=== PATIENT | male | born 1970 | race African-American/Black ===

== ENCOUNTER 2016-09-13 13:40 | Inpatient (IN) | payer OTHER ==
[2016-09-13 15:56] VITALS: BMI 29.4
--- NOTE | 2016-09-13 18:11 | HP ---
CIWA Score - CIWA Score Nausea/Vomitin-Mild Nausea/No Vomiting Muscle Tremors: 4-Moderate,w/Arms Extend Anxiety: 4-Mod. Anxious/Guarded Agitation: 4-Moderately Restless Paroxysmal Sweats: 1-Minimal Palms Moist Orientation: 0-Oriented Tacttile Disturbances: 0-None Auditory Disturbances: 0-None Visual Disturbances: 0-None Headache: 0-None Present CIWA-Ar Total Score: 14 Admission ROS BHS - HPI Chief Complaint: withdrawal sx Allergies/Adverse Reactions: Allergies Allergy/AdvReac Type Severity Reaction Status Date / Time No Known Allergies Allergy Verified 09/13/16 17:39 History of Present Illness: 45 years old male with long history of alcohol dependence, has diabetes and hypertension ambulate with cane x 1 year, history of schizophrenia last dose of haldol 5 years ago, is admitted to detox Exam Limitations: No Limitations - Ebola screening Have you traveled outside of the country in the last 21 days: No Have you had contact with anyone from an Ebola affected area: No Have you been sick,other than usual withdrawal symptoms: No Do you have a fever: No - Review of Systems Constitutional: Chills, Changes in sleep, Weight Stable EENT: reports: No Symptoms Reported Respiratory: reports: No Symptoms reported Cardiac: reports: No Symptoms Reported GI: reports: Nausea, Poor Fluid Intake, Abdominal cramping : reports: No Symptoms Reported Musculoskeletal: reports: Back Pain, Joint Pain (left knee) Integumentary: reports: No Symptoms Reported Neuro: reports: Tremors Endocrine: reports: No Symptoms Reported Hematology: reports: No Symptoms Reported Psychiatric: reports: Judgement Intact, Mood/Affect Appropiate, Orientated x3 Other Systems: Reviewed and Negative Patient History - Patient Medical History Hx Anemia: No Hx Asthma: No Hx Chronic Obstructive Pulmonary Disease (COPD): No Hx Cancer: No Hx Cardiac Disorders: No Hx Congestive Heart Failure: No Hx Hypertension: Yes (on meds.) Hx Hypercholesterolemia: Yes Hx Pacemaker: No HX Cerebrovascular Accident: No Hx Seizures: No Hx Dementia: No Hx Diabetes: Yes (IDDM) Hx Gastrointestinal Disorders: No Hx Liver Disease: No Hx Genitourinary Disorders: No Hx Sexually Transmitted Disorders: No Hx Renal Disease (ESRD): No Hx Thyroid Disease: No Hx Human Immunodeficiency Virus (HIV): No Hx Hepatitis C: No Hx Depression: No Hx Suicide Attempt: No Hx Bipolar Disorder: No Hx Schizophrenia: No - Patient Surgical History Past Surgical History: Yes Hx Neurologic Surgery: No Hx Cataract Extraction: No Hx Cardiac Surgery: No Hx Lung Surgery: No Hx Breast Surgery: No Hx Breast Biopsy: No Hx Abdominal Surgery: No Hx Appendectomy: No Hx Cholecystectomy: No Hx Genitourinary Surgery: No Hx Orthopedic Surgery: Yes (torn ligament, left knee in 2004) Anesthesia Reaction: No - PPD History Previous Implant?: Yes Documented Results: Negative w/proof Implanted On Prior [facility] Admission?: Yes Date: 01/07/16 Results: 0 mm PPD to be Administered?: No - Smoking Cessation Smoking history: Former smoker Have you smoked in the past 12 months: No Aproximately how many cigarettes per day: 0 Hx Chewing Tobacco Use: No Initiated information on smoking cessation: No - Substance & Tx. History Hx Alcohol Use: Yes Hx Substance Use: Yes Substance Use Type: Alcohol, Cocaine Hx Substance Use Treatment: Yes - Substances Abused Alcohol Route: Oral Frequency: Daily Amount used: 2-3 24 oz beers Age of first use: 11 Date of Last Use: 09/13/16 Cocaine Route: Inhalation Frequency: Daily Amount used: $60 Age of first use: 24 Date of Last Use: 09/13/16 Family Disease History - Family Disease History Family Disease History: Diabetes: Grandparent, Brother, Sister Admission Physical Exam S - Vital Signs Vital Signs: Vital Signs - 24 hr 09/13/16 15:53 Temperature 97.5 F L Pulse Rate 106 H Respiratory 20 Rate Blood Pressure 156/79 - Physical General Appearance: Yes: Nourished, Appropriately Dressed, Tremorous, Irritable , Sweating, Anxious HEENTM: Yes: Hearing grossly Normal, Normal ENT Inspection, Normocephalic, Normal Voice Respiratory: Yes: Chest Non-Tender, Lungs Clear, Normal Breath Sounds, No Respiratory Distress, No Accessory Muscle Use Neck: Yes: Supple, Trachea in good position Breast: Yes: Breasts Symetrical Cardiology: Yes: Regular Rhythm, Regular Rate, S1, S2, Tachycardia Abdominal: Yes: Non Tender, Soft Genitourinary: Yes: Within Normal Limits Back: Yes: Normal Inspection Musculoskeletal: Yes: Gait Steady (cane), Back pain, Muscle Pain (left knee) Extremities: Yes: Normal Inspection, Non-Tender, Tremors Neurological: Yes: Alert, Motor Strength 5/5, Normal Response Integumentary: Yes: Warm Lymphatic: Yes: Within Normal Limits - Diagnostic (1) Alcohol dependence with uncomplicated withdrawal Current Visit: Yes Status: Acute (2) Hypercholesteremia Current Visit: Yes Status: Acute (3) Hypertension Current Visit: Yes Status: Acute Qualifiers: Hypertension type: essential hypertension Qualified Code(s): I10 - Essential (primary) hypertension (4) Insulin dependent diabetes mellitus Current Visit: Yes Status: Acute Comment: [facility] 440 (5) Use of cane as ambulatory aid Current Visit: Yes Status: Chronic (6) Bipolar II disorder Current Visit: Yes Status: Suspected (7) Neuropathic pain of both feet Current Visit: Yes Status: Acute Cleared for Admission S - Detox or Rehab [facility] Level of Care: Medically Managed Detox Regimen/Protocol: Librium [facility] Breath Alcohol Content Breath Alcohol Content: 0 Urine Drug Screen - Results Drug Screen Negative: No Urine Drug Screen Results: IRA-Cocaine
[2016-09-13] MEDS ORDERED: MENTHOL/PHENOL 1 EACH UD MM PRN (18:12)
[2016-09-13] MEDS ORDERED: MAGNESIUM CITRATE 300 ML BOTTLE PO PRN (18:12)
[2016-09-13] MEDS ORDERED: chlordiazePOXIDE HCL 25 MG CAPSULE PO PRN (18:12)
[2016-09-13] MEDS ORDERED: guaiFENesin/D-METHORPHAN HB 10 ML UNIT-DOSE CUPS PO PRN (18:12)
[2016-09-13] MEDS ORDERED: hydrOXYzine PAMOATE 50 MG CAPSULE (FP) PO PRN (18:12)
[2016-09-13] MEDS ORDERED: MAG HYDROX/AL HYDROX/SIMETH 30 ML UNIT-DOSE CUP PO PRN (18:12)
[2016-09-13] MEDS ORDERED: diphenhydrAMINE HCL 50 MG CAPSULE PO PRN (18:12)
[2016-09-13] MEDS ORDERED: LOPERAMIDE HCL 2 MG CAPSULE PO PRN (18:12)
[2016-09-13] MEDS ORDERED: P-EPHED 60MG/TRIPROLIDI 2.5MG TABLET PO PRN (18:12)
[2016-09-13] MEDS ORDERED: MAGNESIUM HYDROX 2400MG/30ML ORAL SUSPENSION 30 ML CUP PO PRN (18:12)
[2016-09-13] MEDS ORDERED: ACETAMINOPHEN 325 MG TABLET (FP) PO PRN (18:12)
[2016-09-13] MEDS ORDERED: cloNIDine HCL 0.1 MG TABLET PO PRN (18:26)
[2016-09-13] MEDS ORDERED: INSULIN (NOVOLOG) ASPART 100 UNITS/ML 10ML VIAL ONE (21:04)
[2016-09-13] MEDS: INSULIN SLIDING SCALE (NOVOLOG) 1 VIAL SQ SCH (21:40)
[2016-09-13] MEDS: INSULIN DETEMIR 100 UNITS/ML MDV SQ SCH (21:40)
[2016-09-13 22:29] LABS: URINE APPEARANCE CLEAR; URINE BILIRUBIN NEGATIVE (NEGATIVE); URINE BLOOD NEGATIVE (NEGATIVE); URINE COLOR STRAW; URINE GLUCOSE (UA) 3+ (NEGATIVE); URINE KETONE NEGATIVE (NEGATIVE); URINE LEUK ESTERASE NEGATIVE (NEGATIVE); URINE NITRITE NEGATIVE (NEGATIVE); URINE PROTEIN NEGATIVE (NEGATIVE); URINE UROBILINOGEN NEGATIVE E.U./dl (0.2-1.0)
[2016-09-13] MEDS: ATORVASTATIN CA 10 MG TABLET (FP) PO SCH (22:44)
[2016-09-13] MEDS: THIAMINE HCL 100 MG TABLET (FP) PO SCH (22:44)
[2016-09-13] MEDS: GABAPENTIN 100 MG CAPSULE (FP) PO SCH (22:44)
[2016-09-13] MEDS: chlordiazePOXIDE HCL 25 MG CAPSULE PO SCH (22:44)
[2016-09-13] MEDS: CHOLECALCIFEROL (VITAMIN D3) 400 UNIT TABLET (FP) PO SCH (23:03)
[2016-09-14] MEDS: chlordiazePOXIDE HCL 25 MG CAPSULE PO SCH ×4 (05:40→23:19)
[2016-09-14] MEDS ORDERED: INSULIN DETEMIR 100 UNITS/ML MDV SQ ONE (07:11)
[2016-09-14] MEDS ORDERED: INSULIN (NOVOLOG) ASPART 100 UNITS/ML 10ML VIAL ONE ×3 (07:11→23:21)
[2016-09-14] MEDS: metFORMIN HCL 500 MG TABLET (FP) PO SCH ×2 (07:20→17:30)
[2016-09-14] MEDS: glyBURIDE 5 MG TABLET (UD) PO SCH (07:20)
[2016-09-14] MEDS: INSULIN DETEMIR 100 UNITS/ML MDV SQ SCH ×2 (07:21→23:20)
[2016-09-14] MEDS: INSULIN SLIDING SCALE (NOVOLOG) 1 VIAL SQ SCH ×4 (07:23→23:21)
[2016-09-14] MEDS ORDERED: ENALAPRIL MALEATE 10 MG TABLET (FP) PO SCH (10:00)
[2016-09-14 10:28] LABS: MCH 30.2 pg (25.7-33.7); MCHC 32.5 g/dl (32.0-35.9); MEAN CELL VOLUME 92.9 fl (80-96); MEAN PLT VOLUME 9.6 fl (7.5-11.1); PLATELET COUNT 259 K/MM3 (134-434); RDW 14.2 % (11.9-15.9); WHITE BLOOD COUNT 6.9 K/mm3 (4.0-10.0)
[2016-09-14 10:38] LABS: ALBUMIN 3.1 g/dl (3.4-5.0); ANION GAP 10 (8-16); CALCIUM 8.6 mg/dL (8.5-10.1); CO2 25 mmol/L (21-32)
[2016-09-14 10:43] LABS: ALK PHOS 89 U/L (45-117); BILIRUBIN,TOTAL 0.2 mg/dL (0.2-1.0); SGOT/AST 10 U/L (15-37); SGPT/ALT 23 U/L (12-78); TOT PROT 5.9 g/dl (6.4-8.2)
[2016-09-14] MEDS: PRENATAL VITAMINS W/ FOLIC ACID TABLET (FP) PO SCH (10:54)
[2016-09-14] MEDS: CHOLECALCIFEROL (VITAMIN D3) 400 UNIT TABLET (FP) PO SCH ×2 (10:54→23:20)
[2016-09-14] MEDS: GABAPENTIN 100 MG CAPSULE (FP) PO SCH ×2 (10:54→23:19)
[2016-09-14] MEDS: ASPIRIN 81 MG CHEWABLE TABLETS PO SCH (10:54)
[2016-09-14] MEDS: LISINOPRIL 10 MG TABLET (FP) PO SCH (10:54)
[2016-09-14 11:11] LABS: GLUCOSE,RANDOM 375 mg/dL (74-106)
--- NOTE | 2016-09-14 13:23 | EKG ---
Test Reason : Blood Pressure : / mmHG Vent. Rate : 091 BPM Atrial Rate : 091 BPM P-R Int : 140 ms QRS Dur : 086 ms QT Int : 350 ms P-R-T Axes : 065 -09 021 degrees QTc Int : 430 ms SINUS RHYTHM WITH OCCASIONAL PREMATURE VENTRICULAR COMPLEXES MINIMAL VOLTAGE CRITERIA FOR LVH, MAY BE NORMAL VARIANT NONSPECIFIC ST AND T WAVE ABNORMALITY ABNORMAL ECG NO PREVIOUS ECGS AVAILABLE Confirmed by CHRIS WEBSTRE, AUDRA ([id number]) on 09/14/2016 1:23:24 PM Referred By: Sagar Burgos Confirmed By:AUDRA PEREZ MD
--- NOTE | 2016-09-14 15:04 | PN ---
S CIWA - CIWA Score Nausea/Vomitin-Mild Nausea/No Vomiting Muscle Tremors: 4-Moderate,w/Arms Extend Anxiety: 2 Agitation: 2 Paroxysmal Sweats: 3 Orientation: 0-Oriented Tacttile Disturbances: 2-Mild Itch/Numbness/Burn Auditory Disturbances: 0-None Visual Disturbances: 2-Mild Sensitivity Headache: 0-None Present CIWA-Ar Total Score: 16 BHS Progress Note (SOAP) Subjective: Sweating, Interrupted sleep, Tremors. Objective: PT. A & O X 3; PT. OBSERVED AMBULATING ON UNIT WITH CANE. 09/14/16 15:03 Vital Signs Temperature 96 F L 09/14/16 14:27 Pulse Rate 81 09/14/16 14:27 Respiratory Rate 19 09/14/16 14:27 Blood Pressure 114/70 09/14/16 14:27 O2 Sat by Pulse Oximetry (%) Laboratory Last Values WBC 6.9 K/mm3 (4.0-10.0) 09/14/16 07:15 RBC 4.18 M/mm3 (4.00-5.60) 09/14/16 07:15 Hgb 12.6 GM/dL (11.7-16.9) 09/14/16 07:15 Hct 38.9 % (35.4-49) 09/14/16 07:15 MCV 92.9 fl (80-96) 09/14/16 07:15 MCHC 32.5 g/dl (32.0-35.9) 09/14/16 07:15 RDW 14.2 % (11.9-15.9) 09/14/16 07:15 Plt Count 259 K/MM3 (134-434) 09/14/16 07:15 MPV 9.6 fl (7.5-11.1) 09/14/16 07:15 Sodium 139 mmol/L (136-145) 09/14/16 07:15 Potassium 4.0 mmol/L (3.5-5.1) 09/14/16 07:15 Chloride 104 mmol/L (98-107) 09/14/16 07:15 Carbon Dioxide 25 mmol/L (21-32) 09/14/16 07:15 Anion Gap 10 (8-16) 09/14/16 07:15 BUN 11 mg/dL (7-18) D 09/14/16 07:15 Creatinine 1.0 mg/dL (0.7-1.3) 09/14/16 07:15 Creat Clearance w eGFR > 60 (>60) 09/14/16 07:15 POC Glucometer 331 UNITS (()) 09/14/16 05:39 Random Glucose 375 mg/dL (74-106) H* D 09/14/16 07:15 Calcium 8.6 mg/dL (8.5-10.1) 09/14/16 07:15 Total Bilirubin 0.2 mg/dL (0.2-1.0) D 09/14/16 07:15 AST 10 U/L (15-37) L 09/14/16 07:15 ALT 23 U/L (12-78) 09/14/16 07:15 Alkaline Phosphatase 89 U/L (45-117) 09/14/16 07:15 Total Protein 5.9 g/dl (6.4-8.2) L 09/14/16 07:15 Albumin 3.1 g/dl (3.4-5.0) L 09/14/16 07:15 Urine Color Straw 09/13/16 22:00 Urine Appearance Clear 09/13/16 22:00 Urine pH 5.0 (5.0-8.0) 09/13/16 22:00 Ur Specific [place] 1.032 (1.001-1.035) 09/13/16 22:00 Urine Protein Negative (NEGATIVE) 09/13/16 22:00 Urine Glucose (UA) 3+ (NEGATIVE) H 09/13/16 22:00 Urine Ketones Negative (NEGATIVE) 09/13/16 22:00 Urine Blood Negative (NEGATIVE) 09/13/16 22:00 Urine Nitrite Negative (NEGATIVE) 09/13/16 22:00 Urine Bilirubin Negative (NEGATIVE) 09/13/16 22:00 Urine Urobilinogen Negative E.U./dl (0.2-1.0) 09/13/16 22:00 Ur Leukocyte Esterase Negative (NEGATIVE) 09/13/16 22:00 RPR Titer Nonreactive (NONREACTIVE) 09/14/16 07:15 LABS NOTED. Assessment: 09/14/16 15:03 WITHDRAWAL SYMPTOMS. Plan: CONTINUE DETOX. ADVISED PATIENT TO FOLLOW-UP WITH [facility] / REHAB MEDICAL PROVIDER AFTER DISCHARGE FROM DETOX FOR GENERAL MEDICAL ASSESSMENT AND FOR ABNORMAL LAB VALUES.
--- NOTE | 2016-09-14 16:42 | CONSULT ---
[facility] Psychiatric Consult - Data Date of interview: 09/14/16 Admission source: [facility] Identifying data: Another admission to [facility] for this 45 y/o AA male seeking detox treatment on for alcohol and cocaine dependence.Patient is single,a father of one,domiciled,unemployed (disabled) and supported on SSI benefits. Substance Abuse History: - Smoking Cessation. Smoking history: Former smoker. Have you smoked in the past 12 months: No. Aproximately how many cigarettes per day: 0. Hx Chewing Tobacco Use: No. Initiated information on smoking cessation: No. - Substance & Tx. History. Hx Alcohol Use: Yes. Hx Substance Use: Yes. Substance Use Type: Alcohol, Cocaine. Hx Substance Use Treatment: Yes. - Substances Abused. Alcohol. Route: Oral. Frequency: Daily. Amount used: 2-3 24 oz beers. Age of first use: 11. Date of Last Use: . Cocaine. Route: Inhalation. Frequency: Daily. Amount used: $60. Age of first use: 24. Date of Last Use: 09/13/16. Confirmed by the patient in this interview. Medical History: Significant for diabetes mellitus,hypercholesterolemia, neuropathy,arthritis of left knee and hypertension.Noted history of orthosurgery for a torn ligament of left knee (2004). Psychiatric History: Patient presents with an extensive history of mental illness.Remarkable for multiple psychiatric hospitalizations.Diagnosed with schizophrenia and treated,over the years,with various drugs.Mr Camacho is in heavy denial of his mental condition.Patient reports that he has no OPD care provider.Has abstained from psychotropic medications for several months.In this interview,Mr Camacho declares that he is interested in taking psychotropic medications other than drugs for detoxification. Physical/Sexual Abuse/Trauma History: Patient denies. Additional Comment: Urine Drug Screen Results: IRA-Cocaine.Noted. Mental Status Exam - Mental Status Exam Alert and Oriented to: Time, Place, Person Cognitive Function: Good Patient Appearance: Unkempt, Disheveled (obese) Mood: Withdrawn Affect: Constricted Patient Behavior: Passive, Fatigued, Cooperative Speech Pattern: Clear Voice Loudness: Normal Thought Process: Goal Oriented Thought Disorder: Not Present Hallucinations: Denies Suicidal Ideation: Denies Homicidal Ideation: Denies Insight/Judgement: Poor Sleep: Fair Appetite: Good Gait/Station: Other (walks with a cane) Psychiatric Findings - Problem List ([place] 1, 2,3) (1) Alcohol dependence with uncomplicated withdrawal Current Visit: Yes Status: Acute (2) Cocaine dependence Current Visit: Yes Status: Acute Qualifiers: Complication of substance-induced condition: uncomplicated (3) Drug-induced mood disorder Current Visit: Yes Status: Acute (4) Nicotine dependence Current Visit: Yes Status: Acute (5) Bipolar disorder, unspecified Current Visit: No Status: Chronic Qualifiers: Active/Remission status: remission status unspecified Qualified Code (s): F31.9 - Bipolar disorder, unspecified Comment: Historical diagnosis. (6) Hypercholesteremia Current Visit: Yes Status: Chronic (7) Hypertension Current Visit: Yes Status: Chronic Qualifiers: Hypertension type: essential hypertension Qualified Code(s): I10 - Essential (primary) hypertension (8) Insulin dependent diabetes mellitus Current Visit: Yes Status: Chronic Comment: [facility] 440 (9) Neuropathic pain of both feet Current Visit: Yes Status: Chronic (10) Use of cane as ambulatory aid Current Visit: Yes Status: Chronic (11) Arthritis Current Visit: No Status: Chronic - Initial Treatment Plan Initial Treatment Plan: Psychoeducation.Detoxification.Patient refuses to take medications.Observation.Fall precautions.
[2016-09-14] MEDS: ATORVASTATIN CA 10 MG TABLET (FP) PO SCH (23:19)
[2016-09-14] MEDS: THIAMINE HCL 100 MG TABLET (FP) PO SCH (23:19)
[2016-09-15] MEDS: metFORMIN HCL 500 MG TABLET (FP) PO SCH ×2 (06:10→17:51)
[2016-09-15] MEDS: glyBURIDE 5 MG TABLET (UD) PO SCH (06:10)
[2016-09-15] MEDS: chlordiazePOXIDE HCL 25 MG CAPSULE PO SCH ×4 (06:10→18:03)
[2016-09-15] MEDS ORDERED: INSULIN (NOVOLOG MIX 70/30) 100 UNITS/ML MDV SQ ONE (06:14)
[2016-09-15] MEDS ORDERED: INSULIN (NOVOLOG) ASPART 100 UNITS/ML 10ML VIAL ONE ×4 (06:15→23:42)
[2016-09-15] MEDS: INSULIN DETEMIR 100 UNITS/ML MDV SQ SCH ×2 (06:16→23:44)
[2016-09-15] MEDS: INSULIN SLIDING SCALE (NOVOLOG) 1 VIAL SQ SCH ×4 (06:17→23:45)
--- NOTE | 2016-09-15 10:40 | PN ---
[facility] CIWA - CIWA Score Nausea/Vomitin-No Nausea/No Vomiting Muscle Tremors: 3 Anxiety: 4-Mod. Anxious/Guarded Agitation: 3 Paroxysmal Sweats: 3 Orientation: 0-Oriented Tacttile Disturbances: 1-Very Mild Itch/Numbness Auditory Disturbances: 0-None Visual Disturbances: 0-None Headache: 0-None Present CIWA-Ar Total Score: 14 BHS Progress Note (SOAP) Subjective: Anxiety,tremors,sweating,interrupted sleep,restless Objective: 09/15/16 10:39 Vital Signs - 8 hr 09/15/16 09/15/16 03:30 06:23 Temperature 97 F L Pulse Rate 87 Respiratory 20 18 Rate Blood Pressure 113/61 Laboratory Tests 09/13/16 09/13/16 09/14/16 17:50 22:00 05:39 WBC RBC Hgb Hct MCV MCHC RDW Plt Count MPV Sodium Potassium Chloride Carbon Dioxide Anion Gap BUN Creatinine Creat Clearance w eGFR POC Glucometer 553 331 Random Glucose Calcium Total Bilirubin AST ALT Alkaline Phosphatase Total Protein Albumin Urine Color Straw Urine Appearance Clear Urine pH 5.0 Ur Specific [place] 1.032 Urine Protein Negative Urine Glucose (UA) 3+ H Urine Ketones Negative Urine Blood Negative Urine Nitrite Negative Urine Bilirubin Negative Urine Urobilinogen Negative Ur Leukocyte Esterase Negative RPR Titer 09/14/16 09/14/16 09/14/16 07:15 07:15 07:15 WBC 6.9 RBC 4.18 Hgb 12.6 Hct 38.9 MCV 92.9 MCHC 32.5 RDW 14.2 Plt Count 259 MPV 9.6 Sodium 139 Potassium 4.0 Chloride 104 Carbon Dioxide 25 Anion Gap 10 BUN 11 D Creatinine 1.0 Creat Clearance w eGFR > 60 POC Glucometer Random Glucose 375 H* D Calcium 8.6 Total Bilirubin 0.2 D AST 10 L ALT 23 Alkaline Phosphatase 89 Total Protein 5.9 L Albumin 3.1 L Urine Color Urine Appearance Urine pH Ur Specific [place] Urine Protein Urine Glucose (UA) Urine Ketones Urine Blood Urine Nitrite Urine Bilirubin Urine Urobilinogen Ur Leukocyte Esterase RPR Titer Nonreactive 09/14/16 09/15/16 16:21 06:04 WBC RBC Hgb Hct MCV MCHC RDW Plt Count MPV Sodium Potassium Chloride Carbon Dioxide Anion Gap BUN Creatinine Creat Clearance w eGFR POC Glucometer 241 340 Random Glucose Calcium Total Bilirubin AST ALT Alkaline Phosphatase Total Protein Albumin Urine Color Urine Appearance Urine pH Ur Specific [place] Urine Protein Urine Glucose (UA) Urine Ketones Urine Blood Urine Nitrite Urine Bilirubin Urine Urobilinogen Ur Leukocyte Esterase RPR Titer labs noted Assessment: 09/15/16 10:40 Withdrawal Sx. Plan: Continue detox
[2016-09-15] MEDS: ASPIRIN 81 MG CHEWABLE TABLETS PO SCH (11:14)
[2016-09-15] MEDS: PRENATAL VITAMINS W/ FOLIC ACID TABLET (FP) PO SCH (11:14)
[2016-09-15] MEDS: LISINOPRIL 10 MG TABLET (FP) PO SCH (11:14)
[2016-09-15] MEDS: CHOLECALCIFEROL (VITAMIN D3) 400 UNIT TABLET (FP) PO SCH ×2 (11:14→22:58)
[2016-09-15] MEDS: GABAPENTIN 100 MG CAPSULE (FP) PO SCH ×2 (11:15→23:00)
[2016-09-15] MEDS: THIAMINE HCL 100 MG TABLET (FP) PO SCH (22:58)
[2016-09-15] MEDS: chlordiazePOXIDE 5 MG CAPSULE PO SCH (23:00)
[2016-09-15] MEDS: ATORVASTATIN CA 10 MG TABLET (FP) PO SCH (23:00)
[2016-09-16] MEDS: chlordiazePOXIDE 5 MG CAPSULE PO SCH ×4 (06:16→17:38)
[2016-09-16] MEDS ORDERED: INSULIN (NOVOLOG) ASPART 100 UNITS/ML 10ML VIAL ONE ×3 (06:17→21:32)
[2016-09-16] MEDS: metFORMIN HCL 500 MG TABLET (FP) PO SCH ×2 (06:59→16:30)
[2016-09-16] MEDS: glyBURIDE 5 MG TABLET (UD) PO SCH (06:59)
[2016-09-16] MEDS: INSULIN SLIDING SCALE (NOVOLOG) 1 VIAL SQ SCH ×4 (07:00→21:44)
[2016-09-16] MEDS: INSULIN DETEMIR 100 UNITS/ML MDV SQ SCH ×2 (07:48→21:44)
[2016-09-16] MEDS: GABAPENTIN 100 MG CAPSULE (FP) PO SCH ×2 (10:45→21:43)
[2016-09-16] MEDS: CHOLECALCIFEROL (VITAMIN D3) 400 UNIT TABLET (FP) PO SCH ×2 (10:45→21:44)
[2016-09-16] MEDS: ASPIRIN 81 MG CHEWABLE TABLETS PO SCH (10:45)
[2016-09-16] MEDS: PRENATAL VITAMINS W/ FOLIC ACID TABLET (FP) PO SCH (10:45)
[2016-09-16] MEDS: LISINOPRIL 10 MG TABLET (FP) PO SCH (10:46)
--- NOTE | 2016-09-16 14:50 | PN ---
BHS Progress Note (SOAP) Subjective: Sweating, Back Ache, Stomach Ache, Nausea, Fatigue. Objective: PT. A & O X 3. 09/16/16 14:48 Vital Signs Temperature 96.1 F L 09/16/16 13:00 Pulse Rate 85 09/16/16 13:00 Respiratory Rate 18 09/16/16 13:00 Blood Pressure 116/74 09/16/16 13:00 O2 Sat by Pulse Oximetry (%) Laboratory Last Values WBC 6.9 K/mm3 (4.0-10.0) 09/14/16 07:15 RBC 4.18 M/mm3 (4.00-5.60) 09/14/16 07:15 Hgb 12.6 GM/dL (11.7-16.9) 09/14/16 07:15 Hct 38.9 % (35.4-49) 09/14/16 07:15 MCV 92.9 fl (80-96) 09/14/16 07:15 MCHC 32.5 g/dl (32.0-35.9) 09/14/16 07:15 RDW 14.2 % (11.9-15.9) 09/14/16 07:15 Plt Count 259 K/MM3 (134-434) 09/14/16 07:15 MPV 9.6 fl (7.5-11.1) 09/14/16 07:15 Sodium 139 mmol/L (136-145) 09/14/16 07:15 Potassium 4.0 mmol/L (3.5-5.1) 09/14/16 07:15 Chloride 104 mmol/L (98-107) 09/14/16 07:15 Carbon Dioxide 25 mmol/L (21-32) 09/14/16 07:15 Anion Gap 10 (8-16) 09/14/16 07:15 BUN 11 mg/dL (7-18) D 09/14/16 07:15 Creatinine 1.0 mg/dL (0.7-1.3) 09/14/16 07:15 Creat Clearance w eGFR > 60 (>60) 09/14/16 07:15 POC Glucometer 328 UNITS (()) 09/16/16 05:36 Random Glucose 375 mg/dL (74-106) H* D 09/14/16 07:15 Calcium 8.6 mg/dL (8.5-10.1) 09/14/16 07:15 Total Bilirubin 0.2 mg/dL (0.2-1.0) D 09/14/16 07:15 AST 10 U/L (15-37) L 09/14/16 07:15 ALT 23 U/L (12-78) 09/14/16 07:15 Alkaline Phosphatase 89 U/L (45-117) 09/14/16 07:15 Total Protein 5.9 g/dl (6.4-8.2) L 09/14/16 07:15 Albumin 3.1 g/dl (3.4-5.0) L 09/14/16 07:15 Urine Color Straw 09/13/16 22:00 Urine Appearance Clear 09/13/16 22:00 Urine pH 5.0 (5.0-8.0) 09/13/16 22:00 Ur Specific [place] 1.032 (1.001-1.035) 09/13/16 22:00 Urine Protein Negative (NEGATIVE) 09/13/16 22:00 Urine Glucose (UA) 3+ (NEGATIVE) H 09/13/16 22:00 Urine Ketones Negative (NEGATIVE) 09/13/16 22:00 Urine Blood Negative (NEGATIVE) 09/13/16 22:00 Urine Nitrite Negative (NEGATIVE) 09/13/16 22:00 Urine Bilirubin Negative (NEGATIVE) 09/13/16 22:00 Urine Urobilinogen Negative E.U./dl (0.2-1.0) 09/13/16 22:00 Ur Leukocyte Esterase Negative (NEGATIVE) 09/13/16 22:00 RPR Titer Nonreactive (NONREACTIVE) 09/14/16 07:15 LABS NOTED. Assessment: 09/16/16 14:49 WITHDRAWAL SYMPTOMS. Plan: CONTINUE DETOX. ADVISED PATIENT TO FOLLOW-UP WITH [facility] / REHAB MEDICAL PROVIDER AFTER DISCHARGE FROM DETOX FOR GENERAL MEDICAL ASSESSMENT AND FOR ABNORMAL LAB VALUES.
[2016-09-16] MEDS ORDERED: INSULIN (NOVOLOG MIX 70/30) 100 UNITS/ML MDV SQ ONE (21:33)
[2016-09-16] MEDS: ATORVASTATIN CA 10 MG TABLET (FP) PO SCH (21:43)
[2016-09-16] MEDS: THIAMINE HCL 100 MG TABLET (FP) PO SCH (22:42)
[2016-09-16] MEDS: chlordiazePOXIDE HCL 10 MG CAPSULE PO SCH (22:43)
[2016-09-17] MEDS: chlordiazePOXIDE HCL 10 MG CAPSULE PO SCH ×2 (06:08→10:52)
[2016-09-17] MEDS: glyBURIDE 5 MG TABLET (UD) PO SCH (06:09)
[2016-09-17] MEDS: metFORMIN HCL 500 MG TABLET (FP) PO SCH (06:09)
[2016-09-17] MEDS ORDERED: INSULIN (NOVOLOG) ASPART 100 UNITS/ML 10ML VIAL ONE (06:10)
[2016-09-17] MEDS: INSULIN SLIDING SCALE (NOVOLOG) 1 VIAL SQ SCH ×2 (07:36→11:41)
[2016-09-17] MEDS: INSULIN DETEMIR 100 UNITS/ML MDV SQ SCH (07:36)
[2016-09-17 10:47] VITALS: BP 120/80; PULSE 98; TEMP 97
[2016-09-17] MEDS: GABAPENTIN 100 MG CAPSULE (FP) PO SCH (10:50)
[2016-09-17] MEDS: PRENATAL VITAMINS W/ FOLIC ACID TABLET (FP) PO SCH (10:50)
[2016-09-17] MEDS: ASPIRIN 81 MG CHEWABLE TABLETS PO SCH (10:50)
[2016-09-17] MEDS: LISINOPRIL 10 MG TABLET (FP) PO SCH (10:50)
[2016-09-17] MEDS: CHOLECALCIFEROL (VITAMIN D3) 400 UNIT TABLET (FP) PO SCH (10:51)
--- NOTE | 2016-09-17 10:52 | DS ---
[facility] Detox Discharge Summary Admission Date: 09/13/16 Discharge Date: 09/17/16 - History Present History: Alcohol Dependence, Cocaine Dependence Pertinent Past History: hypercholesterolemia HTN type II DM,insulin dependent - Physical Exam Results Vital Signs: Vital Signs Temperature 97.0 F L 09/17/16 10:44 Pulse Rate 98 H 09/17/16 10:44 Respiratory Rate 19 09/17/16 10:44 Blood Pressure 120/80 09/17/16 10:44 O2 Sat by Pulse Oximetry (%) Pertinent Admission Physical Exam Findings: Withdrawal sx. Laboratory Last Values WBC 6.9 K/mm3 (4.0-10.0) 09/14/16 07:15 RBC 4.18 M/mm3 (4.00-5.60) 09/14/16 07:15 Hgb 12.6 GM/dL (11.7-16.9) 09/14/16 07:15 Hct 38.9 % (35.4-49) 09/14/16 07:15 MCV 92.9 fl (80-96) 09/14/16 07:15 MCHC 32.5 g/dl (32.0-35.9) 09/14/16 07:15 RDW 14.2 % (11.9-15.9) 09/14/16 07:15 Plt Count 259 K/MM3 (134-434) 09/14/16 07:15 MPV 9.6 fl (7.5-11.1) 09/14/16 07:15 Sodium 139 mmol/L (136-145) 09/14/16 07:15 Potassium 4.0 mmol/L (3.5-5.1) 09/14/16 07:15 Chloride 104 mmol/L (98-107) 09/14/16 07:15 Carbon Dioxide 25 mmol/L (21-32) 09/14/16 07:15 Anion Gap 10 (8-16) 09/14/16 07:15 BUN 11 mg/dL (7-18) D 09/14/16 07:15 Creatinine 1.0 mg/dL (0.7-1.3) 09/14/16 07:15 Creat Clearance w eGFR > 60 (>60) 09/14/16 07:15 POC Glucometer 248 UNITS (()) 09/17/16 05:55 Random Glucose 375 mg/dL (74-106) H* D 09/14/16 07:15 Calcium 8.6 mg/dL (8.5-10.1) 09/14/16 07:15 Total Bilirubin 0.2 mg/dL (0.2-1.0) D 09/14/16 07:15 AST 10 U/L (15-37) L 09/14/16 07:15 ALT 23 U/L (12-78) 09/14/16 07:15 Alkaline Phosphatase 89 U/L (45-117) 09/14/16 07:15 Total Protein 5.9 g/dl (6.4-8.2) L 09/14/16 07:15 Albumin 3.1 g/dl (3.4-5.0) L 09/14/16 07:15 Urine Color Straw 09/13/16 22:00 Urine Appearance Clear 09/13/16 22:00 Urine pH 5.0 (5.0-8.0) 09/13/16 22:00 Ur Specific [place] 1.032 (1.001-1.035) 09/13/16 22:00 Urine Protein Negative (NEGATIVE) 09/13/16 22:00 Urine Glucose (UA) 3+ (NEGATIVE) H 09/13/16 22:00 Urine Ketones Negative (NEGATIVE) 09/13/16 22:00 Urine Blood Negative (NEGATIVE) 09/13/16 22:00 Urine Nitrite Negative (NEGATIVE) 09/13/16 22:00 Urine Bilirubin Negative (NEGATIVE) 09/13/16 22:00 Urine Urobilinogen Negative E.U./dl (0.2-1.0) 09/13/16 22:00 Ur Leukocyte Esterase Negative (NEGATIVE) 09/13/16 22:00 RPR Titer Nonreactive (NONREACTIVE) 09/14/16 07:15 labs noted - Treatment Hospital Course: Detox Protocol Followed, Detoxed Safely, Responded well, Discharged Condition Good, Rehab Referral Accepted - Medication Discharge Medications: Ambulatory Orders Cholecalciferol (Vitamin D3) [Vitamin D3] 400 unit PO BID 12/13/15 Gabapentin [Neurontin -] 100 mg PO BID 12/13/15 Aspirin [ASA -] 81 mg PO DAILY #30 tab.chew 12/17/15 Enalapril Maleate [Vasotec -] 10 mg PO DAILY #30 tablet 12/17/15 Glyburide 10 mg PO BID #60 tablet 12/17/15 Lisinopril 10 mg PO DAILY #30 tablet 12/17/15 Insulin (Novolog 70/30) [Novolog Mix 70/30 Vial -] 5 units SQ HS 01/04/16 Metformin HCl [Glucophage] 1,000 mg PO BID 01/04/16 Atorvastatin Ca [Lipitor] 10 mg PO HS 04/27/16 Insulin Aspart Prot/Insuln Asp [Novolog Mix 70-30 Flexpen Syrn] 10 unit SQ AM - Diagnosis (1) Alcohol dependence with uncomplicated withdrawal Current Visit: Yes Status: Acute (2) Drug-induced mood disorder Current Visit: Yes Status: Acute (3) Nicotine dependence Current Visit: Yes Status: Acute Qualifiers: Nicotine product type: cigarettes Substance use status: uncomplicated Qualified Code(s): F17.210 - Nicotine dependence, cigarettes, uncomplicated (4) Hypercholesteremia Current Visit: Yes Status: Chronic (5) Hypertension Current Visit: Yes Status: Chronic Qualifiers: Hypertension type: essential hypertension Qualified Code(s): I10 - Essential (primary) hypertension (6) Insulin dependent diabetes mellitus Current Visit: Yes Status: Chronic (7) Bipolar disorder, unspecified Current Visit: Yes Status: Chronic Qualifiers: Active/Remission status: remission status unspecified Qualified Code (s): F31.9 - Bipolar disorder, unspecified - AMA Did Patient Leave Against Medical Advice: No
== END 2016-09-17 13:03 | disposition home or self-care (01) | DRG 775 ==
LOC: YASAS 13:40 → Y3N 18:46
PROVIDERS: ADMIT Internal Medicine; ATTEND Internal Medicine
PROC: HZ2ZZZZ Detoxification Services for Substance Abuse Treatment (ICD-10-PCS; principal; 2016-09-13)
DX: F10.230 Alcohol dependence with withdrawal, uncomplicated (principal); F17.210 Nicotine dependence, cigarettes, uncomplicated; F19.24 Other psychoactive substance dependence with psychoactive substance-induced mood disorder; F31.81 Bipolar II disorder; G62.9 Polyneuropathy, unspecified; E78.00 Pure hypercholesterolemia, unspecified; I10 Essential (primary) hypertension; E11.9 Type 2 diabetes mellitus without complications; Z79.4 Long term (current) use of insulin; R26.2 Difficulty in walking, not elsewhere classified; M13.861 Other specified arthritis, right knee; R00.0 Tachycardia, unspecified
CPT/HCPCS: 36415; 80053; 81003; 85027; 86593; 93005; 93010

== ENCOUNTER 2016-10-22 13:27 | Inpatient (IN) | payer OTHER ==
[2016-10-22 17:33] VITALS: BMI 28.8
--- NOTE | 2016-10-22 18:59 | HP ---
CIWA Score - CIWA Score Nausea/Vomitin-Mild Nausea/No Vomiting Muscle Tremors: 4-Moderate,w/Arms Extend Anxiety: 4-Mod. Anxious/Guarded Agitation: 4-Moderately Restless Paroxysmal Sweats: 1-Minimal Palms Moist Orientation: 1-Uncertain about Date Tacttile Disturbances: 0-None Auditory Disturbances: 0-None Visual Disturbances: 0-None Headache: 0-None Present CIWA-Ar Total Score: 15 Admission ROS BHS - HPI Chief Complaint: WITHDRAWAL SX Allergies/Adverse Reactions: Allergies Allergy/AdvReac Type Severity Reaction Status Date / Time No Known Allergies Allergy Verified 10/22/16 17:56 History of Present Illness: 45 YEARS OLD MALE WITH LONG HISTORY OF ALCOHOL NICOTINE DEPENDENCE, DIABETES II HYPERTENSION HYPERLIPID AND BIPOLAR II IS ADMITTED TO DETOX Exam Limitations: No Limitations - Ebola screening Have you traveled outside of the country in the last 21 days: No Have you had contact with anyone from an Ebola affected area: No Have you been sick,other than usual withdrawal symptoms: No Do you have a fever: No - Review of Systems Constitutional: Chills, Changes in sleep, Weight Stable EENT: reports: No Symptoms Reported Respiratory: reports: No Symptoms reported Cardiac: reports: No Symptoms Reported GI: reports: Nausea, Poor Fluid Intake, Abdominal cramping : reports: No Symptoms Reported Musculoskeletal: reports: Back Pain, Muscle Weakness (LEGS) Integumentary: reports: No Symptoms Reported Neuro: reports: Tremors Endocrine: reports: No Symptoms Reported Hematology: reports: No Symptoms Reported Psychiatric: reports: Judgement Intact, Anxious, Depressed Other Systems: Reviewed and Negative Patient History - Patient Medical History Hx Anemia: No Hx Asthma: No Hx Chronic Obstructive Pulmonary Disease (COPD): No Hx Cancer: No Hx Cardiac Disorders: No Hx Congestive Heart Failure: No Hx Hypertension: Yes (on meds.) Hx Hypercholesterolemia: Yes Hx Pacemaker: No HX Cerebrovascular Accident: No Hx Seizures: No Hx Dementia: No Hx Diabetes: Yes (IDDM) Hx Gastrointestinal Disorders: No Hx Liver Disease: No Hx Genitourinary Disorders: No Hx Sexually Transmitted Disorders: No Hx Renal Disease (ESRD): No Hx Thyroid Disease: No Hx Human Immunodeficiency Virus (HIV): No Hx Hepatitis C: No Hx Depression: No Hx Suicide Attempt: No Hx Bipolar Disorder: Yes Hx Schizophrenia: No - Patient Surgical History Past Surgical History: Yes Hx Neurologic Surgery: No Hx Cataract Extraction: No Hx Cardiac Surgery: No Hx Lung Surgery: No Hx Breast Surgery: No Hx Breast Biopsy: No Hx Abdominal Surgery: No Hx Appendectomy: No Hx Cholecystectomy: No Hx Genitourinary Surgery: No Hx Orthopedic Surgery: Yes (torn ligament, left knee in 2004) Anesthesia Reaction: No - PPD History Previous Implant?: Yes Documented Results: Negative w/proof Implanted On Prior [facility] Admission?: Yes Date: 01/07/16 Results: 0 mm PPD to be Administered?: No - Smoking Cessation Smoking history: Current every day smoker Have you smoked in the past 12 months: Yes Aproximately how many cigarettes per day: 10 Cigars Per Day: 0 Hx Chewing Tobacco Use: No Initiated information on smoking cessation: Yes 'Breaking Loose' booklet given: 10/22/16 - Substance & Tx. History Hx Alcohol Use: Yes Hx Substance Use: Yes Substance Use Type: Alcohol, Cocaine Hx Substance Use Treatment: Yes - Substances Abused Alcohol Route: Oral Frequency: Daily Amount used: LIQUOR- 2 PINTS JAKOB Age of first use: 11 Date of Last Use: 10/21/16 Cocaine Route: Inhalation Frequency: Daily Amount used: 3 BAGS Age of first use: 27 Date of Last Use: 10/20/16 Family Disease History - Family Disease History Family Disease History: Diabetes: Grandparent, Brother, Sister Admission Physical Exam BHS - Vital Signs Vital Signs: Vital Signs - 24 hr 10/22/16 17:27 Temperature 97.6 F Pulse Rate 74 Respiratory 18 Rate Blood Pressure 146/70 - Physical General Appearance: Yes: Nourished, Appropriately Dressed, Mild Distress, Tremorous, Irritable, Sweating, Anxious HEENTM: Yes: Hearing grossly Normal, Normal ENT Inspection, Normocephalic, Normal Voice Respiratory: Yes: Chest Non-Tender, Lungs Clear, Normal Breath Sounds, No Respiratory Distress, No Accessory Muscle Use Neck: Yes: Supple, Trachea in good position Breast: Yes: Breasts Symetrical Cardiology: Yes: Regular Rhythm, Regular Rate, S1, S2 Abdominal: Yes: Non Tender, Soft Genitourinary: Yes: Within Normal Limits Back: Yes: Normal Inspection Musculoskeletal: Yes: Gait Steady (CANE), Back pain, Muscle Pain Extremities: Yes: Non-Tender, Tremors Neurological: Yes: Alert, Motor Strength 5/5, Normal Response, Depressed Affect Integumentary: Yes: Warm Lymphatic: Yes: Within Normal Limits - Diagnostic (1) Alcohol dependence with uncomplicated withdrawal Current Visit: Yes Status: Acute (2) Nicotine dependence Current Visit: Yes Status: Acute Qualifiers: Nicotine product type: cigarettes Substance use status: in withdrawal Qualified Code(s): F17.213 - Nicotine dependence, cigarettes, with withdrawal (3) Hypercholesteremia Current Visit: Yes Status: Acute (4) Hypertension Current Visit: Yes Status: Acute Qualifiers: Hypertension type: essential hypertension Qualified Code(s): I10 - Essential (primary) hypertension (5) Insulin dependent diabetes mellitus Current Visit: Yes Status: Acute Comment: BGM 500 (6) Neuropathic pain of both feet Current Visit: Yes Status: Acute (7) Use of cane as ambulatory aid Current Visit: Yes Status: Acute (8) Bipolar II disorder Current Visit: Yes Status: Suspected (9) Cocaine dependence, uncomplicated Current Visit: Yes Status: Chronic Cleared for Admission [facility] - Detox or Rehab [facility] Level of Care: Medically Managed Detox Regimen/Protocol: Librium [facility] Breath Alcohol Content Breath Alcohol Content: 0 Urine Drug Screen - Results Drug Screen Negative: No Urine Drug Screen Results: IRA-Cocaine
[2016-10-22] MEDS ORDERED: MAG HYDROX/AL HYDROX/SIMETH 30 ML UNIT-DOSE CUP PO PRN (19:02)
[2016-10-22] MEDS ORDERED: hydrOXYzine PAMOATE 50 MG CAPSULE (FP) PO PRN (19:02)
[2016-10-22] MEDS ORDERED: NICOTINE POLACRILEX 2 MG GUM BC PRN (19:02)
[2016-10-22] MEDS ORDERED: diphenhydrAMINE HCL 50 MG CAPSULE PO PRN (19:02)
[2016-10-22] MEDS ORDERED: MENTHOL/PHENOL 1 EACH UD MM PRN (19:02)
[2016-10-22] MEDS ORDERED: chlordiazePOXIDE HCL 25 MG CAPSULE PO PRN (19:02)
[2016-10-22] MEDS ORDERED: ACETAMINOPHEN 325 MG TABLET (FP) PO PRN (19:02)
[2016-10-22] MEDS ORDERED: MAGNESIUM HYDROX 2400MG/30ML ORAL SUSPENSION 30 ML CUP PO PRN (19:02)
[2016-10-22] MEDS ORDERED: P-EPHED 60MG/TRIPROLIDI 2.5MG TABLET PO PRN (19:02)
[2016-10-22] MEDS ORDERED: guaiFENesin/D-METHORPHAN HB 10 ML UNIT-DOSE CUPS PO PRN (19:02)
[2016-10-22] MEDS ORDERED: LOPERAMIDE HCL 2 MG CAPSULE PO PRN (19:02)
[2016-10-22] MEDS ORDERED: MAGNESIUM CITRATE 300 ML BOTTLE PO PRN (19:02)
[2016-10-22] MEDS: ENALAPRIL MALEATE 10 MG TABLET (FP) PO SCH (20:04)
[2016-10-22] MEDS: amLODIPine BESYLATE 10 MG TABLET (FP) PO SCH (20:04)
[2016-10-22] MEDS ORDERED: INSULIN (NOVOLOG) ASPART 100 UNITS/ML 10ML VIAL ONE (21:22)
[2016-10-22] MEDS: INSULIN SLIDING SCALE (NOVOLOG) 1 VIAL SQ SCH (21:32)
[2016-10-22] MEDS: THIAMINE HCL 100 MG TABLET (FP) PO SCH (22:25)
[2016-10-22] MEDS: ATORVASTATIN CA 10 MG TABLET (FP) PO SCH (22:26)
[2016-10-22] MEDS: GABAPENTIN 100 MG CAPSULE (FP) PO SCH (22:26)
[2016-10-22] MEDS: chlordiazePOXIDE HCL 25 MG CAPSULE PO SCH (22:26)
[2016-10-22 22:46] LABS: URINE APPEARANCE CLEAR; URINE BILIRUBIN NEGATIVE (NEGATIVE); URINE BLOOD NEGATIVE (NEGATIVE); URINE COLOR STRAW; URINE GLUCOSE (UA) 3+ (NEGATIVE); URINE KETONE NEGATIVE (NEGATIVE); URINE LEUK ESTERASE NEGATIVE (NEGATIVE); URINE NITRITE NEGATIVE (NEGATIVE); URINE PROTEIN NEGATIVE (NEGATIVE); URINE UROBILINOGEN NEGATIVE E.U./dl (0.2-1.0)
[2016-10-22] MEDS: CHOLECALCIFEROL (VITAMIN D3) 400 UNIT TABLET (FP) PO SCH (22:57)
[2016-10-23] MEDS: metFORMIN HCL 500 MG TABLET (FP) PO SCH ×2 (06:32→16:30)
[2016-10-23] MEDS: GABAPENTIN 100 MG CAPSULE (FP) PO SCH ×3 (06:32→22:25)
[2016-10-23] MEDS: chlordiazePOXIDE HCL 25 MG CAPSULE PO SCH ×4 (06:32→22:25)
[2016-10-23] MEDS ORDERED: INSULIN (NOVOLOG) ASPART 100 UNITS/ML 10ML VIAL ONE ×3 (06:36→22:15)
[2016-10-23] MEDS: glyBURIDE 5 MG TABLET (UD) PO SCH ×2 (06:45→16:30)
[2016-10-23] MEDS: INSULIN SLIDING SCALE (NOVOLOG) 1 VIAL SQ SCH ×4 (07:00→22:25)
[2016-10-23] MEDS: INSULIN (NOVOLOG MIX 70/30) 100 UNITS/ML MDV SQ SCH ×2 (07:52→16:30)
[2016-10-23 09:51] LABS: MCH 30.4 pg (25.7-33.7); MCHC 32.5 g/dl (32.0-35.9); MEAN CELL VOLUME 93.6 fl (80-96); MEAN PLT VOLUME 10.5 fl (7.5-11.1); PLATELET COUNT 237 K/MM3 (134-434); RDW 14.5 % (11.9-15.9); WHITE BLOOD COUNT 8.7 K/mm3 (4.0-10.0)
--- NOTE | 2016-10-23 10:26 | CONSULT ---
[facility] Psychiatric Consult - Data Date of interview: 10/23/16 Admission source: [facility] Identifying data: One of multiple admissions to [facility] for this 45 y/o AA male seeking detox treatment on for alcohol and cocaine dependence.Patient is single,a father of one,domiciled,unemployed (disabled) and supported on SSI benefits. Substance Abuse History: - Smoking Cessation. Smoking history: Current every day smoker. Have you smoked in the past 12 months: Yes. Aproximately how many cigarettes per day: 10. Cigars Per Day: 0. Hx Chewing Tobacco Use: No. Initiated information on smoking cessation: Yes. 'Breaking Loose' booklet given : 10/22/16. - Substance & Tx. History. Hx Alcohol Use: Yes. Hx Substance Use : Yes. Substance Use Type: Alcohol, Cocaine. Hx Substance Use Treatment: Yes. - Substances Abused. Alcohol. Route: Oral. Frequency: Daily. Amount used: LIQUOR- 2 PINTS JAKOB. Age of first use: 11. Date of Last Use: . Cocaine. Route: Inhalation. Frequency: Daily. Amount used: 3 BAGS. Age of first use: 27. Date of Last Use: 10/20/16. Confirmed by the patient. Medical History: No change : diabetes mellitus,hypercholesterolemia,neuropathy, arthritis of left knee and hypertension.Noted history of orthosurgery for a torn ligament of left knee (2004). Psychiatric History: History of multiple psychiatric hospitalizations.In this interview,the patient states that he is diagnosed with " schizophrenia and bipolar disorder " .Mr Camacho reports that he gets his outpatient psychiatric services at the [facility] mental health clinic.He admits to total non- adherence to medications.Patient refuses to be on any psychotropic medications other than klonopin or drugs for detoxification treatment.Denies history of suicide attempts. Physical/Sexual Abuse/Trauma History: Patient denies. Additional Comment: Urine Drug Screen Results: IRA-Cocaine.Noted. Mental Status Exam - Mental Status Exam Alert and Oriented to: Time, Place, Person Cognitive Function: Good Patient Appearance: Unkempt, Disheveled Mood: Withdrawn Affect: Appropriate, Normal Range Patient Behavior: Fatigued, Cooperative Speech Pattern: Clear Voice Loudness: Normal Thought Process: Goal Oriented Thought Disorder: Not Present Hallucinations: Denies Suicidal Ideation: Denies Homicidal Ideation: Denies Insight/Judgement: Poor Sleep: Well Appetite: Good Gait/Station: Other (walks with a cane) Psychiatric Findings - Problem List ([place] 1, 2,3) (1) Alcohol dependence with uncomplicated withdrawal Current Visit: Yes Status: Acute (2) Nicotine dependence Current Visit: Yes Status: Acute Qualifiers: Nicotine product type: cigarettes Substance use status: in withdrawal Qualified Code(s): F17.213 - Nicotine dependence, cigarettes, with withdrawal (3) Cocaine dependence, uncomplicated Current Visit: Yes Status: Acute (4) Drug-induced mood disorder Current Visit: Yes Status: Acute (5) Schizoaffective disorder Current Visit: Yes Status: Chronic Comment: Self-report. (6) Hypercholesteremia Current Visit: Yes Status: Chronic (7) Hypertension Current Visit: Yes Status: Chronic Qualifiers: Hypertension type: essential hypertension Qualified Code(s): I10 - Essential (primary) hypertension (8) Insulin dependent diabetes mellitus Current Visit: Yes Status: Chronic Comment: BGM 500 (9) Neuropathic pain of both feet Current Visit: Yes Status: Chronic (10) Use of cane as ambulatory aid Current Visit: Yes Status: Acute (11) Arthritis Current Visit: Yes Status: Chronic - Initial Treatment Plan Initial Treatment Plan: Psychoeducation.Not effective.Patient persists in his decision to abstain from atypical agents/mood stabilizers.Detoxification in progress.Observation.
[2016-10-23] MEDS: CHOLECALCIFEROL (VITAMIN D3) 400 UNIT TABLET (FP) PO SCH (10:35)
[2016-10-23] MEDS: NICOTINE 14 MG/24 HOURS TOPICAL PATCH TD SCH (10:35)
[2016-10-23] MEDS: PRENATAL VITAMINS W/ FOLIC ACID TABLET (FP) PO SCH (10:35)
[2016-10-23] MEDS: ENALAPRIL MALEATE 10 MG TABLET (FP) PO SCH (10:35)
[2016-10-23] MEDS: amLODIPine BESYLATE 10 MG TABLET (FP) PO SCH (10:35)
[2016-10-23] MEDS: ASPIRIN 81 MG CHEWABLE TABLETS PO SCH (10:35)
[2016-10-23 10:54] LABS: ALBUMIN 3.8 g/dl (3.4-5.0); BILIRUBIN,TOTAL 0.3 mg/dL (0.2-1.0); CALCIUM 9.6 mg/dL (8.5-10.1); CREATININE 1.3 mg/dL (0.7-1.3); TOT PROT 7.3 g/dl (6.4-8.2)
--- NOTE | 2016-10-23 11:25 | EKG ---
Test Reason : Blood Pressure : / mmHG Vent. Rate : 091 BPM Atrial Rate : 091 BPM P-R Int : 152 ms QRS Dur : 084 ms QT Int : 360 ms P-R-T Axes : 072 -13 014 degrees QTc Int : 442 ms SINUS RHYTHM WITH OCCASIONAL PREMATURE VENTRICULAR COMPLEXES MINIMAL VOLTAGE CRITERIA FOR LVH, MAY BE NORMAL VARIANT NONSPECIFIC ST ABNORMALITY ABNORMAL ECG WHEN COMPARED WITH ECG OF 13-SEP-2016 19:44, NO SIGNIFICANT CHANGE WAS FOUND Confirmed by RICARDO CROOK MD ([id number]) on 10/23/2016 11:25:08 AM Referred By: Sagar Burgos Confirmed By:RICARDO CROOK MD
--- NOTE | 2016-10-23 11:37 | PN ---
[facility] CIWA - CIWA Score Nausea/Vomitin-No Nausea/No Vomiting Muscle Tremors: 4-Moderate,w/Arms Extend Anxiety: 4-Mod. Anxious/Guarded Agitation: 4-Moderately Restless Paroxysmal Sweats: 1-Minimal Palms Moist Orientation: 0-Oriented Tacttile Disturbances: 3-Moderate Itch/Numb/Burn Auditory Disturbances: 0-None Visual Disturbances: 0-None Headache: 0-None Present CIWA-Ar Total Score: 16 BHS Progress Note (SOAP) Subjective: ANXIETY,SWEATS, TREMORS. Objective: 10/23/16 11:36 Vital Signs Temperature 96.6 F L 10/23/16 09:10 Pulse Rate 100 H 10/23/16 09:10 Respiratory Rate 20 10/23/16 09:10 Blood Pressure 119/74 10/23/16 09:10 O2 Sat by Pulse Oximetry (%) Laboratory Last Values WBC 8.7 K/mm3 (4.0-10.0) 10/23/16 06:20 RBC 4.86 M/mm3 (4.00-5.60) 10/23/16 06:20 Hgb 14.8 GM/dL (11.7-16.9) D 10/23/16 06:20 Hct 45.5 % (35.4-49) D 10/23/16 06:20 MCV 93.6 fl (80-96) 10/23/16 06:20 MCHC 32.5 g/dl (32.0-35.9) 10/23/16 06:20 RDW 14.5 % (11.9-15.9) 10/23/16 06:20 Plt Count 237 K/MM3 (134-434) 10/23/16 06:20 MPV 10.5 fl (7.5-11.1) 10/23/16 06:20 Sodium 136 mmol/L (136-145) 10/23/16 06:20 Potassium 4.1 mmol/L (3.5-5.1) 10/23/16 06:20 Chloride 97 mmol/L (98-107) L 10/23/16 06:20 Carbon Dioxide 27 mmol/L (21-32) 10/23/16 06:20 Anion Gap 12 (8-16) 10/23/16 06:20 BUN 15 mg/dL (7-18) D 10/23/16 06:20 Creatinine 1.3 mg/dL (0.7-1.3) D 10/23/16 06:20 Creat Clearance w eGFR 59.17 (>60) 10/23/16 06:20 POC Glucometer 343 UNITS (()) 10/23/16 06:31 Random Glucose 490 mg/dL (74-106) H* D 10/23/16 06:20 Calcium 9.6 mg/dL (8.5-10.1) 10/23/16 06:20 Total Bilirubin 0.3 mg/dL (0.2-1.0) D 10/23/16 06:20 AST 10 U/L (15-37) L 10/23/16 06:20 ALT 28 U/L (12-78) D 10/23/16 06:20 Alkaline Phosphatase 97 U/L (45-117) 10/23/16 06:20 Total Protein 7.3 g/dl (6.4-8.2) D 10/23/16 06:20 Albumin 3.8 g/dl (3.4-5.0) D 10/23/16 06:20 Urine Color Straw 10/22/16 21:30 Urine Appearance Clear 10/22/16 21:30 Urine pH 6.0 (5.0-8.0) 10/22/16 21:30 Ur Specific [place] 1.029 (1.001-1.035) 10/22/16 21:30 Urine Protein Negative (NEGATIVE) 10/22/16 21:30 Urine Glucose (UA) 3+ (NEGATIVE) H 10/22/16 21:30 Urine Ketones Negative (NEGATIVE) 10/22/16 21:30 Urine Blood Negative (NEGATIVE) 10/22/16 21:30 Urine Nitrite Negative (NEGATIVE) 10/22/16 21:30 Urine Bilirubin Negative (NEGATIVE) 10/22/16 21:30 Urine Urobilinogen Negative E.U./dl (0.2-1.0) 10/22/16 21:30 Ur Leukocyte Esterase Negative (NEGATIVE) 10/22/16 21:30 Assessment: 10/23/16 11:37 WITHDRAWAL SX Plan: CONTINUE DETOX
[2016-10-23] MEDS: ATORVASTATIN CA 10 MG TABLET (FP) PO SCH (22:25)
[2016-10-23] MEDS: THIAMINE HCL 100 MG TABLET (FP) PO SCH (22:25)
[2016-10-24] MEDS: GABAPENTIN 100 MG CAPSULE (FP) PO SCH ×3 (05:53→22:33)
[2016-10-24] MEDS: chlordiazePOXIDE HCL 25 MG CAPSULE PO SCH ×3 (05:53→17:32)
[2016-10-24] MEDS: glyBURIDE 5 MG TABLET (UD) PO SCH ×2 (07:29→16:30)
[2016-10-24] MEDS: metFORMIN HCL 500 MG TABLET (FP) PO SCH ×2 (07:29→16:30)
[2016-10-24] MEDS ORDERED: INSULIN (NOVOLOG) ASPART 100 UNITS/ML 10ML VIAL ONE ×4 (07:34→22:07)
[2016-10-24] MEDS: INSULIN (NOVOLOG MIX 70/30) 100 UNITS/ML MDV SQ SCH ×2 (07:35→16:30)
[2016-10-24] MEDS: INSULIN SLIDING SCALE (NOVOLOG) 1 VIAL SQ SCH ×4 (07:35→22:33)
[2016-10-24] MEDS: ASPIRIN 81 MG CHEWABLE TABLETS PO SCH (10:58)
[2016-10-24] MEDS: ENALAPRIL MALEATE 10 MG TABLET (FP) PO SCH (10:58)
[2016-10-24] MEDS: amLODIPine BESYLATE 10 MG TABLET (FP) PO SCH (10:58)
[2016-10-24] MEDS: PRENATAL VITAMINS W/ FOLIC ACID TABLET (FP) PO SCH (10:58)
[2016-10-24] MEDS: CHOLECALCIFEROL (VITAMIN D3) 400 UNIT TABLET (FP) PO SCH (10:59)
[2016-10-24] MEDS: NICOTINE 14 MG/24 HOURS TOPICAL PATCH TD SCH (10:59)
--- NOTE | 2016-10-24 15:08 | PN ---
S CIWA - CIWA Score Nausea/Vomitin-No Nausea/No Vomiting Muscle Tremors: 4-Moderate,w/Arms Extend Anxiety: 3 Agitation: 3 Paroxysmal Sweats: 3 Orientation: 0-Oriented Tacttile Disturbances: 0-None Auditory Disturbances: 0-None Visual Disturbances: 0-None Headache: 0-None Present CIWA-Ar Total Score: 13 S Progress Note (SOAP) Subjective: Anxiety,tremors,sweating,interrupted sleep,restless Objective: 10/24/16 15:04 Vital Signs - 8 hr 10/24/16 10/24/16 09:39 14:08 Temperature 95.8 F L 96.8 F L Pulse Rate 66 96 H Respiratory 18 20 Rate Blood Pressure 138/87 117/78 Laboratory Tests 10/22/16 10/22/16 10/22/16 17:55 21:17 21:30 WBC RBC Hgb Hct MCV MCHC RDW Plt Count MPV Sodium Potassium Chloride Carbon Dioxide Anion Gap BUN Creatinine Creat Clearance w eGFR POC Glucometer 513 430 Random Glucose Calcium Total Bilirubin AST ALT Alkaline Phosphatase Total Protein Albumin Urine Color Straw Urine Appearance Clear Urine pH 6.0 Ur Specific [place] 1.029 Urine Protein Negative Urine Glucose (UA) 3+ H Urine Ketones Negative Urine Blood Negative Urine Nitrite Negative Urine Bilirubin Negative Urine Urobilinogen Negative Ur Leukocyte Esterase Negative RPR Titer 10/23/16 10/23/16 10/23/16 06:20 06:20 06:20 WBC 8.7 RBC 4.86 Hgb 14.8 D Hct 45.5 D MCV 93.6 MCHC 32.5 RDW 14.5 Plt Count 237 MPV 10.5 Sodium 136 Potassium 4.1 Chloride 97 L Carbon Dioxide 27 Anion Gap 12 BUN 15 D Creatinine 1.3 D Creat Clearance w eGFR 59.17 POC Glucometer Random Glucose 490 H* D Calcium 9.6 Total Bilirubin 0.3 D AST 10 L ALT 28 D Alkaline Phosphatase 97 Total Protein 7.3 D Albumin 3.8 D Urine Color Urine Appearance Urine pH Ur Specific [place] Urine Protein Urine Glucose (UA) Urine Ketones Urine Blood Urine Nitrite Urine Bilirubin Urine Urobilinogen Ur Leukocyte Esterase RPR Titer Nonreactive 10/23/16 10/23/16 10/23/16 06:31 16:25 16:26 WBC RBC Hgb Hct MCV MCHC RDW Plt Count MPV Sodium Potassium Chloride Carbon Dioxide Anion Gap BUN Creatinine Creat Clearance w eGFR POC Glucometer 343 314 288 Random Glucose Calcium Total Bilirubin AST ALT Alkaline Phosphatase Total Protein Albumin Urine Color Urine Appearance Urine pH Ur Specific [place] Urine Protein Urine Glucose (UA) Urine Ketones Urine Blood Urine Nitrite Urine Bilirubin Urine Urobilinogen Ur Leukocyte Esterase RPR Titer 10/23/16 10/24/16 10/24/16 21:38 05:51 11:11 WBC RBC Hgb Hct MCV MCHC RDW Plt Count MPV Sodium Potassium Chloride Carbon Dioxide Anion Gap BUN Creatinine Creat Clearance w eGFR POC Glucometer 235 293 283 Random Glucose Calcium Total Bilirubin AST ALT Alkaline Phosphatase Total Protein Albumin Urine Color Urine Appearance Urine pH Ur Specific [place] Urine Protein Urine Glucose (UA) Urine Ketones Urine Blood Urine Nitrite Urine Bilirubin Urine Urobilinogen Ur Leukocyte Esterase RPR Titer labs noted Assessment: 10/24/16 15:08 Withdrawal sx. Plan: Continue detox
[2016-10-24] MEDS: THIAMINE HCL 100 MG TABLET (FP) PO SCH (22:32)
[2016-10-24] MEDS: ATORVASTATIN CA 10 MG TABLET (FP) PO SCH (22:33)
[2016-10-24] MEDS: chlordiazePOXIDE 5 MG CAPSULE PO SCH (22:33)
[2016-10-25] MEDS: chlordiazePOXIDE 5 MG CAPSULE PO SCH (05:58)
[2016-10-25] MEDS: GABAPENTIN 100 MG CAPSULE (FP) PO SCH (05:59)
[2016-10-25] MEDS: glyBURIDE 5 MG TABLET (UD) PO SCH (06:18)
[2016-10-25] MEDS: metFORMIN HCL 500 MG TABLET (FP) PO SCH (06:18)
[2016-10-25] MEDS: INSULIN SLIDING SCALE (NOVOLOG) 1 VIAL SQ SCH ×2 (06:19→11:54)
[2016-10-25] MEDS ORDERED: INSULIN (NOVOLOG MIX 70/30) 100 UNITS/ML MDV SQ ONE (06:47)
[2016-10-25] MEDS: INSULIN (NOVOLOG MIX 70/30) 100 UNITS/ML MDV SQ SCH (07:37)
[2016-10-25] MEDS ORDERED: chlordiazePOXIDE HCL 10 MG CAPSULE PO ONE (10:00)
[2016-10-25] MEDS: NICOTINE 14 MG/24 HOURS TOPICAL PATCH TD SCH (10:20)
[2016-10-25] MEDS: PRENATAL VITAMINS W/ FOLIC ACID TABLET (FP) PO SCH (10:20)
[2016-10-25] MEDS: ENALAPRIL MALEATE 10 MG TABLET (FP) PO SCH (10:20)
[2016-10-25] MEDS: ASPIRIN 81 MG CHEWABLE TABLETS PO SCH (10:20)
[2016-10-25] MEDS: amLODIPine BESYLATE 10 MG TABLET (FP) PO SCH (10:20)
[2016-10-25] MEDS: CHOLECALCIFEROL (VITAMIN D3) 400 UNIT TABLET (FP) PO SCH (10:21)
[2016-10-25 10:28] VITALS: BP 155/94; PULSE 94; TEMP 97.8
[2016-10-25] MEDS ORDERED: chlordiazePOXIDE HCL 10 MG CAPSULE PO SCH (23:00)
--- NOTE | 2016-10-31 12:24 | DS ---
[facility] Detox Discharge Summary Admission Date: 10/22/16 Discharge Date: 10/25/16 - History Present History: Alcohol Dependence, Cocaine Dependence Pertinent Past History: type II DM HTN Hypercholesterolemia - Physical Exam Results Vital Signs: Vital Signs Temperature 97.8 F 10/25/16 10:28 Pulse Rate 94 H 10/25/16 10:28 Respiratory Rate 18 10/25/16 10:28 Blood Pressure 155/94 10/25/16 10:28 O2 Sat by Pulse Oximetry (%) Pertinent Admission Physical Exam Findings: Withdrawal sx. Laboratory Last Values WBC 8.7 K/mm3 (4.0-10.0) 10/23/16 06:20 RBC 4.86 M/mm3 (4.00-5.60) 10/23/16 06:20 Hgb 14.8 GM/dL (11.7-16.9) D 10/23/16 06:20 Hct 45.5 % (35.4-49) D 10/23/16 06:20 MCV 93.6 fl (80-96) 10/23/16 06:20 MCHC 32.5 g/dl (32.0-35.9) 10/23/16 06:20 RDW 14.5 % (11.9-15.9) 10/23/16 06:20 Plt Count 237 K/MM3 (134-434) 10/23/16 06:20 MPV 10.5 fl (7.5-11.1) 10/23/16 06:20 Sodium 136 mmol/L (136-145) 10/23/16 06:20 Potassium 4.1 mmol/L (3.5-5.1) 10/23/16 06:20 Chloride 97 mmol/L (98-107) L 10/23/16 06:20 Carbon Dioxide 27 mmol/L (21-32) 10/23/16 06:20 Anion Gap 12 (8-16) 10/23/16 06:20 BUN 15 mg/dL (7-18) D 10/23/16 06:20 Creatinine 1.3 mg/dL (0.7-1.3) D 10/23/16 06:20 Creat Clearance w eGFR 59.17 (>60) 10/23/16 06:20 POC Glucometer 139 UNITS (()) 10/25/16 05:57 Random Glucose 490 mg/dL (74-106) H* D 10/23/16 06:20 Calcium 9.6 mg/dL (8.5-10.1) 10/23/16 06:20 Total Bilirubin 0.3 mg/dL (0.2-1.0) D 10/23/16 06:20 AST 10 U/L (15-37) L 10/23/16 06:20 ALT 28 U/L (12-78) D 10/23/16 06:20 Alkaline Phosphatase 97 U/L (45-117) 10/23/16 06:20 Total Protein 7.3 g/dl (6.4-8.2) D 10/23/16 06:20 Albumin 3.8 g/dl (3.4-5.0) D 10/23/16 06:20 Urine Color Straw 10/22/16 21:30 Urine Appearance Clear 10/22/16 21:30 Urine pH 6.0 (5.0-8.0) 10/22/16 21:30 Ur Specific Proctor 1.029 (1.001-1.035) 10/22/16 21:30 Urine Protein Negative (NEGATIVE) 10/22/16 21:30 Urine Glucose (UA) 3+ (NEGATIVE) H 10/22/16 21:30 Urine Ketones Negative (NEGATIVE) 10/22/16 21:30 Urine Blood Negative (NEGATIVE) 10/22/16 21:30 Urine Nitrite Negative (NEGATIVE) 10/22/16 21:30 Urine Bilirubin Negative (NEGATIVE) 10/22/16 21:30 Urine Urobilinogen Negative E.U./dl (0.2-1.0) 10/22/16 21:30 Ur Leukocyte Esterase Negative (NEGATIVE) 10/22/16 21:30 RPR Titer Nonreactive (NONREACTIVE) 10/23/16 06:20 labs noted - Treatment Hospital Course: Detox Protocol Followed, Detoxed Safely, Responded well, Discharged Condition Good, Rehab Referral Accepted Patient has Accepted a Rehab Referral to: [facility] - Medication Discharge Medications: Ambulatory Orders Cholecalciferol (Vitamin D3) [Vitamin D3] 400 unit PO BID 12/13/15 Gabapentin [Neurontin -] 100 mg PO BID 12/13/15 Enalapril Maleate [Vasotec -] 10 mg PO DAILY #30 tablet 12/17/15 Lisinopril 10 mg PO DAILY #30 tablet 12/17/15 Insulin (Novolog 70/30) [Novolog Mix 70/30 Vial -] 5 units SQ HS 01/04/16 Insulin Aspart Prot/Insuln Asp [Novolog Mix 70-30 Flexpen Syrn] 10 unit SQ AM Aspirin [ASA -] 81 mg PO DAILY #30 tab.chew 10/28/16 Aspirin [ASA -] 81 mg PO DAILY #30 tab.chew 10/28/16 Atorvastatin Ca [Lipitor] 10 mg PO HS #30 mg 10/28/16 Gabapentin [Neurontin -] 100 mg PO BID #60 mg 10/28/16 Glyburide [Micronase -] 10 mg PO BIDAC #60 tablet 10/28/16 Lisinopril [Prinivil] 10 mg PO DAILY #30 tablet 10/28/16 Metformin HCl [Glucophage] 1,000 mg PO BID #60 mg 10/28/16 - Diagnosis (1) Alcohol dependence with uncomplicated withdrawal Status: Acute (2) Cocaine dependence, uncomplicated Status: Acute (3) Hypercholesteremia Status: Chronic (4) Hypertension Status: Chronic Qualifiers: Hypertension type: essential hypertension (5) Insulin dependent diabetes mellitus Status: Chronic (6) Drug-induced mood disorder Status: Acute (7) Neuropathic pain of both feet Status: Chronic (8) Schizoaffective disorder Status: Chronic Qualifiers: Schizoaffective disorder type: unspecified Qualified Code(s): F25.9 - Schizoaffective disorder, unspecified - AMA Did Patient Leave Against Medical Advice: No
== END 2016-10-25 13:00 | disposition other institution (70) | DRG 774 ==
LOC: YASAS 13:27 → Y3N 18:40
PROVIDERS: ADMIT Internal Medicine; ATTEND Internal Medicine
PROC: HZ2ZZZZ Detoxification Services for Substance Abuse Treatment (ICD-10-PCS; principal; 2016-10-22)
DX: F10.230 Alcohol dependence with withdrawal, uncomplicated (principal); F14.20 Cocaine dependence, uncomplicated; F17.210 Nicotine dependence, cigarettes, uncomplicated; F25.9 Schizoaffective disorder, unspecified; F19.24 Other psychoactive substance dependence with psychoactive substance-induced mood disorder; F31.81 Bipolar II disorder; E11.9 Type 2 diabetes mellitus without complications; E78.00 Pure hypercholesterolemia, unspecified; I10 Essential (primary) hypertension; R26.2 Difficulty in walking, not elsewhere classified; M79.2 Neuralgia and neuritis, unspecified; M19.90 Unspecified osteoarthritis, unspecified site; Z79.4 Long term (current) use of insulin
CPT/HCPCS: 36415; 80053; 81003; 85027; 86593; 93005; 93010

== ENCOUNTER 2016-10-25 12:27 | Inpatient (IN) | payer OTHER ==
--- NOTE | 2016-10-25 13:38 | DS ---
[facility] Detox Discharge Summary Admission Date: 10/25/16 Discharge Date: 10/25/16 - History Present History: Alcohol Dependence, Cocaine Dependence Additional Comments: ADVISED PATIENT TO FOLLOW-UP WITH EQUIPMENT SERVICE ASSOCIATE / REHAB MEDICAL PROVIDER AFTER DISCHARGE FROM DETOX FOR GENERAL MEDICAL ASSESSMENT AND FOR ANY ABNORMAL ADMISSION LAB VALUES. Pertinent Past History: HTN, Hypercholesterolemia, IDDM, Bi-Polar disorder. - Physical Exam Results Pertinent Admission Physical Exam Findings: ADMISSION LABS NOTED. - Treatment Hospital Course: Detox Protocol Followed, Detoxed Safely, Responded well, Discharged Condition Good, Rehab Referral Accepted Patient has Accepted a Rehab Referral to: YES - [facility]. - Medication Discharge Medications: Ambulatory Orders Cholecalciferol (Vitamin D3) [Vitamin D3] 400 unit PO BID 12/13/15 Gabapentin [Neurontin -] 100 mg PO BID 12/13/15 Aspirin [ASA -] 81 mg PO DAILY #30 tab.chew 12/17/15 Enalapril Maleate [Vasotec -] 10 mg PO DAILY #30 tablet 12/17/15 Glyburide 10 mg PO BID #60 tablet 12/17/15 Lisinopril 10 mg PO DAILY #30 tablet 12/17/15 Insulin (Novolog 70/30) [Novolog Mix 70/30 Vial -] 5 units SQ HS 01/04/16 Metformin HCl [Glucophage] 1,000 mg PO BID 01/04/16 Atorvastatin Ca [Lipitor] 10 mg PO HS 04/27/16 Insulin Aspart Prot/Insuln Asp [Novolog Mix 70-30 Flexpen Syrn] 10 unit SQ AM - Diagnosis (1) Alcohol dependence with uncomplicated withdrawal Current Visit: Yes Status: Acute (2) Cocaine dependence, uncomplicated Current Visit: Yes Status: Acute (3) Drug-induced mood disorder Current Visit: Yes Status: Acute (4) Nicotine dependence Current Visit: Yes Status: Chronic Qualifiers: Nicotine product type: cigarettes Substance use status: uncomplicated Qualified Code(s): F17.210 - Nicotine dependence, cigarettes, uncomplicated (5) Use of cane as ambulatory aid Current Visit: Yes Status: Acute (6) Arthritis Current Visit: Yes Status: Chronic (7) Hypercholesteremia Current Visit: No Status: Chronic (8) Hypertension Current Visit: Yes Status: Chronic Qualifiers: Hypertension type: essential hypertension (9) Insulin dependent diabetes mellitus Current Visit: Yes Status: Chronic (10) Neuropathic pain of both feet Current Visit: Yes Status: Chronic (11) Schizoaffective disorder Current Visit: Yes Status: Chronic Qualifiers: Schizoaffective disorder type: unspecified Qualified Code(s): F25.9 - Schizoaffective disorder, unspecified - AMA Did Patient Leave Against Medical Advice: No
[2016-10-25] MEDS ORDERED: LOPERAMIDE HCL 2 MG CAPSULE PO PRN (14:04)
[2016-10-25] MEDS ORDERED: ACETAMINOPHEN 325 MG TABLET (FP) PO PRN (14:04)
[2016-10-25] MEDS ORDERED: MENTHOL/PHENOL 1 EACH UD MM PRN (14:04)
[2016-10-25] MEDS ORDERED: MAGNESIUM CITRATE 300 ML BOTTLE PO PRN (14:04)
[2016-10-25] MEDS ORDERED: P-EPHED 60MG/TRIPROLIDI 2.5MG TABLET PO PRN (14:04)
[2016-10-25] MEDS ORDERED: hydrOXYzine PAMOATE 50 MG CAPSULE (FP) PO PRN (14:04)
[2016-10-25] MEDS ORDERED: MAGNESIUM HYDROX 2400MG/30ML ORAL SUSPENSION 30 ML CUP PO PRN (14:04)
[2016-10-25] MEDS ORDERED: guaiFENesin/D-METHORPHAN HB 10 ML UNIT-DOSE CUPS PO PRN (14:04)
[2016-10-25] MEDS ORDERED: MAG HYDROX/AL HYDROX/SIMETH 30 ML UNIT-DOSE CUP PO PRN (14:04)
[2016-10-25] MEDS ORDERED: diphenhydrAMINE HCL 50 MG CAPSULE PO PRN (14:04)
[2016-10-25] MEDS ORDERED: IBUPROFEN 400 MG TABLET (FP) PO PRN (14:04)
[2016-10-25] MEDS ORDERED: NICOTINE POLACRILEX 2 MG GUM BUC PRN (14:12)
--- NOTE | 2016-10-25 14:15 | HP ---
[facility] Rehab Assess/Revision - Admission History Ad[facility] to Rehab [facility] Date of Admission to Rehab: 10/25/16 - Findings Detox History & Physical reviewed: Yes Concur with findings: Yes Comments/Additional Findings: for rehab as protocol
[2016-10-25] MEDS ORDERED: PT OWN MED DRAWER 7, Y5N ONE ×2 (15:37→21:20)
[2016-10-25] MEDS ORDERED: INSULIN (NOVOLOG) ASPART 100 UNITS/ML 10ML VIAL ONE ×2 (16:48→22:08)
[2016-10-25] MEDS: metFORMIN HCL 500 MG TABLET (FP) PO SCH (16:49)
[2016-10-25] MEDS: glyBURIDE 5 MG TABLET (UD) PO SCH (16:49)
[2016-10-25] MEDS: INSULIN (NOVOLOG) ASPART 100 UNITS/ML 10ML VIAL SQ SCH ×2 (16:50→21:20)
[2016-10-25] MEDS: CHOLECALCIFEROL (VITAMIN D3) 400 UNIT TABLET (FP) PO SCH (21:19)
[2016-10-25] MEDS: ATORVASTATIN CA 10 MG TABLET (FP) PO SCH (21:19)
[2016-10-25] MEDS: GABAPENTIN 100 MG CAPSULE (FP) PO SCH (21:19)
[2016-10-25] MEDS: THIAMINE HCL 100 MG TABLET (FP) PO SCH (21:19)
[2016-10-26] MEDS ORDERED: INSULIN (NOVOLOG) ASPART 100 UNITS/ML 10ML VIAL ONE ×4 (06:32→22:21)
[2016-10-26] MEDS: INSULIN (NOVOLOG) ASPART 100 UNITS/ML 10ML VIAL SQ SCH ×4 (07:00→21:25)
[2016-10-26] MEDS: metFORMIN HCL 500 MG TABLET (FP) PO SCH ×2 (07:08→16:57)
[2016-10-26] MEDS: glyBURIDE 5 MG TABLET (UD) PO SCH ×2 (07:08→16:59)
[2016-10-26] MEDS: INSULIN (NOVOLOG MIX 70/30) 100 UNITS/ML MDV SQ SCH ×2 (08:02→17:00)
[2016-10-26] MEDS: NICOTINE 21 MG/24 HOURS TOPICAL PATCH TD SCH (09:57)
[2016-10-26] MEDS: PRENATAL VITAMINS W/ FOLIC ACID TABLET (FP) PO SCH (09:57)
[2016-10-26] MEDS: GABAPENTIN 100 MG CAPSULE (FP) PO SCH ×2 (09:57→21:25)
[2016-10-26] MEDS: ASPIRIN 81 MG CHEWABLE TABLETS PO SCH (09:57)
[2016-10-26] MEDS: LISINOPRIL 10 MG TABLET (FP) PO SCH (09:57)
[2016-10-26] MEDS: CHOLECALCIFEROL (VITAMIN D3) 400 UNIT TABLET (FP) PO SCH ×2 (09:58→21:27)
[2016-10-26] MEDS ORDERED: ENALAPRIL MALEATE 10 MG TABLET (FP) PO SCH (10:00)
[2016-10-26] MEDS ORDERED: PT OWN MED DRAWER 7, Y5N ONE (19:34)
[2016-10-26] MEDS: ATORVASTATIN CA 10 MG TABLET (FP) PO SCH (21:25)
[2016-10-26] MEDS: THIAMINE HCL 100 MG TABLET (FP) PO SCH (21:25)
[2016-10-27] MEDS: glyBURIDE 5 MG TABLET (UD) PO SCH ×2 (07:17→16:30)
[2016-10-27] MEDS: metFORMIN HCL 500 MG TABLET (FP) PO SCH ×2 (07:18→16:56)
[2016-10-27] MEDS: INSULIN (NOVOLOG) ASPART 100 UNITS/ML 10ML VIAL SQ SCH ×4 (07:40→21:41)
[2016-10-27] MEDS: INSULIN (NOVOLOG MIX 70/30) 100 UNITS/ML MDV SQ SCH ×2 (07:41→17:00)
[2016-10-27] MEDS ORDERED: INSULIN (NOVOLOG) ASPART 100 UNITS/ML 10ML VIAL ONE ×3 (08:13→19:27)
[2016-10-27] MEDS ORDERED: PT OWN MED DRAWER 7, Y5N ONE (08:36)
[2016-10-27] MEDS: NICOTINE 21 MG/24 HOURS TOPICAL PATCH TD SCH (09:56)
[2016-10-27] MEDS: GABAPENTIN 100 MG CAPSULE (FP) PO SCH ×2 (09:57→21:40)
[2016-10-27] MEDS: ASPIRIN 81 MG CHEWABLE TABLETS PO SCH (09:57)
[2016-10-27] MEDS: PRENATAL VITAMINS W/ FOLIC ACID TABLET (FP) PO SCH (09:57)
[2016-10-27] MEDS: LISINOPRIL 10 MG TABLET (FP) PO SCH (09:57)
[2016-10-27] MEDS: CHOLECALCIFEROL (VITAMIN D3) 400 UNIT TABLET (FP) PO SCH ×2 (09:58→21:41)
[2016-10-27] MEDS: ATORVASTATIN CA 10 MG TABLET (FP) PO SCH (21:40)
[2016-10-27] MEDS: THIAMINE HCL 100 MG TABLET (FP) PO SCH (21:40)
[2016-10-28] MEDS: metFORMIN HCL 500 MG TABLET (FP) PO SCH (06:06)
[2016-10-28] MEDS: INSULIN (NOVOLOG MIX 70/30) 100 UNITS/ML MDV SQ SCH (06:08)
[2016-10-28] MEDS: INSULIN (NOVOLOG) ASPART 100 UNITS/ML 10ML VIAL SQ SCH (06:08)
[2016-10-28] MEDS: glyBURIDE 5 MG TABLET (UD) PO SCH (06:09)
--- NOTE | 2016-10-28 06:45 | HP ---
Psychiatrist Admission - Data Date of interview: 10/28/16 Admission source: [facility] Vital Signs: Vital Signs - 24 hr 10/27/16 10/28/16 10/28/16 09:04 00:30 03:30 Pulse Rate 81 Respiratory 17 18 Rate Blood Pressure 139/85 Allergies/Adverse Reactions: Allergies Allergy/AdvReac Type Severity Reaction Status Date / Time No Known Allergies Allergy Verified 10/22/16 17:56 Date of last physical exam: 10/22/16 Concur with the findings of this exam: Yes - Admission Criteria Lacks judgement: Yes Psychiatric Findings - Problem List ([place] 1, 2,3) (1) Alcohol dependence with uncomplicated withdrawal Current Visit: Yes Status: Acute (2) Cocaine dependence, uncomplicated Current Visit: Yes Status: Acute (3) Nicotine dependence Current Visit: Yes Status: Chronic Qualifiers: Nicotine product type: cigarettes Substance use status: uncomplicated Qualified Code(s): F17.210 - Nicotine dependence, cigarettes, uncomplicated
[2016-10-28 07:10] VITALS: TEMP 97.6
[2016-10-28] MEDS: CHOLECALCIFEROL (VITAMIN D3) 400 UNIT TABLET (FP) PO SCH (10:03)
[2016-10-28] MEDS: ASPIRIN 81 MG CHEWABLE TABLETS PO SCH (10:03)
[2016-10-28] MEDS: PRENATAL VITAMINS W/ FOLIC ACID TABLET (FP) PO SCH (10:03)
[2016-10-28] MEDS: LISINOPRIL 10 MG TABLET (FP) PO SCH (10:03)
[2016-10-28] MEDS: GABAPENTIN 100 MG CAPSULE (FP) PO SCH (10:03)
[2016-10-28] MEDS: NICOTINE 21 MG/24 HOURS TOPICAL PATCH TD SCH (10:03)
--- NOTE | 2016-10-28 10:07 | PN ---
Psychiatric Progress Note Vital Signs: Vital Signs Period Temp Pulse Resp BP Sys/Harding Pulse Ox Last 24 Hr 97.6 F 90 17-18 153/88 Date of Session: 10/28/16 Chief Complaint:: AMA Psychiatrist Discharge Note HPI: Patient addressing Alcohol, Cocaine Dependence comorbid with Nicotine Dependence and Schizoaffective Disorder ROS: HTN, Hyperlipidemia, type 2 DM, Arthritis, Neuropathy and S/P torn ligament left knee Current Medications: Active Medications Generic Name Dose Route Start Last Admin Trade Name Freq PRN Reason Stop Dose Admin Acetaminophen 650 mg 10/25/16 14:04 10/25/16 21:20 Tylenol - PO 650 mg Q4H PRN Administration FEVER OR PAIN Al Hydroxide/Mg Hydroxide 30 ml 10/25/16 14:04 Mylanta Oral Suspension - PO Q6H PRN DYSPEPSIA Aspirin 81 mg 10/26/16 10:00 10/27/16 09:57 Asa - PO 81 mg DAILY TYLER Administration Atorvastatin Calcium 10 mg 10/25/16 22:00 10/27/16 21:40 Lipitor - PO 10 mg HS TYLER Administration Cholecalciferol 400 unit 10/25/16 22:00 10/27/16 21:41 Vitamin D3 - PO 400 unit BID TYLER Administration Diphenhydramine HCl 50 mg 10/25/16 14:04 Benadryl - PO HSMR1 PRN FOR ITCHING Eucalyptus/Menthol/Phenol/Sorbitol 1 each 10/25/16 14:04 Cepastat Lozenge - MM Q4H PRN SORE THROAT Gabapentin 100 mg 10/25/16 22:00 10/27/16 21:40 Neurontin - PO 100 mg BID TYLER Administration Glyburide 10 mg 10/25/16 16:30 10/28/16 06:09 Diabeta - PO Not Given BIDAC TYLER Guaifenesin 10 ml 10/25/16 14:04 Robitussin Dm - PO Q6H PRN COUGH Hydroxyzine Pamoate 50 mg 10/25/16 14:04 Vistaril - PO Q4H PRN AGITATION Ibuprofen 400 mg 10/25/16 14:04 10/27/16 11:39 Motrin - PO 400 mg Q6H PRN Administration PAIN Insulin Aspart 0 units 10/25/16 16:30 10/28/16 06:08 Novolog Vial SQ 4 units ACHS TYLER Administration Protocol Insulin Aspart 15 units 10/26/16 07:30 10/28/16 06:08 Novolog Mix 70/30 Vial SQ 15 units ACBK TYLER Administration Insulin Aspart 5 units 10/26/16 16:30 10/27/16 17:00 Novolog Mix 70/30 Vial SQ 5 units ACDIN TYLER Administration Lisinopril 10 mg 10/26/16 10:00 10/27/16 09:57 Prinivil PO 10 mg DAILY TYLER Administration Loperamide HCl 4 mg 10/25/16 14:04 Imodium - PO Q6H PRN DIARRHEA Magnesium Hydroxide 30 ml 10/25/16 14:04 Milk Of Magnesia - PO DAILY PRN CONSTIPATION Metformin HCl 1,000 mg 10/25/16 16:30 10/28/16 06:06 Glucophage - PO 1,000 mg BIDAC TYLER Administration Nicotine 21 mg 10/26/16 10:00 10/27/16 09:56 Nicoderm Patch - TD Not Given DAILY TYLER Nicotine Polacrilex 2 mg 10/25/16 14:12 Nicorette Gum - BUC Q2H PRN NICOTINE REPLACEMENT RX Multivit/Folic Acid/Iron 1 tab 10/26/16 10:00 10/27/16 09:57 Vitamins (Sjr) - PO 1 tab DAILY TYLER Administration Pseudoephedrine/Triprolidine 1 combo 10/25/16 14:04 Actifed - PO TID PRN NASAL CONGESTION Thiamine HCl 100 mg 10/25/16 22:00 10/27/16 21:40 Vitamin B1 - PO 100 mg HS TYLER Administration Current Side Effect: No Lab tests ordered: No Lab tests reviewed: Yes Provider note:: Patient wants to sign out agaist medical advice. Told specification writer that he was told that he has to come here in order to go to outpatient but now realized he did not have to do that. He is stable for discharge to leave AMA Mental Status Exam - Mental Status Exam Alert and Oriented to: Time, Place, Person Cognitive Function: Fair Patient Appearance: Well Groomed Mood: Hopeful Affect: Appropriate Patient Behavior: Cooperative Speech Pattern: Clear Voice Loudness: Normal Thought Process: Intact Thought Disorder: Not Present Hallucinations: Denies Suicidal Ideation: Denies Homicidal Ideation: Denies Insight/Judgement: Poor Sleep: Fair Appetite: Good Muscle strength/Tone: Normal Gait/Station: Antalgic (walks with a cane) Psychiatric Treatment Plan - Problem List (1) Alcohol dependence with uncomplicated withdrawal Current Visit: Yes (2) Cocaine dependence, uncomplicated Current Visit: Yes (3) Nicotine dependence Current Visit: Yes Qualifiers: Nicotine product type: cigarettes Substance use status: uncomplicated Qualified Code(s): F17.210 - Nicotine dependence, cigarettes, uncomplicated Initial treatment plan: Patient is leaving AMA (4) Schizoaffective disorder Current Visit: Yes Qualifiers: Schizoaffective disorder type: unspecified Qualified Code(s): F25.9 - Schizoaffective disorder, unspecified Comment: Self-report. (5) Arthritis Current Visit: Yes (6) Hypertension Current Visit: Yes Qualifiers: Hypertension type: essential hypertension (7) Insulin dependent diabetes mellitus Current Visit: Yes Comment: BGM 500 (8) Neuropathic pain of both feet Current Visit: Yes (9) Hypercholesteremia Current Visit: No Initial treatment plan: Patient is leaving AMA
[2016-10-28 10:44] VITALS: BP 147/92; PULSE 87
== END 2016-10-28 10:30 | disposition left against medical advice (07) | DRG 770 ==
LOC: YASAS 12:27 → Y3W 12:32
PROVIDERS: ADMIT Psychiatry & Neurology Psychiatry; ATTEND Psychiatry & Neurology Psychiatry
PROC: HZ42ZZZ Group Counseling for Substance Abuse Treatment, Cognitive-Behavioral (ICD-10-PCS; principal; 2016-10-28)
DX: F10.230 Alcohol dependence with withdrawal, uncomplicated (principal); F14.20 Cocaine dependence, uncomplicated; F17.210 Nicotine dependence, cigarettes, uncomplicated; F25.9 Schizoaffective disorder, unspecified; F19.24 Other psychoactive substance dependence with psychoactive substance-induced mood disorder; I10 Essential (primary) hypertension; E11.9 Type 2 diabetes mellitus without complications; Z79.4 Long term (current) use of insulin; E78.00 Pure hypercholesterolemia, unspecified; G62.9 Polyneuropathy, unspecified; M12.9 Arthropathy, unspecified; R26.2 Difficulty in walking, not elsewhere classified

== ENCOUNTER 2017-02-10 18:08 | Inpatient (IN) | payer OTHER ==
[2017-02-10 18:43] VITALS: BMI 28.8
--- NOTE | 2017-02-10 20:24 | HP ---
Admission [facility] Chief Complaint: SEEKING REHAB FOR COCAINE DEPENDENCE Allergies/Adverse Reactions: Allergies Allergy/AdvReac Type Severity Reaction Status Date / Time No Known Allergies Allergy Verified 10/22/16 17:56 History of Present Illness: 46 Y.O. MAN WITH A HISTORY OF COCAINE DEPENDENCE IS HERE SEEKING REHAB SERVICES. HE WAS LAST HERE FOR REHAB IN September,. HIS LONGEST PERIOD CLEAN HAS BEEN 4.5 YEARS. Exam Limitations: Physical Impairment (ARTHRITIS TO HIS LEFT KNEE; AMBULATES WITH A CANE.) - Ebola screening Have you traveled outside of the country in the last 21 days: No (N) Have you had contact with anyone from an Ebola affected area: No Have you been sick,other than usual withdrawal symptoms: No Do you have a fever: No - Review of Systems Constitutional: No Symptoms Reported EENT: reports: No Symptoms Reported Respiratory: reports: No Symptoms reported Cardiac: reports: No Symptoms Reported GI: reports: No Symptoms Reported : reports: No Symptoms Reported Musculoskeletal: reports: Joint Pain (LEFT KNEE), Joint Stiffness (LEFT KNEE) Integumentary: reports: No Symptoms Reported Neuro: reports: No Symptoms reported Endocrine: reports: No Symptoms Reported Hematology: reports: No Symptoms Reported Psychiatric: reports: Mood/Affect Appropiate, Orientated x3, Depressed Other Systems: Reviewed and Negative Patient History - Patient Medical History Hx Anemia: No Hx Asthma: No Hx Chronic Obstructive Pulmonary Disease (COPD): No Hx Cancer: No Hx Cardiac Disorders: No Hx Congestive Heart Failure: No Hx Hypertension: Yes Hx Hypercholesterolemia: Yes Hx Pacemaker: No HX Cerebrovascular Accident: No Hx Seizures: No Hx Dementia: No Hx Diabetes: Yes Hx Gastrointestinal Disorders: No Hx Liver Disease: No Hx Genitourinary Disorders: No Hx Sexually Transmitted Disorders: Yes (Syphilis 20 years ago (treated)) Hx Renal Disease (ESRD): No Hx Thyroid Disease: No Hx Human Immunodeficiency Virus (HIV): No Hx Hepatitis C: No Hx Depression: Yes Hx Suicide Attempt: No Hx Bipolar Disorder: Yes Hx Schizophrenia: Yes - Patient Surgical History Past Surgical History: Yes Hx Neurologic Surgery: No Hx Cataract Extraction: No Hx Cardiac Surgery: No Hx Lung Surgery: No Hx Breast Surgery: No Hx Breast Biopsy: No Hx Abdominal Surgery: No Hx Appendectomy: No Hx Cholecystectomy: No Hx Genitourinary Surgery: No Hx Section: No Hx Orthopedic Surgery: Yes (torn ligament, left knee in 2004) Anesthesia Reaction: No - PPD History Previous Implant?: Yes Documented Results: Negative w/proof Date: 01/07/16 Results: 0 mm PPD to be Administered?: Yes - Reproductive History Patient is a Female of Child Bearing Age (11 -55 yrs old): No - Smoking Cessation Smoking history: Current every day smoker Have you smoked in the past 12 months: Yes Aproximately how many cigarettes per day: 10 Cigars Per Day: 0 Hx Chewing Tobacco Use: No Initiated information on smoking cessation: Yes 'Breaking Loose' booklet given: 02/10/17 - Substance & Tx. History Hx Alcohol Use: No Hx Substance Use: Yes Substance Use Type: Alcohol, Cocaine Hx Substance Use Treatment: Yes (LAST ADMISSION TO DETOX AND REHAB WAS HERE IN ) - Substances Abused Cocaine Route: Inhalation Frequency: 3-6 times per week Amount used: $50 Age of first use: 26 Date of Last Use: 02/08/17 Alcohol Route: Oral Frequency: 3-6 times per week Amount used: Varies Age of first use: 11 Date of Last Use: 02/07/17 Family Disease History - Family Disease History Family Disease History: Diabetes: Grandparent, Brother, Sister Admission Physical Exam BHS - Vital Signs Vital Signs: Vital Signs - 24 hr 02/10/17 18:42 Temperature 98.5 F Pulse Rate 82 Respiratory 20 Rate Blood Pressure 127/75 - Physical General Appearance: Yes: Anxious HEENTM: Yes: Hearing grossly Normal, Normal ENT Inspection, Normocephalic, Normal Voice Respiratory: Yes: Chest Non-Tender, Lungs Clear, Normal Breath Sounds, No Respiratory Distress, No Accessory Muscle Use Neck: Yes: No masses,lesions,Nodules, Trachea in good position Breast: Yes: Breast Exam Deferred Cardiology: Yes: Regular Rhythm, Regular Rate Abdominal: Yes: Non Tender, Flat, Soft Genitourinary: Yes: Other (NO COMPLAINTS REPORTED) Back: Yes: Normal Inspection Musculoskeletal: Yes: Joint Stiffness (LEFT KNEE), Joint swelling (LEFT KNEE) Extremities: Yes: Normal Inspection, Normal Range of Motion, Non-Tender Neurological: Yes: meat butcher II-XII NML intact, Fully Oriented, Normal Mood/Affect, Normal Response Integumentary: Yes: Normal Color, Dry, Warm Lymphatic: Yes: Within Normal Limits - Diagnostic (1) Alcohol dependence with uncomplicated withdrawal Current Visit: Yes Status: Chronic (2) Cocaine dependence, uncomplicated Current Visit: Yes Status: Chronic Cleared for Admission [facility] - Detox or Rehab [facility] Level of Care: Observation Bed Claeared for Rehab Admission: Yes [facility] Breath Alcohol Content Breath Alcohol Content: 0 Urine Drug Screen - Results Drug Screen Negative: No Urine Drug Screen Results: IRA-Cocaine
[2017-02-10] MEDS ORDERED: MAG HYDROX/AL HYDROX/SIMETH 30 ML UNIT-DOSE CUP PO PRN (20:36)
[2017-02-10] MEDS ORDERED: MENTHOL/PHENOL 1 EACH UD MM PRN (20:36)
[2017-02-10] MEDS ORDERED: guaiFENesin/D-METHORPHAN HB 10 ML UNIT-DOSE CUPS PO PRN (20:36)
[2017-02-10] MEDS ORDERED: MAGNESIUM HYDROX 2400MG/30ML ORAL SUSPENSION 30 ML CUP PO PRN (20:36)
[2017-02-10] MEDS ORDERED: hydrOXYzine PAMOATE 50 MG CAPSULE (FP) PO PRN (20:36)
[2017-02-10] MEDS ORDERED: ACETAMINOPHEN 325 MG TABLET (FP) PO PRN (20:36)
[2017-02-10] MEDS ORDERED: P-EPHED 60MG/TRIPROLIDI 2.5MG TABLET PO PRN (20:36)
[2017-02-10] MEDS ORDERED: LOPERAMIDE HCL 2 MG CAPSULE PO PRN (20:36)
[2017-02-10] MEDS ORDERED: IBUPROFEN 400 MG TABLET (FP) PO PRN (20:36)
[2017-02-10] MEDS ORDERED: MAGNESIUM CITRATE 300 ML BOTTLE PO PRN (20:36)
[2017-02-10] MEDS ORDERED: INSULIN (NOVOLOG) ASPART 100 UNITS/ML 10ML VIAL ONE (21:42)
[2017-02-10] MEDS: ATORVASTATIN CA 10 MG TABLET (FP) PO SCH (21:43)
[2017-02-10] MEDS: THIAMINE HCL 100 MG TABLET (FP) PO SCH (21:43)
[2017-02-10] MEDS: GABAPENTIN 100 MG CAPSULE (FP) PO SCH (21:43)
[2017-02-10] MEDS ORDERED: INSULIN (NOVOLOG MIX 70/30) 100 UNITS/ML MDV SQ SCH (22:00)
[2017-02-10] MEDS: CHOLECALCIFEROL (VITAMIN D3) 400 UNIT TABLET (FP) PO SCH (22:08)
[2017-02-10] MEDS ORDERED: INSULIN (NOVOLOG) ASPART 100 UNITS/ML 10ML VIAL SQ ONE (23:02)
[2017-02-10 23:10] LABS: URINE APPEARANCE CLEAR; URINE BILIRUBIN NEGATIVE (NEGATIVE); URINE BLOOD NEGATIVE (NEGATIVE); URINE COLOR YELLOW; URINE GLUCOSE (UA) 3+ (NEGATIVE); URINE KETONE TRACE (NEGATIVE); URINE LEUK ESTERASE NEGATIVE (NEGATIVE); URINE NITRITE NEGATIVE (NEGATIVE)
[2017-02-10 23:14] LABS: URINE PROTEIN 1+ (NEGATIVE)
[2017-02-10 23:21] LABS: URINE MUCUS MANY; URINE RBC 6 /hpf (0-3); URINE WBC 2 /hpf (3-5)
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
[2017-02-11] MEDS ORDERED: INSULIN SLIDING SCALE (NOVOLOG) 1 VIAL SQ SCH (07:00)
[2017-02-11] MEDS ORDERED: INSULIN (NOVOLOG) ASPART 100 UNITS/ML 10ML VIAL ONE ×2 (07:08→16:47)
[2017-02-11] MEDS: INSULIN (NOVOLOG MIX 70/30) 100 UNITS/ML MDV SQ SCH ×2 (07:08→16:43)
[2017-02-11] MEDS: INSULIN SLIDING SCALE (NOVOLOG) 1 VIAL SQ SCH ×2 (07:08→16:44)
[2017-02-11] MEDS: glyBURIDE 5 MG TABLET (UD) PO SCH ×2 (07:09→16:41)
[2017-02-11] MEDS: metFORMIN HCL 500 MG TABLET (FP) PO SCH ×2 (07:09→16:40)
[2017-02-11] MEDS: ASPIRIN 81 MG CHEWABLE TABLETS PO SCH (09:54)
[2017-02-11] MEDS: GABAPENTIN 100 MG CAPSULE (FP) PO SCH ×2 (09:54→21:06)
[2017-02-11] MEDS: PRENATAL VITAMINS W/ FOLIC ACID TABLET (FP) PO SCH (09:54)
[2017-02-11] MEDS: CHOLECALCIFEROL (VITAMIN D3) 400 UNIT TABLET (FP) PO SCH ×2 (09:55→21:05)
[2017-02-11] MEDS ORDERED: ENALAPRIL MALEATE 10 MG TABLET (FP) PO SCH (10:00)
[2017-02-11] MEDS ORDERED: LISINOPRIL 10 MG TABLET (FP) PO SCH (10:00)
[2017-02-11 10:11] LABS: MCH 30.5 pg (25.7-33.7); MEAN CELL VOLUME 92.7 fl (80-96); MEAN PLT VOLUME 9.5 fl (7.5-11.1); PLATELET COUNT 244 K/MM3 (134-434); RDW 13.9 % (11.9-15.9); WHITE BLOOD COUNT 6.7 K/mm3 (4.0-10.0)
[2017-02-11 10:18] LABS: ALBUMIN 2.7 g/dl (3.4-5.0); ANION GAP 7 (8-16); BILIRUBIN,TOTAL 0.5 mg/dL (0.2-1.0); CALCIUM 8.2 mg/dL (8.5-10.1); CO2 29 mmol/L (21-32); SGOT/AST 9 U/L (15-37); SGPT/ALT 15 U/L (12-78); TOT PROT 5.6 g/dl (6.4-8.2)
[2017-02-11 10:19] LABS: ALK PHOS 67 U/L (45-117)
[2017-02-11 11:24] LABS: GLUCOSE,RANDOM 344 mg/dL (74-106)
--- NOTE | 2017-02-11 17:04 | EKG ---
Test Reason : Blood Pressure : / mmHG Vent. Rate : 065 BPM Atrial Rate : 065 BPM P-R Int : 148 ms QRS Dur : 086 ms QT Int : 378 ms P-R-T Axes : 055 -14 009 degrees QTc Int : 393 ms NORMAL SINUS RHYTHM MODERATE VOLTAGE CRITERIA FOR LVH, MAY BE NORMAL VARIANT EARLY TRANSITION INV2 BORDERLINE ECG WHEN COMPARED WITH ECG OF 22-OCT-2016 19:09, PREMATURE VENTRICULAR COMPLEXES ARE NO LONGER PRESENT QT HAS SHORTENED Confirmed by LADARIUS WHITE MD ([id number]) on 02/11/2017 5:04:47 PM Referred By: Confirmed By:LADARIUS WHITE MD
[2017-02-11] MEDS: ATORVASTATIN CA 10 MG TABLET (FP) PO SCH (21:05)
[2017-02-11] MEDS: THIAMINE HCL 100 MG TABLET (FP) PO SCH (21:05)
[2017-02-11] MEDS: diphenhydrAMINE HCL 50 MG CAPSULE PO PRN (21:06)
[2017-02-12] MEDS: glyBURIDE 5 MG TABLET (UD) PO SCH ×2 (07:02→16:41)
[2017-02-12] MEDS: metFORMIN HCL 500 MG TABLET (FP) PO SCH ×2 (07:02→16:41)
[2017-02-12] MEDS: INSULIN (NOVOLOG MIX 70/30) 100 UNITS/ML MDV SQ SCH ×2 (07:02→16:43)
[2017-02-12] MEDS: INSULIN SLIDING SCALE (NOVOLOG) 1 VIAL SQ SCH ×2 (07:03→16:43)
[2017-02-12] MEDS ORDERED: INSULIN (NOVOLOG) ASPART 100 UNITS/ML 10ML VIAL ONE ×2 (07:04→16:51)
[2017-02-12] MEDS: PRENATAL VITAMINS W/ FOLIC ACID TABLET (FP) PO SCH (09:47)
[2017-02-12] MEDS: ASPIRIN 81 MG CHEWABLE TABLETS PO SCH (09:47)
[2017-02-12] MEDS: GABAPENTIN 100 MG CAPSULE (FP) PO SCH ×2 (09:47→21:09)
[2017-02-12] MEDS: LISINOPRIL 20 MG TABLET (FP) PO SCH (09:47)
[2017-02-12] MEDS: CHOLECALCIFEROL (VITAMIN D3) 400 UNIT TABLET (FP) PO SCH ×2 (09:48→21:09)
[2017-02-12] MEDS: diphenhydrAMINE HCL 50 MG CAPSULE PO PRN (21:09)
[2017-02-12] MEDS: THIAMINE HCL 100 MG TABLET (FP) PO SCH (21:09)
[2017-02-12] MEDS: ATORVASTATIN CA 10 MG TABLET (FP) PO SCH (21:09)
[2017-02-13] MEDS: glyBURIDE 5 MG TABLET (UD) PO SCH ×2 (06:08→16:35)
[2017-02-13] MEDS: metFORMIN HCL 500 MG TABLET (FP) PO SCH ×2 (06:08→16:34)
[2017-02-13] MEDS: INSULIN (NOVOLOG MIX 70/30) 100 UNITS/ML MDV SQ SCH ×2 (06:10→17:31)
[2017-02-13] MEDS: INSULIN SLIDING SCALE (NOVOLOG) 1 VIAL SQ SCH ×2 (06:11→17:31)
[2017-02-13] MEDS ORDERED: INSULIN (NOVOLOG) ASPART 100 UNITS/ML 10ML VIAL ONE ×2 (06:16→16:38)
[2017-02-13] MEDS: CHOLECALCIFEROL (VITAMIN D3) 400 UNIT TABLET (FP) PO SCH ×2 (10:02→21:18)
[2017-02-13] MEDS: GABAPENTIN 100 MG CAPSULE (FP) PO SCH ×2 (10:02→21:17)
[2017-02-13] MEDS: PRENATAL VITAMINS W/ FOLIC ACID TABLET (FP) PO SCH (10:02)
[2017-02-13] MEDS: LISINOPRIL 20 MG TABLET (FP) PO SCH (10:02)
[2017-02-13] MEDS: ASPIRIN 81 MG CHEWABLE TABLETS PO SCH (10:02)
[2017-02-13] MEDS: ATORVASTATIN CA 10 MG TABLET (FP) PO SCH (21:17)
[2017-02-13] MEDS: THIAMINE HCL 100 MG TABLET (FP) PO SCH (21:17)
[2017-02-13] MEDS: diphenhydrAMINE HCL 50 MG CAPSULE PO PRN (21:17)
[2017-02-14] MEDS: metFORMIN HCL 500 MG TABLET (FP) PO SCH ×2 (06:36→16:48)
[2017-02-14] MEDS: glyBURIDE 5 MG TABLET (UD) PO SCH ×2 (06:36→16:48)
[2017-02-14] MEDS: INSULIN (NOVOLOG MIX 70/30) 100 UNITS/ML MDV SQ SCH ×2 (06:37→16:50)
[2017-02-14] MEDS: INSULIN SLIDING SCALE (NOVOLOG) 1 VIAL SQ SCH ×2 (06:38→16:50)
[2017-02-14] MEDS ORDERED: INSULIN (NOVOLOG) ASPART 100 UNITS/ML 10ML VIAL ONE ×2 (06:38→16:58)
[2017-02-14] MEDS: CHOLECALCIFEROL (VITAMIN D3) 400 UNIT TABLET (FP) PO SCH ×2 (09:53→21:04)
[2017-02-14] MEDS: GABAPENTIN 100 MG CAPSULE (FP) PO SCH ×2 (09:53→21:04)
[2017-02-14] MEDS: ASPIRIN 81 MG CHEWABLE TABLETS PO SCH (09:53)
[2017-02-14] MEDS: LISINOPRIL 20 MG TABLET (FP) PO SCH (09:53)
[2017-02-14] MEDS: PRENATAL VITAMINS W/ FOLIC ACID TABLET (FP) PO SCH (09:53)
[2017-02-14] MEDS ORDERED: PT OWN MED DRAWER 7, Y5N ONE (19:52)
[2017-02-14] MEDS: THIAMINE HCL 100 MG TABLET (FP) PO SCH (21:03)
[2017-02-14] MEDS: diphenhydrAMINE HCL 50 MG CAPSULE PO PRN (21:03)
[2017-02-14] MEDS: ATORVASTATIN CA 10 MG TABLET (FP) PO SCH (21:04)
[2017-02-15] MEDS: metFORMIN HCL 500 MG TABLET (FP) PO SCH ×2 (06:25→16:39)
[2017-02-15] MEDS: glyBURIDE 5 MG TABLET (UD) PO SCH ×2 (06:25→16:39)
[2017-02-15] MEDS: INSULIN (NOVOLOG MIX 70/30) 100 UNITS/ML MDV SQ SCH ×2 (07:20→16:41)
[2017-02-15] MEDS: INSULIN SLIDING SCALE (NOVOLOG) 1 VIAL SQ SCH ×2 (07:20→16:41)
[2017-02-15] MEDS ORDERED: INSULIN (NOVOLOG) ASPART 100 UNITS/ML 10ML VIAL ONE ×2 (07:21→16:53)
[2017-02-15] MEDS: PRENATAL VITAMINS W/ FOLIC ACID TABLET (FP) PO SCH (09:38)
[2017-02-15] MEDS: CHOLECALCIFEROL (VITAMIN D3) 400 UNIT TABLET (FP) PO SCH ×2 (09:38→21:09)
[2017-02-15] MEDS: ASPIRIN 81 MG CHEWABLE TABLETS PO SCH (09:38)
[2017-02-15] MEDS: GABAPENTIN 100 MG CAPSULE (FP) PO SCH ×2 (09:38→21:09)
[2017-02-15] MEDS: LISINOPRIL 20 MG TABLET (FP) PO SCH (09:38)
[2017-02-15] MEDS: ATORVASTATIN CA 10 MG TABLET (FP) PO SCH (21:09)
[2017-02-15] MEDS: diphenhydrAMINE HCL 50 MG CAPSULE PO PRN (21:09)
[2017-02-15] MEDS: THIAMINE HCL 100 MG TABLET (FP) PO SCH (21:09)
[2017-02-16] MEDS: metFORMIN HCL 500 MG TABLET (FP) PO SCH ×2 (07:04→16:50)
[2017-02-16] MEDS: glyBURIDE 5 MG TABLET (UD) PO SCH ×2 (07:04→16:50)
[2017-02-16] MEDS: INSULIN (NOVOLOG MIX 70/30) 100 UNITS/ML MDV SQ SCH ×2 (07:05→16:51)
[2017-02-16] MEDS: INSULIN SLIDING SCALE (NOVOLOG) 1 VIAL SQ SCH ×2 (07:06→16:52)
[2017-02-16] MEDS ORDERED: INSULIN (NOVOLOG) ASPART 100 UNITS/ML 10ML VIAL ONE ×2 (07:06→16:58)
[2017-02-16] MEDS: GABAPENTIN 100 MG CAPSULE (FP) PO SCH ×2 (09:53→21:27)
[2017-02-16] MEDS: LISINOPRIL 20 MG TABLET (FP) PO SCH (09:53)
[2017-02-16] MEDS: PRENATAL VITAMINS W/ FOLIC ACID TABLET (FP) PO SCH (09:53)
[2017-02-16] MEDS: ASPIRIN 81 MG CHEWABLE TABLETS PO SCH (09:53)
[2017-02-16] MEDS: CHOLECALCIFEROL (VITAMIN D3) 400 UNIT TABLET (FP) PO SCH ×2 (09:53→21:29)
[2017-02-16] MEDS: ATORVASTATIN CA 10 MG TABLET (FP) PO SCH (21:27)
[2017-02-16] MEDS: diphenhydrAMINE HCL 50 MG CAPSULE PO PRN (21:27)
[2017-02-16] MEDS: THIAMINE HCL 100 MG TABLET (FP) PO SCH (21:29)
[2017-02-17] MEDS: glyBURIDE 5 MG TABLET (UD) PO SCH ×2 (06:23→16:52)
[2017-02-17] MEDS: metFORMIN HCL 500 MG TABLET (FP) PO SCH ×2 (06:23→16:52)
[2017-02-17] MEDS: INSULIN (NOVOLOG MIX 70/30) 100 UNITS/ML MDV SQ SCH ×2 (06:25→16:54)
[2017-02-17] MEDS: INSULIN SLIDING SCALE (NOVOLOG) 1 VIAL SQ SCH ×2 (06:26→16:54)
[2017-02-17] MEDS ORDERED: INSULIN (NOVOLOG) ASPART 100 UNITS/ML 10ML VIAL ONE ×2 (06:29→17:01)
[2017-02-17] MEDS: PRENATAL VITAMINS W/ FOLIC ACID TABLET (FP) PO SCH (09:48)
[2017-02-17] MEDS: GABAPENTIN 100 MG CAPSULE (FP) PO SCH ×2 (09:48→21:12)
[2017-02-17] MEDS: ASPIRIN 81 MG CHEWABLE TABLETS PO SCH (09:48)
[2017-02-17] MEDS: LISINOPRIL 20 MG TABLET (FP) PO SCH (09:48)
[2017-02-17] MEDS: CHOLECALCIFEROL (VITAMIN D3) 400 UNIT TABLET (FP) PO SCH ×2 (09:48→21:13)
[2017-02-17] MEDS ORDERED: glyBURIDE 5 MG TABLET (UD) PO ONE (11:32)
[2017-02-17] MEDS ORDERED: PT OWN MED DRAWER 7, Y5N ONE (20:38)
[2017-02-17] MEDS: THIAMINE HCL 100 MG TABLET (FP) PO SCH (21:12)
[2017-02-17] MEDS: ATORVASTATIN CA 10 MG TABLET (FP) PO SCH (21:12)
[2017-02-17] MEDS: diphenhydrAMINE HCL 50 MG CAPSULE PO PRN (21:12)
[2017-02-18] MEDS: metFORMIN HCL 500 MG TABLET (FP) PO SCH ×2 (06:23→17:04)
[2017-02-18] MEDS: glyBURIDE 5 MG TABLET (UD) PO SCH ×2 (06:24→17:04)
[2017-02-18] MEDS: INSULIN (NOVOLOG MIX 70/30) 100 UNITS/ML MDV SQ SCH ×2 (06:27→17:05)
[2017-02-18] MEDS: INSULIN SLIDING SCALE (NOVOLOG) 1 VIAL SQ SCH ×2 (06:27→17:08)
[2017-02-18] MEDS ORDERED: INSULIN (NOVOLOG MIX 70/30) 100 UNITS/ML MDV SQ ONE (06:36)
[2017-02-18] MEDS ORDERED: INSULIN (NOVOLOG) ASPART 100 UNITS/ML 10ML VIAL ONE ×2 (06:36→17:07)
[2017-02-18] MEDS ORDERED: PT OWN MED DRAWER 7, Y5N ONE ×4 (08:29→20:33)
[2017-02-18] MEDS: GABAPENTIN 100 MG CAPSULE (FP) PO SCH ×2 (09:37→21:38)
[2017-02-18] MEDS: PRENATAL VITAMINS W/ FOLIC ACID TABLET (FP) PO SCH (09:37)
[2017-02-18] MEDS: ASPIRIN 81 MG CHEWABLE TABLETS PO SCH (09:38)
[2017-02-18] MEDS: LISINOPRIL 20 MG TABLET (FP) PO SCH (09:38)
[2017-02-18] MEDS: CHOLECALCIFEROL (VITAMIN D3) 400 UNIT TABLET (FP) PO SCH ×2 (09:40→21:39)
[2017-02-18] MEDS: ATORVASTATIN CA 10 MG TABLET (FP) PO SCH (21:38)
[2017-02-18] MEDS: THIAMINE HCL 100 MG TABLET (FP) PO SCH (21:38)
[2017-02-18] MEDS: diphenhydrAMINE HCL 50 MG CAPSULE PO PRN (21:39)
[2017-02-19] MEDS: INSULIN SLIDING SCALE (NOVOLOG) 1 VIAL SQ SCH ×2 (07:12→16:53)
[2017-02-19] MEDS: metFORMIN HCL 500 MG TABLET (FP) PO SCH ×2 (07:15→16:51)
[2017-02-19] MEDS: glyBURIDE 5 MG TABLET (UD) PO SCH ×2 (07:15→16:52)
[2017-02-19] MEDS: INSULIN (NOVOLOG MIX 70/30) 100 UNITS/ML MDV SQ SCH ×2 (07:16→16:53)
[2017-02-19] MEDS: GABAPENTIN 100 MG CAPSULE (FP) PO SCH ×2 (09:43→21:31)
[2017-02-19] MEDS: PRENATAL VITAMINS W/ FOLIC ACID TABLET (FP) PO SCH (09:43)
[2017-02-19] MEDS: CHOLECALCIFEROL (VITAMIN D3) 400 UNIT TABLET (FP) PO SCH ×2 (09:43→21:33)
[2017-02-19] MEDS: ASPIRIN 81 MG CHEWABLE TABLETS PO SCH (09:43)
[2017-02-19] MEDS: LISINOPRIL 20 MG TABLET (FP) PO SCH (09:43)
[2017-02-19] MEDS: diphenhydrAMINE HCL 50 MG CAPSULE PO PRN (21:31)
[2017-02-19] MEDS: ATORVASTATIN CA 10 MG TABLET (FP) PO SCH (21:31)
[2017-02-19] MEDS: THIAMINE HCL 100 MG TABLET (FP) PO SCH (21:31)
[2017-02-20] MEDS: glyBURIDE 5 MG TABLET (UD) PO SCH ×3 (07:00→16:52)
[2017-02-20] MEDS: metFORMIN HCL 500 MG TABLET (FP) PO SCH ×3 (07:00→16:52)
[2017-02-20] MEDS ORDERED: INSULIN (NOVOLOG) ASPART 100 UNITS/ML 10ML VIAL ONE ×2 (07:42→17:08)
[2017-02-20] MEDS: INSULIN SLIDING SCALE (NOVOLOG) 1 VIAL SQ SCH ×2 (07:42→16:54)
[2017-02-20] MEDS: INSULIN (NOVOLOG MIX 70/30) 100 UNITS/ML MDV SQ SCH ×2 (07:42→16:53)
[2017-02-20] MEDS: GABAPENTIN 100 MG CAPSULE (FP) PO SCH ×2 (09:43→21:13)
[2017-02-20] MEDS: ASPIRIN 81 MG CHEWABLE TABLETS PO SCH (09:43)
[2017-02-20] MEDS: CHOLECALCIFEROL (VITAMIN D3) 400 UNIT TABLET (FP) PO SCH ×2 (09:43→21:13)
[2017-02-20] MEDS: PRENATAL VITAMINS W/ FOLIC ACID TABLET (FP) PO SCH (09:43)
[2017-02-20] MEDS: LISINOPRIL 20 MG TABLET (FP) PO SCH (09:43)
[2017-02-20] MEDS: ATORVASTATIN CA 10 MG TABLET (FP) PO SCH (21:13)
[2017-02-20] MEDS: diphenhydrAMINE HCL 50 MG CAPSULE PO PRN (21:13)
[2017-02-20] MEDS: THIAMINE HCL 100 MG TABLET (FP) PO SCH (21:13)
[2017-02-21] MEDS: glyBURIDE 5 MG TABLET (UD) PO SCH ×2 (06:40→16:57)
[2017-02-21] MEDS: INSULIN SLIDING SCALE (NOVOLOG) 1 VIAL SQ SCH ×2 (06:40→16:58)
[2017-02-21] MEDS: INSULIN (NOVOLOG MIX 70/30) 100 UNITS/ML MDV SQ SCH ×2 (06:40→16:58)
[2017-02-21] MEDS: metFORMIN HCL 500 MG TABLET (FP) PO SCH ×2 (06:40→16:57)
[2017-02-21] MEDS: PRENATAL VITAMINS W/ FOLIC ACID TABLET (FP) PO SCH (10:05)
[2017-02-21] MEDS: LISINOPRIL 20 MG TABLET (FP) PO SCH (10:06)
[2017-02-21] MEDS: GABAPENTIN 100 MG CAPSULE (FP) PO SCH ×2 (10:06→21:43)
[2017-02-21] MEDS: ASPIRIN 81 MG CHEWABLE TABLETS PO SCH (10:06)
[2017-02-21] MEDS: CHOLECALCIFEROL (VITAMIN D3) 400 UNIT TABLET (FP) PO SCH ×2 (10:07→23:18)
[2017-02-21] MEDS ORDERED: INSULIN (NOVOLOG) ASPART 100 UNITS/ML 10ML VIAL ONE (16:56)
[2017-02-21] MEDS: ATORVASTATIN CA 10 MG TABLET (FP) PO SCH (21:43)
[2017-02-21] MEDS: THIAMINE HCL 100 MG TABLET (FP) PO SCH (21:43)
[2017-02-21] MEDS: diphenhydrAMINE HCL 50 MG CAPSULE PO PRN (21:43)
[2017-02-22] MEDS: metFORMIN HCL 500 MG TABLET (FP) PO SCH ×2 (06:29→17:07)
[2017-02-22] MEDS: glyBURIDE 5 MG TABLET (UD) PO SCH ×2 (06:29→17:07)
[2017-02-22] MEDS: INSULIN (NOVOLOG MIX 70/30) 100 UNITS/ML MDV SQ SCH ×2 (06:31→17:11)
[2017-02-22] MEDS: INSULIN SLIDING SCALE (NOVOLOG) 1 VIAL SQ SCH ×2 (06:32→17:11)
[2017-02-22] MEDS ORDERED: INSULIN (NOVOLOG) ASPART 100 UNITS/ML 10ML VIAL ONE ×2 (07:11→17:10)
[2017-02-22] MEDS: CHOLECALCIFEROL (VITAMIN D3) 400 UNIT TABLET (FP) PO SCH ×2 (09:52→21:39)
[2017-02-22] MEDS: ASPIRIN 81 MG CHEWABLE TABLETS PO SCH (09:52)
[2017-02-22] MEDS: LISINOPRIL 20 MG TABLET (FP) PO SCH (09:52)
[2017-02-22] MEDS: GABAPENTIN 100 MG CAPSULE (FP) PO SCH ×2 (09:52→21:38)
[2017-02-22] MEDS: PRENATAL VITAMINS W/ FOLIC ACID TABLET (FP) PO SCH (09:52)
[2017-02-22] MEDS: diphenhydrAMINE HCL 50 MG CAPSULE PO PRN (21:38)
[2017-02-22] MEDS: ATORVASTATIN CA 10 MG TABLET (FP) PO SCH (21:38)
[2017-02-22] MEDS: THIAMINE HCL 100 MG TABLET (FP) PO SCH (21:40)
[2017-02-23] MEDS: glyBURIDE 5 MG TABLET (UD) PO SCH ×2 (06:29→17:14)
[2017-02-23] MEDS: metFORMIN HCL 500 MG TABLET (FP) PO SCH ×2 (06:30→17:14)
[2017-02-23] MEDS: INSULIN SLIDING SCALE (NOVOLOG) 1 VIAL SQ SCH ×2 (06:32→17:18)
[2017-02-23] MEDS: INSULIN (NOVOLOG MIX 70/30) 100 UNITS/ML MDV SQ SCH ×2 (06:32→17:18)
[2017-02-23] MEDS ORDERED: INSULIN (NOVOLOG) ASPART 100 UNITS/ML 10ML VIAL ONE ×2 (06:38→17:16)
[2017-02-23] MEDS: CHOLECALCIFEROL (VITAMIN D3) 400 UNIT TABLET (FP) PO SCH ×2 (09:34→22:00)
[2017-02-23] MEDS: LISINOPRIL 20 MG TABLET (FP) PO SCH (09:34)
[2017-02-23] MEDS: GABAPENTIN 100 MG CAPSULE (FP) PO SCH ×2 (09:34→21:14)
[2017-02-23] MEDS: ASPIRIN 81 MG CHEWABLE TABLETS PO SCH (09:34)
[2017-02-23] MEDS: PRENATAL VITAMINS W/ FOLIC ACID TABLET (FP) PO SCH (09:35)
[2017-02-23] MEDS: diphenhydrAMINE HCL 50 MG CAPSULE PO PRN (21:13)
[2017-02-23] MEDS: ATORVASTATIN CA 10 MG TABLET (FP) PO SCH (21:14)
[2017-02-23] MEDS: THIAMINE HCL 100 MG TABLET (FP) PO SCH (21:14)
[2017-02-24] MEDS ORDERED: INSULIN (NOVOLOG) ASPART 100 UNITS/ML 10ML VIAL ONE ×2 (07:41→16:55)
[2017-02-24] MEDS: metFORMIN HCL 500 MG TABLET (FP) PO SCH ×2 (07:43→16:45)
[2017-02-24] MEDS: INSULIN (NOVOLOG MIX 70/30) 100 UNITS/ML MDV SQ SCH ×2 (07:43→16:47)
[2017-02-24] MEDS: INSULIN SLIDING SCALE (NOVOLOG) 1 VIAL SQ SCH ×2 (07:43→16:47)
[2017-02-24] MEDS: glyBURIDE 5 MG TABLET (UD) PO SCH ×2 (07:43→16:45)
[2017-02-24] MEDS ORDERED: PT OWN MED DRAWER 7, Y5N ONE ×2 (08:42→19:19)
--- NOTE | 2017-02-24 09:26 | PN ---
Psychiatric Progress Note Vital Signs: Vital Signs Period Temp Pulse Resp BP Sys/Harding Pulse Ox Last 24 Hr 97.9 F 81-96 18-18 124-147/74-77 Date of Session: 02/24/17 Chief Complaint:: Discharge Note HPI: Patient addressing Alcohol and Cocaine Dependence comorbid with Nicotine Dependence and Schizoaffective Disorder ROS: Arthritis, HTN, Hyperlipidemia, IDDM and Neuropathic pain both feet were medicaly addressed Current Medications: Active Medications Generic Name Dose Route Start Last Admin Trade Name Freq PRN Reason Stop Dose Admin Acetaminophen 650 mg 02/10/17 20:36 Tylenol - PO Q4H PRN PAIN Al Hydroxide/Mg Hydroxide 30 ml 02/10/17 20:36 Mylanta Oral Suspension - PO Q6H PRN DYSPEPSIA Aspirin 81 mg 02/11/17 10:00 02/23/17 09:34 Asa - PO 81 mg DAILY TYLER Administration Atorvastatin Calcium 10 mg 02/10/17 22:00 02/23/17 21:14 Lipitor - PO 10 mg HS TYLER Administration Cholecalciferol 400 unit 02/10/17 22:00 02/23/17 22:00 Vitamin D3 - PO 400 unit BID TYLER Administration Diphenhydramine HCl 50 mg 02/10/17 20:36 02/23/17 21:13 Benadryl - PO 50 mg HSMR1 PRN Administration INSOMNIA Eucalyptus/Menthol/Phenol/Sorbitol 1 each 02/10/17 20:36 Cepastat Lozenge - MM Q4H PRN SORE THROAT Gabapentin 100 mg 02/10/17 22:00 02/23/17 21:14 Neurontin - PO 100 mg BID TYLER Administration Glyburide 10 mg 02/11/17 07:00 02/24/17 07:43 Diabeta - PO 10 mg BIDAC TYLER Administration Guaifenesin 10 ml 02/10/17 20:36 Robitussin Dm - PO Q6H PRN COUGH Hydroxyzine Pamoate 50 mg 02/10/17 20:36 Vistaril - PO Q4H PRN AGITATION Ibuprofen 400 mg 02/10/17 20:36 Motrin - PO Q6H PRN SEVERE PAIN Insulin Aspart 10 units 02/11/17 07:00 02/24/17 07:43 Novolog Mix 70/30 Vial SQ 10 units BIDAC TYLER Administration Insulin Aspart 1 vial 02/11/17 07:00 07/31/17 07:43 Novolog Vial Sliding Scale - SQ 2 units BIDAC TYLER Administration Protocol Lisinopril 20 mg 02/12/17 10:00 02/23/17 09:34 Prinivil PO 20 mg DAILY TYLER Administration Loperamide HCl 4 mg 02/10/17 20:36 Imodium - PO Q6H PRN DIARRHEA Magnesium Citrate 300 ml 02/10/17 20:36 Citroma - PO Q48H PRN CONSTIPATION Magnesium Hydroxide 30 ml 02/10/17 20:36 Milk Of Magnesia - PO DAILY PRN CONSTIPATION Metformin HCl 1,000 mg 02/11/17 07:00 02/24/17 07:43 Glucophage - PO 1,000 mg BID@0700,1630 TYLER Administration Multivit/Folic Acid/Iron 1 tab 02/11/17 10:00 02/23/17 09:35 Vitamins (Sjr) - PO 1 tab DAILY TYLER Administration Pseudoephedrine/Triprolidine 1 combo 02/10/17 20:36 Actifed - PO TID PRN NASAL CONGESTION Thiamine HCl 100 mg 02/10/17 22:00 02/23/17 21:14 Vitamin B1 - PO 100 mg HS TYLER Administration Current Side Effect: No Lab tests ordered: Yes Lab tests reviewed: Yes Provider note:: Patient will complete this program on 02/25/17. He has met his treatment goals and will continue to address his issues in outpatient treatment at [facility]. Told scenario writer that from his participation in this program, he has learned the importance of establising a sober support network in order to maintain abstinence. He is stable for discharge on 02/25/17 Total face to face time:: 35 Mental Status Exam - Mental Status Exam Alert and Oriented to: Time, Place, Person Cognitive Function: Fair Patient Appearance: Well Groomed Mood: Hopeful, Euthymic Affect: Appropriate Patient Behavior: Cooperative Speech Pattern: Clear Voice Loudness: Normal Thought Process: Intact, Goal Oriented Thought Disorder: Not Present Hallucinations: Denies Suicidal Ideation: Denies Homicidal Ideation: Denies Insight/Judgement: Fair Appetite: Good Muscle strength/Tone: Normal Gait/Station: Normal Psychiatric Treatment Plan - Problem List (1) Alcohol dependence Current Visit: No (2) Cocaine dependence Current Visit: No Qualifiers: Complication of substance-induced condition: uncomplicated (3) Nicotine dependence Current Visit: No Qualifiers: Nicotine product type: cigarettes Substance use status: uncomplicated Qualified Code(s): F17.210 - Nicotine dependence, cigarettes, uncomplicated (4) Schizoaffective disorder Current Visit: No Qualifiers: Schizoaffective disorder type: unspecified Qualified Code(s): F25.9 - Schizoaffective disorder, unspecified Comment: Self-report. (5) Arthritis Current Visit: No (6) Hypercholesteremia Current Visit: No (7) Hypertension Current Visit: No Qualifiers: Hypertension type: essential hypertension (8) Insulin dependent diabetes mellitus Current Visit: No Comment: BGM 500 (9) Neuropathic pain of both feet Current Visit: No Initial treatment plan: Patient will discharged tomorrow and referred to [facility] for outpatient treatment
[2017-02-24] MEDS: LISINOPRIL 20 MG TABLET (FP) PO SCH (09:44)
[2017-02-24] MEDS: CHOLECALCIFEROL (VITAMIN D3) 400 UNIT TABLET (FP) PO SCH ×2 (09:44→21:27)
[2017-02-24] MEDS: GABAPENTIN 100 MG CAPSULE (FP) PO SCH ×2 (09:44→21:26)
[2017-02-24] MEDS: ASPIRIN 81 MG CHEWABLE TABLETS PO SCH (09:44)
[2017-02-24] MEDS: PRENATAL VITAMINS W/ FOLIC ACID TABLET (FP) PO SCH (09:44)
[2017-02-24] MEDS: ATORVASTATIN CA 10 MG TABLET (FP) PO SCH (21:26)
[2017-02-24] MEDS: diphenhydrAMINE HCL 50 MG CAPSULE PO PRN (21:26)
[2017-02-24] MEDS: THIAMINE HCL 100 MG TABLET (FP) PO SCH (21:26)
[2017-02-25 06:46] VITALS: BP 145/88; PULSE 79; TEMP 98
[2017-02-25] MEDS ORDERED: INSULIN (NOVOLOG) ASPART 100 UNITS/ML 10ML VIAL ONE (07:05)
[2017-02-25] MEDS: metFORMIN HCL 500 MG TABLET (FP) PO SCH (07:36)
[2017-02-25] MEDS: glyBURIDE 5 MG TABLET (UD) PO SCH (07:36)
[2017-02-25] MEDS: INSULIN (NOVOLOG MIX 70/30) 100 UNITS/ML MDV SQ SCH (07:37)
[2017-02-25] MEDS: INSULIN SLIDING SCALE (NOVOLOG) 1 VIAL SQ SCH (07:38)
[2017-02-25] MEDS ORDERED: PT OWN MED DRAWER 7, Y5N ONE (09:08)
[2017-02-25] MEDS: CHOLECALCIFEROL (VITAMIN D3) 400 UNIT TABLET (FP) PO SCH (09:10)
[2017-02-25] MEDS: GABAPENTIN 100 MG CAPSULE (FP) PO SCH (09:11)
[2017-02-25] MEDS: ASPIRIN 81 MG CHEWABLE TABLETS PO SCH (09:11)
[2017-02-25] MEDS: PRENATAL VITAMINS W/ FOLIC ACID TABLET (FP) PO SCH (09:11)
[2017-02-25] MEDS: LISINOPRIL 20 MG TABLET (FP) PO SCH (09:11)
== END 2017-02-25 09:20 | disposition home or self-care (01) | DRG 772 ==
LOC: YASAS 18:08 → Y3W 20:45
PROVIDERS: ADMIT Psychiatry & Neurology Psychiatry; ATTEND Psychiatry & Neurology Psychiatry
PROC: HZ42ZZZ Group Counseling for Substance Abuse Treatment, Cognitive-Behavioral (ICD-10-PCS; principal; 2017-02-10)
DX: F10.20 Alcohol dependence, uncomplicated (principal); F14.20 Cocaine dependence, uncomplicated; F17.210 Nicotine dependence, cigarettes, uncomplicated; F25.9 Schizoaffective disorder, unspecified; I10 Essential (primary) hypertension; E78.5 Hyperlipidemia, unspecified; E11.9 Type 2 diabetes mellitus without complications; Z79.4 Long term (current) use of insulin; G62.9 Polyneuropathy, unspecified; M19.072 Primary osteoarthritis, left ankle and foot; M19.071 Primary osteoarthritis, right ankle and foot; M13.842 Other specified arthritis, left hand; M13.841 Other specified arthritis, right hand; M13.862 Other specified arthritis, left knee; M13.861 Other specified arthritis, right knee
CPT/HCPCS: 36415; 80053; 81003; 81015; 85027; 86593; 93005; 93010

== ENCOUNTER 2018-03-09 12:21 | Inpatient (IN) | payer OTHER ==
[2018-03-09 22:31] VITALS: BMI 30.2
--- NOTE | 2018-03-10 00:02 | HP ---
Admission ROS [facility] Chief Complaint: Seeking admission to Rehab Allergies/Adverse Reactions: Allergies Allergy/AdvReac Type Severity Reaction Status Date / Time No Known Allergies Allergy Verified 10/22/16 17:56 History of Present Illness: 47 years old male is seeking admission to Rehab. Patient has been admitted to Rehab last year and reports 3 years of sobriety. He has medical history of DM Type 2, HTN, Hyperlipidemia, Depression and pinched nerve. He denies suicide attempt or suiciodal ideation at this time. Exam Limitations: No Limitations - Ebola screening Have you traveled outside of the country in the last 21 days: No Have you had contact with anyone from an Ebola affected area: No Have you been sick,other than usual withdrawal symptoms: No Do you have a fever: No - Review of Systems Constitutional: No Symptoms Reported EENT: reports: No Symptoms Reported Respiratory: reports: No Symptoms reported Cardiac: reports: No Symptoms Reported GI: reports: No Symptoms Reported : reports: No Symptoms Reported Musculoskeletal: reports: No Symptoms Reported Integumentary: reports: No Symptoms Reported Neuro: reports: No Symptoms reported Endocrine: reports: No Symptoms Reported Hematology: reports: No Symptoms Reported Psychiatric: reports: No Sypmtoms Reported Other Systems: Reviewed and Negative Patient History - Patient Medical History Hx Anemia: No Hx Asthma: No Hx Chronic Obstructive Pulmonary Disease (COPD): No Hx Cancer: No Hx Cardiac Disorders: No Hx Congestive Heart Failure: No Hx Hypertension: Yes (Enalapril, Lisinopril) Hx Hypercholesterolemia: Yes Hx Pacemaker: No HX Cerebrovascular Accident: No Hx Seizures: No Hx Dementia: No Hx Diabetes: Yes (Glyburide, Metformin Novolog 70/30 and Insulin aspart) Hx Gastrointestinal Disorders: No Hx Liver Disease: No Hx Genitourinary Disorders: No Hx Sexually Transmitted Disorders: Yes (Syphilis 30 yrs ago (treated)) Hx Renal Disease (ESRD): No Hx Thyroid Disease: No Hx Human Immunodeficiency Virus (HIV): No Hx Hepatitis C: No Hx Depression: Yes (Trazodone) Hx Suicide Attempt: No (Denies suicide attempt and suicidal ideation at this time) Hx Bipolar Disorder: Yes Hx Schizophrenia: No - Patient Surgical History Past Surgical History: Yes Hx Neurologic Surgery: No Hx Cataract Extraction: No Hx Cardiac Surgery: No Hx Lung Surgery: No Hx Breast Surgery: No Hx Breast Biopsy: No Hx Abdominal Surgery: No Hx Appendectomy: No Hx Cholecystectomy: No Hx Genitourinary Surgery: No Hx Section: No Hx Orthopedic Surgery: Yes (torn ligament, left knee in 2004) Anesthesia Reaction: No - PPD History Previous Implant?: Yes Documented Results: Negative w/o proof Date: 02/12/17 Results: 0 mm PPD to be Administered?: Yes - Reproductive History Patient is a Female of Child Bearing Age (11 -55 yrs old): No (Male) - Smoking Cessation Smoking history: Current every day smoker Have you smoked in the past 12 months: Yes Aproximately how many cigarettes per day: 10 Cigars Per Day: 0 Hx Chewing Tobacco Use: No Initiated information on smoking cessation: Yes 'Breaking Loose' booklet given: 03/09/18 - Substance & Tx. History Hx Alcohol Use: No Hx Substance Use: Yes Substance Use Type: Cocaine Hx Substance Use Treatment: Yes ([facility]) - Substances Abused Cocaine Route: Inhalation Frequency: 3-6 times per week Amount used: $50 Age of first use: 11 Date of Last Use: 03/07/18 Family Disease History - Family Disease History Family Disease History: Diabetes: Grandparent, Brother, Sister Admission Physical Exam S - Vital Signs Vital Signs: Vital Signs - 24 hr 03/09/18 22:30 Temperature 98.8 F Pulse Rate 95 H Respiratory 18 Rate Blood Pressure 160/100 - Physical General Appearance: Yes: No Apparent Distress HEENTM: Yes: EOMI, Normal ENT Inspection, Normocephalic, Normal Voice, DENIZ Respiratory: Yes: Lungs Clear, Normal Breath Sounds, No Respiratory Distress Neck: Yes: Supple Breast: Yes: Within Normal Limits Cardiology: Yes: Tachycardia Abdominal: Yes: Normal Bowel Sounds, Soft Genitourinary: Yes: Within Normal Limits Back: Yes: Normal Inspection Musculoskeletal: Yes: Within Normal Limits Extremities: Yes: Normal Inspection Neurological: Yes: Alert, Normal Mood/Affect Integumentary: Yes: Warm Lymphatic: Yes: Within Normal Limits - Diagnostic (1) Cocaine dependence Current Visit: Yes Status: Chronic Qualifiers: Complication of substance-induced condition: uncomplicated (2) Arthritis Current Visit: Yes Status: Chronic (3) Cocaine dependence, uncomplicated Current Visit: Yes Status: Chronic (4) Hypercholesteremia Current Visit: Yes Status: Chronic (5) Hypertension Current Visit: Yes Status: Chronic Qualifiers: Hypertension type: essential hypertension Qualified Code(s): I10 - Essential (primary) hypertension (6) Insulin dependent diabetes mellitus Current Visit: Yes Status: Chronic Comment: BGM 500 (7) Neuropathic pain of both feet Current Visit: Yes Status: Chronic Cleared for Admission [facility] - Detox or Rehab [facility] Level of Care: Observation Bed Claeared for Rehab Admission: Yes [facility] Breath Alcohol Content Breath Alcohol Content: 0 Urine Drug Screen - Results Drug Screen Negative: No Urine Drug Screen Results: [facility] Inpatient Rehab Admission - Initial Determination Are CD services needed?: Yes Free of communicable disease: Yes Not in need of hospitalization: Yes - Rehab Admission Criteria Previous failed treatment: Yes Poor recovery environment: Yes Comorbidities: Yes Lacks judgement: No Patient is meeting Inpatient Rehab admission criteria:: Yes
[2018-03-10] MEDS ORDERED: NICOTINE POLACRILEX 2 MG GUM BC PRN (00:10)
[2018-03-10] MEDS ORDERED: MAG HYDROX/AL HYDROX/SIMETH 30 ML UNIT-DOSE CUP PO PRN (00:10)
[2018-03-10] MEDS ORDERED: MAGNESIUM HYDROX 2400MG/30ML ORAL SUSPENSION 30 ML CUP PO PRN (00:10)
[2018-03-10] MEDS ORDERED: P-EPHED 60MG/TRIPROLIDI 2.5MG TABLET PO PRN (00:10)
[2018-03-10] MEDS ORDERED: LOPERAMIDE HCL 2 MG CAPSULE PO PRN (00:10)
[2018-03-10] MEDS ORDERED: guaiFENesin/D-METHORPHAN HB 10 ML UNIT-DOSE CUPS PO PRN (00:10)
[2018-03-10] MEDS ORDERED: MENTHOL/PHENOL 1 EACH UD MM PRN (00:10)
[2018-03-10] MEDS ORDERED: MAGNESIUM CITRATE 300 ML BOTTLE PO PRN (00:10)
[2018-03-10] MEDS ORDERED: IBUPROFEN 400 MG TABLET (FP) PO PRN (00:10)
[2018-03-10] MEDS ORDERED: INSULIN (NOVOLOG MIX 70/30) 100 UNITS/ML MDV SQ ONE (01:19)
[2018-03-10] MEDS ORDERED: TUBERCULIN PPD 5 TU/0.1ML VIAL ID ONE (06:49)
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
[2018-03-10] MEDS: INSULIN (NOVOLOG MIX 70/30) 100 UNITS/ML MDV SQ SCH ×2 (07:30→22:18)
[2018-03-10] MEDS: glyBURIDE 5 MG TABLET (UD) PO SCH ×2 (08:01→17:15)
[2018-03-10] MEDS: metFORMIN HCL 500 MG TABLET (FP) PO SCH ×2 (08:01→17:15)
[2018-03-10] MEDS: GABAPENTIN 100 MG CAPSULE (FP) PO SCH ×2 (10:14→21:16)
[2018-03-10] MEDS: PRENATAL VITAMINS W/ FOLIC ACID TABLET (FP) PO SCH (10:14)
[2018-03-10] MEDS: LISINOPRIL 10 MG TABLET (FP) PO SCH (10:14)
[2018-03-10] MEDS: ASPIRIN 81 MG CHEWABLE TABLETS PO SCH (10:14)
[2018-03-10] MEDS: ENALAPRIL MALEATE 10 MG TABLET (FP) PO SCH (10:14)
[2018-03-10] MEDS: NICOTINE 14 MG/24 HOURS TOPICAL PATCH TD SCH (10:15)
[2018-03-10] MEDS: CHOLECALCIFEROL (VITAMIN D3) 400 UNIT TABLET (FP) PO SCH ×2 (10:20→21:20)
[2018-03-10 10:22] LABS: URINE APPEARANCE CLEAR; URINE BILIRUBIN NEGATIVE (<2.0 mg/dL); URINE COLOR STRAW; URINE GLUCOSE (UA) 3+ (NEGATIVE); URINE KETONE NEGATIVE (NEGATIVE); URINE LEUK ESTERASE 1+ (NEGATIVE); URINE NITRITE NEGATIVE (NEGATIVE); URINE PROTEIN NEGATIVE (NEGATIVE); URINE UROBILINOGEN NEGATIVE mg/dL (0.2-1.0)
[2018-03-10 10:31] LABS: EPI CELLS RARE /HPF (FEW); URINE BACTERIA RARE /hpf (NONE SEEN); URINE MUCUS RARE
--- NOTE | 2018-03-10 11:59 | EKG ---
Test Reason : Blood Pressure : / mmHG Vent. Rate : 084 BPM Atrial Rate : 084 BPM P-R Int : 148 ms QRS Dur : 086 ms QT Int : 358 ms P-R-T Axes : 055 -22 014 degrees QTc Int : 423 ms NORMAL SINUS RHYTHM MINIMAL VOLTAGE CRITERIA FOR LVH, MAY BE NORMAL VARIANT BORDERLINE ECG WHEN COMPARED WITH ECG OF 10-FEB-2017 21:35, NO SIGNIFICANT CHANGE WAS FOUND Confirmed by Tobias Escamilla MD ([id number]) on 03/10/2018 11:58:32 AM Referred By: Confirmed By:Tobias Escamilla MD
[2018-03-10 15:30] LABS: ALBUMIN 3.3 g/dl (3.4-5.0); ANION GAP 11 (8-16); BLOOD UREA NITROGEN 11 mg/dL (7-18); CALCIUM 8.9 mg/dL (8.5-10.1); CHLORIDE 103 mmol/L (98-107); CO2 27 mmol/L (21-32); SODIUM 141 mmol/L (136-145)
[2018-03-10 15:35] LABS: ALK PHOS 83 U/L (45-117); BILIRUBIN,TOTAL 0.1 mg/dL (0.2-1.0); CREATININE 1.1 mg/dL (0.7-1.3); SGOT/AST 8 U/L (15-37); SGPT/ALT 19 U/L (12-78); TOT PROT 6.3 g/dl (6.4-8.2)
[2018-03-10 15:52] LABS: GLUCOSE,RANDOM 363 mg/dL (74-106)
[2018-03-10 16:02] LABS: HEMATOCRIT 35.1 % (35.4-49); HEMOGLOBIN 11.9 GM/dL (11.7-16.9); MCH 30.9 pg (25.7-33.7); MCHC 33.8 g/dl (32.0-35.9); MEAN CELL VOLUME 91.5 fl (80-96); MEAN PLT VOLUME 9.2 fl (7.5-11.1); PLATELET COUNT 298 K/MM3 (134-434); RBC 3.83 M/mm3 (4.00-5.60); WHITE BLOOD COUNT 7.9 K/mm3 (4.0-10.0)
[2018-03-10] MEDS ORDERED: PT OWN MED DRAWER 7, Y5N ONE (19:49)
[2018-03-10] MEDS: ATORVASTATIN CA 10 MG TABLET (FP) PO SCH (21:16)
[2018-03-10] MEDS: traZODone HCL 100 MG TABLET (FP) PO SCH (21:16)
[2018-03-10] MEDS: THIAMINE HCL 100 MG TABLET (FP) PO SCH (21:16)
[2018-03-10] MEDS ORDERED: MELATONIN 5 MG TABLETS PO PRN (22:00)
[2018-03-11] MEDS: metFORMIN HCL 500 MG TABLET (FP) PO SCH ×2 (06:19→17:13)
[2018-03-11] MEDS: glyBURIDE 5 MG TABLET (UD) PO SCH ×2 (06:19→17:13)
[2018-03-11] MEDS: INSULIN (NOVOLOG MIX 70/30) 100 UNITS/ML MDV SQ SCH ×2 (07:17→22:00)
[2018-03-11] MEDS: NICOTINE 14 MG/24 HOURS TOPICAL PATCH TD SCH (10:06)
[2018-03-11] MEDS: PRENATAL VITAMINS W/ FOLIC ACID TABLET (FP) PO SCH (10:06)
[2018-03-11] MEDS: ASPIRIN 81 MG CHEWABLE TABLETS PO SCH (10:06)
[2018-03-11] MEDS: LISINOPRIL 10 MG TABLET (FP) PO SCH (10:06)
[2018-03-11] MEDS: GABAPENTIN 100 MG CAPSULE (FP) PO SCH ×2 (10:06→21:57)
[2018-03-11] MEDS: ENALAPRIL MALEATE 10 MG TABLET (FP) PO SCH (10:06)
[2018-03-11] MEDS: CHOLECALCIFEROL (VITAMIN D3) 400 UNIT TABLET (FP) PO SCH ×2 (10:07→21:57)
[2018-03-11] MEDS ORDERED: INSULIN (NOVOLOG) ASPART 100 UNITS/ML 10ML VIAL ONE (11:56)
[2018-03-11] MEDS ORDERED: INSULIN (NOVOLOG) ASPART 100 UNITS/ML 10ML VIAL SQ ONE (12:00)
--- NOTE | 2018-03-11 15:28 | PN ---
[facility] Progress Note Note: NOTIFIED BY TORREY FISHER THAT PATIENT BLOOD SUGAR THIS MORNING WAS 519. PATIENT CONTINUES WITH STANDING INSULIN ORDERS AND BGM ACHS. WILL ORDER STAT DOSE OF 10 UNITS OF NOVOLOG SQ X ONE DOSE. NO SIGNS OR SYMPTOMS OF HYPO OR HYPERGLYCEMIA REPORTED TO RN. WILL CONTINUE TO MONITOR CLINICALLY.
[2018-03-11] MEDS: traZODone HCL 100 MG TABLET (FP) PO SCH (21:57)
[2018-03-11] MEDS: ATORVASTATIN CA 10 MG TABLET (FP) PO SCH (21:57)
[2018-03-11] MEDS: THIAMINE HCL 100 MG TABLET (FP) PO SCH (21:57)
[2018-03-12] MEDS: glyBURIDE 5 MG TABLET (UD) PO SCH ×2 (06:15→16:58)
[2018-03-12] MEDS: metFORMIN HCL 500 MG TABLET (FP) PO SCH ×2 (06:15→16:58)
[2018-03-12] MEDS: INSULIN (NOVOLOG MIX 70/30) 100 UNITS/ML MDV SQ SCH ×2 (06:16→17:35)
[2018-03-12] MEDS ORDERED: INSULIN (NOVOLOG MIX 70/30) 100 UNITS/ML MDV SQ SCH (07:38)
--- NOTE | 2018-03-12 07:44 | PN ---
S Progress Note Note: SEEN FOR ELEVATED BLOOD SUGARS. INSULIN 70/30 CHANGED TO 20 UNITS IN AM AND 10 UNITS Q HS. THIS IS CLIENTS DOSE NOTED IN OUTSIDE PHARMACY D/W CLIENT WHO CONFIRMED CONT TO MONITOR CLINICALLY CMP Sodium 141 mmol/L (136-145) 03/10/18 08:30 Potassium 4.0 mmol/L (3.5-5.1) 03/10/18 08:30 Chloride 103 mmol/L (98-107) 03/10/18 08:30 Carbon Dioxide 27 mmol/L (21-32) 03/10/18 08:30 Anion Gap 11 (8-16) 03/10/18 08:30 BUN 11 mg/dL (7-18) 03/10/18 08:30 Creatinine 1.1 mg/dL (0.7-1.3) 03/10/18 08:30 Creat Clearance w eGFR > 60 (>60) 03/10/18 08:30 POC Glucometer 299 UNITS (80-120) 03/12/18 06:14 Random Glucose 363 mg/dL (74-106) H* 03/10/18 08:30 Calcium 8.9 mg/dL (8.5-10.1) 03/10/18 08:30 Total Bilirubin 0.1 mg/dL (0.2-1.0) L 03/10/18 08:30 AST 8 U/L (15-37) L 03/10/18 08:30 ALT 19 U/L (12-78) D 03/10/18 08:30 Alkaline Phosphatase 83 U/L (45-117) 03/10/18 08:30 Total Protein 6.3 g/dl (6.4-8.2) L 03/10/18 08:30 Albumin 3.3 g/dl (3.4-5.0) L 03/10/18 08:30
[2018-03-12] MEDS ORDERED: INSULIN (NOVOLOG MIX 70/30) 100 UNITS/ML MDV SQ ONE (07:45)
[2018-03-12] MEDS: ENALAPRIL MALEATE 10 MG TABLET (FP) PO SCH (10:14)
[2018-03-12] MEDS: LISINOPRIL 10 MG TABLET (FP) PO SCH (10:14)
[2018-03-12] MEDS: ASPIRIN 81 MG CHEWABLE TABLETS PO SCH (10:14)
[2018-03-12] MEDS: GABAPENTIN 100 MG CAPSULE (FP) PO SCH ×2 (10:14→21:06)
[2018-03-12] MEDS: NICOTINE 14 MG/24 HOURS TOPICAL PATCH TD SCH (10:14)
[2018-03-12] MEDS: PRENATAL VITAMINS W/ FOLIC ACID TABLET (FP) PO SCH (10:14)
[2018-03-12] MEDS: CHOLECALCIFEROL (VITAMIN D3) 400 UNIT TABLET (FP) PO SCH ×2 (10:15→21:07)
--- NOTE | 2018-03-12 11:55 | PN ---
S Progress Note Note: bgm 299,to place on sliding scale of insulin coverage,close monitoring of bgm achs
[2018-03-12] MEDS ORDERED: INSULIN (NOVOLOG) ASPART 100 UNITS/ML 10ML VIAL ONE ×2 (16:57→21:10)
[2018-03-12] MEDS: INSULIN (NOVOLOG) ASPART 100 UNITS/ML 10ML VIAL SQ SCH ×2 (16:59→21:07)
[2018-03-12] MEDS: traZODone HCL 100 MG TABLET (FP) PO SCH (21:06)
[2018-03-12] MEDS: ATORVASTATIN CA 10 MG TABLET (FP) PO SCH (21:06)
[2018-03-12] MEDS: THIAMINE HCL 100 MG TABLET (FP) PO SCH (21:07)
[2018-03-13] MEDS: glyBURIDE 5 MG TABLET (UD) PO SCH ×2 (07:07→16:53)
[2018-03-13] MEDS: metFORMIN HCL 500 MG TABLET (FP) PO SCH ×2 (07:07→16:53)
[2018-03-13] MEDS: INSULIN (NOVOLOG) ASPART 100 UNITS/ML 10ML VIAL SQ SCH ×4 (07:17→22:02)
[2018-03-13] MEDS: INSULIN (NOVOLOG MIX 70/30) 100 UNITS/ML MDV SQ SCH ×2 (07:17→17:22)
[2018-03-13] MEDS: LISINOPRIL 10 MG TABLET (FP) PO SCH (10:23)
[2018-03-13] MEDS: ENALAPRIL MALEATE 10 MG TABLET (FP) PO SCH (10:23)
[2018-03-13] MEDS: NICOTINE 14 MG/24 HOURS TOPICAL PATCH TD SCH (10:23)
[2018-03-13] MEDS: ASPIRIN 81 MG CHEWABLE TABLETS PO SCH (10:24)
[2018-03-13] MEDS: PRENATAL VITAMINS W/ FOLIC ACID TABLET (FP) PO SCH (10:24)
[2018-03-13] MEDS: GABAPENTIN 100 MG CAPSULE (FP) PO SCH ×2 (10:24→22:01)
[2018-03-13] MEDS: CHOLECALCIFEROL (VITAMIN D3) 400 UNIT TABLET (FP) PO SCH ×2 (10:26→22:03)
[2018-03-13] MEDS ORDERED: PT OWN MED DRAWER 7, Y5N ONE ×2 (10:27→18:49)
[2018-03-13] MEDS ORDERED: INSULIN (NOVOLOG) ASPART 100 UNITS/ML 10ML VIAL ONE ×2 (11:49→22:01)
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
[2018-03-13] MEDS ORDERED: INSULIN (NOVOLOG MIX 70/30) 100 UNITS/ML MDV SQ ONE (17:22)
[2018-03-13] MEDS: ATORVASTATIN CA 10 MG TABLET (FP) PO SCH (22:01)
[2018-03-13] MEDS: THIAMINE HCL 100 MG TABLET (FP) PO SCH (22:01)
[2018-03-13] MEDS: traZODone HCL 100 MG TABLET (FP) PO SCH (22:03)
[2018-03-14] MEDS: metFORMIN HCL 500 MG TABLET (FP) PO SCH ×2 (07:18→16:55)
[2018-03-14] MEDS: glyBURIDE 5 MG TABLET (UD) PO SCH ×2 (07:18→16:54)
[2018-03-14] MEDS: INSULIN (NOVOLOG MIX 70/30) 100 UNITS/ML MDV SQ SCH ×2 (07:26→17:00)
[2018-03-14] MEDS ORDERED: INSULIN (NOVOLOG) ASPART 100 UNITS/ML 10ML VIAL ONE ×2 (07:29→11:44)
[2018-03-14] MEDS: INSULIN (NOVOLOG) ASPART 100 UNITS/ML 10ML VIAL SQ SCH ×4 (07:30→22:14)
[2018-03-14] MEDS: GABAPENTIN 100 MG CAPSULE (FP) PO SCH ×2 (10:10→21:35)
[2018-03-14] MEDS: ASPIRIN 81 MG CHEWABLE TABLETS PO SCH (10:10)
[2018-03-14] MEDS: CYCLOBENZAPRINE HCL 10 MG TABLET (FP) PO PRN (10:10)
[2018-03-14] MEDS: ENALAPRIL MALEATE 10 MG TABLET (FP) PO SCH (10:10)
[2018-03-14] MEDS: IBUPROFEN 600 MG TABLET (FP) PO PRN (10:10)
[2018-03-14] MEDS: LISINOPRIL 10 MG TABLET (FP) PO SCH (10:10)
[2018-03-14] MEDS: CHOLECALCIFEROL (VITAMIN D3) 400 UNIT TABLET (FP) PO SCH ×2 (10:27→21:35)
[2018-03-14] MEDS: NICOTINE 14 MG/24 HOURS TOPICAL PATCH TD SCH (10:27)
[2018-03-14] MEDS ORDERED: PT OWN MED DRAWER 7, Y5N ONE ×2 (10:27→19:59)
[2018-03-14] MEDS: PRENATAL VITAMINS W/ FOLIC ACID TABLET (FP) PO SCH (10:27)
[2018-03-14] MEDS ORDERED: INSULIN (NOVOLOG MIX 70/30) 100 UNITS/ML MDV SQ ONE (16:53)
[2018-03-14] MEDS: ATORVASTATIN CA 10 MG TABLET (FP) PO SCH (21:34)
[2018-03-14] MEDS: THIAMINE HCL 100 MG TABLET (FP) PO SCH (21:34)
[2018-03-14] MEDS: traZODone HCL 100 MG TABLET (FP) PO SCH (21:35)
[2018-03-15] MEDS ORDERED: INSULIN (NOVOLOG) ASPART 100 UNITS/ML 10ML VIAL ONE ×3 (07:32→21:50)
[2018-03-15] MEDS: INSULIN (NOVOLOG) ASPART 100 UNITS/ML 10ML VIAL SQ SCH ×4 (07:32→21:49)
[2018-03-15] MEDS: metFORMIN HCL 500 MG TABLET (FP) PO SCH ×2 (07:33→16:55)
[2018-03-15] MEDS: INSULIN (NOVOLOG MIX 70/30) 100 UNITS/ML MDV SQ SCH ×2 (07:33→16:53)
[2018-03-15] MEDS ORDERED: PT OWN MED DRAWER 7, Y5N ONE ×2 (08:58→20:15)
[2018-03-15] MEDS: CHOLECALCIFEROL (VITAMIN D3) 400 UNIT TABLET (FP) PO SCH ×2 (10:03→21:44)
[2018-03-15] MEDS: ASPIRIN 81 MG CHEWABLE TABLETS PO SCH (10:03)
[2018-03-15] MEDS: ENALAPRIL MALEATE 10 MG TABLET (FP) PO SCH (10:03)
[2018-03-15] MEDS: PRENATAL VITAMINS W/ FOLIC ACID TABLET (FP) PO SCH (10:03)
[2018-03-15] MEDS: LISINOPRIL 10 MG TABLET (FP) PO SCH (10:03)
[2018-03-15] MEDS: GABAPENTIN 100 MG CAPSULE (FP) PO SCH ×2 (10:03→21:44)
[2018-03-15] MEDS: NICOTINE 14 MG/24 HOURS TOPICAL PATCH TD SCH (10:04)
[2018-03-15] MEDS: glyBURIDE 5 MG TABLET (UD) PO SCH ×2 (11:48→16:55)
[2018-03-15] MEDS: CYCLOBENZAPRINE HCL 10 MG TABLET (FP) PO PRN (14:13)
[2018-03-15] MEDS: ACETAMINOPHEN 325 MG TABLET (FP) PO PRN (14:13)
[2018-03-15] MEDS: THIAMINE HCL 100 MG TABLET (FP) PO SCH (21:44)
[2018-03-15] MEDS: traZODone HCL 100 MG TABLET (FP) PO SCH (21:44)
[2018-03-15] MEDS: ATORVASTATIN CA 10 MG TABLET (FP) PO SCH (21:44)
[2018-03-16] MEDS: glyBURIDE 5 MG TABLET (UD) PO SCH ×2 (06:24→16:54)
[2018-03-16] MEDS: metFORMIN HCL 500 MG TABLET (FP) PO SCH ×2 (06:25→16:54)
[2018-03-16] MEDS: INSULIN (NOVOLOG) ASPART 100 UNITS/ML 10ML VIAL SQ SCH ×4 (06:28→21:47)
[2018-03-16] MEDS: INSULIN (NOVOLOG MIX 70/30) 100 UNITS/ML MDV SQ SCH ×2 (06:28→16:58)
[2018-03-16] MEDS: ASPIRIN 81 MG CHEWABLE TABLETS PO SCH (10:28)
[2018-03-16] MEDS: GABAPENTIN 100 MG CAPSULE (FP) PO SCH ×2 (10:28→21:43)
[2018-03-16] MEDS: PRENATAL VITAMINS W/ FOLIC ACID TABLET (FP) PO SCH (10:29)
[2018-03-16] MEDS: LISINOPRIL 10 MG TABLET (FP) PO SCH (10:29)
[2018-03-16] MEDS: NICOTINE 14 MG/24 HOURS TOPICAL PATCH TD SCH (10:29)
[2018-03-16] MEDS: ENALAPRIL MALEATE 10 MG TABLET (FP) PO SCH (10:30)
[2018-03-16] MEDS: CHOLECALCIFEROL (VITAMIN D3) 400 UNIT TABLET (FP) PO SCH ×2 (10:30→21:43)
[2018-03-16] MEDS ORDERED: INSULIN (NOVOLOG) ASPART 100 UNITS/ML 10ML VIAL ONE ×2 (11:50→16:58)
[2018-03-16] MEDS: ATORVASTATIN CA 10 MG TABLET (FP) PO SCH (21:43)
[2018-03-16] MEDS: THIAMINE HCL 100 MG TABLET (FP) PO SCH (21:43)
[2018-03-16] MEDS: traZODone HCL 100 MG TABLET (FP) PO SCH (21:43)
[2018-03-17] MEDS ORDERED: INSULIN (NOVOLOG) ASPART 100 UNITS/ML 10ML VIAL ONE ×3 (07:20→16:43)
[2018-03-17] MEDS: glyBURIDE 5 MG TABLET (UD) PO SCH ×2 (07:24→16:39)
[2018-03-17] MEDS: metFORMIN HCL 500 MG TABLET (FP) PO SCH ×2 (07:24→16:40)
[2018-03-17] MEDS: INSULIN (NOVOLOG MIX 70/30) 100 UNITS/ML MDV SQ SCH ×2 (07:35→16:42)
[2018-03-17] MEDS: INSULIN (NOVOLOG) ASPART 100 UNITS/ML 10ML VIAL SQ SCH ×4 (07:35→22:47)
[2018-03-17] MEDS: CHOLECALCIFEROL (VITAMIN D3) 400 UNIT TABLET (FP) PO SCH ×2 (10:00→21:45)
[2018-03-17] MEDS: GABAPENTIN 100 MG CAPSULE (FP) PO SCH ×2 (10:00→21:45)
[2018-03-17] MEDS: LISINOPRIL 10 MG TABLET (FP) PO SCH (10:00)
[2018-03-17] MEDS: ASPIRIN 81 MG CHEWABLE TABLETS PO SCH (10:00)
[2018-03-17] MEDS: ENALAPRIL MALEATE 10 MG TABLET (FP) PO SCH (10:00)
[2018-03-17] MEDS: PRENATAL VITAMINS W/ FOLIC ACID TABLET (FP) PO SCH (10:00)
[2018-03-17] MEDS: CYCLOBENZAPRINE HCL 10 MG TABLET (FP) PO PRN (10:02)
[2018-03-17] MEDS: IBUPROFEN 600 MG TABLET (FP) PO PRN (10:02)
[2018-03-17] MEDS: NICOTINE 14 MG/24 HOURS TOPICAL PATCH TD SCH (10:04)
[2018-03-17] MEDS: ACETAMINOPHEN 325 MG TABLET (FP) PO PRN (11:35)
[2018-03-17] MEDS: ATORVASTATIN CA 10 MG TABLET (FP) PO SCH (21:45)
[2018-03-17] MEDS: traZODone HCL 100 MG TABLET (FP) PO SCH (21:45)
[2018-03-17] MEDS: THIAMINE HCL 100 MG TABLET (FP) PO SCH (21:45)
[2018-03-18] MEDS ORDERED: INSULIN (NOVOLOG) ASPART 100 UNITS/ML 10ML VIAL ONE ×3 (07:09→17:17)
[2018-03-18] MEDS: glyBURIDE 5 MG TABLET (UD) PO SCH ×2 (07:13→17:07)
[2018-03-18] MEDS: metFORMIN HCL 500 MG TABLET (FP) PO SCH ×2 (07:14→17:07)
[2018-03-18] MEDS: INSULIN (NOVOLOG) ASPART 100 UNITS/ML 10ML VIAL SQ SCH ×4 (07:47→21:38)
[2018-03-18] MEDS: INSULIN (NOVOLOG MIX 70/30) 100 UNITS/ML MDV SQ SCH ×2 (07:47→17:07)
[2018-03-18] MEDS: GABAPENTIN 100 MG CAPSULE (FP) PO SCH ×2 (10:14→21:36)
[2018-03-18] MEDS: LISINOPRIL 10 MG TABLET (FP) PO SCH (10:14)
[2018-03-18] MEDS: PRENATAL VITAMINS W/ FOLIC ACID TABLET (FP) PO SCH (10:14)
[2018-03-18] MEDS: ASPIRIN 81 MG CHEWABLE TABLETS PO SCH (10:14)
[2018-03-18] MEDS: ENALAPRIL MALEATE 10 MG TABLET (FP) PO SCH (10:14)
[2018-03-18] MEDS: CHOLECALCIFEROL (VITAMIN D3) 400 UNIT TABLET (FP) PO SCH ×2 (10:14→21:36)
[2018-03-18] MEDS: NICOTINE 14 MG/24 HOURS TOPICAL PATCH TD SCH (10:15)
[2018-03-18] MEDS: ATORVASTATIN CA 10 MG TABLET (FP) PO SCH (21:36)
[2018-03-18] MEDS: traZODone HCL 100 MG TABLET (FP) PO SCH (21:36)
[2018-03-18] MEDS: THIAMINE HCL 100 MG TABLET (FP) PO SCH (21:36)
[2018-03-18] MEDS: IBUPROFEN 600 MG TABLET (FP) PO PRN (21:39)
[2018-03-19] MEDS ORDERED: INSULIN (NOVOLOG) ASPART 100 UNITS/ML 10ML VIAL ONE ×4 (07:06→21:15)
[2018-03-19] MEDS: glyBURIDE 5 MG TABLET (UD) PO SCH ×2 (07:43→17:20)
[2018-03-19] MEDS: metFORMIN HCL 500 MG TABLET (FP) PO SCH ×2 (07:43→17:20)
[2018-03-19] MEDS: INSULIN (NOVOLOG MIX 70/30) 100 UNITS/ML MDV SQ SCH ×2 (07:44→17:19)
[2018-03-19] MEDS: INSULIN (NOVOLOG) ASPART 100 UNITS/ML 10ML VIAL SQ SCH ×4 (07:45→21:17)
[2018-03-19] MEDS: NICOTINE 14 MG/24 HOURS TOPICAL PATCH TD SCH (09:45)
[2018-03-19] MEDS: IBUPROFEN 600 MG TABLET (FP) PO PRN ×2 (09:45→21:10)
[2018-03-19] MEDS: CHOLECALCIFEROL (VITAMIN D3) 400 UNIT TABLET (FP) PO SCH ×2 (09:45→21:09)
[2018-03-19] MEDS: PRENATAL VITAMINS W/ FOLIC ACID TABLET (FP) PO SCH (09:45)
[2018-03-19] MEDS: LISINOPRIL 10 MG TABLET (FP) PO SCH (09:45)
[2018-03-19] MEDS: ASPIRIN 81 MG CHEWABLE TABLETS PO SCH (09:45)
[2018-03-19] MEDS: ENALAPRIL MALEATE 10 MG TABLET (FP) PO SCH (09:45)
[2018-03-19] MEDS: GABAPENTIN 100 MG CAPSULE (FP) PO SCH ×2 (09:46→21:09)
[2018-03-19] MEDS: THIAMINE HCL 100 MG TABLET (FP) PO SCH (21:09)
[2018-03-19] MEDS: traZODone HCL 100 MG TABLET (FP) PO SCH (21:09)
[2018-03-19] MEDS: ATORVASTATIN CA 10 MG TABLET (FP) PO SCH (21:09)
[2018-03-20] MEDS ORDERED: INSULIN (NOVOLOG) ASPART 100 UNITS/ML 10ML VIAL ONE ×2 (06:52→16:56)
[2018-03-20] MEDS: metFORMIN HCL 500 MG TABLET (FP) PO SCH ×2 (07:02→16:58)
[2018-03-20] MEDS: glyBURIDE 5 MG TABLET (UD) PO SCH ×2 (07:02→16:59)
[2018-03-20] MEDS: GABAPENTIN 100 MG CAPSULE (FP) PO SCH ×2 (09:44→21:43)
[2018-03-20] MEDS: ASPIRIN 81 MG CHEWABLE TABLETS PO SCH (09:44)
[2018-03-20] MEDS: CHOLECALCIFEROL (VITAMIN D3) 400 UNIT TABLET (FP) PO SCH ×2 (09:44→21:43)
[2018-03-20] MEDS: ENALAPRIL MALEATE 10 MG TABLET (FP) PO SCH (09:44)
[2018-03-20] MEDS: LISINOPRIL 10 MG TABLET (FP) PO SCH (09:44)
[2018-03-20] MEDS: PRENATAL VITAMINS W/ FOLIC ACID TABLET (FP) PO SCH (09:44)
[2018-03-20] MEDS: NICOTINE 14 MG/24 HOURS TOPICAL PATCH TD SCH (09:45)
[2018-03-20] MEDS: ACETAMINOPHEN 325 MG TABLET (FP) PO PRN (09:46)
[2018-03-20] MEDS: INSULIN (NOVOLOG) ASPART 100 UNITS/ML 10ML VIAL SQ SCH ×2 (11:31→16:57)
[2018-03-20] MEDS: INSULIN (NOVOLOG MIX 70/30) 100 UNITS/ML MDV SQ SCH (17:02)
[2018-03-20] MEDS: IBUPROFEN 600 MG TABLET (FP) PO PRN (21:42)
[2018-03-20] MEDS: ATORVASTATIN CA 10 MG TABLET (FP) PO SCH (21:43)
[2018-03-20] MEDS: traZODone HCL 100 MG TABLET (FP) PO SCH (21:43)
[2018-03-20] MEDS: THIAMINE HCL 100 MG TABLET (FP) PO SCH (21:44)
[2018-03-21] MEDS: INSULIN (NOVOLOG) ASPART 100 UNITS/ML 10ML VIAL SQ SCH ×6 (01:14→21:47)
[2018-03-21] MEDS: INSULIN (NOVOLOG MIX 70/30) 100 UNITS/ML MDV SQ SCH ×3 (01:14→16:49)
[2018-03-21] MEDS: glyBURIDE 5 MG TABLET (UD) PO SCH ×2 (06:11→16:45)
[2018-03-21] MEDS: metFORMIN HCL 500 MG TABLET (FP) PO SCH ×2 (06:11→16:45)
[2018-03-21] MEDS: CHOLECALCIFEROL (VITAMIN D3) 400 UNIT TABLET (FP) PO SCH ×2 (09:38→21:39)
[2018-03-21] MEDS: ENALAPRIL MALEATE 10 MG TABLET (FP) PO SCH (09:38)
[2018-03-21] MEDS: GABAPENTIN 100 MG CAPSULE (FP) PO SCH ×2 (09:38→21:39)
[2018-03-21] MEDS: NICOTINE 14 MG/24 HOURS TOPICAL PATCH TD SCH (09:38)
[2018-03-21] MEDS: ASPIRIN 81 MG CHEWABLE TABLETS PO SCH (09:38)
[2018-03-21] MEDS: LISINOPRIL 10 MG TABLET (FP) PO SCH (09:38)
[2018-03-21] MEDS: PRENATAL VITAMINS W/ FOLIC ACID TABLET (FP) PO SCH (09:38)
[2018-03-21] MEDS: IBUPROFEN 600 MG TABLET (FP) PO PRN (09:39)
[2018-03-21] MEDS ORDERED: INSULIN (NOVOLOG) ASPART 100 UNITS/ML 10ML VIAL ONE ×3 (11:30→21:48)
[2018-03-21] MEDS: THIAMINE HCL 100 MG TABLET (FP) PO SCH (21:39)
[2018-03-21] MEDS: traZODone HCL 100 MG TABLET (FP) PO SCH (21:39)
[2018-03-21] MEDS: ATORVASTATIN CA 10 MG TABLET (FP) PO SCH (21:39)
[2018-03-22] MEDS: metFORMIN HCL 500 MG TABLET (FP) PO SCH ×2 (06:13→16:48)
[2018-03-22] MEDS: glyBURIDE 5 MG TABLET (UD) PO SCH ×2 (06:13→16:48)
[2018-03-22] MEDS ORDERED: INSULIN (NOVOLOG) ASPART 100 UNITS/ML 10ML VIAL ONE ×2 (06:40→11:50)
[2018-03-22] MEDS: INSULIN (NOVOLOG MIX 70/30) 100 UNITS/ML MDV SQ SCH ×2 (08:05→16:49)
[2018-03-22] MEDS: INSULIN (NOVOLOG) ASPART 100 UNITS/ML 10ML VIAL SQ SCH ×4 (08:06→22:39)
[2018-03-22] MEDS: GABAPENTIN 100 MG CAPSULE (FP) PO SCH ×2 (09:33→21:26)
[2018-03-22] MEDS: ASPIRIN 81 MG CHEWABLE TABLETS PO SCH (09:33)
[2018-03-22] MEDS: ENALAPRIL MALEATE 10 MG TABLET (FP) PO SCH (09:33)
[2018-03-22] MEDS: NICOTINE 14 MG/24 HOURS TOPICAL PATCH TD SCH (09:33)
[2018-03-22] MEDS: CHOLECALCIFEROL (VITAMIN D3) 400 UNIT TABLET (FP) PO SCH ×2 (09:33→21:27)
[2018-03-22] MEDS: LISINOPRIL 10 MG TABLET (FP) PO SCH (09:33)
[2018-03-22] MEDS: PRENATAL VITAMINS W/ FOLIC ACID TABLET (FP) PO SCH (09:33)
--- NOTE | 2018-03-22 14:57 | PN ---
Psychiatric Progress Note Vital Signs: Vital Signs Period Temp Pulse Resp BP Sys/Harding Pulse Ox Last 24 Hr 98.0 F 94-95 16-18 154-154/96-98 Date of Session: 03/22/18 Chief Complaint:: Discharge Note HPI: Patient addressing Cocaine Dependence comorbid with Nicotine Dependence, Schizoaffective Disorder and Substance-Induced Sleep Disorder ROS: Arthritis, HTN, HLD, IDDM, Neuropathic pain of both feet Current Medications: Active Medications Generic Name Dose Route Start Last Admin Trade Name Freq PRN Reason Stop Dose Admin Acetaminophen 650 mg 03/10/18 00:10 03/20/18 09:46 Tylenol - PO 650 mg Q4H PRN Administration FEVER Al Hydroxide/Mg Hydroxide 30 ml 03/10/18 00:10 Mylanta Oral Suspension - PO Q6H PRN DYSPEPSIA Aspirin 81 mg 03/10/18 10:00 03/22/18 09:33 Asa - PO 81 mg DAILY TYLER Administration Atorvastatin Calcium 10 mg 03/10/18 22:00 03/21/18 21:39 Lipitor - PO 10 mg HS TYLER Administration Cholecalciferol 400 unit 03/10/18 10:00 03/22/18 09:33 Vitamin D3 - PO 400 unit BID TYLER Administration Cyclobenzaprine HCl 10 mg 03/13/18 14:12 03/17/18 10:02 Flexeril - PO 10 mg TID PRN Administration MUSCLE SPASMS Enalapril Maleate 10 mg 03/10/18 10:00 03/22/18 09:33 Vasotec - PO 10 mg DAILY TYLER Administration Eucalyptus/Menthol/Phenol/Sorbitol 1 each 03/10/18 00:10 Cepastat Lozenge - MM Q4H PRN SORE THROAT Gabapentin 100 mg 03/10/18 10:00 03/22/18 09:33 Neurontin - PO 100 mg BID TYLER Administration Glyburide 10 mg 03/10/18 07:00 03/22/18 06:13 Diabeta - PO 10 mg BIDAC TYLER Administration Guaifenesin 10 ml 03/10/18 00:10 Robitussin Dm - PO Q6H PRN COUGH Ibuprofen 600 mg 03/13/18 14:11 03/21/18 09:39 Motrin - PO 600 mg Q6H PRN Administration Pain level 4-6 Insulin Aspart 20 units 03/13/18 07:00 03/22/18 08:05 Novolog Mix 70/30 Vial SQ 20 units AM TYLER Administration Insulin Aspart 10 units 03/12/18 16:30 03/21/18 16:49 Novolog Mix 70/30 Vial SQ 10 units DAILY@1630 TYLER Administration Insulin Aspart 0 units 03/12/18 16:30 03/22/18 11:48 Novolog Vial SQ 2 units ACHS TYLER Administration Protocol Lisinopril 10 mg 03/10/18 10:00 03/22/18 09:33 Prinivil PO 10 mg DAILY TYLER Administration Loperamide HCl 4 mg 03/10/18 00:10 Imodium - PO Q6H PRN DIARRHEA Magnesium Citrate 300 ml 03/10/18 00:10 Citroma - PO Q48H PRN CONSTIPATION Magnesium Hydroxide 30 ml 03/10/18 00:10 Milk Of Magnesia - PO DAILY PRN CONSTIPATION Melatonin 5 mg 03/10/18 22:00 03/20/18 21:43 Melatonin PO 5 mg HS PRN Administration INSOMNIA Metformin HCl 1,000 mg 03/10/18 07:00 03/22/18 06:13 Glucophage - PO 1,000 mg BIDAC TYLER Administration Nicotine 14 mg 03/10/18 10:00 03/22/18 09:33 Nicoderm Patch - TD Not Given DAILY TYLER Nicotine Polacrilex 2 mg 03/10/18 00:10 Nicorette Gum - BC Q2H PRN NICOTINE REPLACEMENT RX Multivit/Folic Acid/Iron 1 tab 03/10/18 10:00 03/22/18 09:33 Vitamins (Sjr) - PO 1 tab DAILY TYLER Administration Pseudoephedrine/Triprolidine 1 combo 03/10/18 00:10 Actifed - PO TID PRN NASAL CONGESTION Thiamine HCl 100 mg 03/10/18 22:00 03/21/18 21:39 Vitamin B1 - PO 100 mg HS TYLER Administration Trazodone HCl 100 mg 03/10/18 22:00 03/21/18 21:39 Desyrel - PO 100 mg HS TYLER Administration Current Side Effect: No Lab tests ordered: Yes Lab tests reviewed: Yes Provider note:: Patient will complete this program on 03/23/18. He has met his treatment goals and will continue to address his issues in outpatient treatment at [facility]. Told underwriter mortgage loan that from his participation in this program, he has learned the vertue of patience. He responded well to Trazadone 100 mg po HS. Scripts for 30 days supply of medication [facility] [address] [place] [address], [place] [address]. He is stable for discharge on 03/23/18 Total face to face time:: 35 Mental Status Exam - Mental Status Exam Alert and Oriented to: Time, Place, Person Cognitive Function: Fair Patient Appearance: Well Groomed Mood: Hopeful, Euthymic Affect: Appropriate Patient Behavior: Cooperative Speech Pattern: Clear Voice Loudness: Normal Thought Process: Intact, Goal Oriented Thought Disorder: Not Present Hallucinations: Denies Suicidal Ideation: Denies Homicidal Ideation: Denies Insight/Judgement: Fair Sleep: Fair Appetite: Good Muscle strength/Tone: Normal Gait/Station: Normal Psychiatric Treatment Plan - Problem List (1) Cocaine dependence Current Visit: Yes Qualifiers: Complication of substance-induced condition: uncomplicated (2) Nicotine dependence Current Visit: No Qualifiers: Nicotine product type: cigarettes Substance use status: uncomplicated Qualified Code(s): F17.210 - Nicotine dependence, cigarettes, uncomplicated (3) Schizoaffective disorder Current Visit: No Qualifiers: Schizoaffective disorder type: unspecified Qualified Code(s): F25.9 - Schizoaffective disorder, unspecified Comment: Self-report. (4) Substance-induced sleep disorder Current Visit: Yes (5) Arthritis Current Visit: Yes (6) Hypercholesteremia Current Visit: Yes (7) Hypertension Current Visit: Yes Qualifiers: Hypertension type: essential hypertension Qualified Code(s): I10 - Essential (primary) hypertension (8) Insulin dependent diabetes mellitus Current Visit: Yes Comment: BGM 500 (9) Neuropathic pain of both feet Current Visit: Yes (10) Use of cane as ambulatory aid Current Visit: No Initial treatment plan: Patient will be discharged tomorrow and referred to [facility] for outpatient treatment
[2018-03-22] MEDS: ATORVASTATIN CA 10 MG TABLET (FP) PO SCH (21:26)
[2018-03-22] MEDS: THIAMINE HCL 100 MG TABLET (FP) PO SCH (21:27)
[2018-03-22] MEDS: traZODone HCL 100 MG TABLET (FP) PO SCH (21:27)
[2018-03-23 06:57] VITALS: TEMP 98.2
[2018-03-23] MEDS ORDERED: INSULIN (NOVOLOG) ASPART 100 UNITS/ML 10ML VIAL ONE (07:15)
[2018-03-23] MEDS: glyBURIDE 5 MG TABLET (UD) PO SCH (07:35)
[2018-03-23] MEDS: metFORMIN HCL 500 MG TABLET (FP) PO SCH (07:35)
[2018-03-23] MEDS: INSULIN (NOVOLOG MIX 70/30) 100 UNITS/ML MDV SQ SCH (07:37)
[2018-03-23] MEDS: INSULIN (NOVOLOG) ASPART 100 UNITS/ML 10ML VIAL SQ SCH (07:37)
[2018-03-23] MEDS: LISINOPRIL 10 MG TABLET (FP) PO SCH (09:15)
[2018-03-23] MEDS: CHOLECALCIFEROL (VITAMIN D3) 400 UNIT TABLET (FP) PO SCH (09:15)
[2018-03-23] MEDS: ASPIRIN 81 MG CHEWABLE TABLETS PO SCH (09:15)
[2018-03-23] MEDS: NICOTINE 14 MG/24 HOURS TOPICAL PATCH TD SCH (09:15)
[2018-03-23] MEDS: PRENATAL VITAMINS W/ FOLIC ACID TABLET (FP) PO SCH (09:15)
[2018-03-23] MEDS: ENALAPRIL MALEATE 10 MG TABLET (FP) PO SCH (09:15)
[2018-03-23] MEDS: GABAPENTIN 100 MG CAPSULE (FP) PO SCH (09:15)
[2018-03-23 10:37] VITALS: BP 153/87; PULSE 107
== END 2018-03-23 09:20 | disposition home or self-care (01) | DRG 774 ==
LOC: YASAS 12:21 → Y3W 23:26
PROVIDERS: ADMIT Psychiatry & Neurology Psychiatry; ATTEND Psychiatry & Neurology Psychiatry
PROC: HZ2ZZZZ Detoxification Services for Substance Abuse Treatment (ICD-10-PCS; principal; 2018-03-09)
DX: F14.20 Cocaine dependence, uncomplicated (principal); F17.210 Nicotine dependence, cigarettes, uncomplicated; F25.9 Schizoaffective disorder, unspecified; F19.282 Other psychoactive substance dependence with psychoactive substance-induced sleep disorder; I10 Essential (primary) hypertension; M19.90 Unspecified osteoarthritis, unspecified site; E78.5 Hyperlipidemia, unspecified; E11.65 Type 2 diabetes mellitus with hyperglycemia; G62.9 Polyneuropathy, unspecified; M25.561 Pain in right knee; R26.2 Difficulty in walking, not elsewhere classified; Z99.89 Dependence on other enabling machines and devices; Z79.84 Long term (current) use of oral hypoglycemic drugs; Z79.4 Long term (current) use of insulin; Z87.438 Personal history of other diseases of male genital organs
CPT/HCPCS: 36415; 80053; 81003; 81015; 82962; 85027; 86593; 93005; 93010

== ENCOUNTER 2018-06-09 11:47 | Inpatient (IN) | payer OTHER ==
[2018-06-09 12:15] VITALS: BMI 28.2
--- NOTE | 2018-06-09 14:01 | HP ---
CIWA Score Nausea/Vomitin Muscle Tremors: 2 Anxiety: 2 Agitation: 2 Paroxysmal Sweats: 1-Minimal Palms Moist Orientation: 0-Oriented Tacttile Disturbances: 1-Very Mild Itch/Numbness Auditory Disturbances: 1-Very Mild Visual Disturbances: 0-None Headache: 2-Mild CIWA-Ar Total Score: 13 - Admission Criteria OASAS Guidelines: Admission for Medically Managed Detox: Requires at least one of the followin. CIWA greater than 12 2. Seizures within the past 24 hours 3. Delirium tremens within the past 24 hours 4. Hallucinations within the past 24 hours 5. Acute intervention needed for co occurring medical disorder 6. Acute intervention needed for co occurring psychiatric disorder 7. Severe withdrawal that cannot be handled at a lower level of care (continued vomiting, continued diarrhea, abnormal vital signs) requiring intravenous medication and/or fluids 8. Patient presents the following: CIWA greater than 12 Admission Criteria Met: Admission criteria met Admission ROS BHS - HPI Chief Complaint: i need help to stop drinking alcohol and cocaine Allergies/Adverse Reactions: Allergies Allergy/AdvReac Type Severity Reaction Status Date / Time No Known Allergies Allergy Verified 06/09/18 13:05 History of Present Illness: this 47 years old male seeking detox,withdrawal symptom,last treatment rehab fro 03/09/18 to 03/23/18 with alcohol and cocaine dependence, history of hypertension, multiple admissions in detox and rehab history of torn ligament surgery left knee,infected wound at [facility] ambulation with cane for 6 years nicotine dependence schizophrenia hypercholesterolemia longest period of sobriety 2 years - Ebola screening Have you traveled outside of the country in the last 21 days: No Have you had contact with anyone from an Ebola affected area: No Have you been sick,other than usual withdrawal symptoms: No Do you have a fever: No - Review of Systems Constitutional: Loss of Appetite, Malaise, Night Sweats, Changes in sleep, Weakness EENT: reports: Nose Congestion Respiratory: reports: No Symptoms reported Cardiac: reports: Palpitations GI: reports: Nausea, Poor Appetite, Abdominal cramping : reports: No Symptoms Reported Musculoskeletal: reports: Back Pain, Muscle Pain Integumentary: reports: Dryness Neuro: reports: Headache, Tremors Endocrine: reports: No Symptoms Reported Hematology: reports: No Symptoms Reported Psychiatric: reports: No Sypmtoms Reported, Judgement Intact, Mood/Affect Appropiate, Orientated x3 (schizophrenia) Patient History - Patient Medical History Hx Anemia: No Hx Asthma: No Hx Chronic Obstructive Pulmonary Disease (COPD): No Hx Cancer: No Hx Cardiac Disorders: No Hx Congestive Heart Failure: No Hx Hypertension: Yes (non compliance) Hx Hypercholesterolemia: Yes (non compliance) Hx Pacemaker: No HX Cerebrovascular Accident: No Hx Seizures: No Hx Dementia: No Hx Diabetes: Yes (IDDM) Hx Gastrointestinal Disorders: No Hx Liver Disease: No Hx Genitourinary Disorders: No Hx Sexually Transmitted Disorders: Yes (syphilis and genital warts) Hx Renal Disease (ESRD): No Hx Thyroid Disease: No Hx Human Immunodeficiency Virus (HIV): No (last 05/14 negative) Hx Hepatitis C: No Hx Depression: Yes Hx Suicide Attempt: No Hx Bipolar Disorder: Yes Hx Schizophrenia: Yes Other Medical History: no suicidal,no homicidal - Patient Surgical History Past Surgical History: Yes Hx Neurologic Surgery: No Hx Cataract Extraction: No Hx Cardiac Surgery: No Hx Lung Surgery: No Hx Breast Surgery: No Hx Breast Biopsy: No Hx Abdominal Surgery: No Hx Appendectomy: No Hx Cholecystectomy: No Hx Genitourinary Surgery: No Hx Section: No Hx Orthopedic Surgery: Yes (torn ligament, left knee in ) Anesthesia Reaction: No - PPD History Previous Implant?: Yes Documented Results: Negative w/proof Implanted On Prior [facility] Admission?: Yes Date: 03/12/18 Results: 0 mm PPD to be Administered?: No - Smoking Cessation Smoking history: Current every day smoker Have you smoked in the past 12 months: Yes Aproximately how many cigarettes per day: 10 Cigars Per Day: 0 Hx Chewing Tobacco Use: No Initiated information on smoking cessation: Yes 'Breaking Loose' booklet given: 06/09/18 - Substance & Tx. History Hx Alcohol Use: Yes Hx Substance Use: Yes Substance Use Type: Alcohol, Cocaine Hx Substance Use Treatment: Yes ([facility] 03/09/18 to 03/23/18) - Substances Abused Cocaine Route: Inhalation Frequency: 3-6 times per week Amount used: $100 Age of first use: 18 Date of Last Use: 06/08/18 Alcohol-beer Route: Oral Frequency: Daily Amount used: 4 (40 oz.0 Age of first use: 13 Date of Last Use: 06/09/18 Family Disease History - Family Disease History Family Disease History: Diabetes: Grandparent, Brother, Sister Admission Physical Exam [facility] - Vital Signs Vital Signs: Vital Signs - 24 hr 06/09/18 12:07 Temperature 98.1 F Pulse Rate 117 H Respiratory 17 Rate Blood Pressure 148/98 - Physical General Appearance: Yes: Moderate Distress, Tremorous, Irritable, Sweating, Anxious HEENTM: Yes: Normal ENT Inspection, DENIZ, Pharynx Normal Respiratory: Yes: Lungs Clear, Normal Breath Sounds, No Respiratory Distress Neck: Yes: Within Normal Limits, Supple, Trachea in good position Breast: Yes: Within Normal Limits Cardiology: Yes: Within Normal Limits, Regular Rhythm, Regular Rate, S1, S2 Abdominal: Yes: Within Normal Limits, Normal Bowel Sounds, Non Tender, Soft Genitourinary: Yes: Within Normal Limits Back: Yes: Muscle Spasm Musculoskeletal: Yes: Back pain, Joint Stiffness (scxar in left knee with scab , no drainage), Muscle Pain Extremities: Yes: Tremors Neurological: Yes: internet retailer II-XII NML intact, Alert, Motor Strength 5/5 Integumentary: Yes: Dry Lymphatic: Yes: Within Normal Limits - Diagnostic (1) Alcohol dependence with uncomplicated withdrawal Current Visit: No Status: Chronic (2) Arthritis Current Visit: No Status: Chronic (3) Cocaine dependence Current Visit: No Status: Chronic Qualifiers: Complication of substance-induced condition: uncomplicated (4) Hypercholesteremia Current Visit: No Status: Chronic (5) Hypertension Current Visit: No Status: Chronic Qualifiers: Hypertension type: essential hypertension Qualified Code(s): I10 - Essential (primary) hypertension (6) Nicotine dependence Current Visit: No Status: Chronic Qualifiers: Nicotine product type: cigarettes Substance use status: uncomplicated Qualified Code(s): F17.210 - Nicotine dependence, cigarettes, uncomplicated (7) Use of cane as ambulatory aid Current Visit: No Status: Chronic (8) History of left knee surgery Current Visit: Yes Status: Acute (9) History of syphilis Current Visit: Yes Status: Acute (10) Essential hypertension Current Visit: Yes Status: Acute Cleared for Admission [facility] - Detox or Rehab [facility] Level of Care: Medically Managed Detox Regimen/Protocol: Librium [facility] Breath Alcohol Content Breath Alcohol Content: 0 Urine Drug Screen - Results Drug Screen Negative: No Urine Drug Screen Results: IRA-Cocaine
[2018-06-09] MEDS ORDERED: guaiFENesin/D-METHORPHAN HB 10 ML UNIT-DOSE CUPS PO PRN (14:13)
[2018-06-09] MEDS ORDERED: MAGNESIUM CITRATE 300 ML BOTTLE PO PRN (14:13)
[2018-06-09] MEDS ORDERED: MAG HYDROX/AL HYDROX/SIMETH 30 ML UNIT-DOSE CUP PO PRN (14:13)
[2018-06-09] MEDS ORDERED: MENTHOL/PHENOL 1 EACH UD MM PRN (14:13)
[2018-06-09] MEDS ORDERED: ACETAMINOPHEN 325 MG TABLET (FP) PO PRN (14:13)
[2018-06-09] MEDS ORDERED: MAGNESIUM HYDROX 2400MG/30ML ORAL SUSPENSION 30 ML CUP PO PRN (14:13)
[2018-06-09] MEDS ORDERED: P-EPHED 60MG/TRIPROLIDI 2.5MG TABLET PO PRN (14:13)
[2018-06-09] MEDS ORDERED: LOPERAMIDE HCL 2 MG CAPSULE PO PRN (14:13)
[2018-06-09] MEDS ORDERED: chlordiazePOXIDE HCL 25 MG CAPSULE PO PRN (14:13)
[2018-06-09] MEDS ORDERED: hydrOXYzine PAMOATE 50 MG CAPSULE (FP) PO PRN (14:13)
[2018-06-09] MEDS ORDERED: INSULIN SLIDING SCALE (NOVOLOG) 1 VIAL SQ ONE ×2 (16:46→22:31)
[2018-06-09] MEDS: metFORMIN HCL 500 MG TABLET (FP) PO SCH (17:04)
[2018-06-09] MEDS: glyBURIDE 5 MG TABLET (UD) PO SCH (17:04)
[2018-06-09] MEDS: chlordiazePOXIDE HCL 25 MG CAPSULE PO SCH ×2 (17:05→22:17)
[2018-06-09] MEDS: INSULIN (NOVOLOG) ASPART 100 UNITS/ML 10ML VIAL SQ SCH ×2 (17:05→22:17)
[2018-06-09 17:42] LABS: URINE APPEARANCE SLCLOUDY; URINE BILIRUBIN NEGATIVE (<2.0 mg/dL); URINE COLOR YELLOW; URINE GLUCOSE (UA) 3+ (NEGATIVE); URINE KETONE TRACE (NEGATIVE); URINE LEUK ESTERASE TRACE (NEGATIVE); URINE NITRITE NEGATIVE (NEGATIVE); URINE PROTEIN 1+ (NEGATIVE); URINE UROBILINOGEN NEGATIVE mg/dL (0.2-1.0)
[2018-06-09 18:01] LABS: URINE MUCUS RARE
[2018-06-09] MEDS ORDERED: MELATONIN 5 MG TABLETS PO PRN (22:00)
[2018-06-09] MEDS: ATORVASTATIN CA 10 MG TABLET (FP) PO SCH (22:17)
[2018-06-09] MEDS: THIAMINE HCL 100 MG TABLET (FP) PO SCH (22:17)
[2018-06-09] MEDS: BACITRACIN 0.9 GM PACKET TP SCH (22:17)
[2018-06-09] MEDS: GABAPENTIN 100 MG CAPSULE (FP) PO SCH (22:17)
[2018-06-10] MEDS: metFORMIN HCL 500 MG TABLET (FP) PO SCH ×2 (06:24→17:19)
[2018-06-10] MEDS: chlordiazePOXIDE HCL 25 MG CAPSULE PO SCH ×4 (06:25→22:45)
[2018-06-10] MEDS: glyBURIDE 5 MG TABLET (UD) PO SCH ×2 (06:25→17:19)
[2018-06-10] MEDS: INSULIN (NOVOLOG) ASPART 100 UNITS/ML 10ML VIAL SQ SCH ×4 (06:52→21:43)
[2018-06-10] MEDS ORDERED: INSULIN SLIDING SCALE (NOVOLOG) 1 VIAL SQ ONE ×3 (06:56→21:11)
[2018-06-10] MEDS ORDERED: LISINOPRIL 10 MG TABLET (FP) PO SCH (10:00)
[2018-06-10 10:08] LABS: HEMATOCRIT 37.2 % (35.4-49); HEMOGLOBIN 11.9 GM/dL (11.7-16.9); MCH 28.7 pg (25.7-33.7); MEAN CELL VOLUME 89.5 fl (80-96); MEAN PLT VOLUME 8.9 fl (7.5-11.1); PLATELET COUNT 384 K/MM3 (134-434); RBC 4.16 M/mm3 (4.00-5.60); RDW 15.1 % (11.9-15.9)
[2018-06-10 10:11] LABS: ALBUMIN 2.9 g/dl (3.4-5.0); ALK PHOS 98 U/L (45-117); ANION GAP 8 MMOL/L (8-16); BILIRUBIN,TOTAL 0.2 mg/dL (0.2-1); BLOOD UREA NITROGEN 13 mg/dL (7-18); CALCIUM 8.6 mg/dL (8.5-10.1); CHLORIDE 103 mmol/L (98-107); CO2 29 mmol/L (21-32); CREATININE 0.8 mg/dL (0.55-1.3); POTASSIUM 3.7 mmol/L (3.5-5.1); SGOT/AST 5 U/L (15-37); SGPT/ALT 15 U/L (13-61); SODIUM 139 mmol/L (136-145); TOT PROT 6.6 g/dl (6.4-8.2)
[2018-06-10 10:25] LABS: GLUCOSE,RANDOM 329 mg/dL (74-106)
[2018-06-10] MEDS: ASPIRIN 81 MG CHEWABLE TABLETS PO SCH (10:52)
[2018-06-10] MEDS: PRENATAL VITAMINS W/ FOLIC ACID TABLET (FP) PO SCH (10:52)
[2018-06-10] MEDS: BACITRACIN 0.9 GM PACKET TP SCH ×2 (10:52→21:45)
[2018-06-10] MEDS: ENALAPRIL MALEATE 10 MG TABLET (FP) PO SCH (10:52)
[2018-06-10] MEDS: GABAPENTIN 100 MG CAPSULE (FP) PO SCH ×2 (10:52→21:43)
--- NOTE | 2018-06-10 11:37 | EKG ---
Test Reason : Blood Pressure : / mmHG Vent. Rate : 109 BPM Atrial Rate : 109 BPM P-R Int : 138 ms QRS Dur : 092 ms QT Int : 332 ms P-R-T Axes : 058 -32 216 degrees QTc Int : 447 ms SINUS TACHYCARDIA LEFT AXIS DEVIATION MODERATE VOLTAGE CRITERIA FOR LVH, MAY BE NORMAL VARIANT NONSPECIFIC ST AND T WAVE ABNORMALITY ABNORMAL ECG WHEN COMPARED WITH ECG OF 10-MAR-2018 00:40, NONSPECIFIC T WAVE ABNORMALITY, WORSE IN INFERIOR LEADS Confirmed by AMBREEN WEBSTRE, RICARDO ([id number]) on 06/10/2018 11:36:36 AM Referred By: Confirmed By:RICARDO CROOK MD
--- NOTE | 2018-06-10 14:32 | PN ---
[facility] CIWA - CIWA Score Nausea/Vomitin-Int. Nausea w/Dry Heave Muscle Tremors: 3 Anxiety: 4-Mod. Anxious/Guarded Agitation: 3 Paroxysmal Sweats: 3 Orientation: 0-Oriented Tacttile Disturbances: 0-None Auditory Disturbances: 0-None Visual Disturbances: 0-None Headache: 0-None Present CIWA-Ar Total Score: 17 BHS Progress Note (SOAP) Subjective: Tremor, chills, sweating, interrupted sleep Objective: 06/10/18 14:29 Last Vital Signs Temp Pulse Resp BP Pulse Ox 98 F 107 H 18 127/87 06/10/18 13:51 06/10/18 13:51 06/10/18 13:51 06/10/18 13:51 Laboratory Tests 06/09/18 06/09/18 06/09/18 13:42 16:23 16:56 WBC RBC Hgb Hct MCV MCH MCHC RDW Plt Count MPV Sodium Potassium Chloride Carbon Dioxide Anion Gap BUN Creatinine Creat Clearance w eGFR POC Glucometer > 600 600 Random Glucose Calcium Total Bilirubin AST ALT Alkaline Phosphatase Total Protein Albumin Urine Color Yellow Urine Appearance Slcloudy Urine pH 6.0 Ur Specific [place] 1.028 Urine Protein 1+ H Urine Glucose (UA) 3+ H Urine Ketones Trace H Urine Blood 1+ H Urine Nitrite Negative Urine Bilirubin Negative Urine Urobilinogen Negative Ur Leukocyte Esterase Trace Urine WBC (Auto) 13 Urine RBC (Auto) 2 Urine Mucus Rare RPR Titer 06/09/18 06/10/18 06/10/18 21:14 06:24 07:17 WBC 8.0 RBC 4.16 Hgb 11.9 Hct 37.2 MCV 89.5 MCH 28.7 MCHC 32.0 RDW 15.1 Plt Count 384 D MPV 8.9 Sodium Potassium Chloride Carbon Dioxide Anion Gap BUN Creatinine Creat Clearance w eGFR POC Glucometer 312 322 Random Glucose Calcium Total Bilirubin AST ALT Alkaline Phosphatase Total Protein Albumin Urine Color Urine Appearance Urine pH Ur Specific [place] Urine Protein Urine Glucose (UA) Urine Ketones Urine Blood Urine Nitrite Urine Bilirubin Urine Urobilinogen Ur Leukocyte Esterase Urine WBC (Auto) Urine RBC (Auto) Urine Mucus RPR Titer 06/10/18 06/10/18 06/10/18 07:17 07:17 11:16 WBC RBC Hgb Hct MCV MCH MCHC RDW Plt Count MPV Sodium 139 Potassium 3.7 Chloride 103 Carbon Dioxide 29 Anion Gap 8 BUN 13 Creatinine 0.8 Creat Clearance w eGFR > 60 POC Glucometer 370 Random Glucose 329 H* Calcium 8.6 Total Bilirubin 0.2 AST 5 L ALT 15 Alkaline Phosphatase 98 Total Protein 6.6 Albumin 2.9 L Urine Color Urine Appearance Urine pH Ur Specific [place] Urine Protein Urine Glucose (UA) Urine Ketones Urine Blood Urine Nitrite Urine Bilirubin Urine Urobilinogen Ur Leukocyte Esterase Urine WBC (Auto) Urine RBC (Auto) Urine Mucus RPR Titer Nonreactive Labs reviewed: elevated glucose due to DMT2, abnormal UA Assessment: 06/10/18 14:32 Withdrawal sxs Noted with hyperglycemia and abnormal UA Plan: Continue detox Hyperglycemia due to DMT2: continue regimen Abnormal UA: encouraged PO water intake, repeat UA
[2018-06-10] MEDS: IBUPROFEN 400 MG TABLET (FP) PO PRN (20:20)
--- NOTE | 2018-06-10 20:26 | PN ---
BHS Progress Note (SOAP) Subjective: Pt was walking in the hallway about 20 mins ago, when pt states his weak knees gave way and he fell down. The nurses heard a sound. Pt denies hitting head. Pt uses cane for walking- pt states has PE Vital Signs - 24 hr 06/10/18 06/10/18 06/10/18 00:43 03:30 06:37 Temperature 97.6 F Pulse Rate 96 H Respiratory 18 18 18 Rate Blood Pressure 158/96 06/10/18 06/10/18 06/10/18 07:57 09:07 13:51 Temperature 97.2 F L 98.7 F 98 F Pulse Rate 94 H 102 H 107 H Respiratory 18 18 18 Rate Blood Pressure 131/76 126/83 127/87 06/10/18 06/10/18 18:07 19:57 Temperature 97.3 F L 97.1 F L Pulse Rate 99 H 114 H Respiratory 20 19 Rate Blood Pressure 140/79 132/89 pt is awake and alert and answering questions appropriately a/p: unwitnessed fall: nl VS and unchanged PE To ER for head CT per protocol- d/w ER doc. Pt refused to go to ER- stating that he did not hit his head and so does not need a head CT. refusal signed Fall protocol #1 ordered
[2018-06-10] MEDS: THIAMINE HCL 100 MG TABLET (FP) PO SCH (21:41)
[2018-06-10] MEDS: ATORVASTATIN CA 10 MG TABLET (FP) PO SCH (21:42)
[2018-06-11] MEDS: chlordiazePOXIDE HCL 25 MG CAPSULE PO SCH ×2 (06:16→11:02)
[2018-06-11] MEDS: INSULIN (NOVOLOG) ASPART 100 UNITS/ML 10ML VIAL SQ SCH ×4 (07:50→21:49)
[2018-06-11] MEDS: glyBURIDE 5 MG TABLET (UD) PO SCH ×2 (07:50→17:24)
[2018-06-11] MEDS: metFORMIN HCL 500 MG TABLET (FP) PO SCH ×2 (07:50→17:24)
[2018-06-11] MEDS ORDERED: INSULIN SLIDING SCALE (NOVOLOG) 1 VIAL SQ ONE ×3 (07:58→21:32)
[2018-06-11] MEDS: ASPIRIN 81 MG CHEWABLE TABLETS PO SCH (11:01)
[2018-06-11] MEDS: BACITRACIN 0.9 GM PACKET TP SCH ×2 (11:01→21:49)
[2018-06-11] MEDS: GABAPENTIN 100 MG CAPSULE (FP) PO SCH ×2 (11:02→21:49)
[2018-06-11] MEDS: PRENATAL VITAMINS W/ FOLIC ACID TABLET (FP) PO SCH (11:02)
[2018-06-11] MEDS: ENALAPRIL MALEATE 10 MG TABLET (FP) PO SCH (11:02)
--- NOTE | 2018-06-11 13:27 | PN ---
S CIWA - CIWA Score Nausea/Vomitin Muscle Tremors: 3 Anxiety: 3 Agitation: 3 Paroxysmal Sweats: 3 Orientation: 0-Oriented Tacttile Disturbances: 0-None Auditory Disturbances: 0-None Visual Disturbances: 0-None Headache: 0-None Present CIWA-Ar Total Score: 14 BHS Progress Note (SOAP) Subjective: Tremor, chills, sweating, interrupted sleep; polyuria due to DM Objective: 06/11/18 13:24 Last Vital Signs Temp Pulse Resp BP Pulse Ox 97.7 F 91 H 18 137/84 06/11/18 09:16 06/11/18 09:16 06/11/18 09:16 06/11/18 09:16 Laboratory Tests 06/09/18 06/09/18 06/09/18 13:42 16:23 16:56 WBC RBC Hgb Hct MCV MCH MCHC RDW Plt Count MPV Sodium Potassium Chloride Carbon Dioxide Anion Gap BUN Creatinine Creat Clearance w eGFR POC Glucometer > 600 600 Random Glucose Calcium Total Bilirubin AST ALT Alkaline Phosphatase Total Protein Albumin Urine Color Yellow Urine Appearance Slcloudy Urine pH 6.0 Ur Specific [place] 1.028 Urine Protein 1+ H Urine Glucose (UA) 3+ H Urine Ketones Trace H Urine Blood 1+ H Urine Nitrite Negative Urine Bilirubin Negative Urine Urobilinogen Negative Ur Leukocyte Esterase Trace Urine WBC (Auto) 13 Urine RBC (Auto) 2 Urine Mucus Rare RPR Titer 06/09/18 06/10/18 06/10/18 21:14 06:24 07:17 WBC 8.0 RBC 4.16 Hgb 11.9 Hct 37.2 MCV 89.5 MCH 28.7 MCHC 32.0 RDW 15.1 Plt Count 384 D MPV 8.9 Sodium Potassium Chloride Carbon Dioxide Anion Gap BUN Creatinine Creat Clearance w eGFR POC Glucometer 312 322 Random Glucose Calcium Total Bilirubin AST ALT Alkaline Phosphatase Total Protein Albumin Urine Color Urine Appearance Urine pH Ur Specific [place] Urine Protein Urine Glucose (UA) Urine Ketones Urine Blood Urine Nitrite Urine Bilirubin Urine Urobilinogen Ur Leukocyte Esterase Urine WBC (Auto) Urine RBC (Auto) Urine Mucus RPR Titer 06/10/18 06/10/18 06/10/18 07:17 07:17 11:16 WBC RBC Hgb Hct MCV MCH MCHC RDW Plt Count MPV Sodium 139 Potassium 3.7 Chloride 103 Carbon Dioxide 29 Anion Gap 8 BUN 13 Creatinine 0.8 Creat Clearance w eGFR > 60 POC Glucometer 370 Random Glucose 329 H* Calcium 8.6 Total Bilirubin 0.2 AST 5 L ALT 15 Alkaline Phosphatase 98 Total Protein 6.6 Albumin 2.9 L Urine Color Urine Appearance Urine pH Ur Specific [place] Urine Protein Urine Glucose (UA) Urine Ketones Urine Blood Urine Nitrite Urine Bilirubin Urine Urobilinogen Ur Leukocyte Esterase Urine WBC (Auto) Urine RBC (Auto) Urine Mucus RPR Titer Nonreactive 06/10/18 06/10/18 06/11/18 16:31 20:52 07:46 WBC RBC Hgb Hct MCV MCH MCHC RDW Plt Count MPV Sodium Potassium Chloride Carbon Dioxide Anion Gap BUN Creatinine Creat Clearance w eGFR POC Glucometer 321 298 351 Random Glucose Calcium Total Bilirubin AST ALT Alkaline Phosphatase Total Protein Albumin Urine Color Urine Appearance Urine pH Ur Specific [place] Urine Protein Urine Glucose (UA) Urine Ketones Urine Blood Urine Nitrite Urine Bilirubin Urine Urobilinogen Ur Leukocyte Esterase Urine WBC (Auto) Urine RBC (Auto) Urine Mucus RPR Titer 06/11/18 11:47 WBC RBC Hgb Hct MCV MCH MCHC RDW Plt Count MPV Sodium Potassium Chloride Carbon Dioxide Anion Gap BUN Creatinine Creat Clearance w eGFR POC Glucometer 314 Random Glucose Calcium Total Bilirubin AST ALT Alkaline Phosphatase Total Protein Albumin Urine Color Urine Appearance Urine pH Ur Specific [place] Urine Protein Urine Glucose (UA) Urine Ketones Urine Blood Urine Nitrite Urine Bilirubin Urine Urobilinogen Ur Leukocyte Esterase Urine WBC (Auto) Urine RBC (Auto) Urine Mucus RPR Titer Labs reviewed Assessment: 06/11/18 13:25 Withdrawal symptoms Abnormal UA noted Plan: Continue detox Abnormal UA: encouraged PO water intake, repeat UA (already ordered), send urine cx due to c/o polyuria to rule out UTI
[2018-06-11] MEDS: chlordiazePOXIDE 5 MG CAPSULE PO SCH ×2 (17:24→22:53)
[2018-06-11] MEDS: ATORVASTATIN CA 10 MG TABLET (FP) PO SCH (21:48)
[2018-06-11] MEDS: THIAMINE HCL 100 MG TABLET (FP) PO SCH (21:48)
[2018-06-12] MEDS: IBUPROFEN 400 MG TABLET (FP) PO PRN (03:06)
[2018-06-12] MEDS: chlordiazePOXIDE 5 MG CAPSULE PO SCH ×2 (05:26→11:11)
[2018-06-12] MEDS ORDERED: INSULIN SLIDING SCALE (NOVOLOG) 1 VIAL SQ ONE ×3 (06:22→17:18)
[2018-06-12] MEDS: metFORMIN HCL 500 MG TABLET (FP) PO SCH ×2 (07:36→17:29)
[2018-06-12] MEDS: INSULIN (NOVOLOG) ASPART 100 UNITS/ML 10ML VIAL SQ SCH ×3 (07:37→17:29)
[2018-06-12] MEDS: glyBURIDE 5 MG TABLET (UD) PO SCH ×2 (07:37→17:29)
[2018-06-12] MEDS: PRENATAL VITAMINS W/ FOLIC ACID TABLET (FP) PO SCH (11:10)
[2018-06-12] MEDS: GABAPENTIN 100 MG CAPSULE (FP) PO SCH (11:10)
[2018-06-12] MEDS: ENALAPRIL MALEATE 10 MG TABLET (FP) PO SCH (11:10)
[2018-06-12] MEDS: ASPIRIN 81 MG CHEWABLE TABLETS PO SCH (11:10)
[2018-06-12] MEDS: BACITRACIN 0.9 GM PACKET TP SCH (11:11)
--- NOTE | 2018-06-12 14:05 | PN ---
BHS Progress Note (SOAP) Subjective: Tremor, chills, sweating, interrupted sleep Objective: 06/12/18 14:02 Last Vital Signs Temp Pulse Resp BP Pulse Ox 97.4 F L 100 H 18 127/84 06/12/18 10:10 06/12/18 10:10 06/12/18 10:10 06/12/18 10:10 Laboratory Tests 06/09/18 06/09/18 06/09/18 13:42 16:23 16:56 WBC RBC Hgb Hct MCV MCH MCHC RDW Plt Count MPV Sodium Potassium Chloride Carbon Dioxide Anion Gap BUN Creatinine Creat Clearance w eGFR POC Glucometer > 600 600 Random Glucose Calcium Total Bilirubin AST ALT Alkaline Phosphatase Total Protein Albumin Urine Color Yellow Urine Appearance Slcloudy Urine pH 6.0 Ur Specific [place] 1.028 Urine Protein 1+ H Urine Glucose (UA) 3+ H Urine Ketones Trace H Urine Blood 1+ H Urine Nitrite Negative Urine Bilirubin Negative Urine Urobilinogen Negative Ur Leukocyte Esterase Trace Urine WBC (Auto) 13 Urine RBC (Auto) 2 Urine Mucus Rare RPR Titer 06/09/18 06/10/18 06/10/18 21:14 06:24 07:17 WBC 8.0 RBC 4.16 Hgb 11.9 Hct 37.2 MCV 89.5 MCH 28.7 MCHC 32.0 RDW 15.1 Plt Count 384 D MPV 8.9 Sodium Potassium Chloride Carbon Dioxide Anion Gap BUN Creatinine Creat Clearance w eGFR POC Glucometer 312 322 Random Glucose Calcium Total Bilirubin AST ALT Alkaline Phosphatase Total Protein Albumin Urine Color Urine Appearance Urine pH Ur Specific [place] Urine Protein Urine Glucose (UA) Urine Ketones Urine Blood Urine Nitrite Urine Bilirubin Urine Urobilinogen Ur Leukocyte Esterase Urine WBC (Auto) Urine RBC (Auto) Urine Mucus RPR Titer 06/10/18 06/10/18 06/10/18 07:17 07:17 11:16 WBC RBC Hgb Hct MCV MCH MCHC RDW Plt Count MPV Sodium 139 Potassium 3.7 Chloride 103 Carbon Dioxide 29 Anion Gap 8 BUN 13 Creatinine 0.8 Creat Clearance w eGFR > 60 POC Glucometer 370 Random Glucose 329 H* Calcium 8.6 Total Bilirubin 0.2 AST 5 L ALT 15 Alkaline Phosphatase 98 Total Protein 6.6 Albumin 2.9 L Urine Color Urine Appearance Urine pH Ur Specific [place] Urine Protein Urine Glucose (UA) Urine Ketones Urine Blood Urine Nitrite Urine Bilirubin Urine Urobilinogen Ur Leukocyte Esterase Urine WBC (Auto) Urine RBC (Auto) Urine Mucus RPR Titer Nonreactive 06/10/18 06/10/18 06/11/18 16:31 20:52 07:46 WBC RBC Hgb Hct MCV MCH MCHC RDW Plt Count MPV Sodium Potassium Chloride Carbon Dioxide Anion Gap BUN Creatinine Creat Clearance w eGFR POC Glucometer 321 298 351 Random Glucose Calcium Total Bilirubin AST ALT Alkaline Phosphatase Total Protein Albumin Urine Color Urine Appearance Urine pH Ur Specific [place] Urine Protein Urine Glucose (UA) Urine Ketones Urine Blood Urine Nitrite Urine Bilirubin Urine Urobilinogen Ur Leukocyte Esterase Urine WBC (Auto) Urine RBC (Auto) Urine Mucus RPR Titer 06/11/18 06/11/18 06/11/18 11:47 16:52 21:05 WBC RBC Hgb Hct MCV MCH MCHC RDW Plt Count MPV Sodium Potassium Chloride Carbon Dioxide Anion Gap BUN Creatinine Creat Clearance w eGFR POC Glucometer 314 167 301 Random Glucose Calcium Total Bilirubin AST ALT Alkaline Phosphatase Total Protein Albumin Urine Color Urine Appearance Urine pH Ur Specific [place] Urine Protein Urine Glucose (UA) Urine Ketones Urine Blood Urine Nitrite Urine Bilirubin Urine Urobilinogen Ur Leukocyte Esterase Urine WBC (Auto) Urine RBC (Auto) Urine Mucus RPR Titer 06/12/18 06/12/18 05:35 11:21 WBC RBC Hgb Hct MCV MCH MCHC RDW Plt Count MPV Sodium Potassium Chloride Carbon Dioxide Anion Gap BUN Creatinine Creat Clearance w eGFR POC Glucometer 389 402 Random Glucose Calcium Total Bilirubin AST ALT Alkaline Phosphatase Total Protein Albumin Urine Color Urine Appearance Urine pH Ur Specific [place] Urine Protein Urine Glucose (UA) Urine Ketones Urine Blood Urine Nitrite Urine Bilirubin Urine Urobilinogen Ur Leukocyte Esterase Urine WBC (Auto) Urine RBC (Auto) Urine Mucus RPR Titer Labs reviewed: abnormal UA noted Assessment: 06/12/18 14:03 Withdrawal symptoms Abnormal UA noted Plan: Continue detox Abnormal UA: encouraged PO water intake, follow up on result of urine cx and repeated UA
[2018-06-12 14:43] LABS: URINE APPEARANCE SLCLOUDY; URINE BILIRUBIN NEGATIVE (<2.0 mg/dL); URINE GLUCOSE (UA) 3+ (NEGATIVE); URINE KETONE NEGATIVE (NEGATIVE); URINE LEUK ESTERASE 1+ (NEGATIVE); URINE NITRITE NEGATIVE (NEGATIVE); URINE PROTEIN NEGATIVE (NEGATIVE); URINE UROBILINOGEN NEGATIVE mg/dL (0.2-1.0)
[2018-06-12 14:52] LABS: URINE COLOR COLORLESS
[2018-06-12 15:08] LABS: URINE MUCUS RARE
[2018-06-12] MEDS ORDERED: chlordiazePOXIDE HCL 10 MG CAPSULE PO SCH (17:00)
[2018-06-12 17:43] VITALS: BP 154/90; PULSE 101; TEMP 98.3
--- NOTE | 2018-06-12 18:35 | DS ---
[facility] Detox Discharge Summary Admission Date: 06/09/18 Discharge Date: 06/12/18 - History Present History: Alcohol Dependence, Cocaine Dependence Pertinent Past History: Pt was admitted for alcohol and cocaine use- pt was placed on alcohol detox protocol which he tolerated well. Pt leaving AMA to accompany his brother-in- law who wants to leave AMA. Pt also with wound from recent infected post-op knee surgery wound. Uses cane to walk. Pt states will f/u with PCP - Physical Exam Results Vital Signs: Vital Signs Temperature 98.3 F 06/12/18 17:42 Pulse Rate 101 H 06/12/18 17:42 Respiratory Rate 18 06/12/18 17:42 Blood Pressure 154/90 06/12/18 17:42 O2 Sat by Pulse Oximetry (%) Pertinent Admission Physical Exam Findings: Laboratory Tests 06/09/18 06/09/18 06/09/18 13:42 16:23 16:56 WBC RBC Hgb Hct MCV MCH MCHC RDW Plt Count MPV Sodium Potassium Chloride Carbon Dioxide Anion Gap BUN Creatinine Creat Clearance w eGFR POC Glucometer > 600 600 Random Glucose Calcium Total Bilirubin AST ALT Alkaline Phosphatase Total Protein Albumin Urine Color Yellow Urine Appearance Slcloudy Urine pH 6.0 Ur Specific [place] 1.028 Urine Protein 1+ H Urine Glucose (UA) 3+ H Urine Ketones Trace H Urine Blood 1+ H Urine Nitrite Negative Urine Bilirubin Negative Urine Urobilinogen Negative Ur Leukocyte Esterase Trace Urine WBC (Auto) 13 Urine RBC (Auto) 2 Urine Mucus Rare RPR Titer 06/09/18 06/10/18 06/10/18 21:14 06:24 07:17 WBC 8.0 RBC 4.16 Hgb 11.9 Hct 37.2 MCV 89.5 MCH 28.7 MCHC 32.0 RDW 15.1 Plt Count 384 D MPV 8.9 Sodium Potassium Chloride Carbon Dioxide Anion Gap BUN Creatinine Creat Clearance w eGFR POC Glucometer 312 322 Random Glucose Calcium Total Bilirubin AST ALT Alkaline Phosphatase Total Protein Albumin Urine Color Urine Appearance Urine pH Ur Specific [place] Urine Protein Urine Glucose (UA) Urine Ketones Urine Blood Urine Nitrite Urine Bilirubin Urine Urobilinogen Ur Leukocyte Esterase Urine WBC (Auto) Urine RBC (Auto) Urine Mucus RPR Titer 06/10/18 06/10/18 06/10/18 07:17 07:17 11:16 WBC RBC Hgb Hct MCV MCH MCHC RDW Plt Count MPV Sodium 139 Potassium 3.7 Chloride 103 Carbon Dioxide 29 Anion Gap 8 BUN 13 Creatinine 0.8 Creat Clearance w eGFR > 60 POC Glucometer 370 Random Glucose 329 H* Calcium 8.6 Total Bilirubin 0.2 AST 5 L ALT 15 Alkaline Phosphatase 98 Total Protein 6.6 Albumin 2.9 L Urine Color Urine Appearance Urine pH Ur Specific [place] Urine Protein Urine Glucose (UA) Urine Ketones Urine Blood Urine Nitrite Urine Bilirubin Urine Urobilinogen Ur Leukocyte Esterase Urine WBC (Auto) Urine RBC (Auto) Urine Mucus RPR Titer Nonreactive 06/10/18 06/10/18 06/11/18 16:31 20:52 07:46 WBC RBC Hgb Hct MCV MCH MCHC RDW Plt Count MPV Sodium Potassium Chloride Carbon Dioxide Anion Gap BUN Creatinine Creat Clearance w eGFR POC Glucometer 321 298 351 Random Glucose Calcium Total Bilirubin AST ALT Alkaline Phosphatase Total Protein Albumin Urine Color Urine Appearance Urine pH Ur Specific [place] Urine Protein Urine Glucose (UA) Urine Ketones Urine Blood Urine Nitrite Urine Bilirubin Urine Urobilinogen Ur Leukocyte Esterase Urine WBC (Auto) Urine RBC (Auto) Urine Mucus RPR Titer 06/11/18 06/11/18 06/11/18 11:47 16:52 21:05 WBC RBC Hgb Hct MCV MCH MCHC RDW Plt Count MPV Sodium Potassium Chloride Carbon Dioxide Anion Gap BUN Creatinine Creat Clearance w eGFR POC Glucometer 314 167 301 Random Glucose Calcium Total Bilirubin AST ALT Alkaline Phosphatase Total Protein Albumin Urine Color Urine Appearance Urine pH Ur Specific [place] Urine Protein Urine Glucose (UA) Urine Ketones Urine Blood Urine Nitrite Urine Bilirubin Urine Urobilinogen Ur Leukocyte Esterase Urine WBC (Auto) Urine RBC (Auto) Urine Mucus RPR Titer 06/12/18 06/12/18 06/12/18 05:35 10:30 11:21 WBC RBC Hgb Hct MCV MCH MCHC RDW Plt Count MPV Sodium Potassium Chloride Carbon Dioxide Anion Gap BUN Creatinine Creat Clearance w eGFR POC Glucometer 389 402 Random Glucose Calcium Total Bilirubin AST ALT Alkaline Phosphatase Total Protein Albumin Urine Color Colorless Urine Appearance Slcloudy Urine pH 5.0 Ur Specific [place] 1.015 Urine Protein Negative Urine Glucose (UA) 3+ H Urine Ketones Negative Urine Blood 2+ H Urine Nitrite Negative Urine Bilirubin Negative Urine Urobilinogen Negative Ur Leukocyte Esterase 1+ H Urine WBC (Auto) 12 Urine RBC (Auto) 9 Urine Mucus Rare RPR Titer uncontrolled blood sugar - Treatment Patient has Accepted a Rehab Referral to: left AMA to f/u PCP - Medication Discharge Medications: Ambulatory Orders traZODone HCL [Trazodone HCl] 100 mg PO HS #30 tablet 03/22/18 Aspirin [ASA -] 81 mg PO DAILY #30 tab.chew 06/12/18 Atorvastatin Ca [Lipitor] 10 mg PO HS #30 mg 06/12/18 Cholecalciferol (Vitamin D3) [Vitamin D -] 400 unit PO BID #60 tab 06/12/18 Enalapril Maleate [Vasotec -] 10 mg PO DAILY #30 tablet 06/12/18 Gabapentin [Neurontin -] 100 mg PO BID #60 mg 06/12/18 Glyburide [Micronase -] 10 mg PO BIDAC #60 tablet 06/12/18 Insulin (Novolog 70/30) [Novolog Mix 70/30 Vial -] 10 units SQ HS #1 units 06/12 Insulin (Novolog 70/30) [Novolog Mix 70/30 Vial -] 20 units SQ AM #1 units 06/12 Lisinopril [Prinivil] 10 mg PO DAILY #30 tablet 06/12/18 Metformin HCl [Glucophage] 1,000 mg PO BID #60 mg 06/12/18 - AMA Did Patient Leave Against Medical Advice: Yes
== END 2018-06-12 18:42 | disposition left against medical advice (07) | DRG 770 ==
LOC: YASAS 11:47 → Y3N 14:41
PROC: HZ2ZZZZ Detoxification Services for Substance Abuse Treatment (ICD-10-PCS; principal; 2018-06-09)
DX: F10.230 Alcohol dependence with withdrawal, uncomplicated (principal); F14.20 Cocaine dependence, uncomplicated; F17.210 Nicotine dependence, cigarettes, uncomplicated; I10 Essential (primary) hypertension; E78.00 Pure hypercholesterolemia, unspecified; E11.9 Type 2 diabetes mellitus without complications; Z79.4 Long term (current) use of insulin; M12.9 Arthropathy, unspecified; R82.90 Unspecified abnormal findings in urine; A53.9 Syphilis, unspecified; R26.89 Other abnormalities of gait and mobility; Z99.89 Dependence on other enabling machines and devices; G62.9 Polyneuropathy, unspecified; Z98.890 Other specified postprocedural states
CPT/HCPCS: 36415; 80053; 81003; 81015; 82962; 85027; 86593; 87086; 87186; 93005; 93010

== ENCOUNTER 2018-07-14 14:51 | Inpatient (IN) | payer OTHER ==
--- NOTE | 2018-07-14 15:11 | PDOC ---
Rapid Medical Evaluation Chief Complaint: Abscess Boil Medical Evaluation: Allergies Allergy/AdvReac Type Severity Reaction Status Date / Time No Known Allergies Allergy Verified 07/14/18 15:06 07/14/18 15:10 I have performed a brief in-person evaluation of this patient. The patient presents with a chief complaint of:ABSCESS RIGHT BUTTOCK x 5 days , some leaking Pertinent physical exam findings: vss, I have ordered the following: nothing The patient will proceed to the ED for further evaluation.
[2018-07-14] MEDS ORDERED: SODIUM CHLORIDE 1,000 ML IV STA ×3 (16:38→22:49)
--- NOTE | 2018-07-14 17:10 | PDOC ---
Attending Attestation - Resident Resident Name: Cristiano Alfonso - ED Attending Attestation I have performed the following: I have examined & evaluated the patient, The case was reviewed & discussed with the resident, I agree w/resident's findings & plan, Exceptions are as noted - HPI HPI: 07/14/18 18:51 47 m hx of iddm and cocaine use who presents for abscess on buttocks for 2 days. Pt states he has not taken insulin for 2 days. Endorses symptoms of polyuria, polydipsia, and chronic constipation. Pt admits IND on abscess a few years ago in [place] last year. Denies f/c, generalized weakness, rectal pain, cp/sob, nausea, vomiting, and diarrhea. - Physicial Exam PE: 07/14/18 17:15 general: no acute distress abd: soft nontender skin: large ~6x5 cm mass in the gluteal fold of R buttock - Medical Decision Making 07/14/18 16:43 38y M ghxof IDDM, cocaine abuse presents with abscess on his buttock x 2-3 days that started off as a small bump but has gradually gotten worse and more painful. pt noncomplaint with his meds, and has some polyuria and polydypsia, deneis any n/v, f/c. will ck labs ct pelvis to evaluate depth of abcess 07/14/18 18:51 The patient's labs were reviewed the patient is hyperglycemic no signs of DKA. Awaiting CT for further evaluation of abscess Heart Score/ECG Review - ECG Impressions Comment:: 07/14/18 18:41 Twelve-lead EKG was performed and reviewed by me. There is normal sinus rhythm with a normal rate. Rate of 94 incomplete RBBB
[2018-07-14 17:17] LABS: HEMATOCRIT 33.8 % (35.4-49); HEMOGLOBIN 11.6 GM/dL (11.7-16.9); MCH 29.9 pg (25.7-33.7); MCHC 34.3 g/dl (32.0-35.9); MEAN PLT VOLUME 8.2 fl (7.5-11.1); PLATELET COUNT 333 K/MM3 (134-434); RBC 3.88 M/mm3 (4.00-5.60); RDW 15.3 % (11.9-15.9); WHITE BLOOD COUNT 6.6 K/mm3 (4.0-10.0)
[2018-07-14 17:30] LABS: VENOUS PC02 42.1 mmHg (38-52); VENOUS PH 7.43 (7.32-7.42); VENOUS PO2 63.6 mmHg (28-48)
[2018-07-14 17:36] LABS: INR 0.93 (0.83-1.09)
--- NOTE | 2018-07-14 17:37 | PDOC ---
History of Present Illness - General Chief Complaint: Abscess Boil Stated Complaint: Abscess Boil Time Seen by Provider: 07/14/18 15:39 History Source: Patient Exam Limitations: No Limitations - History of Present Illness Initial Comments: 07/14/18 17:05 Patient is a 47M with history of cocaine abuse, IDDM here today complaining of an abscess to his L buttock that started two days ago. Patient states that it started off as a little bump. He tried a warm washcloth, but this did not improve his symptoms. He states that he checks his blood sugar "now and then" and that it's in the 200s. It was over range in fast track. He states that he hasn't taken any insulin for the past two days. Denies fevers, chills, nausea, vomiting, chest pain, shortness of breath, rectal pain, pain with defecation. Past History - Past Medical History Allergies/Adverse Reactions: Allergies Allergy/AdvReac Type Severity Reaction Status Date / Time No Known Allergies Allergy Verified 07/14/18 15:06 Home Medications: Ambulatory Orders traZODone HCL [Trazodone HCl] 100 mg PO HS #30 tablet 03/22/18 Aspirin [ASA -] 81 mg PO DAILY #30 tab.chew 06/12/18 Atorvastatin Ca [Lipitor] 10 mg PO HS #30 mg 06/12/18 Cholecalciferol (Vitamin D3) [Vitamin D -] 400 unit PO BID #60 tab 06/12/18 Enalapril Maleate [Vasotec -] 10 mg PO DAILY #30 tablet 06/12/18 Gabapentin [Neurontin -] 100 mg PO BID #60 mg 06/12/18 Glyburide [Micronase -] 10 mg PO BIDAC #60 tablet 06/12/18 Insulin (Novolog 70/30) [Novolog Mix 70/30 Vial -] 10 units SQ HS #1 units 06/12 Insulin (Novolog 70/30) [Novolog Mix 70/30 Vial -] 20 units SQ AM #1 units 06/12 Lisinopril [Prinivil] 10 mg PO DAILY #30 tablet 06/12/18 Metformin HCl [Glucophage] 1,000 mg PO BID #60 mg 06/12/18 Anemia: No Asthma: No Cancer: No Cardiac Disorders: No CVA: No COPD: No CHF: No Dementia: No Diabetes: Yes (IDDM) GI Disorders: No Disorders: No HTN: Yes (non compliance) Hypercholesterolemia: Yes (non compliance) Kidney Stones: No Liver Disease: No Seizures: No Thyroid Disease: No - Surgical History Abdominal Surgery: No Appendectomy: No Cardiac Surgery: No Cholecystectomy: No Lung Surgery: No Neurologic Surgery: No Orthopedic Surgery: Yes (torn ligament, left knee in ) - Reproductive History Testicular Surgery: No - Suicide/Smoking/Psychosocial Hx Smoking History: Current every day smoker Have you smoked in the past 12 months: Yes Number of Cigarettes Smoked Daily: 20 Cigars Per Day: 0 Information on smoking cessation initiated: No 'Breaking Loose' booklet given: 06/09/18 Hx Alcohol Use: No Drug/Substance Use Hx: No Substance Use Type: Alcohol, Cocaine Hx Substance Use Treatment: Yes ([facility] 03/09/18 to 03/23/18) Review of Systems - Review of Systems Comments:: 07/14/18 17:37 GENERAL/CONSTITUTIONAL: No fever or chills. No weakness. HEAD, EYES, EARS, NOSE AND THROAT: No change in vision. No sore throat. CARDIOVASCULAR: No chest pain or shortness of breath RESPIRATORY: No cough, wheezing, or hemoptysis. GASTROINTESTINAL: No nausea, vomiting, diarrhea +constipation. GENITOURINARY: No dysuria, frequency, or change in urination. MUSCULOSKELETAL: No joint or muscle swelling or pain. No neck or back pain. SKIN: No rash NEUROLOGIC: No headache, vertigo, loss of consciousness, or change in strength/ sensation. ENDOCRINE: +increased thirst. +polyuria HEMATOLOGIC/LYMPHATIC: No anemia, easy bleeding, or history of blood clots. *Physical Exam - Vital Signs Last Vital Signs Temp Pulse Resp BP Pulse Ox 97.7 F 100 H 18 138/79 99 07/14/18 15:08 07/14/18 15:08 07/14/18 15:08 07/14/18 15:08 07/14/18 15:08 - Physical Exam Comments: 07/14/18 17:37 GENERAL: Awake, alert, and fully oriented, in no acute distress L BUTTOCK: 7x5cm area of skin induration with fluctuance with area heading towards gluteal cleft HEAD: No signs of trauma, normocephalic, atraumatic EYES: PERRLA, EOMI, sclera anicteric, conjunctiva clear ENT: Auricles normal inspection, hearing grossly normal, nares patent, oropharynx clear without exudates. Moist mucosa NECK: Normal ROM, supple, no lymphadenopathy, JVD, or masses LUNGS: No distress, speaks full sentences, clear to auscultation bilaterally HEART: Regular rate and rhythm, normal S1 and S2, no murmurs, rubs or gallops, peripheral pulses normal and equal bilaterally. ABDOMEN: Soft, nontender, normoactive bowel sounds. No guarding, no rebound. No masses EXTREMITIES: Normal inspection, Normal range of motion, no edema. No clubbing or cyanosis. NEUROLOGICAL: Cranial nerves II through XII grossly intact. Normal speech, no focal sensorimotor deficits SKIN: Warm, Dry, normal turgor, no rashes or lesions noted. Moderate Sedation - Procedure Monitoring Vital Signs: Procedure Monitoring Vital Signs Temperature 97.7 F 07/14/18 15:08 Pulse Rate 100 H 07/14/18 15:08 Respiratory Rate 18 07/14/18 15:08 Blood Pressure 138/79 07/14/18 15:08 O2 Sat by Pulse Oximetry (%) 99 07/14/18 15:08 ED Treatment Course - LABORATORY CBC & Chemistry Diagram: 07/14/18 17:00 07/14/18 17:00 - RADIOLOGY Radiology Studies Ordered: Category Date Time Status PELVIS CT WITH CONTRAST [CT] Stat CT Scan 07/14/18 16:39 Ordered CXRPORT [CHEST X-RAY PORTABLE*] [RAD] Stat Radiology 07/14/18 16:40 Ordered Medical Decision Making - Medical Decision Making 07/14/18 17:38 Patient is 47M with history of DM and cocaine abuse here today with hyperglycemia and abscess. Vitals notable for tachycardia. Given fluid bolus. DKA labs and blood cultures drawn. Will do CT to evaluate extent of abscess before I&D decision. 07/14/18 18:59 Laboratory Tests 07/14/18 07/14/18 07/14/18 17:00 17:00 17:00 WBC 6.6 Hgb 11.6 L Plt Count 333 VBG pH 7.43 H Anion Gap 8 BUN 8 Creatinine 1.0 Random Glucose 513 H* Acetone, Qual Positive,trace CBC normal. VBG shows no acidosis. CMP reassuring. Glucose 513 with trace acetone, no gap. No DKA. Given 10 unites of sq novolog 70/30. Patient signed out to Dr Merritt, pending CT to demonstrate extent of abscess. *DC/Admit/Observation/Transfer Diagnosis at time of Disposition: Abscess - Discharge Dispostion Condition at time of disposition: Stable - Referrals - Patient Instructions - Post Discharge Activity
[2018-07-14 17:52] LABS: ALBUMIN 2.6 g/dl (3.4-5.0); ALK PHOS 106 U/L (45-117); ANION GAP 8 MMOL/L (8-16); BILIRUBIN,TOTAL 0.2 mg/dL (0.2-1); BLOOD UREA NITROGEN 8 mg/dL (7-18); CALCIUM 8.3 mg/dL (8.5-10.1); CHLORIDE 99 mmol/L (98-107); CO2 26 mmol/L (21-32); POTASSIUM 4.1 mmol/L (3.5-5.1); SGOT/AST 9 U/L (15-37); SGPT/ALT 14 U/L (13-61); SODIUM 134 mmol/L (136-145); TOT PROT 6.6 g/dl (6.4-8.2)
[2018-07-14 17:53] LABS: GLUCOSE,RANDOM 513 mg/dL (74-106)
[2018-07-14] MEDS ORDERED: INSULIN (NOVOLOG MIX 70/30) 100 UNITS/ML MDV SQ ONE (18:07)
[2018-07-14] MEDS ORDERED: INSULIN (NOVOLOG) ASPART 100 UNITS/ML 10ML VIAL ONE (18:21)
[2018-07-14] MEDS ORDERED: VANCOMYCIN 1,000 MG in DEXTROSE 5%-WATER - 250 ML IVPB ONE (20:46)
[2018-07-14] MEDS ORDERED: PIPERACILLIN/TAZOB 4.5 GM 4.5 GM in DEXTROSE 5%-WATER 100 ML IVPB ONE (20:46)
[2018-07-14] MEDS ORDERED: VANCOMYCIN 1 GRAM (PRE-DOCKED) 1,000 MG/250 ML BAG IVPB ONE (21:10)
[2018-07-14] MEDS ORDERED: PIPERACILLIN/TAZOB 4.5 GM 4.5 GM/100 ML BAG IVPB ONE (21:10)
--- NOTE | 2018-07-14 22:27 | PN ---
Teaching Attending Note Name of Resident: Sarita Correa ATTENDING PHYSICIAN STATEMENT I saw and evaluated the patient. I reviewed the resident's note and discussed the case with the resident. I agree with the resident's findings and plan as documented. SUBJECTIVE: Patient is a 47 year old man with history of cocaine abuse, HTN, HLD, schizophrenia, alcohol abuse, tobacco use and IDDM here today complaining of an abscess to his Left buttock that started two days ago. Patient states that it started off as a little bump. He tried a warm washcloth, but this did not improve his symptoms. He states that he checks his blood sugar "now and then" and that it's in the 200s. It was over range in fast track. He states that he hasn't taken any insulin for the past two days. Denies fevers, chills, nausea, vomiting, chest pain, shortness of breath, rectal pain, pain with defecation. OBJECTIVE: Alert Vital Signs Period Temp Pulse Resp BP Sys/Harding Pulse Ox Last 24 Hr 97.7 F-98.2 F 89-100 18-18 123-138/78-79 98-99 HEENT: No Jaundice, eye redness or discharge, PERRLA, EOMI. Normocephalic, atraumatic. External ears are normal and hearing is grossly intact. No nasal discharge. Neck: Supple, nontender. No palpable adenopathy or thyromegaly. No JVD Chest: Good effort. Clear to auscultation and percussion. Heart: Regular. No S3, rub or murmur Abdomen: Not distended, soft, nontender and no HSM. No rebound or guarding. Normoactive bowel sounds. Ext: Peripheral pulses intact. No leg edema. Left buttock abscess -not fluctuant and no active drainage. Skin: Warm and dry. No petechiae, rash or ecchymosis. Neuro: Alert. Oriented x3. CN 2-12 grossly intact. Sensation grossly intact in all four extremities and DTR are symmetric. Home Medications Medication Instructions Recorded traZODone HCL [Trazodone HCl] 100 mg PO HS #30 tablet 03/22/18 Aspirin [ASA -] 81 mg PO DAILY #30 tab.chew 06/12/18 Atorvastatin Ca [Lipitor] 10 mg PO HS #30 mg 06/12/18 Cholecalciferol (Vitamin D3) 400 unit PO BID #60 tab 06/12/18 [Vitamin D -] Enalapril Maleate [Vasotec -] 10 mg PO DAILY #30 tablet 06/12/18 Gabapentin [Neurontin -] 100 mg PO BID #60 mg 06/12/18 Glyburide [Micronase -] 10 mg PO BIDAC #60 tablet 06/12/18 Insulin (Novolog 70/30) [Novolog 10 units SQ HS #1 units 06/12/18 Mix 70/30 Vial -] Insulin (Novolog 70/30) [Novolog 20 units SQ AM #1 units 06/12/18 Mix 70/30 Vial -] Lisinopril [Prinivil] 10 mg PO DAILY #30 tablet 06/12/18 Metformin HCl [Glucophage] 1,000 mg PO BID #60 mg 06/12/18 Abnormal Lab Results 07/14/18 07/14/18 07/14/18 17:00 17:00 17:00 RBC 3.88 L Hgb 11.6 L Hct 33.8 L VBG pH 7.43 H POC VBG pO2 63.6 H Mixed VBG HCO3 27.3 H Sodium 134 L Random Glucose 513 H* Calcium 8.3 L AST 9 L Albumin 2.6 L ASSESSMENT AND PLAN: 1. Left buttock abscess - Treat with IV Vancomycin, zosyn and IV NS. No abscess collection noted on CT. Send any drainage for culture. Counseled to stop using illicit drugs. Will consult veterans services specialist. 2. Hypoalbuminemia - Possibly due to combined effects of malnutrition and inflammation associated with comorbid chronic conditions. Get UA to rule out nephrosis. Will ensure adequate dietary protein intake and also consult digital controls technical officer. 3. DM - For now, we will hold the home diabetes drugs and implement sliding scale insulin regimen. Check HbA1c. Provide comprehensive diabetes care with patient teaching and counseling about the importance of euglycemia, eye care and foot care. 4. Tobacco Use We will provide patient all the necessary assistance to facilitate smoking cessation and prescribe Nicotine patch. 5. Alcohol abuse - Implement [facility] alcohol withdrawal protocol, fall and aspiration precautions. Treat with thiamine and folic acid and monitor electrolytes (Ca,Mg,K,P). 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 6. DVT prophylaxis - Lovenox 40 mg SQ q 24 hours. 7. Advance directives - Full code
--- NOTE | 2018-07-14 23:00 | PDOC ---
*Physical Exam - Vital Signs Last Vital Signs Temp Pulse Resp BP Pulse Ox 98.7 F 86 16 155/88 100 07/14/18 22:30 07/14/18 22:30 07/14/18 22:30 07/14/18 22:30 07/14/18 22:30 - Physical Exam Comments: 07/15/18 06:43 General Appearance: Nourished. No Apparent Distress HEENT: No Pharyngeal Erythema, Tonsillar Exudate, Tonsillar Erythema Neck: No Cervical Lymphadenopathy Respiratory/Chest: Lungs Clear, Normal Breath Sounds. No Crackles, Rales, Rhonchi, Wheezing Cardiovascular: Regular Rhythm, Regular Rate. No Murmur, Gallops, Rubs Gastrointestinal/Abdominal: Normal Bowel Sounds, Soft. No Guarding, Rebound, Tenderness Musculoskeletal: No CVA Tenderness Extremity: Area of induration to the left buttocks. Normal Capillary Refill Integumentary: Normal Color, Dry, Warm Neurologic: Fully Oriented, Alert, Normal Mood/Affect, Normal Response, ED Treatment Course - LABORATORY CBC & Chemistry Diagram: 07/14/18 17:00 07/14/18 17:00 - ADDITIONAL ORDERS Additional order review: Laboratory Results 07/14/18 07/14/18 07/14/18 22:28 20:17 17:00 PT with INR INR VBG pH POC VBG pCO2 POC VBG pO2 Mixed VBG HCO3 Sodium 134 L Potassium 4.1 Chloride 99 Carbon Dioxide 26 Anion Gap 8 BUN 8 Creatinine 1.0 Creat Clearance w eGFR > 60 POC Glucometer 325.32951 > 400 Random Glucose 513 H* Calcium 8.3 L Total Bilirubin 0.2 AST 9 L ALT 14 Alkaline Phosphatase 106 Total Protein 6.6 Albumin 2.6 L Acetone, Qual Positive,trace 07/14/18 07/14/18 07/14/18 17:00 17:00 15:47 PT with INR 11.00 INR 0.93 VBG pH 7.43 H POC VBG pCO2 42.1 POC VBG pO2 63.6 H Mixed VBG HCO3 27.3 H Sodium Potassium Chloride Carbon Dioxide Anion Gap BUN Creatinine Creat Clearance w eGFR POC Glucometer > 400 Random Glucose Calcium Total Bilirubin AST ALT Alkaline Phosphatase Total Protein Albumin Acetone, Qual 07/14/18 07/14/18 07/14/18 22:28 20:17 17:00 RBC 3.88 L MCV 87.0 MCHC 34.3 RDW 15.3 MPV 8.2 POC Glucometer 325.72793 > 400 07/14/18 15:47 RBC MCV MCHC RDW MPV POC Glucometer > 400 - Medications Given in the ED: ED Medications Discontinued Medications Generic Name Dose Route Start Last Admin Trade Name Freq PRN Reason Stop Dose Admin Sodium Chloride 1,000 mls @ 1,000 mls/hr 07/14/18 16:38 07/14/18 17:21 Normal Saline - IV 07/14/18 17:37 1,000 mls/hr ASDIR STA Administration Sodium Chloride 1,000 mls @ 1,000 mls/hr 07/14/18 20:40 07/14/18 20:54 Normal Saline - IV 07/14/18 21:39 1,000 mls/hr ASDIR STA Administration Vancomycin HCl 1,000 mg/ 250 mls @ 166.667 mls/hr 07/14/18 20:46 07/14/18 22: 20 Dextrose IVPB 07/14/18 22:15 166.667 mls/hr ONCE ONE Administration Protocol Piperacillin Sod/Tazobactam 100 mls @ 200 mls/hr 07/14/18 20:46 07/14/18 21: 45 Sod 4.5 gm/ Dextrose IVPB 07/14/18 21:15 200 mls/hr ONCE ONE Administration Protocol Insulin Aspart 10 units 07/14/18 18:07 07/14/18 18:27 Novolog Mix 70/30 Vial SQ 07/14/18 18:08 10 units ONCE ONE Administration Progress Note - Progress Note Progress Note: The patient is a 47 year old male who presents for evaluation of a possible left buttocks abscess. Lab results have been unremarkable thus far. The patient is pending CT scan for further evaluation. Medical Decision Making - Medical Decision Making 07/15/18 00:44 CT demonstrates edema and stranding to the left buttocks without any drainable abscess as read by our radiologist. It is likely the patient's symptoms are due to a cellulitis. The patient has been persistently hyperglycemic throughout his stay here in the ED and given his co-morbidities he will require admission for further management. We will treat the patient with vanc and zosyn. We discussed the case with the admitting team who accepted the patient for admission. *DC/Admit/Observation/Transfer Diagnosis at time of Disposition: Abscess - Discharge Dispostion Condition at time of disposition: Stable Decision to Admit order Date/Time: Decision to Admit Order Category Date Time Status Decision to Admit to Hospital Routine Admission 07/14/18 22:48 Active - Referrals - Patient Instructions - Post Discharge Activity
[2018-07-15] MEDS ORDERED: INSULIN (LEVEMIR) 100 UNITS/ML UNITS SQ ONE ×2 (00:18→02:29)
[2018-07-15] MEDS ORDERED: chlordiazePOXIDE HCL 25 MG CAPSULE PO PRN (00:20)
--- NOTE | 2018-07-15 00:46 | HP ---
CHIEF COMPLAINT: Left buttock Cellulitis PCP: Dr. Lopez ([facility]) HISTORY OF PRESENT ILLNESS: 47 y/o M with PMhx of Polysubstance abuse (Cocaine, EtOH), IDDM, HTN presents from [facility] with Left Buttock pain. 4-5 days ago, patient felt a bump over his Left buttock that his sister tried to "pop." At this time, they were unable to drain any fluid. Since then, the area has grown in size and drained some red/ green fluid. Additionally it has become more painful, 10/10 described as tightness and throbbing. Patient has a hx of a similar abscess in the same location approx. 5 years ago treated with I&D and Abx (Unknown which ABx). This morning, patient visited [facility] for EtOH detox and was told he needs to visit the ED. Patient denies any hx of injection drug use, and denies injecting anything in this area. His last use of Cocaine and EtOH were both 2 days ago. Denies any trauma or bug bites to the area. During my interview he was still experiencing pain and mentioned his last drainage from the site was earlier this morning. Additionally has been experiencing Polyuria and Polydipsia over the past few days. Denies fevers, chills, chest pain, SOB, nausea ,vomiting, diarrhea, constipaiton, numbness, tingling, weakness, dysuria, hematuria, rectal pain, or pain with defecation. Recent Travel: Denies PAST MEDICAL HISTORY: Polysubstance abuse (Cocaine, EtOH) IDDM HTN HLD OA PAST SURGICAL HISTORY: LLE Torn Ligament Social History: Smokinppd x 33 years Alcohol: "$30 worth daily" Drugs: "$50 worth of cocaine snorted daily;" Denies Injecting Occupation: Disability Ambulatoin: Cane Residence: Sisters home in [facility] Family History: Father: of Stomach Cancer Allergies No Known Allergies Allergy (Verified 07/14/18 15:06) HOME MEDICATIONS: Home Medications Medication Instructions Recorded traZODone HCL [Trazodone HCl] 100 mg PO HS #30 tablet 03/22/18 Aspirin [ASA -] 81 mg PO DAILY #30 tab.chew 06/12/18 Atorvastatin Ca [Lipitor] 10 mg PO HS #30 mg 06/12/18 Cholecalciferol (Vitamin D3) 400 unit PO BID #60 tab 06/12/18 [Vitamin D -] Enalapril Maleate [Vasotec -] 10 mg PO DAILY #30 tablet 06/12/18 Gabapentin [Neurontin -] 100 mg PO BID #60 mg 06/12/18 Glyburide [Micronase -] 10 mg PO BIDAC #60 tablet 06/12/18 Insulin (Novolog 70/30) [Novolog 10 units SQ HS #1 units 06/12/18 Mix 70/30 Vial -] Insulin (Novolog 70/30) [Novolog 20 units SQ AM #1 units 06/12/18 Mix 70/30 Vial -] Lisinopril [Prinivil] 10 mg PO DAILY #30 tablet 06/12/18 Metformin HCl [Glucophage] 1,000 mg PO BID #60 mg 06/12/18 REVIEW OF SYSTEMS As per HPI PHYSICAL EXAMINATION Vital Signs - 24 hr 07/14/18 07/14/18 07/14/18 15:08 20:00 22:30 Temperature 97.7 F 98.2 F 98.7 F Pulse Rate 100 H Pulse Rate [ 89 86 Left Radial] Respiratory 18 18 16 Rate Blood Pressure 138/79 Blood Pressure 123/78 155/88 [Right Arm] O2 Sat by Pulse 99 98 100 Oximetry (%) GENERAL: A&Ox3, NAD, Lying comfortably watching TV and eating HEAD: NCAT EYES: PERRL, EOMI EARS, NOSE, THROAT: Oropharynx clear without exudates. Moist mucous membranes. NECK: No lymphadenopathy, No JVD. LUNGS: Breath sounds equal, clear to auscultation bilaterally. No wheezes. HEART: Regular rate and rhythm, normal S1 and S2 without murmur ABDOMEN: Soft, nontender, not distended, + bowel sounds, no guarding MUSCULOSKELETAL: No CVA tenderness. EXTREMITIES: 2+ pulses, No peripheral edema. Dry LE Skin. NEUROLOGICAL: Cranial nerves II-XII intact. Normal speech. Decreased sensation over b/l LE. BUTTOCK: 5X5cm, Warm Left sided cellulitis near the superior portion of the gluteal fold, Tender to palpation with surrounding erythema and early head formation, No active drainage. Laboratory Results - last 24 hr 07/14/18 07/14/18 07/14/18 15:47 17:00 17:00 WBC 6.6 RBC 3.88 L Hgb 11.6 L Hct 33.8 L MCV 87.0 MCH 29.9 MCHC 34.3 RDW 15.3 Plt Count 333 MPV 8.2 PT with INR 11.00 INR 0.93 VBG pH POC VBG pCO2 POC VBG pO2 Mixed VBG HCO3 Sodium Potassium Chloride Carbon Dioxide Anion Gap BUN Creatinine Creat Clearance w eGFR POC Glucometer > 400 Random Glucose Calcium Total Bilirubin AST ALT Alkaline Phosphatase Total Protein Albumin Acetone, Qual 07/14/18 07/14/18 07/14/18 17:00 17:00 20:17 WBC RBC Hgb Hct MCV MCH MCHC RDW Plt Count MPV PT with INR INR VBG pH 7.43 H POC VBG pCO2 42.1 POC VBG pO2 63.6 H Mixed VBG HCO3 27.3 H Sodium 134 L Potassium 4.1 Chloride 99 Carbon Dioxide 26 Anion Gap 8 BUN 8 Creatinine 1.0 Creat Clearance w eGFR > 60 POC Glucometer > 400 Random Glucose 513 H* Calcium 8.3 L Total Bilirubin 0.2 AST 9 L ALT 14 Alkaline Phosphatase 106 Total Protein 6.6 Albumin 2.6 L Acetone, Qual Positive,trace 07/14/18 22:28 WBC RBC Hgb Hct MCV MCH MCHC RDW Plt Count MPV PT with INR INR VBG pH POC VBG pCO2 POC VBG pO2 Mixed VBG HCO3 Sodium Potassium Chloride Carbon Dioxide Anion Gap BUN Creatinine Creat Clearance w eGFR POC Glucometer [phone] Random Glucose Calcium Total Bilirubin AST ALT Alkaline Phosphatase Total Protein Albumin Acetone, Qual ASSESSMENT/PLAN: 47 y/o M with PMhx of Polysubstance abuse (Cocaine, EtOH), IDDM, HTN presents from [facility] with Left Buttock pain #Left Buttock Cellulitis -Pelvis CT noted without fluid collection -Continue Vanco (100kg x 15mg), Zosyn 4.5g -ID (Dr. Romero) Consulted -Blood and Wound cx ordered #HyperGlycemia -Patient has not taken any of his home meds today -10U Insulin given in ED; Given 10u Levemir now -Started on 20u Levemir Daily -ISS BGMs ACHS -Given 2L NS in ED; Continue on NS @ 100 mls/hr -HbA1c pending #Polysubstance Abuse (Cocaine, EtOH, Tobacco) -UA and UTox ordered -Started on Librium Protocol -Thiamine 100mg Daily, Folate 1mg daily -Nicotine patch 21mg -Detox (Dr. Diggs) Consulted -Fall and Dysphagia precautions #Elevated BP -Patient has not taken any of his home meds today -Can restart, Will need Med Rec -Avoid Beta blockers given Cocaine use #FEN -NS @ 100 mls/hr -Continue to monitor for Hyponatremia -Diabetic, Low Salt, Low Cholesterol Diet #PPx -DVT: Lovenox Dispo: Admit to Med-Surg, Will need med rec Visit type - Emergency Visit Emergency Visit: Yes ED Registration Date: 07/15/18 Care time: The patient presented to the Emergency Department on the above date and was hospitalized for further evaluation of their emergent condition. - New Patient This patient is new to me today: Yes Date on this admission: 07/15/18 - Critical Care Critical Care patient: No
[2018-07-15] MEDS: SODIUM CHLORIDE 1,000 ML IV SCH ×2 (03:41→17:05)
[2018-07-15] MEDS ORDERED: PIPERACILLIN/TAZOB 4.5 GM 4.5 GM in DEXTROSE 5%-WATER 100 ML IVPB ONE (06:00)
[2018-07-15] MEDS ORDERED: DEXTROSE 5%-WATER 100 ML IVPB ONE (06:15)
[2018-07-15] MEDS ORDERED: PIPERACILLIN/TAZOBACTAM 4.5 GM VIAL IVPB ONE (06:15)
[2018-07-15] MEDS: INSULIN SLIDING SCALE (NOVOLOG) 1 VIAL SQ SCH ×4 (06:30→21:53)
[2018-07-15] MEDS: chlordiazePOXIDE HCL 25 MG CAPSULE PO SCH ×4 (06:31→23:30)
[2018-07-15 06:49] LABS: BASO % 0.4 % (0-2.0); EOS % 2.4 % (0-4.5); HEMATOCRIT 30.8 % (35.4-49); HEMOGLOBIN 10.5 GM/dL (11.7-16.9); LYMPH % 33.5 % (8-40); MCH 29.6 pg (25.7-33.7); MCHC 34.2 g/dl (32.0-35.9); MEAN CELL VOLUME 86.8 fl (80-96); MEAN PLT VOLUME 8.7 fl (7.5-11.1); MONO % 7.1 % (3.8-10.2); NEUT % 56.6 % (42.8-82.8); PLATELET COUNT 317 K/MM3 (134-434); RBC 3.55 M/mm3 (4.00-5.60); RDW 14.8 % (11.9-15.9); WHITE BLOOD COUNT 7.8 K/mm3 (4.0-10.0)
[2018-07-15 07:13] LABS: ALBUMIN 2.3 g/dl (3.4-5.0); ALK PHOS 88 U/L (45-117); ANION GAP 7 MMOL/L (8-16); BILIRUBIN,TOTAL 0.1 mg/dL (0.2-1); BLOOD UREA NITROGEN 9 mg/dL (7-18); CHLORIDE 104 mmol/L (98-107); CO2 27 mmol/L (21-32); CREATININE 0.9 mg/dL (0.55-1.3); MAGNESIUM 1.6 mg/dL (1.8-2.4); PHOSPHOROUS 3.4 mg/dL (2.5-4.9); SGOT/AST 9 U/L (15-37); SGPT/ALT 14 U/L (13-61); SODIUM 138 mmol/L (136-145)
[2018-07-15 08:06] LABS: URINE APPEARANCE CLEAR; URINE BILIRUBIN NEGATIVE (<2.0 mg/dL); URINE COLOR COLORLESS; URINE GLUCOSE (UA) 3+ (NEGATIVE); URINE KETONE NEGATIVE (NEGATIVE); URINE LEUK ESTERASE TRACE (NEGATIVE); URINE NITRITE NEGATIVE (NEGATIVE); URINE PROTEIN NEGATIVE (NEGATIVE); URINE UROBILINOGEN NEGATIVE mg/dL (0.2-1.0)
[2018-07-15 08:15] LABS: EPI CELLS RARE /HPF (FEW); URINE BACTERIA RARE /hpf (NONE SEEN)
[2018-07-15 08:21] LABS: METHADONE, UR NEGATIVE ng/ml (CUTOFF=300); OPIATES, URI NEGATIVE ng/ml (CUTOFF=300); PHENCYCLIDINE,URINE NEGATIVE ng/ml (CUTOFF=25); URINE AMPHETAMINES NEGATIVE ng/ml (CUTOFF=500); URINE BARBITURATES NEGATIVE ng/ml (CUTOFF=200); URINE BENZODIAZEPINES NEGATIVE ng/ml (CUTOFF=200)
[2018-07-15 09:08] LABS: GLUCOSE,RANDOM 311 mg/dL (74-106)
[2018-07-15 09:09] LABS: COCAINE, UR POSITIVE ng/ml (CUTOFF=300)
[2018-07-15] MEDS ORDERED: MAGNESIUM OXIDE 400 MG TABLET (FP) PO ONE (09:30)
[2018-07-15] MEDS ORDERED: PT OWN MED DRAWER 7, Y5N ONE ×2 (09:35→20:51)
[2018-07-15] MEDS: THIAMINE HCL 100 MG TABLET (FP) PO SCH (09:40)
[2018-07-15] MEDS: ENOXAPARIN NA (PORCINE) 40 MG/0.4 ML DISP.SYRIN SQ SCH (09:40)
[2018-07-15] MEDS: NICOTINE 21 MG/24 HOURS TOPICAL PATCH TD SCH (09:40)
[2018-07-15] MEDS: FOLIC ACID 1 MG TABLET (FP) PO SCH (09:41)
--- NOTE | 2018-07-15 09:45 | EKG ---
Test Reason : Blood Pressure : / mmHG Vent. Rate : 094 BPM Atrial Rate : 094 BPM P-R Int : 138 ms QRS Dur : 096 ms QT Int : 356 ms P-R-T Axes : 065 -29 010 degrees QTc Int : 445 ms NORMAL SINUS RHYTHM INCOMPLETE RIGHT BUNDLE BRANCH BLOCK VOLTAGE CRITERIA FOR LEFT VENTRICULAR HYPERTROPHY ABNORMAL ECG WHEN COMPARED WITH ECG OF 09-JUN-2018 16:48, NONSPECIFIC T WAVE ABNORMALITY, IMPROVED IN INFERIOR LEADS NONSPECIFIC T WAVE ABNORMALITY, IMPROVED IN LATERAL LEADS Confirmed by AMBREEN WEBSTER, RICARDO ([id number]) on 07/15/2018 9:44:42 AM Referred By: Confirmed By:RICARDO CROOK MD
--- NOTE | 2018-07-15 13:12 | CON.ID ---
Consult Consult Specialty:: infectious diseases Referred by:: Dr Correa Reason for Consultation:: gluteal abscess - History of Present Illness Chief Complaint: pain in the gluteal region History of Present Illness: 47 y/o M with PMhx of Polysubstance abuse (Cocaine, EtOH), IDDM, HTN presents from [facility] with Left Buttock pain. 4-5 days ago, patient felt a bump over his Left buttock that his sister tried to "pop." At this time, they were unable to drain any fluid. Since then, the area has grown in size and drained some red/ green fluid. Additionally it has become more painful, /10 described as tightness and throbbing. Patient has a hx of a similar abscess in the same location approx. 5 years ago treated with I&D and Abx . patient was send from [facility] here . His last use of Cocaine and EtOH were both 2 days ago. Denies fevers, chills, chest pain, SOB, nausea ,vomiting, diarrhea, constipaiton, numbness, tingling, weakness, dysuria, hematuria, rectal pain, or pain with defecation. according to the notes patient is also having polyuria and polydypsia currently he is ahving pain in the buttock area and there is also drainage of pus - History Source History Provided By: Patient Limitations to Obtaining History: No Limitations - Alcohol/Substance Use Hx Alcohol Use: No - Smoking History Smoking history: Current every day smoker Have you smoked in the past 12 months: Yes Aproximately how many cigarettes per day: 20 Home Medications - Allergies Allergies/Adverse Reactions: Allergies Allergy/AdvReac Type Severity Reaction Status Date / Time No Known Allergies Allergy Verified 07/14/18 15:06 - Home Medications Home Medications: Ambulatory Orders traZODone HCL [Trazodone HCl] 100 mg PO HS #30 tablet 03/22/18 Aspirin [ASA -] 81 mg PO DAILY #30 tab.chew 06/12/18 Atorvastatin Ca [Lipitor] 10 mg PO HS #30 mg 06/12/18 Cholecalciferol (Vitamin D3) [Vitamin D -] 400 unit PO BID #60 tab 06/12/18 Enalapril Maleate [Vasotec -] 10 mg PO DAILY #30 tablet 06/12/18 Gabapentin [Neurontin -] 100 mg PO BID #60 mg 06/12/18 Glyburide [Micronase -] 10 mg PO BIDAC #60 tablet 06/12/18 Insulin (Novolog 70/30) [Novolog Mix 70/30 Vial -] 10 units SQ HS #1 units 06/12 Insulin (Novolog 70/30) [Novolog Mix 70/30 Vial -] 20 units SQ AM #1 units 06/12 Lisinopril [Prinivil] 10 mg PO DAILY #30 tablet 06/12/18 Metformin HCl [Glucophage] 1,000 mg PO DAILY 07/15/18 Family Disease History - Family Disease History Family Disease History: Diabetes: Grandparent, Brother, Sister Review of Systems - Review of Systems Constitutional: reports: No Symptoms Eyes: reports: No Symptoms HENT: reports: No Symptoms Neck: reports: No Symptoms Cardiovascular: reports: No Symptoms Respiratory: reports: No Symptoms Gastrointestinal: reports: No Symptoms, Other (rt buttock swelling,drainage from the buttock noted) Genitourinary: reports: No Symptoms Musculoskeletal: reports: No Symptoms Integumentary: reports: No Symptoms Neurological: reports: No Symptoms Endocrine: reports: No Symptoms Hematology/Lymphatic: reports: No Symptoms Psychiatric: reports: No Symptoms Physical Exam Vital Signs: Vital Signs Temperature 98.5 F 07/15/18 09:43 Pulse Rate 89 07/15/18 09:43 Respiratory Rate 18 07/15/18 09:43 Blood Pressure 142/71 07/15/18 09:43 O2 Sat by Pulse Oximetry (%) 96 07/15/18 09:00 Constitutional: Yes: Well Nourished, Moderate Distress Eyes: Yes: Conjunctiva Clear Cardiovascular: Yes: Regular Rate and Rhythm Respiratory: Yes: Regular, CTA Bilaterally Gastrointestinal: Yes: Normal Bowel Sounds, Soft ...Rectal Exam: Yes: Other (buttock pain rt, drainage from the buttock noted,) Musculoskeletal: Yes: WNL Extremities: Yes: WNL Neurological: Yes: Alert, Oriented Psychiatric: Yes: Alert, Oriented Labs: CBC, BMP 07/15/18 06:00 07/15/18 06:00 Imaging - Results Chest X-ray: Report Reviewed, Image Reviewed Cat Scan: Report Reviewed Assessment/Plan 47 y/o M with PMhx of Polysubstance abuse (Cocaine, EtOH), IDDM, HTN presents from [facility] with Left Buttock pain left buttock cellulitis abscess left buttock hyperglycemia polysubstance abuse plan will continue abx cx reports awaited let see if warm soaks help wiht abx if not might need to be drained rest as per the team
--- NOTE | 2018-07-15 13:52 | PN ---
Physical Exam: SUBJECTIVE: Patient seen and examined at bedside this morning. Admits pain at left buttock ongoing for past 4 days. Also complains of headache ongoing since last night. Denies changes in vision, tactile visual or auditory hallucinations , nausea, vomiting, tremors, agitation, anxiety. OBJECTIVE: Vital Signs Period Temp Pulse Resp BP Sys/Harding Pulse Ox Last 24 Hr 97.7 F-98.7 F 83-100 16-20 123-155/71-91 96-100 GENERAL: The patient is awake, alert, and fully oriented, in no acute distress. HEAD: Normal with no signs of trauma. EYES: PERRL, extraocular movements intact, sclera anicteric, conjunctiva clear. ENT: Ears normal, nares patent, oropharynx clear without exudates, moist mucous membranes. NECK: Trachea midline, full range of motion, supple without lymphadenopathy. LUNGS: Breath sounds equal, clear to auscultation bilaterally, no wheezes, no crackles, no accessory muscle use. HEART: Regular rate and rhythm, S1, S2 without murmur, rub or gallop. ABDOMEN: Soft, tender to palpation at RUQ. Nondistended. Normoactive bowel sounds X4 quadrants. No guarding, no rebound tenderness. No hepatosplenomegaly, no masses. EXTREMITIES: 2+ radial and dorsalis pedis pulses B/L. Warm, well-perfused, no edema. NEUROLOGICAL: Cranial nerves II through XII grossly intact. Normal speech. No tremors. PSYCH: Normal mood, normal affect appropriate upon my encounter today. SKIN: Warm, dry. 6cm X6cm area of induration, without fluctuance at medial left buttock. Warm, erythematous. Exquisitely tender to palpation, no purulent discharge expressed. Laboratory Results - last 24 hr 07/14/18 07/14/18 07/14/18 15:47 17:00 17:00 WBC 6.6 RBC 3.88 L Hgb 11.6 L Hct 33.8 L MCV 87.0 MCH 29.9 MCHC 34.3 RDW 15.3 Plt Count 333 MPV 8.2 Absolute Neuts (auto) Neutrophils % Lymphocytes % Monocytes % Eosinophils % Basophils % Nucleated RBC % PT with INR 11.00 INR 0.93 VBG pH POC VBG pCO2 POC VBG pO2 Mixed VBG HCO3 Sodium Potassium Chloride Carbon Dioxide Anion Gap BUN Creatinine Creat Clearance w eGFR POC Glucometer > 400 Random Glucose Hemoglobin A1c % Calcium Phosphorus Magnesium Total Bilirubin AST ALT Alkaline Phosphatase Total Protein Albumin Urine Color Urine Appearance Urine pH Ur Specific [place] Urine Protein Urine Glucose (UA) Urine Ketones Urine Blood Urine Nitrite Urine Bilirubin Urine Urobilinogen Ur Leukocyte Esterase Urine WBC (Auto) Urine RBC (Auto) Ur Epithelial Cells Urine Bacteria Opiates Screen Methadone Screen Barbiturate Screen Phencyclidine Screen Ur Amphetamines Screen MDMA (Ecstasy) Screen Benzodiazepines Screen Cocaine Screen U Marijuana (THC) Screen Acetone, Qual 07/14/18 07/14/18 07/14/18 17:00 17:00 20:17 WBC RBC Hgb Hct MCV MCH MCHC RDW Plt Count MPV Absolute Neuts (auto) Neutrophils % Lymphocytes % Monocytes % Eosinophils % Basophils % Nucleated RBC % PT with INR INR VBG pH 7.43 H POC VBG pCO2 42.1 POC VBG pO2 63.6 H Mixed VBG HCO3 27.3 H Sodium 134 L Potassium 4.1 Chloride 99 Carbon Dioxide 26 Anion Gap 8 BUN 8 Creatinine 1.0 Creat Clearance w eGFR > 60 POC Glucometer > 400 Random Glucose 513 H* Hemoglobin A1c % Calcium 8.3 L Phosphorus Magnesium Total Bilirubin 0.2 AST 9 L ALT 14 Alkaline Phosphatase 106 Total Protein 6.6 Albumin 2.6 L Urine Color Urine Appearance Urine pH Ur Specific [place] Urine Protein Urine Glucose (UA) Urine Ketones Urine Blood Urine Nitrite Urine Bilirubin Urine Urobilinogen Ur Leukocyte Esterase Urine WBC (Auto) Urine RBC (Auto) Ur Epithelial Cells Urine Bacteria Opiates Screen Methadone Screen Barbiturate Screen Phencyclidine Screen Ur Amphetamines Screen MDMA (Ecstasy) Screen Benzodiazepines Screen Cocaine Screen U Marijuana (THC) Screen Acetone, Qual Positive,trace 07/14/18 07/15/18 07/15/18 22:28 06:00 06:00 WBC 7.8 RBC 3.55 L Hgb 10.5 L Hct 30.8 L MCV 86.8 MCH 29.6 MCHC 34.2 RDW 14.8 Plt Count 317 MPV 8.7 Absolute Neuts (auto) 4.4 Neutrophils % 56.6 Lymphocytes % 33.5 Monocytes % 7.1 Eosinophils % 2.4 Basophils % 0.4 Nucleated RBC % 0 PT with INR INR VBG pH POC VBG pCO2 POC VBG pO2 Mixed VBG HCO3 Sodium 138 Potassium 4.0 Chloride 104 Carbon Dioxide 27 Anion Gap 7 L BUN 9 Creatinine 0.9 Creat Clearance w eGFR > 60 POC Glucometer [phone] Random Glucose 311 H* Hemoglobin A1c % Calcium 8.0 L Phosphorus 3.4 Magnesium 1.6 L Total Bilirubin 0.1 L AST 9 L ALT 14 Alkaline Phosphatase 88 Total Protein 6.0 L Albumin 2.3 L Urine Color Urine Appearance Urine pH Ur Specific [place] Urine Protein Urine Glucose (UA) Urine Ketones Urine Blood Urine Nitrite Urine Bilirubin Urine Urobilinogen Ur Leukocyte Esterase Urine WBC (Auto) Urine RBC (Auto) Ur Epithelial Cells Urine Bacteria Opiates Screen Methadone Screen Barbiturate Screen Phencyclidine Screen Ur Amphetamines Screen MDMA (Ecstasy) Screen Benzodiazepines Screen Cocaine Screen U Marijuana (THC) Screen Acetone, Qual 07/15/18 07/15/18 07/15/18 06:00 06:00 06:00 WBC RBC Hgb Hct MCV MCH MCHC RDW Plt Count MPV Absolute Neuts (auto) Neutrophils % Lymphocytes % Monocytes % Eosinophils % Basophils % Nucleated RBC % PT with INR INR VBG pH POC VBG pCO2 POC VBG pO2 Mixed VBG HCO3 Sodium Potassium Chloride Carbon Dioxide Anion Gap BUN Creatinine Creat Clearance w eGFR POC Glucometer Random Glucose Hemoglobin A1c % 14.8 H Calcium Phosphorus Magnesium Total Bilirubin AST ALT Alkaline Phosphatase Total Protein Albumin Urine Color Colorless Urine Appearance Clear Urine pH 6.0 Ur Specific [place] 1.018 Urine Protein Negative Urine Glucose (UA) 3+ H Urine Ketones Negative Urine Blood 2+ H Urine Nitrite Negative Urine Bilirubin Negative Urine Urobilinogen Negative Ur Leukocyte Esterase Trace Urine WBC (Auto) 27 Urine RBC (Auto) 7 Ur Epithelial Cells Rare Urine Bacteria Rare Opiates Screen Negative Methadone Screen Negative Barbiturate Screen Negative Phencyclidine Screen Negative Ur Amphetamines Screen Negative MDMA (Ecstasy) Screen Negative Benzodiazepines Screen Negative Cocaine Screen Positive A* U Marijuana (THC) Screen Negative Acetone, Qual 07/15/18 07/15/18 06:29 12:00 WBC RBC Hgb Hct MCV MCH MCHC RDW Plt Count MPV Absolute Neuts (auto) Neutrophils % Lymphocytes % Monocytes % Eosinophils % Basophils % Nucleated RBC % PT with INR INR VBG pH POC VBG pCO2 POC VBG pO2 Mixed VBG HCO3 Sodium Potassium Chloride Carbon Dioxide Anion Gap BUN Creatinine Creat Clearance w eGFR POC Glucometer 369 201 Random Glucose Hemoglobin A1c % Calcium Phosphorus Magnesium Total Bilirubin AST ALT Alkaline Phosphatase Total Protein Albumin Urine Color Urine Appearance Urine pH Ur Specific [place] Urine Protein Urine Glucose (UA) Urine Ketones Urine Blood Urine Nitrite Urine Bilirubin Urine Urobilinogen Ur Leukocyte Esterase Urine WBC (Auto) Urine RBC (Auto) Ur Epithelial Cells Urine Bacteria Opiates Screen Methadone Screen Barbiturate Screen Phencyclidine Screen Ur Amphetamines Screen MDMA (Ecstasy) Screen Benzodiazepines Screen Cocaine Screen U Marijuana (THC) Screen Acetone, Qual Active Medications Generic Name Dose Route Start Last Admin Trade Name Freq PRN Reason Stop Dose Admin Chlordiazepoxide HCl 50 mg 07/15/18 05:00 07/15/18 11:58 Librium - PO 07/15/18 23:01 50 mg Q2R-POY TYLER Administration Chlordiazepoxide HCl 25 mg 07/16/18 05:00 Librium - PO 07/16/18 23:01 [id number] TYLER Chlordiazepoxide HCl 15 mg 07/17/18 05:00 Librium - PO 07/17/18 23:01 [id number] TYLER Chlordiazepoxide HCl 25 mg 07/15/18 00:20 Librium - PO 07/18/18 00:19 Q4H PRN WITHDRAWAL(CONT SUBST) Chlordiazepoxide HCl 10 mg 07/18/18 05:00 Librium - PO 07/18/18 23:01 [id number] TYLER Enoxaparin Sodium 40 mg 07/15/18 10:00 07/15/18 09:40 Lovenox - SQ 40 mg DAILY TYLER Administration Folic Acid 1 mg 07/15/18 10:00 07/15/18 09:41 Folic Acid - PO 1 mg DAILY TYLER Administration Sodium Chloride 1,000 mls @ 100 mls/hr 07/15/18 00:45 07/15/18 03:41 Normal Saline - IV 100 mls/hr ASDIR TYLER Administration Piperacillin Sod/Tazobactam 50 mls @ 100 mls/hr 07/15/18 13:30 Sod 3.375 gm/ Dextrose IVPB Q8H-IV TYLER Protocol Vancomycin HCl 1,250 mg/ 250 mls @ 250 mls/2 hr 07/15/18 22:00 Dextrose IVPB Q24H TYLER Protocol Insulin Aspart 1 vial 07/15/18 07:00 07/15/18 12:01 Novolog Vial Sliding Scale - SQ 4 unit ACHS TYLER Administration Protocol Insulin Detemir 15 units 07/15/18 22:00 Levemir Vial SQ BID@0700,2200 TYLER Nicotine 21 mg 07/15/18 10:00 07/15/18 09:40 Nicoderm Patch - TD 21 mg DAILY TYLER Administration Thiamine HCl 100 mg 07/15/18 10:00 07/15/18 09:40 Vitamin B1 - PO 100 mg DAILY TYLER Administration ASSESSMENT/PLAN: Patient is a 47 year old male with history of polysubstance abuse (cocaine, alcohol), insulin dependent diabetes mellitus, hypertension, presents from [facility] for left buttock pain. Gluteal abscess -Pelvic CT notes soft tissue swelling, and subcutaneous edema without drainable collection. -ID recommendations (Dr. Romero) appreciated -Vancomycin 1250mg IV Q24H -Zosyn 3.375grams IV Q8H -F/U blood cultures -F/U wound cultures -F/U general surgery consult -Warm compress, zitz baths -Tylenol 650mg PO Q6H PRN for pain 6-10 Insulin dependent diabetes mellitus -Poorly controlled. HbA1c 14.8 -Holding home medications -Levemir 15units BID -Gabapentin 100mg PO BID for neuropathy -ISS ACHS -BGM ACHS Polysubstance abuse -Utox positive for cocaine -Librium protocol -Nicotine patch 21mg TD daily -Thiamine 100mg daily -Folate 1mg daily -Detox consult (Dr. Diggs) -Fall precautions -Aspiration precautions Hypertension -Reinstate lisinopril 10mg PO daily Hyperlipidemia -Atorvastatin 10mg PO QHS FEN -IV normal saline at 100mL/ hour -Follow CMP -Diabetic diet (low salt, low cholesterol) Prophylaxis -Lovenox 40mg SQ daily Disposition -Continue care in medical-surgical floor Visit type - Emergency Visit Emergency Visit: Yes ED Registration Date: 07/15/18 Care time: The patient presented to the Emergency Department on the above date and was hospitalized for further evaluation of their emergent condition. - New Patient This patient is new to me today: Yes Date on this admission: 07/15/18 - Critical Care Critical Care patient: No - Discharge Referral Referred to [facility] No
[2018-07-15] MEDS ORDERED: DEXTROSE 5%-WATER - 50 ML IVPB ONE ×2 (14:22→17:04)
[2018-07-15] MEDS ORDERED: PIPERACILLIN/TAZOBACTAM 3.375 GM VIAL IVPB ONE ×2 (14:22→17:04)
--- NOTE | 2018-07-15 14:51 | CONSULT ---
- Consultation REQUESTING PROVIDER: CONSULT REQUEST: We have been asked to surgically evaluate this patient for ( specify). PCP:Zenia Koehler MD HISTORY OF PRESENT ILLNESS: 47yo M admitted to the hospital for buttock abscess and hyperglycemia. Pt states that the painful area started about 5 days ago. Pt states that he had a similar infectioin 5 years ago that had to be drain. Pt denies any other episodes of buttock abscess. Pt denies fever, chills, n/v. PMHx: DM, OA, polysubstance abuse PSHx: denies Home Medications Medication Instructions Recorded Aspirin [ASA -] 81 mg PO DAILY #30 tab.chew 06/12/18 Atorvastatin Ca [Lipitor] 10 mg PO HS #30 mg 06/12/18 Cholecalciferol (Vitamin D3) 400 unit PO BID #60 tab 06/12/18 [Vitamin D -] Enalapril Maleate [Vasotec -] 10 mg PO DAILY #30 tablet 06/12/18 Gabapentin [Neurontin -] 100 mg PO BID #60 mg 06/12/18 Glyburide [Micronase -] 10 mg PO BIDAC #60 tablet 06/12/18 Insulin (Novolog 70/30) [Novolog 10 units SQ HS #1 units 06/12/18 Mix 70/30 Vial -] Insulin (Novolog 70/30) [Novolog 20 units SQ AM #1 units 06/12/18 Mix 70/30 Vial -] Lisinopril [Prinivil] 10 mg PO DAILY #30 tablet 06/12/18 Metformin HCl [Glucophage] 1,000 mg PO DAILY 07/15/18 Allergies Allergy/AdvReac Type Severity Reaction Status Date / Time No Known Allergies Allergy Verified 07/14/18 15:06 PHYSICAL EXAM: GENERAL: Awake, alert, and fully oriented, in no acute distress. HEAD: Normal with no signs of trauma. EYES: PERRL, sclera anicteric, conjunctiva clear. NECK: Normal ROM, supple without lymphadenopathy, JVD, or masses. LUNGS: Breathing comfortably, No accessory muscle use. HEART: Regular rate and rhythm. BACK: Left buttock abscess is indurated and tender, small amount of purulent discharge not, non fluctuant NEUROLOGICAL: Normal speech, gait not observed. PSYCH: Cooperative. Good eye contact. Appropriate mood and affect. SKIN: Warm, dry, normal turgor, no rashes or lesions noted. Vital Signs Temperature 98.6 F 07/15/18 13:52 Pulse Rate 82 07/15/18 13:52 Respiratory Rate 18 07/15/18 13:52 Blood Pressure 153/72 07/15/18 13:52 O2 Sat by Pulse Oximetry (%) 96 07/15/18 09:00 Lab Results WBC 7.8 K/mm3 (4.0-10.0) 07/15/18 06:00 RBC 3.55 M/mm3 (4.00-5.60) L 07/15/18 06:00 Hgb 10.5 GM/dL (11.7-16.9) L 07/15/18 06:00 Hct 30.8 % (35.4-49) L 07/15/18 06:00 MCV 86.8 fl (80-96) 07/15/18 06:00 MCHC 34.2 g/dl (32.0-35.9) 07/15/18 06:00 RDW 14.8 % (11.9-15.9) 07/15/18 06:00 Plt Count 317 K/MM3 (134-434) 07/15/18 06:00 Sodium 138 mmol/L (136-145) 07/15/18 06:00 Potassium 4.0 mmol/L (3.5-5.1) 07/15/18 06:00 Chloride 104 mmol/L (98-107) 07/15/18 06:00 Carbon Dioxide 27 mmol/L (21-32) 07/15/18 06:00 Anion Gap 7 MMOL/L (8-16) L 07/15/18 06:00 BUN 9 mg/dL (7-18) 07/15/18 06:00 Creatinine 0.9 mg/dL (0.55-1.3) 07/15/18 06:00 Random Glucose 311 mg/dL (74-106) H* 07/15/18 06:00 Calcium 8.0 mg/dL (8.5-10.1) L 07/15/18 06:00 INR 0.93 (0.83-1.09) 07/14/18 17:00 CT Pelvis: shows area of induration on left buttock no collection. Problem List - Problems (1) Abscess Assessment/Plan: Plan -no drainable abscess at this time, recommend warm compresses and abx as per ID -control glucose -may need to be drained in the future, please contact surgery team if any changes. Case discussed with Dr. Marin who agrees with plan Code(s): L02.91 - CUTANEOUS ABSCESS, UNSPECIFIED
[2018-07-15] MEDS: PIPERACILLIN/TAZOB 3.375 GM 3.375 GM in DEXTROSE 5%-WATER - 50 ML IVPB SCH ×2 (14:53→18:51)
--- NOTE | 2018-07-15 15:21 | PN ---
Teaching Attending Note Name of Resident: Malik Estrada ATTENDING PHYSICIAN STATEMENT I saw and evaluated the patient. I reviewed the resident's note and discussed the case with the resident. I agree with the resident's findings and plan as documented with exceptions below. SUBJECTIVE: Patient seen and examined. still with left buttock pain. No fevers/chills or new concerns. OBJECTIVE: Vital Signs Period Temp Pulse Resp BP Sys/Harding Pulse Ox Last 24 Hr 98.2 F-98.7 F 82-91 16-20 123-155/71-91 96-100 Intake & Output 07/12/18 07/13/18 07/14/18 07/15/18 23:59 23:59 23:59 23:59 Intake Total 1250 Output Total 1300 Balance -50 Weight 219 lb 2 oz General: lying in bed in no acute distress Chest: CTAB, no rales or wheezing Abdomen:soft, NT, ND Extremities: no edema Back: Right gluteal 5 cm circular area lateral to mid gluteal fold with tenderness, erythema, small opening in the center with yellowish green discharge when expressed Home Medications Medication Instructions Recorded Aspirin [ASA -] 81 mg PO DAILY #30 tab.chew 06/12/18 Atorvastatin Ca [Lipitor] 10 mg PO HS #30 mg 06/12/18 Cholecalciferol (Vitamin D3) 400 unit PO BID #60 tab 06/12/18 [Vitamin D -] Enalapril Maleate [Vasotec -] 10 mg PO DAILY #30 tablet 06/12/18 Gabapentin [Neurontin -] 100 mg PO BID #60 mg 06/12/18 Glyburide [Micronase -] 10 mg PO BIDAC #60 tablet 06/12/18 Insulin (Novolog 70/30) [Novolog 10 units SQ HS #1 units 06/12/18 Mix 70/30 Vial -] Insulin (Novolog 70/30) [Novolog 20 units SQ AM #1 units 06/12/18 Mix 70/30 Vial -] Lisinopril [Prinivil] 10 mg PO DAILY #30 tablet 06/12/18 Metformin HCl [Glucophage] 1,000 mg PO DAILY 07/15/18 Active Medications Chlordiazepoxide HCl (Librium -) 50 mg PO [id number] TYLER Stop: 07/15/18 23:01 Last Admin: 07/15/18 11:58 Dose: 50 mg Chlordiazepoxide HCl (Librium -) 25 mg PO [id number] [facility] Stop: 07/16/18 23:01 Chlordiazepoxide HCl (Librium -) 15 mg PO [id number] [facility]ER Stop: 07/17/18 23:01 Chlordiazepoxide HCl (Librium -) 25 mg PO Q4H PRN PRN Reason: WITHDRAWAL(CONT SUBST) Stop: 07/18/18 00:19 Chlordiazepoxide HCl (Librium -) 10 mg PO [id number] [facility] Stop: 07/18/18 23:01 Enoxaparin Sodium (Lovenox -) 40 mg SQ DAILY [facility] Last Admin: 07/15/18 09:40 Dose: 40 mg Folic Acid (Folic Acid -) 1 mg PO DAILY [facility] Last Admin: 07/15/18 09:41 Dose: 1 mg Sodium Chloride (Normal Saline -) 1,000 mls @ 100 mls/hr IV ASDIR [facility] Last Admin: 07/15/18 03:41 Dose: 100 mls/hr Piperacillin Sod/Tazobactam (Sod 3.375 gm/ Dextrose) 50 mls @ 100 mls/hr IVPB Q8H-IV [facility]; Protocol Last Admin: 07/15/18 14:53 Dose: 100 mls/hr Vancomycin HCl 1,250 mg/ (Dextrose) 250 mls @ 250 mls/2 hr IVPB Q24H [facility]ER; Protocol Insulin Aspart (Novolog Vial Sliding Scale -) 1 vial SQ ACHS [facility]; Protocol Last Admin: 07/15/18 12:01 Dose: 4 unit Insulin Detemir (Levemir Vial) 15 units SQ BID@0700,2200 [facility] Nicotine (Nicoderm Patch -) 21 mg TD DAILY [facility] Last Admin: 07/15/18 09:40 Dose: 21 mg Thiamine HCl (Vitamin B1 -) 100 mg PO DAILY [facility] Last Admin: 07/15/18 09:40 Dose: 100 mg Laboratory Results - last 24 hr 07/14/18 07/14/18 07/14/18 15:47 17:00 17:00 WBC 6.6 RBC 3.88 L Hgb 11.6 L Hct 33.8 L MCV 87.0 MCH 29.9 MCHC 34.3 RDW 15.3 Plt Count 333 MPV 8.2 Absolute Neuts (auto) Neutrophils % Lymphocytes % Monocytes % Eosinophils % Basophils % Nucleated RBC % PT with INR 11.00 INR 0.93 VBG pH POC VBG pCO2 POC VBG pO2 Mixed VBG HCO3 Sodium Potassium Chloride Carbon Dioxide Anion Gap BUN Creatinine Creat Clearance w eGFR POC Glucometer > 400 Random Glucose Hemoglobin A1c % Calcium Phosphorus Magnesium Total Bilirubin AST ALT Alkaline Phosphatase Total Protein Albumin Urine Color Urine Appearance Urine pH Ur Specific [place] Urine Protein Urine Glucose (UA) Urine Ketones Urine Blood Urine Nitrite Urine Bilirubin Urine Urobilinogen Ur Leukocyte Esterase Urine WBC (Auto) Urine RBC (Auto) Ur Epithelial Cells Urine Bacteria Opiates Screen Methadone Screen Barbiturate Screen Phencyclidine Screen Ur Amphetamines Screen MDMA (Ecstasy) Screen Benzodiazepines Screen Cocaine Screen U Marijuana (THC) Screen Acetone, Qual 07/14/18 07/14/18 07/14/18 17:00 17:00 20:17 WBC RBC Hgb Hct MCV MCH MCHC RDW Plt Count MPV Absolute Neuts (auto) Neutrophils % Lymphocytes % Monocytes % Eosinophils % Basophils % Nucleated RBC % PT with INR INR VBG pH 7.43 H POC VBG pCO2 42.1 POC VBG pO2 63.6 H Mixed VBG HCO3 27.3 H Sodium 134 L Potassium 4.1 Chloride 99 Carbon Dioxide 26 Anion Gap 8 BUN 8 Creatinine 1.0 Creat Clearance w eGFR > 60 POC Glucometer > 400 Random Glucose 513 H* Hemoglobin A1c % Calcium 8.3 L Phosphorus Magnesium Total Bilirubin 0.2 AST 9 L ALT 14 Alkaline Phosphatase 106 Total Protein 6.6 Albumin 2.6 L Urine Color Urine Appearance Urine pH Ur Specific [place] Urine Protein Urine Glucose (UA) Urine Ketones Urine Blood Urine Nitrite Urine Bilirubin Urine Urobilinogen Ur Leukocyte Esterase Urine WBC (Auto) Urine RBC (Auto) Ur Epithelial Cells Urine Bacteria Opiates Screen Methadone Screen Barbiturate Screen Phencyclidine Screen Ur Amphetamines Screen MDMA (Ecstasy) Screen Benzodiazepines Screen Cocaine Screen U Marijuana (THC) Screen Acetone, Qual Positive,trace 07/14/18 07/15/18 07/15/18 22:28 06:00 06:00 WBC 7.8 RBC 3.55 L Hgb 10.5 L Hct 30.8 L MCV 86.8 MCH 29.6 MCHC 34.2 RDW 14.8 Plt Count 317 MPV 8.7 Absolute Neuts (auto) 4.4 Neutrophils % 56.6 Lymphocytes % 33.5 Monocytes % 7.1 Eosinophils % 2.4 Basophils % 0.4 Nucleated RBC % 0 PT with INR INR VBG pH POC VBG pCO2 POC VBG pO2 Mixed VBG HCO3 Sodium 138 Potassium 4.0 Chloride 104 Carbon Dioxide 27 Anion Gap 7 L BUN 9 Creatinine 0.9 Creat Clearance w eGFR > 60 POC Glucometer [phone] Random Glucose 311 H* Hemoglobin A1c % Calcium 8.0 L Phosphorus 3.4 Magnesium 1.6 L Total Bilirubin 0.1 L AST 9 L ALT 14 Alkaline Phosphatase 88 Total Protein 6.0 L Albumin 2.3 L Urine Color Urine Appearance Urine pH Ur Specific [place] Urine Protein Urine Glucose (UA) Urine Ketones Urine Blood Urine Nitrite Urine Bilirubin Urine Urobilinogen Ur Leukocyte Esterase Urine WBC (Auto) Urine RBC (Auto) Ur Epithelial Cells Urine Bacteria Opiates Screen Methadone Screen Barbiturate Screen Phencyclidine Screen Ur Amphetamines Screen MDMA (Ecstasy) Screen Benzodiazepines Screen Cocaine Screen U Marijuana (THC) Screen Acetone, Qual 07/15/18 07/15/18 07/15/18 06:00 06:00 06:00 WBC RBC Hgb Hct MCV MCH MCHC RDW Plt Count MPV Absolute Neuts (auto) Neutrophils % Lymphocytes % Monocytes % Eosinophils % Basophils % Nucleated RBC % PT with INR INR VBG pH POC VBG pCO2 POC VBG pO2 Mixed VBG HCO3 Sodium Potassium Chloride Carbon Dioxide Anion Gap BUN Creatinine Creat Clearance w eGFR POC Glucometer Random Glucose Hemoglobin A1c % 14.8 H Calcium Phosphorus Magnesium Total Bilirubin AST ALT Alkaline Phosphatase Total Protein Albumin Urine Color Colorless Urine Appearance Clear Urine pH 6.0 Ur Specific [place] 1.018 Urine Protein Negative Urine Glucose (UA) 3+ H Urine Ketones Negative Urine Blood 2+ H Urine Nitrite Negative Urine Bilirubin Negative Urine Urobilinogen Negative Ur Leukocyte Esterase Trace Urine WBC (Auto) 27 Urine RBC (Auto) 7 Ur Epithelial Cells Rare Urine Bacteria Rare Opiates Screen Negative Methadone Screen Negative Barbiturate Screen Negative Phencyclidine Screen Negative Ur Amphetamines Screen Negative MDMA (Ecstasy) Screen Negative Benzodiazepines Screen Negative Cocaine Screen Positive A* U Marijuana (THC) Screen Negative Acetone, Qual 07/15/18 07/15/18 06:29 12:00 WBC RBC Hgb Hct MCV MCH MCHC RDW Plt Count MPV Absolute Neuts (auto) Neutrophils % Lymphocytes % Monocytes % Eosinophils % Basophils % Nucleated RBC % PT with INR INR VBG pH POC VBG pCO2 POC VBG pO2 Mixed VBG HCO3 Sodium Potassium Chloride Carbon Dioxide Anion Gap BUN Creatinine Creat Clearance w eGFR POC Glucometer 369 201 Random Glucose Hemoglobin A1c % Calcium Phosphorus Magnesium Total Bilirubin AST ALT Alkaline Phosphatase Total Protein Albumin Urine Color Urine Appearance Urine pH Ur Specific [place] Urine Protein Urine Glucose (UA) Urine Ketones Urine Blood Urine Nitrite Urine Bilirubin Urine Urobilinogen Ur Leukocyte Esterase Urine WBC (Auto) Urine RBC (Auto) Ur Epithelial Cells Urine Bacteria Opiates Screen Methadone Screen Barbiturate Screen Phencyclidine Screen Ur Amphetamines Screen MDMA (Ecstasy) Screen Benzodiazepines Screen Cocaine Screen U Marijuana (THC) Screen Acetone, Qual Microbiology 07/15/18 10:45 Buttock - Left Gram Stain - Final ASSESSMENT AND PLAN: 47 yom with PMHx of Polysubstance abuse (Cocaine, EtOH), IDDM, HTN, admitted with left gluteal cellulitis+/- Abscess -Left gluteal cellulitis, suspect early abscess -IDDM, poorly controlled, A1c 14.8 -Diabetic/starvation ketosis -Polysubstance abuse with cocaine/ETOH -HTN Plan: Surgery/ID consult appreciated. Sitz bath/warm compresses. Zosyn/vancomycin. Blood cx. Wound cx sent from expressed fluid. Will likely need I&D over next 48 hours, monitor for now Patient reports non compliance with insulin. Diabetic education. Start levemir 15 units BID, ISS, diabetic diet. Titrate up as tolerated. Hold glyburide/Metformin. Resume lisinopril/gabapentin/atorvastatin. Hold ASA for now in case needs intervention. DVTPPX with lovenox Dispo pending clinical improvement. Plan discussed with patient in detail, all questions answered.
[2018-07-15] MEDS: LISINOPRIL 10 MG TABLET (FP) PO SCH (17:05)
[2018-07-15] MEDS: ATORVASTATIN CA 10 MG TABLET (FP) PO SCH (21:52)
[2018-07-15] MEDS: GABAPENTIN 100 MG CAPSULE (FP) PO SCH (21:52)
[2018-07-15] MEDS: INSULIN (LEVEMIR) 100 UNITS/ML UNITS SQ SCH (21:53)
[2018-07-15] MEDS: ACETAMINOPHEN 325 MG TABLET (FP) PO PRN (21:56)
[2018-07-15] MEDS: VANCOMYCIN 1,250 MG in DEXTROSE 5%-WATER - 250 ML IVPB SCH (21:59)
[2018-07-15] MEDS ORDERED: INSULIN (LEVEMIR) 100 UNITS/ML UNITS SQ SCH (22:00)
[2018-07-15] MEDS ORDERED: VANCOMYCIN 1,500 MG in DEXTROSE 5%-WATER - 500 ML IVPB SCH (22:00)
[2018-07-16] MEDS: SODIUM CHLORIDE 1,000 ML IV SCH ×3 (00:45→21:08)
[2018-07-16] MEDS ORDERED: PIPERACILLIN/TAZOBACTAM 3.375 GM VIAL IVPB ONE ×3 (02:23→16:22)
[2018-07-16] MEDS ORDERED: DEXTROSE 5%-WATER - 50 ML IVPB ONE ×3 (02:23→16:22)
[2018-07-16] MEDS: PIPERACILLIN/TAZOB 3.375 GM 3.375 GM in DEXTROSE 5%-WATER - 50 ML IVPB SCH ×3 (02:25→18:00)
[2018-07-16] MEDS: chlordiazePOXIDE HCL 25 MG CAPSULE PO SCH ×4 (06:01→22:45)
[2018-07-16] MEDS: INSULIN (LEVEMIR) 100 UNITS/ML UNITS SQ SCH ×2 (06:08→22:48)
[2018-07-16] MEDS: INSULIN SLIDING SCALE (NOVOLOG) 1 VIAL SQ SCH ×4 (06:09→22:48)
[2018-07-16 07:08] LABS: HEMATOCRIT 33.9 % (35.4-49); HEMOGLOBIN 11.4 GM/dL (11.7-16.9); MCH 29.2 pg (25.7-33.7); MCHC 33.7 g/dl (32.0-35.9); MEAN CELL VOLUME 86.6 fl (80-96); MEAN PLT VOLUME 8.6 fl (7.5-11.1); PLATELET COUNT 367 K/MM3 (134-434); RBC 3.91 M/mm3 (4.00-5.60); RDW 15.1 % (11.9-15.9)
[2018-07-16 07:24] LABS: ALBUMIN 2.4 g/dl (3.4-5.0); ALK PHOS 85 U/L (45-117); ANION GAP 5 MMOL/L (8-16); BILIRUBIN,TOTAL 0.2 mg/dL (0.2-1); BLOOD UREA NITROGEN 9 mg/dL (7-18); CALCIUM 8.2 mg/dL (8.5-10.1); CHLORIDE 108 mmol/L (98-107); CO2 28 mmol/L (21-32); CREATININE 0.8 mg/dL (0.55-1.3); GLUCOSE,RANDOM 220 mg/dL (74-106); MAGNESIUM 1.6 mg/dL (1.8-2.4); PHOSPHOROUS 4.1 mg/dL (2.5-4.9); POTASSIUM 4.1 mmol/L (3.5-5.1); SGOT/AST 8 U/L (15-37); SGPT/ALT 12 U/L (13-61); SODIUM 141 mmol/L (136-145); TOT PROT 6.1 g/dl (6.4-8.2)
--- NOTE | 2018-07-16 07:41 | PN ---
Physical Exam: SUBJECTIVE: Patient seen and examined at bedside this morning. Complains of pain at left buttock, as well as left knee. Endorses surgery two months ago where purulent fluid was drained, and has been experiencing pain since. Denies fevers, shortness of breath, chest pain, palpitations, abdominal pain, nausea, vomiting, diarrhea. OBJECTIVE: Vital Signs Period Temp Pulse Resp BP Sys/Harding Pulse Ox Last 24 Hr 97.7 F-98.6 F 79-94 18-20 137-160/71-99 96-98 GENERAL: The patient is awake, alert, and fully oriented, in no acute distress. HEAD: Normal with no signs of trauma. EYES: PERRL, extraocular movements intact, sclera anicteric, conjunctiva clear. ENT: Ears normal, nares patent, oropharynx clear without exudates, moist mucous membranes. NECK: Trachea midline, full range of motion, supple without lymphadenopathy. LUNGS: Breath sounds equal, clear to auscultation bilaterally, no wheezes, no crackles, no accessory muscle use. HEART: Regular rate and rhythm, S1, S2 without murmur, rub or gallop. ABDOMEN: Soft, mild tender to palpation at RUQ. Nondistended. Normoactive bowel sounds X4 quadrants. No guarding, no rebound tenderness. No hepatosplenomegaly, no masses. EXTREMITIES: 2+ radial and dorsalis pedis pulses B/L. Vertical scar over left knee, erythematous, warm, clean, dry without discharge. Pain with passive and active flexion/ extension of left knee compared to right knee. NEUROLOGICAL: Cranial nerves II through XII grossly intact. Normal speech. No tremors. PSYCH: Normal mood, normal affect appropriate upon my encounter today. SKIN: Warm, dry. 6cm X6cm area of induration, without fluctuance at medial left buttock. Warm, erythematous. Exquisitely tender to palpation, no purulent discharge expressed. Laboratory Results - last 24 hr 07/15/18 07/15/18 07/15/18 06:00 06:00 06:00 WBC 7.8 RBC 3.55 L Hgb 10.5 L Hct 30.8 L MCV 86.8 MCH 29.6 MCHC 34.2 RDW 14.8 Plt Count 317 MPV 8.7 Absolute Neuts (auto) 4.4 Neutrophils % 56.6 Lymphocytes % 33.5 Monocytes % 7.1 Eosinophils % 2.4 Basophils % 0.4 Nucleated RBC % 0 Sodium Potassium Chloride Carbon Dioxide Anion Gap BUN Creatinine Creat Clearance w eGFR POC Glucometer Random Glucose 311 H* Hemoglobin A1c % 14.8 H Calcium Phosphorus Magnesium Total Bilirubin AST ALT Alkaline Phosphatase Total Protein Albumin Urine Color Urine Appearance Urine pH Ur Specific [place] Urine Protein Urine Glucose (UA) Urine Ketones Urine Blood Urine Nitrite Urine Bilirubin Urine Urobilinogen Ur Leukocyte Esterase Urine WBC (Auto) Urine RBC (Auto) Ur Epithelial Cells Urine Bacteria Opiates Screen Methadone Screen Barbiturate Screen Phencyclidine Screen Ur Amphetamines Screen MDMA (Ecstasy) Screen Benzodiazepines Screen Cocaine Screen U Marijuana (THC) Screen 07/15/18 07/15/18 07/15/18 06:00 06:00 12:00 WBC RBC Hgb Hct MCV MCH MCHC RDW Plt Count MPV Absolute Neuts (auto) Neutrophils % Lymphocytes % Monocytes % Eosinophils % Basophils % Nucleated RBC % Sodium Potassium Chloride Carbon Dioxide Anion Gap BUN Creatinine Creat Clearance w eGFR POC Glucometer 201 Random Glucose Hemoglobin A1c % Calcium Phosphorus Magnesium Total Bilirubin AST ALT Alkaline Phosphatase Total Protein Albumin Urine Color Colorless Urine Appearance Clear Urine pH 6.0 Ur Specific [place] 1.018 Urine Protein Negative Urine Glucose (UA) 3+ H Urine Ketones Negative Urine Blood 2+ H Urine Nitrite Negative Urine Bilirubin Negative Urine Urobilinogen Negative Ur Leukocyte Esterase Trace Urine WBC (Auto) 27 Urine RBC (Auto) 7 Ur Epithelial Cells Rare Urine Bacteria Rare Opiates Screen Negative Methadone Screen Negative Barbiturate Screen Negative Phencyclidine Screen Negative Ur Amphetamines Screen Negative MDMA (Ecstasy) Screen Negative Benzodiazepines Screen Negative Cocaine Screen Positive A* U Marijuana (THC) Screen Negative 07/15/18 07/15/18 07/16/18 17:12 21:51 06:00 WBC 6.0 RBC 3.91 L Hgb 11.4 L Hct 33.9 L MCV 86.6 MCH 29.2 MCHC 33.7 RDW 15.1 Plt Count 367 MPV 8.6 Absolute Neuts (auto) Neutrophils % Lymphocytes % Monocytes % Eosinophils % Basophils % Nucleated RBC % Sodium Potassium Chloride Carbon Dioxide Anion Gap BUN Creatinine Creat Clearance w eGFR POC Glucometer 342 389 Random Glucose Hemoglobin A1c % Calcium Phosphorus Magnesium Total Bilirubin AST ALT Alkaline Phosphatase Total Protein Albumin Urine Color Urine Appearance Urine pH Ur Specific [place] Urine Protein Urine Glucose (UA) Urine Ketones Urine Blood Urine Nitrite Urine Bilirubin Urine Urobilinogen Ur Leukocyte Esterase Urine WBC (Auto) Urine RBC (Auto) Ur Epithelial Cells Urine Bacteria Opiates Screen Methadone Screen Barbiturate Screen Phencyclidine Screen Ur Amphetamines Screen MDMA (Ecstasy) Screen Benzodiazepines Screen Cocaine Screen U Marijuana (THC) Screen 07/16/18 07/16/18 06:00 06:03 WBC RBC Hgb Hct MCV MCH MCHC RDW Plt Count MPV Absolute Neuts (auto) Neutrophils % Lymphocytes % Monocytes % Eosinophils % Basophils % Nucleated RBC % Sodium 141 Potassium 4.1 Chloride 108 H Carbon Dioxide 28 Anion Gap 5 L BUN 9 Creatinine 0.8 Creat Clearance w eGFR > 60 POC Glucometer 228 Random Glucose 220 H Hemoglobin A1c % Calcium 8.2 L Phosphorus 4.1 Magnesium 1.6 L Total Bilirubin 0.2 AST 8 L ALT 12 L Alkaline Phosphatase 85 Total Protein 6.1 L Albumin 2.4 L Urine Color Urine Appearance Urine pH Ur Specific [place] Urine Protein Urine Glucose (UA) Urine Ketones Urine Blood Urine Nitrite Urine Bilirubin Urine Urobilinogen Ur Leukocyte Esterase Urine WBC (Auto) Urine RBC (Auto) Ur Epithelial Cells Urine Bacteria Opiates Screen Methadone Screen Barbiturate Screen Phencyclidine Screen Ur Amphetamines Screen MDMA (Ecstasy) Screen Benzodiazepines Screen Cocaine Screen U Marijuana (THC) Screen Active Medications Generic Name Dose Route Start Last Admin Trade Name Freq PRN Reason Stop Dose Admin Acetaminophen 650 mg 07/15/18 15:48 07/15/18 21:56 Tylenol - PO 650 mg Q6H PRN Administration PAIN LEVEL 6-10 Atorvastatin Calcium 10 mg 07/15/18 22:00 07/15/18 21:52 Lipitor - PO 10 mg HS TYLER Administration Chlordiazepoxide HCl 25 mg 07/16/18 05:00 07/16/18 06:01 Librium - PO 07/16/18 23:01 25 mg [id number] [facility]YLER Administration Chlordiazepoxide HCl 15 mg 07/17/18 05:00 Librium - PO 07/17/18 23:01 [id number] TYLER Chlordiazepoxide HCl 25 mg 07/15/18 00:20 Librium - PO 07/18/18 00:19 Q4H PRN WITHDRAWAL(CONT SUBST) Chlordiazepoxide HCl 10 mg 07/18/18 05:00 Librium - PO 07/18/18 23:01 [id number] [facility]ER Enoxaparin Sodium 40 mg 07/15/18 10:00 07/15/18 09:40 Lovenox - SQ 40 mg DAILY [facility] Administration Folic Acid 1 mg 07/15/18 10:00 07/15/18 09:41 Folic Acid - PO 1 mg DAILY [facility] Administration Gabapentin 100 mg 07/15/18 22:00 07/15/18 21:52 Neurontin - PO 100 mg BID [facility] Administration Sodium Chloride 1,000 mls @ 100 mls/hr 07/15/18 00:45 07/16/18 06:05 Normal Saline - IV 100 mls/hr ASDIR [facility] Administration Piperacillin Sod/Tazobactam 50 mls @ 100 mls/hr 07/15/18 13:30 07/16/18 02:25 Sod 3.375 gm/ Dextrose IVPB 100 mls/hr Q8H-IV [facility] Administration Protocol Vancomycin HCl 1,250 mg/ 250 mls @ 250 mls/2 hr 07/15/18 22:00 07/15/18 21:59 Dextrose IVPB 250 mls/2 hr Q24H [facility] Administration Protocol Insulin Aspart 1 vial 07/15/18 07:00 07/16/18 06:09 Novolog Vial Sliding Scale - SQ 4 unit ACHS [facility] Administration Protocol Insulin Detemir 15 units 07/15/18 22:00 07/16/18 06:08 Levemir Vial SQ 15 units BID@0700,2200 [facility] Administration Lisinopril 10 mg 07/15/18 15:30 07/15/18 17:05 Prinivil PO 10 mg DAILY [facility] Administration Nicotine 21 mg 07/15/18 10:00 07/15/18 09:40 Nicoderm Patch - TD 21 mg DAILY [facility] Administration Thiamine HCl 100 mg 07/15/18 10:00 07/15/18 09:40 Vitamin B1 - PO 100 mg DAILY [facility] Administration ASSESSMENT/PLAN: Patient is a 47 year old male with history of polysubstance abuse (cocaine, alcohol), insulin dependent diabetes mellitus, hypertension, presents from [facility] for left buttock pain. Gluteal abscess -Pelvic CT notes soft tissue swelling, and subcutaneous edema without drainable collection. -ID recommendations (Dr. Romero) appreciated -Vancomycin 1250mg IV Q24H (day 2) -Zosyn 3.375grams IV Q8H (day 2) -Blood cultures negative for growth a 24 hours -Wound cultures grow staph latex coagulase positive, and Beta hemolytic strep -General surgery consult appreciated (Dr. Marin) -no drainable collection at this time -Warm compress, zitz baths -Tylenol 650mg PO Q6H PRN for pain 6-10 Insulin dependent diabetes mellitus -Poorly controlled. HbA1c 14.8 -Holding home medications -Levemir increased to 20 units BID -Gabapentin 100mg PO BID for neuropathy -ISS ACHS -BGM ACHS Polysubstance abuse -Utox positive for cocaine at time of admission -Librium protocol -Nicotine patch 21mg TD daily -Thiamine 100mg daily -Folate 1mg daily -Detox consult (Dr. Diggs) -Fall precautions -Aspiration precautions Left knee pain -History of prior surgery two months ago, with prior infection -F/U left knee xray -F/U ESR, CRP -F/U orthopedic surgery consult (Dr. Loya) -Pain control with Tylenol Hypertension -Reinstate lisinopril 10mg PO daily Hyperlipidemia -Atorvastatin 10mg PO QHS FEN -IV normal saline at 100mL/ hour -Follow CMP -Diabetic diet (low salt, low cholesterol) Prophylaxis -Lovenox 40mg SQ daily Disposition -Continue care in medical-surgical floor Visit type - Emergency Visit Emergency Visit: Yes ED Registration Date: 07/15/18 Care time: The patient presented to the Emergency Department on the above date and was hospitalized for further evaluation of their emergent condition. - New Patient This patient is new to me today: No - Critical Care Critical Care patient: No - Discharge Referral Referred to [facility] Med [facility] No
--- NOTE | 2018-07-16 08:07 | PN ---
Teaching Attending Note Name of Resident: Malik Estrada ATTENDING PHYSICIAN STATEMENT I saw and evaluated the patient. I reviewed the resident's note and discussed the case with the resident. I agree with the resident's findings and plan as documented with exceptions below. SUBJECTIVE: Patient seen and examined. left buttock symptoms unchanged No fevers/chills. Also reports left knee pain, had ?Washout for abscess 3 weeks ago at [facility] , still with pain, swelling and some limitation of movements. OBJECTIVE: Vital Signs Period Temp Pulse Resp BP Sys/Harding Pulse Ox Last 24 Hr 97.7 F-98.6 F 79-94 18-20 137-160/71-99 96-98 Intake & Output 07/13/18 07/14/18 07/15/18 07/16/18 23:59 23:59 23:59 23:59 Intake Total 1250 1540 Output Total 1300 Balance -50 1540 Weight 219 lb 2 oz General: lying in bed in no acute distress Abdomen: soft, NT Back; right gluteal about 6 cm swelling with induration/tenderness/overlying warmth/erythema with mild purulent drainage from punctum, overalying epidermolysis, no clear fluctuance palpated Extremities:left knee swelling/warmth, vertical scar with minimal bleeding, ROM almost full but with pain Active Medications Acetaminophen (Tylenol -) 650 mg PO Q6H PRN PRN Reason: PAIN LEVEL 6-10 Last Admin: 07/15/18 21:56 Dose: 650 mg Atorvastatin Calcium (Lipitor -) 10 mg PO HS [facility] Last Admin: 07/15/18 21:52 Dose: 10 mg Chlordiazepoxide HCl (Librium -) 25 mg PO [id number] [facility] Stop: 07/16/18 23:01 Last Admin: 07/16/18 06:01 Dose: 25 mg Chlordiazepoxide HCl (Librium -) 15 mg PO [id number] [facility] Stop: 07/17/18 23:01 Chlordiazepoxide HCl (Librium -) 25 mg PO Q4H PRN PRN Reason: WITHDRAWAL(CONT SUBST) Stop: 07/18/18 00:19 Chlordiazepoxide HCl (Librium -) 10 mg PO [id number] [facility] Stop: 07/18/18 23:01 Enoxaparin Sodium (Lovenox -) 40 mg SQ DAILY [facility] Last Admin: 07/15/18 09:40 Dose: 40 mg Folic Acid (Folic Acid -) 1 mg PO DAILY [facility] Last Admin: 07/15/18 09:41 Dose: 1 mg Gabapentin (Neurontin -) 100 mg PO BID [facility] Last Admin: 07/15/18 21:52 Dose: 100 mg Sodium Chloride (Normal Saline -) 1,000 mls @ 100 mls/hr IV ASDIR [facility] Last Admin: 07/16/18 06:05 Dose: 100 mls/hr Piperacillin Sod/Tazobactam (Sod 3.375 gm/ Dextrose) 50 mls @ 100 mls/hr IVPB Q8H-IV [facility]; Protocol Last Admin: 07/16/18 02:25 Dose: 100 mls/hr Vancomycin HCl 1,250 mg/ (Dextrose) 250 mls @ 250 mls/2 hr IVPB Q24H [facility]; Protocol Last Admin: 07/15/18 21:59 Dose: 250 mls/2 hr Insulin Aspart (Novolog Vial Sliding Scale -) 1 vial SQ ACHS [facility]; Protocol Last Admin: 07/16/18 06:09 Dose: 4 unit Insulin Detemir (Levemir Vial) 20 units SQ BID@0700,2200 [facility] Lisinopril (Prinivil) 10 mg PO DAILY [facility] Last Admin: 07/15/18 17:05 Dose: 10 mg Nicotine (Nicoderm Patch -) 21 mg TD DAILY [facility] Last Admin: 07/15/18 09:40 Dose: 21 mg Thiamine HCl (Vitamin B1 -) 100 mg PO DAILY [facility] Last Admin: 07/15/18 09:40 Dose: 100 mg Laboratory Results - last 24 hr 07/15/18 07/15/18 07/15/18 06:00 06:00 06:00 WBC 7.8 RBC 3.55 L Hgb 10.5 L Hct 30.8 L MCV 86.8 MCH 29.6 MCHC 34.2 RDW 14.8 Plt Count 317 MPV 8.7 Absolute Neuts (auto) 4.4 Neutrophils % 56.6 Lymphocytes % 33.5 Monocytes % 7.1 Eosinophils % 2.4 Basophils % 0.4 Nucleated RBC % 0 Sodium Potassium Chloride Carbon Dioxide Anion Gap BUN Creatinine Creat Clearance w eGFR POC Glucometer Random Glucose 311 H* Hemoglobin A1c % 14.8 H Calcium Phosphorus Magnesium Total Bilirubin AST ALT Alkaline Phosphatase Total Protein Albumin Urine Color Urine Appearance Urine pH Ur Specific [place] Urine Protein Urine Glucose (UA) Urine Ketones Urine Blood Urine Nitrite Urine Bilirubin Urine Urobilinogen Ur Leukocyte Esterase Urine WBC (Auto) Urine RBC (Auto) Ur Epithelial Cells Urine Bacteria Opiates Screen Methadone Screen Barbiturate Screen Phencyclidine Screen Ur Amphetamines Screen MDMA (Ecstasy) Screen Benzodiazepines Screen Cocaine Screen U Marijuana (THC) Screen 07/15/18 07/15/18 07/15/18 06:00 06:00 12:00 WBC RBC Hgb Hct MCV MCH MCHC RDW Plt Count MPV Absolute Neuts (auto) Neutrophils % Lymphocytes % Monocytes % Eosinophils % Basophils % Nucleated RBC % Sodium Potassium Chloride Carbon Dioxide Anion Gap BUN Creatinine Creat Clearance w eGFR POC Glucometer 201 Random Glucose Hemoglobin A1c % Calcium Phosphorus Magnesium Total Bilirubin AST ALT Alkaline Phosphatase Total Protein Albumin Urine Color Colorless Urine Appearance Clear Urine pH 6.0 Ur Specific [place] 1.018 Urine Protein Negative Urine Glucose (UA) 3+ H Urine Ketones Negative Urine Blood 2+ H Urine Nitrite Negative Urine Bilirubin Negative Urine Urobilinogen Negative Ur Leukocyte Esterase Trace Urine WBC (Auto) 27 Urine RBC (Auto) 7 Ur Epithelial Cells Rare Urine Bacteria Rare Opiates Screen Negative Methadone Screen Negative Barbiturate Screen Negative Phencyclidine Screen Negative Ur Amphetamines Screen Negative MDMA (Ecstasy) Screen Negative Benzodiazepines Screen Negative Cocaine Screen Positive A* U Marijuana (THC) Screen Negative 07/15/18 07/15/18 07/16/18 17:12 21:51 06:00 WBC 6.0 RBC 3.91 L Hgb 11.4 L Hct 33.9 L MCV 86.6 MCH 29.2 MCHC 33.7 RDW 15.1 Plt Count 367 MPV 8.6 Absolute Neuts (auto) Neutrophils % Lymphocytes % Monocytes % Eosinophils % Basophils % Nucleated RBC % Sodium Potassium Chloride Carbon Dioxide Anion Gap BUN Creatinine Creat Clearance w eGFR POC Glucometer 342 389 Random Glucose Hemoglobin A1c % Calcium Phosphorus Magnesium Total Bilirubin AST ALT Alkaline Phosphatase Total Protein Albumin Urine Color Urine Appearance Urine pH Ur Specific [place] Urine Protein Urine Glucose (UA) Urine Ketones Urine Blood Urine Nitrite Urine Bilirubin Urine Urobilinogen Ur Leukocyte Esterase Urine WBC (Auto) Urine RBC (Auto) Ur Epithelial Cells Urine Bacteria Opiates Screen Methadone Screen Barbiturate Screen Phencyclidine Screen Ur Amphetamines Screen MDMA (Ecstasy) Screen Benzodiazepines Screen Cocaine Screen U Marijuana (THC) Screen 07/16/18 07/16/18 06:00 06:03 WBC RBC Hgb Hct MCV MCH MCHC RDW Plt Count MPV Absolute Neuts (auto) Neutrophils % Lymphocytes % Monocytes % Eosinophils % Basophils % Nucleated RBC % Sodium 141 Potassium 4.1 Chloride 108 H Carbon Dioxide 28 Anion Gap 5 L BUN 9 Creatinine 0.8 Creat Clearance w eGFR > 60 POC Glucometer 228 Random Glucose 220 H Hemoglobin A1c % Calcium 8.2 L Phosphorus 4.1 Magnesium 1.6 L Total Bilirubin 0.2 AST 8 L ALT 12 L Alkaline Phosphatase 85 Total Protein 6.1 L Albumin 2.4 L Urine Color Urine Appearance Urine pH Ur Specific [place] Urine Protein Urine Glucose (UA) Urine Ketones Urine Blood Urine Nitrite Urine Bilirubin Urine Urobilinogen Ur Leukocyte Esterase Urine WBC (Auto) Urine RBC (Auto) Ur Epithelial Cells Urine Bacteria Opiates Screen Methadone Screen Barbiturate Screen Phencyclidine Screen Ur Amphetamines Screen MDMA (Ecstasy) Screen Benzodiazepines Screen Cocaine Screen U Marijuana (THC) Screen Microbiology 07/15/18 10:45 Buttock - Left Gram Stain - Final 07/15/18 10:45 Buttock - Left Wound Culture - Preliminary Staphylococcus Latex Coag Pos Beta Hemolytic Strep 07/14/18 17:15 Blood - Peripheral Venous Blood Culture - Preliminary NO GROWTH OBTAINED AFTER 24 HOURS, INCUBATION TO CONTINUE FOR 4 DAYS. 07/14/18 17:00 Blood - Peripheral Venous Blood Culture - Preliminary NO GROWTH OBTAINED AFTER 24 HOURS, INCUBATION TO CONTINUE FOR 4 DAYS. ASSESSMENT AND PLAN: 47 yom with PMHx of Polysubstance abuse (Cocaine, EtOH), IDDM, HTN, admitted with left gluteal cellulitis+/- Abscess -Left gluteal cellulitis, suspect early abscess _left knee pain/swelling, ?recent washout for abscess at [facility] 3 weeks ago -IDDM, poorly controlled, A1c 14.8 -Diabetic/starvation ketosis -Polysubstance abuse with cocaine/ETOH -HTN -Hypomagnesemia Plan: Surgery/ID consult appreciated. Sitz bath/warm compresses. Zosyn/vancomycin day 2, monitor vanco levels. Follow up blood/wound cx. I&D based on clinical course. Left knee swollen/warm, ?recent washout for abscess at [facility] 3 weeks ago Check left knee xray, Orthopedic input given poor controlled diabetic and at risk for recurrent infection. Patient reports non compliance with insulin and diet. Diabetic education. Increase levemir to 20 units BID, ISS, diabetic diet. Titrate up as tolerated. Hold glyburide/Metformin. Resumed lisinopril/gabapentin/atorvastatin. Hold ASA for now in case needs intervention. DVTPPX with lovenox Dispo pending clinical improvement. Plan discussed with patient and nursing in detail, all questions answered.
[2018-07-16] MEDS ORDERED: INSULIN (NOVOLOG) ASPART 100 UNITS/ML 10ML VIAL ONE ×2 (08:23→21:58)
[2018-07-16] MEDS ORDERED: MAGNESIUM SULF 50% (8.12 MEQ/2 ML-1 GM VIAL) IVPB ONE (09:00)
--- NOTE | 2018-07-16 10:00 | PN ---
Progress Note (short form) - Note Progress Note: Attending Surgeon Seen in f/u; no c/o ? VSS AF area of left buttock remains indurated and ttp w/o gross drainage;there is resolving superficial epidermolysis; no fluctunace; o/w negative. IMP ABSSSI of left buttock PLAN: Continue present tx. Will f/u. John Marin MD FACS
[2018-07-16] MEDS: FOLIC ACID 1 MG TABLET (FP) PO SCH (10:01)
[2018-07-16] MEDS: ENOXAPARIN NA (PORCINE) 40 MG/0.4 ML DISP.SYRIN SQ SCH (10:01)
[2018-07-16] MEDS: THIAMINE HCL 100 MG TABLET (FP) PO SCH (10:01)
[2018-07-16] MEDS: NICOTINE 21 MG/24 HOURS TOPICAL PATCH TD SCH (10:01)
[2018-07-16] MEDS: LISINOPRIL 10 MG TABLET (FP) PO SCH (10:01)
[2018-07-16] MEDS: GABAPENTIN 100 MG CAPSULE (FP) PO SCH ×2 (10:02→22:44)
--- NOTE | 2018-07-16 10:02 | PN ---
[facility] Progress Note (SOAP) Subjective: 47 y.o. male with etoh and cocaine dependence , referred for consultation regarding etoh use , patient's latest use 4 days ago 3/4 bottle liquor , no history of withdrawal seizures, + occasional tremors , no blackouts , currently asymptomatic on chlordiazepoxide taper started earlier today and prn chlordiazepoxide not used. Patient denies tremors , anxiety , chills/ sweating , nausea/ vomiting , tactile/ auditory / visual disturbance , + headache , sent from [facility] for left buttock abscess on07/14, currently on IV antibiotics as per ID , seen by surgical team, no procedure as of yet. Patient states he is feeling hungry and he has pain " everywhere " due to his known diagnosis of OA , with associated difficulty walking , prior to hospitalization was using cane for stability and balance. PMHX : OA, DM , HTN, hld , left knee chronic pain s/p TKR 2 months ago at [facility] , h/o syphilis treated 30 years ago in [facility] and [facility] . Psych : sad , bipolar d/o - psych meds unknown, states he forgot the name of meds he was taking . Denies current SI /HI. Home Medication List Medication Instructions Recorded Confirmed Type Metformin HCl [Glucophage] 1,000 mg PO DAILY 07/15/18 07/15/18 History Active Medications Generic Name Dose Route Start Last Admin Trade Name Freq PRN Reason Stop Dose Admin Acetaminophen 650 mg 07/15/18 15:48 07/15/18 21:56 Tylenol - PO 650 mg Q6H PRN Administration PAIN LEVEL 6-10 Atorvastatin Calcium 10 mg 07/15/18 22:00 07/15/18 21:52 Lipitor - PO 10 mg HS [facility] Administration Chlordiazepoxide HCl 25 mg 07/16/18 05:00 07/16/18 06:01 Librium - PO 07/16/18 23:01 25 mg [id number] [facility] Administration Chlordiazepoxide HCl 15 mg 07/17/18 05:00 Librium - PO 07/17/18 23:01 [id number] [facility] Chlordiazepoxide HCl 25 mg 07/15/18 00:20 Librium - PO 07/18/18 00:19 Q4H PRN WITHDRAWAL(CONT SUBST) Chlordiazepoxide HCl 10 mg 07/18/18 05:00 Librium - PO 07/18/18 23:01 [id number] [facility] Enoxaparin Sodium 40 mg 07/15/18 10:00 07/15/18 09:40 Lovenox - SQ 40 mg DAILY [facility] Administration Folic Acid 1 mg 07/15/18 10:00 07/15/18 09:41 Folic Acid - PO 1 mg DAILY [facility] Administration Gabapentin 100 mg 07/15/18 22:00 07/15/18 21:52 Neurontin - PO 100 mg BID [facility] Administration Sodium Chloride 1,000 mls @ 100 mls/hr 07/15/18 00:45 07/16/18 06:05 Normal Saline - IV 100 mls/hr ASDIR [facility] Administration Piperacillin Sod/Tazobactam 50 mls @ 100 mls/hr 07/15/18 13:30 07/16/18 09:58 Sod 3.375 gm/ Dextrose IVPB 100 mls/hr Q8H-IV [facility] Administration Protocol Vancomycin HCl 1,250 mg/ 250 mls @ 250 mls/2 hr 07/15/18 22:00 07/15/18 21:59 Dextrose IVPB 250 mls/2 hr Q24H [facility] Administration Protocol Insulin Aspart 1 vial 07/15/18 07:00 07/16/18 06:09 Novolog Vial Sliding Scale - SQ 4 unit ACHS [facility] Administration Protocol Insulin Detemir 20 units 07/16/18 08:05 Levemir Vial SQ BID@0700,2200 [facility] Lisinopril 10 mg 07/15/18 15:30 07/15/18 17:05 Prinivil PO 10 mg DAILY [facility] Administration Nicotine 21 mg 07/15/18 10:00 07/15/18 09:40 Nicoderm Patch - TD 21 mg DAILY [facility] Administration Thiamine HCl 100 mg 07/15/18 10:00 07/15/18 09:40 Vitamin B1 - PO 100 mg DAILY [facility] Administration Objective: WNWD , resting comfortably in bed , no tremors , AAO x 3 Abnormal Lab Results 07/16/18 07/16/18 06:00 06:00 RBC 3.91 L Hgb 11.4 L Hct 33.9 L Chloride 108 H Anion Gap 5 L Random Glucose 220 H Calcium 8.2 L Magnesium 1.6 L AST 8 L ALT 12 L Total Protein 6.1 L Albumin 2.4 L Vital Signs - 24 hr 07/15/18 07/15/18 07/15/18 13:52 18:45 21:00 Temperature 98.6 F 97.8 F Pulse Rate 82 94 H Respiratory 18 18 Rate Blood Pressure 153/72 154/94 O2 Sat by Pulse 98 Oximetry (%) 07/15/18 07/16/18 22:00 06:00 Temperature 98.2 F 97.7 F Pulse Rate 93 H 79 Respiratory 18 20 Rate Blood Pressure 160/99 137/79 O2 Sat by Pulse Oximetry (%) Assessment: Alcohol dependence Nicotine dependence Cocaine dependence Plan: continue current chlordiazepoxide taper recommend psychiatry evaluation for history of psychiatric diagnosis and prior medication use Recommend physical therapy evaluation for ambulation / gait unsteadiness. Dietary evaluation . Discussed with patient , agreeable with POC .
[2018-07-16 11:35] VITALS: BMI 28.8
--- NOTE | 2018-07-16 14:01 | PN ---
Progress Note, Physician History of Present Illness: patient stable no new issue - Current Medication List Current Medications: Active Medications Acetaminophen (Tylenol -) 650 mg PO Q6H PRN PRN Reason: PAIN LEVEL 6-10 Last Admin: 07/15/18 21:56 Dose: 650 mg Atorvastatin Calcium (Lipitor -) 10 mg PO HS [facility] Last Admin: 07/15/18 21:52 Dose: 10 mg Chlordiazepoxide HCl (Librium -) 25 mg PO [id number] [facility] Stop: 07/16/18 23:01 Last Admin: 07/16/18 10:03 Dose: 25 mg Chlordiazepoxide HCl (Librium -) 15 mg PO [id number] [facility] Stop: 07/17/18 23:01 Chlordiazepoxide HCl (Librium -) 25 mg PO Q4H PRN PRN Reason: WITHDRAWAL(CONT SUBST) Stop: 07/18/18 00:19 Chlordiazepoxide HCl (Librium -) 10 mg PO [id number] [facility] Stop: 07/18/18 23:01 Enoxaparin Sodium (Lovenox -) 40 mg SQ DAILY [facility] Last Admin: 07/16/18 10:01 Dose: 40 mg Folic Acid (Folic Acid -) 1 mg PO DAILY [facility] Last Admin: 07/16/18 10:01 Dose: 1 mg Gabapentin (Neurontin -) 100 mg PO BID [facility] Last Admin: 07/16/18 10:02 Dose: 100 mg Sodium Chloride (Normal Saline -) 1,000 mls @ 100 mls/hr IV ASDIR [facility] Last Admin: 07/16/18 06:05 Dose: 100 mls/hr Piperacillin Sod/Tazobactam (Sod 3.375 gm/ Dextrose) 50 mls @ 100 mls/hr IVPB Q8H-IV [facility]; Protocol Last Admin: 07/16/18 09:58 Dose: 100 mls/hr Vancomycin HCl 1,250 mg/ (Dextrose) 250 mls @ 250 mls/2 hr IVPB Q24H [facility]; Protocol Last Admin: 07/15/18 21:59 Dose: 250 mls/2 hr Insulin Aspart (Novolog Vial Sliding Scale -) 1 vial SQ ACHS [facility]; Protocol Last Admin: 07/16/18 11:02 Dose: 6 unit Insulin Detemir (Levemir Vial) 20 units SQ BID@0700,2200 [facility] Lisinopril (Prinivil) 10 mg PO DAILY [facility] Last Admin: 07/16/18 10:01 Dose: 10 mg Nicotine (Nicoderm Patch -) 21 mg TD DAILY [facility] Last Admin: 07/16/18 10:01 Dose: 21 mg Thiamine HCl (Vitamin B1 -) 100 mg PO DAILY [facility] Last Admin: 07/16/18 10:01 Dose: 100 mg - Objective Vital Signs: Vital Signs Temperature 98.6 F 07/16/18 10:00 Pulse Rate 87 07/16/18 10:00 Respiratory Rate 20 07/16/18 10:00 Blood Pressure 139/78 07/16/18 10:00 O2 Sat by Pulse Oximetry (%) 97 07/16/18 09:00 Constitutional: Yes: Calm, Mild Distress Cardiovascular: Yes: Regular Rate and Rhythm Respiratory: Yes: Regular, CTA Bilaterally Musculoskeletal: Yes: WNL Extremities: Yes: WNL Wound/Incision: Yes: Dressing Dry and Intact Neurological: Yes: Alert, Oriented Psychiatric: Yes: Alert, Oriented Labs: CBC, BMP 07/16/18 06:00 07/16/18 06:00 INR, PTT INR 0.93 (0.83-1.09) 07/14/18 17:00 Assessment/Plan 47 y/o M with PMhx of Polysubstance abuse (Cocaine, EtOH), IDDM, HTN presents from [facility] with Left Buttock pain left buttock cellulitis abscess left buttock hyperglycemia polysubstance abuse plan will continue abx cx reports noted await sensitivities let see if warm soaks help wiht abx if not might need to be drained rest as per the team
--- NOTE | 2018-07-16 19:34 | CONSULT ---
Consult - text type - Consultation Consultation Note: ORTHOPEDIC SURGERY CONSULTATION NOTE Department of Orthopedic Surgery HISTORY OF PRESENT ILLNESS Kirk Camacho is a 47 year old male with a history of polysubstance abuse ( cocaine, ETOH), IDDM who presents to [facility] with left buttock pain and found to have buttock abscess that is being managed by general surgery. The orthopedic service was consulted for left knee pain. The patient has a history prepatellar bursitis 5 months ago. He went to [facility] where he underwent a superficial incision and drainage on April 27, 2018. The orthopedic resident at [facility] (Jones Black MD) who was able to provide some information regarding his care. After reviewing the operative report he advised me that the patient's infection did not violate the knee joint and was localized to the superficial tissues. His operative cultures grew out MRSA and he was treated with vancomycin/zosyn initially and then discharged on Linezoid for 2 weeks. The wound was packed and allowed to heal with secondary intention. The patient notes left knee pain and weakness since the surgery. The pain is located just superior to the patella in the area of his incision. Denies any trauma or other injuries. Denies numbness, tingling or other constitutional complaints. The patient uses a cane to ambulate at baseline. FAMILY HISTORY Unknown Active Problems Problem Status Category Onset Abscess Acute Medical Social History Smoking history Current every day smoker Aproximately how many 20 cigarettes per day Hx Alcohol Use No Allergies Allergy/AdvReac Type Severity Reaction Status Date / Time No Known Allergies Allergy Verified 07/14/18 15:06 Active Medications Generic Name Dose Route Start Last Admin Trade Name Freq PRN Reason Stop Dose Admin Acetaminophen 650 mg 07/15/18 15:48 07/15/18 21:56 Tylenol - PO 650 mg Q6H PRN Administration PAIN LEVEL 6-10 Atorvastatin Calcium 10 mg 07/15/18 22:00 07/15/18 21:52 Lipitor - PO 10 mg HS TYLER Administration Chlordiazepoxide HCl 25 mg 07/16/18 05:00 07/16/18 16:24 Librium - PO 07/16/18 23:01 25 mg [id number] TYLER Administration Chlordiazepoxide HCl 15 mg 07/17/18 05:00 Librium - PO 07/17/18 23:01 [id number] TYLER Chlordiazepoxide HCl 25 mg 07/15/18 00:20 Librium - PO 07/18/18 00:19 Q4H PRN WITHDRAWAL(CONT SUBST) Chlordiazepoxide HCl 10 mg 07/18/18 05:00 Librium - PO 07/18/18 23:01 [id number] TYLER Enoxaparin Sodium 40 mg 07/15/18 10:00 07/16/18 10:01 Lovenox - SQ 40 mg DAILY TYLER Administration Folic Acid 1 mg 07/15/18 10:00 07/16/18 10:01 Folic Acid - PO 1 mg DAILY TYLER Administration Gabapentin 100 mg 07/15/18 22:00 07/16/18 10:02 Neurontin - PO 100 mg BID TYLER Administration Sodium Chloride 1,000 mls @ 100 mls/hr 07/15/18 00:45 07/16/18 06:05 Normal Saline - IV 100 mls/hr ASDIR TYLER Administration Piperacillin Sod/Tazobactam 50 mls @ 100 mls/hr 07/15/18 13:30 07/16/18 09:58 Sod 3.375 gm/ Dextrose IVPB 100 mls/hr Q8H-IV TYLER Administration Protocol Vancomycin HCl 1,250 mg/ 250 mls @ 250 mls/2 hr 07/15/18 22:00 07/15/18 21:59 Dextrose IVPB 250 mls/2 hr Q24H TYLRE Administration Protocol Insulin Aspart 1 vial 07/15/18 07:00 07/16/18 16:10 Novolog Vial Sliding Scale - SQ 10 unit ACHS TYLER Administration Protocol Insulin Detemir 20 units 07/16/18 08:05 Levemir Vial SQ BID@0700,2200 [facility] Lisinopril 10 mg 07/15/18 15:30 07/16/18 10:01 Prinivil PO 10 mg DAILY TYLER Administration Nicotine 21 mg 07/15/18 10:00 07/16/18 10:01 Nicoderm Patch - TD 21 mg DAILY TYLER Administration Thiamine HCl 100 mg 07/15/18 10:00 07/16/18 10:01 Vitamin B1 - PO 100 mg DAILY TYLER Administration Vital Signs (last) Temp Pulse Resp BP Pulse Ox 98.3 F 86 18 150/91 97 07/16/18 17:25 07/16/18 17:25 07/16/18 17:25 07/16/18 17:25 07/16/18 09:00 Intake and Output 07/14/18 07/15/18 07/16/18 23:59 23:59 23:59 Intake Total 1250 2690 Output Total 1300 Balance -50 2690 Intake: IV 500 1950 Normal Saline - 1,000 ml 500 1950 @ 100 mls/hr IV ASDIR TYLER Rx#:[id number] IVPB 100 500 Oral 650 240 Output: Urine 1300 Void 1300 Other: Voiding Method Urinal Urinal Urinal # Unmeasured Voids Void 2 4 Bowel Movement No Weight 219 lb 2 oz 219 lb Height 6 ft 1 in 6 ft 1 in Body Mass Index (BMI) 28.9 28.8 Weight Measurement Method Chair Scale Weight Measurement Method Est/Stated by Patient REVIEW OF SYMPTOMS A twelve-point review of systems was performed and was negative except as noted in HPI. PHYSICAL EXAM Constitutional: Alert and oriented to person, place, and time. No acute distress , appropriate mood and affect. No neck pain. Right Upper Extremity: Painless range of motion. No tenderness to palpation. Significant atrophy intrinsic atrophy of mild clawing deformity of the right hand. Decreased sensation in little and ring finger. Weakess with finger abduction. M/R/MSK/AX motor intact; SILT distally in thumb, ring, and long fingers; 2+ radial pulses; Cap refill brisk. Tone and reflexes normal. + Tinel' s at the elbow. Left Upper Extremity: Painless range of motion. No tenderness to palpation. Decreased sensation in little and ring finger. Weakess with finger abduction. M/ R/MSK/AX motor intact; SILT distally in thumb, ring, and long fingers; 2+ radial pulses; Cap refill brisk. Tone and reflexes normal. Right Lower Extremity: Painless range of motion. No tenderness to palpation. No cords or calf tenderness. No significant calf/ankle edema. Quads/HS/TA/EHL/GS motor 5/5. Left Lower Extremity: Left knee incisional wound just superior to the patella. There is granulation tissue present. No effusion. No palpable masses. No swelling. Quadriceps atrophy. No tenderness to palpation. Painless active and passive ROM 0-90 degrees. Pain in the anterior aspect of the knee with flexion beyond 90 degrees. No cords or calf tenderness. No significant calf/ankle edema. Tibialis anterior and quadriceps are weak 4/5. Joints stable with no pathologic laxity. EHL/GS motor 5/5. SILT distally; 2+ DP pulses; Cap refill brisk. Tone and reflexes normal. Laboratory 07/16/18 06:00 07/16/18 06:00 PT with INR 11.00 SEC (9.7-13.0) 07/14/18 17:00 IMAGING I personally reviewed all radiographs, Radiographs of the left knee show advanced osteoarthritis with joint space narrowing, osteophyte formation and subchondral sclerosis. CT of pelvis shows no fracture or dislocation. CT report shows degenerative changes in the lumbar spine with disc buldges effecting the right sided nerve roots. ASSESSMENT AND PLAN Kirk Camacho is a 47 year old male with left knee osteoarthritis He is status post left knee superficial incision and drainage 5 months ago. There is a low suspicion for septic arthritis; the patient has no effusion or pain with range of motion from 0 to 90 degrees. He has no soft tissue swelling or fluid collections in the knee. - No acute orthopedic intervention at this time. - Recommend MRI if his lumbosacral spine to evaluate for his left tibialis anterior and quadriceps weakness. Quadriceps weakness likely secondary to disuse atrophy of the left lower extremity following the surgery. - General surgery managing left buttock abscess - Patient has bilateral ulnar neuropathy, right worse than left. He should have this worked up as an outpatient. Follow up with neurology. - Pain control - DVT prophylaxis - Ice left knee - Elevate HOB, encourage oral intake - Appreciate medical management (Nutrition optimization, decubitus precautions heel/sacrum) - PT/OT; WBAT All questions were answered. Thank you for involving our team in the care of this patient. We will follow the patient with you. Please call us at with questions.
[2018-07-16] MEDS: ACETAMINOPHEN 325 MG TABLET (FP) PO PRN (21:10)
[2018-07-16] MEDS: ATORVASTATIN CA 10 MG TABLET (FP) PO SCH (22:44)
[2018-07-16] MEDS: VANCOMYCIN 1,250 MG in DEXTROSE 5%-WATER - 250 ML IVPB SCH (22:45)
[2018-07-17] MEDS ORDERED: PIPERACILLIN/TAZOBACTAM 3.375 GM VIAL IVPB ONE ×2 (01:15→07:58)
[2018-07-17] MEDS ORDERED: DEXTROSE 5%-WATER - 50 ML IVPB ONE ×2 (01:15→07:58)
[2018-07-17] MEDS: PIPERACILLIN/TAZOB 3.375 GM 3.375 GM in DEXTROSE 5%-WATER - 50 ML IVPB SCH ×2 (01:42→09:20)
[2018-07-17] MEDS: SODIUM CHLORIDE 1,000 ML IV SCH ×2 (01:47→11:29)
[2018-07-17] MEDS: chlordiazePOXIDE 5 MG CAPSULE PO SCH ×3 (05:40→16:39)
[2018-07-17] MEDS: INSULIN (LEVEMIR) 100 UNITS/ML UNITS SQ SCH ×2 (06:42→21:50)
[2018-07-17] MEDS: INSULIN SLIDING SCALE (NOVOLOG) 1 VIAL SQ SCH ×4 (06:43→21:50)
[2018-07-17] MEDS ORDERED: INSULIN (LEVEMIR) 100 UNITS/ML UNITS SQ ONE (06:45)
[2018-07-17] MEDS ORDERED: INSULIN (NOVOLOG) ASPART 100 UNITS/ML 10ML VIAL ONE (06:46)
[2018-07-17 07:13] LABS: HEMATOCRIT 35.2 % (35.4-49); HEMOGLOBIN 11.6 GM/dL (11.7-16.9); MCH 28.8 pg (25.7-33.7); MCHC 33.1 g/dl (32.0-35.9); MEAN CELL VOLUME 86.9 fl (80-96); MEAN PLT VOLUME 8.4 fl (7.5-11.1); PLATELET COUNT 384 K/MM3 (134-434); RBC 4.05 M/mm3 (4.00-5.60); WHITE BLOOD COUNT 5.9 K/mm3 (4.0-10.0)
[2018-07-17 07:59] LABS: ALBUMIN 2.3 g/dl (3.4-5.0); ALK PHOS 75 U/L (45-117); ANION GAP 7 MMOL/L (8-16); BILIRUBIN,TOTAL 0.2 mg/dL (0.2-1); BLOOD UREA NITROGEN 11 mg/dL (7-18); CALCIUM 8.6 mg/dL (8.5-10.1); CHLORIDE 105 mmol/L (98-107); CO2 28 mmol/L (21-32); CREATININE 0.8 mg/dL (0.55-1.3); GLUCOSE,RANDOM 245 mg/dL (74-106); MAGNESIUM 1.8 mg/dL (1.8-2.4); PHOSPHOROUS 3.8 mg/dL (2.5-4.9); POTASSIUM 3.9 mmol/L (3.5-5.1); SGOT/AST 8 U/L (15-37); SGPT/ALT 13 U/L (13-61); SODIUM 140 mmol/L (136-145); TOT PROT 6.1 g/dl (6.4-8.2)
[2018-07-17] MEDS: ENOXAPARIN NA (PORCINE) 40 MG/0.4 ML DISP.SYRIN SQ SCH (09:20)
[2018-07-17] MEDS: LISINOPRIL 10 MG TABLET (FP) PO SCH (09:21)
[2018-07-17] MEDS: NICOTINE 21 MG/24 HOURS TOPICAL PATCH TD SCH (09:21)
[2018-07-17] MEDS: THIAMINE HCL 100 MG TABLET (FP) PO SCH (09:21)
[2018-07-17] MEDS: GABAPENTIN 100 MG CAPSULE (FP) PO SCH ×2 (09:21→21:52)
[2018-07-17] MEDS: FOLIC ACID 1 MG TABLET (FP) PO SCH (09:21)
--- NOTE | 2018-07-17 14:04 | PN ---
Progress Note, Physician History of Present Illness: patient stable wound cx noted - Current Medication List Current Medications: Active Medications Acetaminophen (Tylenol -) 650 mg PO Q6H PRN PRN Reason: PAIN LEVEL 6-10 Last Admin: 07/16/18 21:10 Dose: 650 mg Atorvastatin Calcium (Lipitor -) 10 mg PO HS [facility] Last Admin: 07/16/18 22:44 Dose: 10 mg Chlordiazepoxide HCl (Librium -) 15 mg PO [id number] [facility] Stop: 07/17/18 23:01 Last Admin: 07/17/18 11:31 Dose: 15 mg Chlordiazepoxide HCl (Librium -) 25 mg PO Q4H PRN PRN Reason: WITHDRAWAL(CONT SUBST) Stop: 07/18/18 00:19 Chlordiazepoxide HCl (Librium -) 10 mg PO [id number] [facility] Stop: 07/18/18 23:01 Enoxaparin Sodium (Lovenox -) 40 mg SQ DAILY [facility] Last Admin: 07/17/18 09:20 Dose: 40 mg Folic Acid (Folic Acid -) 1 mg PO DAILY [facility] Last Admin: 07/17/18 09:21 Dose: 1 mg Gabapentin (Neurontin -) 100 mg PO BID [facility] Last Admin: 07/17/18 09:21 Dose: 100 mg Sodium Chloride (Normal Saline -) 1,000 mls @ 100 mls/hr IV ASDIR [facility] Last Admin: 07/17/18 11:29 Dose: 100 mls/hr Vancomycin HCl 1,250 mg/ (Dextrose) 250 mls @ 250 mls/2 hr IVPB Q24H [facility]; Protocol Last Admin: 07/16/18 22:45 Dose: 250 mls/2 hr Insulin Aspart (Novolog Vial Sliding Scale -) 1 vial SQ ACHS [facility]; Protocol Last Admin: 07/17/18 11:37 Dose: 8 unit Insulin Detemir (Levemir Vial) 20 units SQ BID@0700,2200 [facility] Last Admin: 07/17/18 06:42 Dose: 20 units Lisinopril (Prinivil) 10 mg PO DAILY [facility] Last Admin: 07/17/18 09:21 Dose: 10 mg Nicotine (Nicoderm Patch -) 21 mg TD DAILY [facility] Last Admin: 07/17/18 09:21 Dose: 21 mg Thiamine HCl (Vitamin B1 -) 100 mg PO DAILY [facility] Last Admin: 07/17/18 09:21 Dose: 100 mg - Objective Vital Signs: Vital Signs Temperature 98.2 F 07/17/18 09:00 Pulse Rate 89 07/17/18 09:00 Respiratory Rate 18 07/17/18 09:00 Blood Pressure 150/80 07/17/18 09:00 O2 Sat by Pulse Oximetry (%) 96 07/17/18 09:00 Constitutional: Yes: No Distress, Calm Cardiovascular: Yes: Regular Rate and Rhythm Respiratory: Yes: Regular, CTA Bilaterally Gastrointestinal: Yes: Normal Bowel Sounds, Soft Musculoskeletal: Yes: WNL Extremities: Yes: WNL Wound/Incision: Yes: Dressing Dry and Intact Neurological: Yes: Alert, Oriented Psychiatric: Yes: Alert, Oriented Labs: CBC, BMP 07/17/18 06:00 07/17/18 06:00 INR, PTT INR 0.93 (0.83-1.09) 07/14/18 17:00 Assessment/Plan 47 y/o M with PMhx of Polysubstance abuse (Cocaine, EtOH), IDDM, HTN presents from [facility] with Left Buttock pain left buttock cellulitis abscess left buttock hyperglycemia polysubstance abuse plan will stop zosyn continue vanco wound care follow vanco trough rest as per the time
--- NOTE | 2018-07-17 17:23 | PN ---
Teaching Attending Note Name of Resident: Malik Estrada ATTENDING PHYSICIAN STATEMENT I saw and evaluated the patient. I reviewed the resident's note and discussed the case with the resident. I agree with the resident's findings and plan as documented with exceptions below. SUBJECTIVE: Patient seen and examined. Right buttock symptoms with some improvement. OBJECTIVE: Vital Signs Period Temp Pulse Resp BP Sys/Harding Pulse Ox Last 24 Hr 97.5 F-98.5 F 83-89 18-20 131-150/77-94 96-97 Intake & Output 07/14/18 07/15/18 07/16/18 07/17/18 23:59 23:59 23:59 23:59 Intake Total 1250 2690 1750 Output Total 1300 Balance -50 2690 1750 Weight 219 lb 2 oz 219 lb General: sitting in chair in no acute distress Back: gluteal site with improved swelling/induration/erythema, no further discharge expressed ,improved tenderness, no fluctuation Extremities: left knee with some swelling, no warmth/erythema Home Medications Medication Instructions Recorded Aspirin [ASA -] 81 mg PO DAILY #30 tab.chew 06/12/18 Atorvastatin Ca [Lipitor] 10 mg PO HS #30 mg 06/12/18 Cholecalciferol (Vitamin D3) 400 unit PO BID #60 tab 06/12/18 [Vitamin D -] Enalapril Maleate [Vasotec -] 10 mg PO DAILY #30 tablet 06/12/18 Gabapentin [Neurontin -] 100 mg PO BID #60 mg 06/12/18 Glyburide [Micronase -] 10 mg PO BIDAC #60 tablet 06/12/18 Insulin (Novolog 70/30) [Novolog 10 units SQ HS #1 units 06/12/18 Mix 70/30 Vial -] Insulin (Novolog 70/30) [Novolog 20 units SQ AM #1 units 06/12/18 Mix 70/30 Vial -] Lisinopril [Prinivil] 10 mg PO DAILY #30 tablet 06/12/18 Metformin HCl [Glucophage] 1,000 mg PO DAILY 07/15/18 Active Medications Acetaminophen (Tylenol -) 650 mg PO Q6H PRN PRN Reason: PAIN LEVEL 6-10 Last Admin: 07/16/18 21:10 Dose: 650 mg Atorvastatin Calcium (Lipitor -) 10 mg PO HS [facility] Last Admin: 07/16/18 22:44 Dose: 10 mg Chlordiazepoxide HCl (Librium -) 15 mg PO [id number] [facility] Stop: 07/17/18 23:01 Last Admin: 07/17/18 16:39 Dose: 15 mg Chlordiazepoxide HCl (Librium -) 25 mg PO Q4H PRN PRN Reason: WITHDRAWAL(CONT SUBST) Stop: 07/18/18 00:19 Chlordiazepoxide HCl (Librium -) 10 mg PO [id number] [facility] Stop: 07/18/18 23:01 Enoxaparin Sodium (Lovenox -) 40 mg SQ DAILY [facility] Last Admin: 07/17/18 09:20 Dose: 40 mg Folic Acid (Folic Acid -) 1 mg PO DAILY [facility] Last Admin: 07/17/18 09:21 Dose: 1 mg Gabapentin (Neurontin -) 100 mg PO BID [facility] Last Admin: 07/17/18 09:21 Dose: 100 mg Vancomycin HCl 1,250 mg/ (Dextrose) 250 mls @ 250 mls/2 hr IVPB Q24H [facility]; Protocol Last Admin: 07/16/18 22:45 Dose: 250 mls/2 hr Insulin Aspart (Novolog Vial Sliding Scale -) 1 vial SQ ACHS [facility]; Protocol Last Admin: 07/17/18 16:36 Dose: 6 unit Insulin Detemir (Levemir Vial) 25 units SQ BID@0700,2200 [facility] Lisinopril (Prinivil) 10 mg PO DAILY [facility] Last Admin: 07/17/18 09:21 Dose: 10 mg Nicotine (Nicoderm Patch -) 21 mg TD DAILY [facility] Last Admin: 07/17/18 09:21 Dose: 21 mg Thiamine HCl (Vitamin B1 -) 100 mg PO DAILY [facility] Last Admin: 07/17/18 09:21 Dose: 100 mg Laboratory Results - last 24 hr 07/16/18 07/17/18 07/17/18 21:17 05:56 06:00 WBC 5.9 RBC 4.05 Hgb 11.6 L Hct 35.2 L MCV 86.9 MCH 28.8 MCHC 33.1 RDW 15.0 Plt Count 384 MPV 8.4 Sodium Potassium Chloride Carbon Dioxide Anion Gap BUN Creatinine Creat Clearance w eGFR POC Glucometer 371 253 Random Glucose Calcium Phosphorus Magnesium Total Bilirubin AST ALT Alkaline Phosphatase Total Protein Albumin 07/17/18 07/17/18 07/17/18 06:00 11:36 16:35 WBC RBC Hgb Hct MCV MCH MCHC RDW Plt Count MPV Sodium 140 Potassium 3.9 Chloride 105 Carbon Dioxide 28 Anion Gap 7 L BUN 11 Creatinine 0.8 Creat Clearance w eGFR > 60 POC Glucometer 314 266 Random Glucose 245 H Calcium 8.6 Phosphorus 3.8 Magnesium 1.8 Total Bilirubin 0.2 AST 8 L ALT 13 Alkaline Phosphatase 75 Total Protein 6.1 L Albumin 2.3 L Microbiology 07/14/18 17:00 Blood - Peripheral Venous Blood Culture - Preliminary NO GROWTH OBTAINED AFTER 72 HOURS, INCUBATION TO CONTINUE FOR 2 DAYS. 07/15/18 10:45 Buttock - Left Gram Stain - Final 07/15/18 10:45 Buttock - Left Wound Culture - Final S Aureus Strep Agalactiae Group B 07/14/18 17:15 Blood - Peripheral Venous Blood Culture - Preliminary NO GROWTH OBTAINED AFTER 48 HOURS, INCUBATION TO CONTINUE FOR 3 DAYS. ASSESSMENT AND PLAN: 47 yom with PMHx of Polysubstance abuse (Cocaine, EtOH), IDDM, HTN, admitted with left gluteal cellulitis+/- Abscess -MRSA left gluteal cellulitis/abscess _left knee pain/swelling, ?recent washout for abscess at [facility] 3 weeks ago -IDDM, poorly controlled, A1c 14.8 -Diabetic/starvation ketosis -Polysubstance abuse with cocaine/ETOH -HTN -Hypomagnesemia Plan: Clinically improved. Self drainage. Wound cx noted Zosyn d/mariel. Vancomycin day 3, transtion to doxycycline in 24 hours. Surgery/ID consult appreciated. Sitz bath/warm compresses. Blood cx neg so far. Orthopedic input appreciated. Patient reports non compliance with insulin and diet. Diabetic education. Increase levemir to 25 units BID, ISS, diabetic diet. Titrate up as tolerated. High sugars likely from getting multiple trays and dietary non compliance. Hold glyburide/Metformin. Resumed lisinopril/gabapentin/atorvastatin. Resume ASA. DVTPPX with lovenox PT eval noted Dispo d/c to [facility] on friday on po abx if continues to improve. Plan discussed with patient and nursing in detail, all questions answered.
--- NOTE | 2018-07-17 19:18 | PN ---
Physical Exam: SUBJECTIVE: Patient seen and examined at bedside this morning. Complains of pain at left buttock, as well as left knee, which remains unchanged. Denies fevers, shortness of breath, chest pain, palpitations, abdominal pain, nausea, vomiting, diarrhea. OBJECTIVE: Vital Signs Period Temp Pulse Resp BP Sys/Harding Pulse Ox Last 24 Hr 97.5 F-98.7 F 83-89 18-20 131-150/64-94 96-97 GENERAL: The patient is awake, alert, and fully oriented, in no acute distress. HEAD: Normal with no signs of trauma. EYES: PERRL, extraocular movements intact, sclera anicteric, conjunctiva clear. ENT: Ears normal, nares patent, oropharynx clear without exudates, moist mucous membranes. NECK: Trachea midline, full range of motion, supple without lymphadenopathy. LUNGS: Breath sounds equal, clear to auscultation bilaterally, no wheezes, no crackles, no accessory muscle use. HEART: Regular rate and rhythm, S1, S2 without murmur, rub or gallop. ABDOMEN: Soft, mild tender to palpation at RUQ. Nondistended. Normoactive bowel sounds X4 quadrants. No guarding, no rebound tenderness. No hepatosplenomegaly, no masses. EXTREMITIES: 2+ radial and dorsalis pedis pulses B/L. Vertical scar over left knee, erythematous, warm, clean, dry without discharge. Pain with passive and active flexion/ extension of left knee compared to right knee. NEUROLOGICAL: Cranial nerves II through XII grossly intact. Normal speech. No tremors. PSYCH: Normal mood, normal affect appropriate upon my encounter today. SKIN: Warm, dry. 6cm X6cm area of induration, without fluctuance at medial left buttock. Warm, erythematous. Exquisitely tender to palpation, no purulent discharge expressed. Laboratory Results - last 24 hr 07/16/18 07/17/18 07/17/18 21:17 05:56 06:00 WBC 5.9 RBC 4.05 Hgb 11.6 L Hct 35.2 L MCV 86.9 MCH 28.8 MCHC 33.1 RDW 15.0 Plt Count 384 MPV 8.4 Sodium Potassium Chloride Carbon Dioxide Anion Gap BUN Creatinine Creat Clearance w eGFR POC Glucometer 371 253 Random Glucose Calcium Phosphorus Magnesium Total Bilirubin AST ALT Alkaline Phosphatase Total Protein Albumin 07/17/18 07/17/18 07/17/18 06:00 11:36 16:35 WBC RBC Hgb Hct MCV MCH MCHC RDW Plt Count MPV Sodium 140 Potassium 3.9 Chloride 105 Carbon Dioxide 28 Anion Gap 7 L BUN 11 Creatinine 0.8 Creat Clearance w eGFR > 60 POC Glucometer 314 266 Random Glucose 245 H Calcium 8.6 Phosphorus 3.8 Magnesium 1.8 Total Bilirubin 0.2 AST 8 L ALT 13 Alkaline Phosphatase 75 Total Protein 6.1 L Albumin 2.3 L Active Medications Generic Name Dose Route Start Last Admin Trade Name Freq PRN Reason Stop Dose Admin Acetaminophen 650 mg 07/15/18 15:48 07/16/18 21:10 Tylenol - PO 650 mg Q6H PRN Administration PAIN LEVEL 6-10 Atorvastatin Calcium 10 mg 07/15/18 22:00 07/16/18 22:44 Lipitor - PO 10 mg HS [facility]YLER Administration Chlordiazepoxide HCl 15 mg 07/17/18 05:00 07/17/18 16:39 Librium - PO 07/17/18 23:01 15 mg [id number] [facility]YLER Administration Chlordiazepoxide HCl 25 mg 07/15/18 00:20 Librium - PO 07/18/18 00:19 Q4H PRN WITHDRAWAL(CONT SUBST) Chlordiazepoxide HCl 10 mg 07/18/18 05:00 Librium - PO 07/18/18 23:01 [id number] TYLER Enoxaparin Sodium 40 mg 07/15/18 10:00 07/17/18 09:20 Lovenox - SQ 40 mg DAILY [facility] Administration Folic Acid 1 mg 07/15/18 10:00 07/17/18 09:21 Folic Acid - PO 1 mg DAILY [facility] Administration Gabapentin 100 mg 07/15/18 22:00 07/17/18 09:21 Neurontin - PO 100 mg BID [facility]ER Administration Vancomycin HCl 1,250 mg/ 250 mls @ 250 mls/2 hr 07/15/18 22:00 07/16/18 22:45 Dextrose IVPB 250 mls/2 hr Q24H [facility] Administration Protocol Insulin Aspart 1 vial 07/15/18 07:00 07/17/18 16:36 Novolog Vial Sliding Scale - SQ 6 unit ACHS [facility]ER Administration Protocol Insulin Detemir 25 units 07/17/18 17:20 Levemir Vial SQ BID@0700,2200 [facility] Lisinopril 10 mg 07/15/18 15:30 07/17/18 09:21 Prinivil PO 10 mg DAILY [facility] Administration Nicotine 21 mg 07/15/18 10:00 07/17/18 09:21 Nicoderm Patch - TD 21 mg DAILY [facility] Administration Thiamine HCl 100 mg 07/15/18 10:00 07/17/18 09:21 Vitamin B1 - PO 100 mg DAILY [facility] Administration ASSESSMENT/PLAN: Patient is a 47 year old male with history of polysubstance abuse (cocaine, alcohol), insulin dependent diabetes mellitus, hypertension, presents from [facility] for left buttock pain. Gluteal abscess -Pelvic CT notes soft tissue swelling, and subcutaneous edema without drainable collection. -ID recommendations (Dr. Romero) appreciated -Vancomycin 1250mg IV Q24H (day 3) -Blood cultures negative for growth a 24 hours -Wound cultures grow MRSA and Strep Agalactiae group B -General surgery consult appreciated (Dr. Marin) -no drainable collection at this time -Warm compress, zitz baths -Tylenol 650mg PO Q6H PRN for pain 6-10 Insulin dependent diabetes mellitus -Poorly controlled. HbA1c 14.8 -Holding home medications -Levemir increased to 25 units BID -Gabapentin 100mg PO BID for neuropathy -ISS ACHS -BGM ACHS Polysubstance abuse -Utox positive for cocaine at time of admission -Librium protocol -Nicotine patch 21mg TD daily -Thiamine 100mg daily -Folate 1mg daily -Detox consult (Dr. Diggs) -Fall precautions -Aspiration precautions Left knee pain -History of prior surgery two months ago, with prior infection -Left knee xray shows osteoarthritis, joint space narrowing -ESR, CRP elevated -Orthopedic surgery consult (Dr. Loya) appreciated. Patient will follow up as outpatient. -Pain control with Tylenol Hypertension -Reinstate lisinopril 10mg PO daily Hyperlipidemia -Atorvastatin 10mg PO QHS FEN -IV normal saline at 100mL/ hour -Follow CMP -Diabetic diet (low salt, low cholesterol) Prophylaxis -Lovenox 40mg SQ daily Disposition -Continue care in medical-surgical floor Visit type - Emergency Visit Emergency Visit: Yes ED Registration Date: 07/15/18 Care time: The patient presented to the Emergency Department on the above date and was hospitalized for further evaluation of their emergent condition. - New Patient This patient is new to me today: No - Critical Care Critical Care patient: No - Discharge Referral Referred to [facility] No
[2018-07-17] MEDS: ATORVASTATIN CA 10 MG TABLET (FP) PO SCH (21:52)
[2018-07-17] MEDS: VANCOMYCIN 1,250 MG in DEXTROSE 5%-WATER - 250 ML IVPB SCH (21:57)
[2018-07-17] MEDS ORDERED: BACITRACIN 15 GM TUBE TOPICAL OINTMENT TP ONE (22:19)
--- NOTE | 2018-07-17 22:21 | FALL ---
Fall Exam - Event Witnessed fall: No Location of Fall: Bathroom Fall from: in the bathroom (Pt was attempting to use the bathroom when he fell due to weakness in his L leg. He admits to hitting his back against the sink the bathroom, but denies hitting his head.) - Pre-Fall Mental Status: Alert, Cooperative Current Medications: Current Medications Generic Name Dose Route Start Last Admin Trade Name Freq PRN Reason Stop Dose Admin Acetaminophen 650 mg 07/15/18 15:48 07/16/18 21:10 Tylenol - PO 650 mg Q6H PRN Administration PAIN LEVEL 6-10 Atorvastatin Calcium 10 mg 07/15/18 22:00 07/17/18 21:52 Lipitor - PO 10 mg HS TYLER Administration Chlordiazepoxide HCl 15 mg 07/17/18 05:00 07/17/18 16:39 Librium - PO 07/17/18 23:01 15 mg [id number] TYLER Administration Chlordiazepoxide HCl 25 mg 07/15/18 00:20 Librium - PO 07/18/18 00:19 Q4H PRN WITHDRAWAL(CONT SUBST) Chlordiazepoxide HCl 10 mg 07/18/18 05:00 Librium - PO 07/18/18 23:01 [id number] TYLER Enoxaparin Sodium 40 mg 07/15/18 10:00 07/17/18 09:20 Lovenox - SQ 40 mg DAILY TYLER Administration Folic Acid 1 mg 07/15/18 10:00 07/17/18 09:21 Folic Acid - PO 1 mg DAILY TYLER Administration Gabapentin 100 mg 07/15/18 22:00 07/17/18 21:52 Neurontin - PO 100 mg BID TYLER Administration Vancomycin HCl 1,250 mg/ 250 mls @ 250 mls/2 hr 07/15/18 22:00 07/17/18 21:57 Dextrose IVPB 250 mls/2 hr Q24H TYLER Administration Protocol Insulin Aspart 1 vial 07/15/18 07:00 07/17/18 21:50 Novolog Vial Sliding Scale - SQ 10 unit ACHS TYLER Administration Protocol Insulin Detemir 25 units 07/17/18 17:20 07/17/18 21:50 Levemir Vial SQ 25 unit BID@0700,2200 TYLER Administration Lisinopril 10 mg 07/15/18 15:30 07/17/18 09:21 Prinivil PO 10 mg DAILY TYLER Administration Nicotine 21 mg 07/15/18 10:00 07/17/18 09:21 Nicoderm Patch - TD 21 mg DAILY TYLER Administration Thiamine HCl 100 mg 07/15/18 10:00 07/17/18 09:21 Vitamin B1 - PO 100 mg DAILY TYLER Administration - Post-Fall Patient Outcome: Laceration Exam Findings: 12 cm superficial vertical laceration, tender to palpation. Pt also has noticeable mass located towards distal end of laceration, but reports he has had this mass previously. Treatment: Dressing (Head CT w/o contrast, lumbar/thorac spine xray ordered) Vital Signs: Vital Signs Temperature 98.8 F 07/17/18 21:30 Pulse Rate 93 H 07/17/18 21:30 Respiratory Rate 20 07/17/18 21:30 Blood Pressure 157/68 07/17/18 21:30 O2 Sat by Pulse Oximetry (%) 96 07/17/18 09:00 Identify factors for HIGH RISK for Head Injury: Pt on anticoagulant (Lovenox 40 SQ)
[2018-07-18] MEDS: chlordiazePOXIDE 5 MG CAPSULE PO SCH ×5 (01:06→23:04)
[2018-07-18] MEDS: INSULIN (LEVEMIR) 100 UNITS/ML UNITS SQ SCH ×2 (07:06→23:03)
[2018-07-18] MEDS: INSULIN SLIDING SCALE (NOVOLOG) 1 VIAL SQ SCH ×4 (07:06→23:03)
[2018-07-18 07:54] LABS: HEMATOCRIT 37.3 % (35.4-49); HEMOGLOBIN 11.9 GM/dL (11.7-16.9); MCH 28.1 pg (25.7-33.7); MCHC 31.8 g/dl (32.0-35.9); MEAN CELL VOLUME 88.4 fl (80-96); MEAN PLT VOLUME 8.1 fl (7.5-11.1); PLATELET COUNT 379 K/MM3 (134-434); RBC 4.22 M/mm3 (4.00-5.60); RDW 15.5 % (11.9-15.9); WHITE BLOOD COUNT 7.6 K/mm3 (4.0-10.0)
[2018-07-18 08:30] LABS: ALBUMIN 2.3 g/dl (3.4-5.0); ALK PHOS 91 U/L (45-117); ANION GAP 7 MMOL/L (8-16); BILIRUBIN,TOTAL 0.1 mg/dL (0.2-1); BLOOD UREA NITROGEN 13 mg/dL (7-18); CALCIUM 8.6 mg/dL (8.5-10.1); CHLORIDE 102 mmol/L (98-107); CO2 29 mmol/L (21-32); CREATININE 0.9 mg/dL (0.55-1.3); SGOT/AST 10 U/L (15-37); SGPT/ALT 13 U/L (13-61); SODIUM 137 mmol/L (136-145); TOT PROT 6.2 g/dl (6.4-8.2)
[2018-07-18 08:59] LABS: GLUCOSE,RANDOM 373 mg/dL (74-106)
--- NOTE | 2018-07-18 09:06 | PN ---
Progress Note (short form) - Note Progress Note: ORTHOPEDIC SURGERY PROGRESS NOTE Department of Orthopedic Surgery SUBJECTIVE Patient fell last night onto his left knee, had a small superficial laceration over his patella, but no active bleeding or laceration noticed today. No complaints currently. Denies chest pain, shortness of breath, or calf pain. No nausea or vomiting. Tolerating oral intake. Pain control difficult overnight, but improving. PHYSICAL EXAMINATION General: Alert, oriented, cooperative and no distress. Right Upper Extremity: Painless range of motion. No tenderness to palpation. Significant atrophy intrinsic atrophy of mild clawing deformity of the right hand. Decreased sensation in little and ring finger. Weakess with finger abduction. M/R/MSK/AX motor intact; SILT distally in thumb, ring, and long fingers; 2+ radial pulses; Cap refill brisk. Tone and reflexes normal. + Tinel' s at the elbow. Left Upper Extremity: Painless range of motion. No tenderness to palpation. Decreased sensation in little and ring finger. Weakess with finger abduction. M/ R/MSK/AX motor intact; SILT distally in thumb, ring, and long fingers; 2+ radial pulses; Cap refill brisk. Tone and reflexes normal. Right Lower Extremity: Painless range of motion. No tenderness to palpation. No cords or calf tenderness. No significant calf/ankle edema. Quads/HS/TA/EHL/GS motor 5/5. Left Lower Extremity: Left knee incisional wound just superior to the patella. There is granulation tissue present. No effusion. No palpable masses. No swelling. Quadriceps atrophy. No tenderness to palpation. Painless active and passive ROM 0-90 degrees. Pain in the anterior aspect of the knee with flexion beyond 90 degrees. No cords or calf tenderness. No significant calf/ankle edema. Tibialis anterior and quadriceps are weak 4/5. Joints stable with no pathologic laxity. EHL/GS motor 5/5. SILT distally; 2+ DP pulses; Cap refill brisk. Tone and reflexes normal. DVT Exam: No evidence of DVT seen on physical exam; No cords or calf tenderness ; No significant calf/ankle edema. Intake & Output 07/16/18 07/17/18 07/18/18 23:59 23:59 23:59 Intake Total 2690 2600 650 Output Total 600 Balance 2690 2600 50 Intake: IV 1950 1600 Normal Saline - 1,000 ml 1950 1600 @ 100 mls/hr IV ASDIR TYLER Rx#:[id number] IVPB 500 400 250 Oral 240 600 400 Output: Urine 600 Void 600 Other: Voiding Method Urinal Urinal # Unmeasured Voids Void 4 3 Bowel Movement No No Yes Weight 219 lb Height 6 ft 1 in Body Mass Index (BMI) 28.8 Active Medications Generic Name Dose Route Start Last Admin Trade Name Freq PRN Reason Stop Dose Admin Acetaminophen 650 mg 07/15/18 15:48 07/16/18 21:10 Tylenol - PO 650 mg Q6H PRN Administration PAIN LEVEL 6-10 Atorvastatin Calcium 10 mg 07/15/18 22:00 07/17/18 21:52 Lipitor - PO 10 mg HS TYLER Administration Chlordiazepoxide HCl 10 mg 07/18/18 05:00 07/18/18 07:07 Librium - PO 07/18/18 23:01 10 mg [id number] TYLER Administration Enoxaparin Sodium 40 mg 07/15/18 10:00 07/17/18 09:20 Lovenox - SQ 40 mg DAILY TYLER Administration Folic Acid 1 mg 07/15/18 10:00 07/17/18 09:21 Folic Acid - PO 1 mg DAILY TYLER Administration Gabapentin 100 mg 07/15/18 22:00 07/17/18 21:52 Neurontin - PO 100 mg BID TYLER Administration Vancomycin HCl 1,250 mg/ 250 mls @ 250 mls/2 hr 07/15/18 22:00 07/17/18 21:57 Dextrose IVPB 250 mls/2 hr Q24H TYLER Administration Protocol Insulin Aspart 1 vial 07/15/18 07:00 07/18/18 07:06 Novolog Vial Sliding Scale - SQ 10 unit ACHS TYLER Administration Protocol Insulin Detemir 25 units 07/17/18 17:20 07/18/18 07:06 Levemir Vial SQ 25 unit BID@0700,2200 TYLER Administration Lisinopril 10 mg 07/15/18 15:30 07/17/18 09:21 Prinivil PO 10 mg DAILY TYLER Administration Nicotine 21 mg 07/15/18 10:00 07/17/18 09:21 Nicoderm Patch - TD 21 mg DAILY TYLER Administration Thiamine HCl 100 mg 07/15/18 10:00 07/17/18 09:21 Vitamin B1 - PO 100 mg DAILY TYLER Administration Vital Signs (last) Temp Pulse Resp BP Pulse Ox 97.8 F 96 H 20 116/56 L 97 07/18/18 07:00 07/18/18 07:00 07/18/18 07:00 07/18/18 07:00 07/17/18 21:00 Laboratory (coagulation) PT with INR 11.00 SEC (9.7-13.0) 07/14/18 17:00 Laboratory 07/18/18 07:00 07/18/18 07:00 IMAGING ASSESSMENT AND PLAN Kirk Camacho is a 47 year old male with left knee osteoarthritis. He is status post left knee superficial incision and drainage 5 months ago. There is still low suspicion for septic arthritis; the patient has no effusion or pain with range of motion from 0 to 90 degrees. He has no soft tissue swelling or fluid collections in the knee. - No acute orthopedic intervention at this time. - Recommend MRI of his lumbosacral spine to evaluate for his left tibialis anterior and quadriceps weakness. Quadriceps weakness likely secondary to disuse atrophy of the left lower extremity following the surgery. - General surgery managing left buttock abscess - Patient has bilateral ulnar neuropathy, right worse than left. He should have this worked up as an outpatient. Follow up with neurology. - Pain control - DVT prophylaxis - Ice and elevate Left knee - Elevate HOB, encourage oral intake - Appreciate medical management (Nutrition optimization, decubitus precautions heel/sacrum) - PT/OT; WBAT All questions were answered. Thank you for involving our team in the care of this patient. We will follow the patient with you. Please call us at with questions.
[2018-07-18] MEDS: LISINOPRIL 10 MG TABLET (FP) PO SCH (10:47)
[2018-07-18] MEDS: NICOTINE 21 MG/24 HOURS TOPICAL PATCH TD SCH (10:47)
[2018-07-18] MEDS: GABAPENTIN 100 MG CAPSULE (FP) PO SCH ×2 (10:47→23:03)
[2018-07-18] MEDS: ENOXAPARIN NA (PORCINE) 40 MG/0.4 ML DISP.SYRIN SQ SCH (10:47)
[2018-07-18] MEDS: FOLIC ACID 1 MG TABLET (FP) PO SCH (10:47)
[2018-07-18] MEDS: THIAMINE HCL 100 MG TABLET (FP) PO SCH (10:51)
--- NOTE | 2018-07-18 12:04 | PN ---
Teaching Attending Note Name of Resident: Brunilda Ji ATTENDING PHYSICIAN STATEMENT I saw and evaluated the patient. I reviewed the resident's note and discussed the case with the resident. I agree with the resident's findings and plan as documented with exceptions below. SUBJECTIVE: Patient seen and examined. right buttock symptoms better, no new pain,. Fall last night, no new concerns. Asking for another tray of food. OBJECTIVE: Vital Signs Period Temp Pulse Resp BP Sys/Harding Pulse Ox Last 24 Hr 97.8 F-98.8 F 83-101 18-20 116-157/56-94 97 Intake & Output 07/15/18 07/16/18 07/17/18 07/18/18 23:59 23:59 23:59 23:59 Intake Total 1250 2690 2600 650 Output Total 1300 600 Balance -50 2690 2600 50 Weight 219 lb General: lying in bed in no acute distress Chest: CTAB, no rales or wheezing Abdomen:soft, NT, ND Back: right gluteal wound with induration, improved swelling/erythema, no active discharge extremities: left knee with some oozing, no new erythema/warmth or limitation of ROM noted Active Medications Acetaminophen (Tylenol -) 650 mg PO Q6H PRN PRN Reason: PAIN LEVEL 6-10 Last Admin: 07/16/18 21:10 Dose: 650 mg Atorvastatin Calcium (Lipitor -) 10 mg PO HS [facility] Last Admin: 07/17/18 21:52 Dose: 10 mg Chlordiazepoxide HCl (Librium -) 10 mg PO [id number] TYLER Stop: 07/18/18 23:01 Last Admin: 07/18/18 10:47 Dose: 10 mg Enoxaparin Sodium (Lovenox -) 40 mg SQ DAILY [facility] Last Admin: 07/18/18 10:47 Dose: 40 mg Folic Acid (Folic Acid -) 1 mg PO DAILY [facility] Last Admin: 07/18/18 10:47 Dose: 1 mg Gabapentin (Neurontin -) 100 mg PO BID [facility] Last Admin: 07/18/18 10:47 Dose: 100 mg Vancomycin HCl 1,250 mg/ (Dextrose) 250 mls @ 250 mls/2 hr IVPB Q24H [facility]; Protocol Last Admin: 07/17/18 21:57 Dose: 250 mls/2 hr Insulin Aspart (Novolog Vial Sliding Scale -) 1 vial SQ ACHS [facility]; Protocol Last Admin: 07/18/18 07:06 Dose: 10 unit Insulin Detemir (Levemir Vial) 30 units SQ BID@0700,2200 [facility] Lisinopril (Prinivil) 10 mg PO DAILY [facility] Last Admin: 07/18/18 10:47 Dose: 10 mg Nicotine (Nicoderm Patch -) 21 mg TD DAILY [facility] Last Admin: 07/18/18 10:47 Dose: 21 mg Thiamine HCl (Vitamin B1 -) 100 mg PO DAILY [facility] Last Admin: 07/18/18 10:51 Dose: 100 mg Laboratory Results - last 24 hr 07/17/18 07/17/18 07/17/18 11:36 16:35 20:50 WBC RBC Hgb Hct MCV MCH MCHC RDW Plt Count MPV Sodium Potassium Chloride Carbon Dioxide Anion Gap BUN Creatinine Creat Clearance w eGFR POC Glucometer 314 266 Random Glucose Calcium Total Bilirubin AST ALT Alkaline Phosphatase Total Protein Albumin Vancomycin Pre-Dose 3.6 L 07/17/18 07/17/18 07/18/18 21:46 23:27 06:19 WBC RBC Hgb Hct MCV MCH MCHC RDW Plt Count MPV Sodium Potassium Chloride Carbon Dioxide Anion Gap BUN Creatinine Creat Clearance w eGFR POC Glucometer 469 291 370 Random Glucose Calcium Total Bilirubin AST ALT Alkaline Phosphatase Total Protein Albumin Vancomycin Pre-Dose 07/18/18 07/18/18 07:00 07:00 WBC 7.6 RBC 4.22 Hgb 11.9 Hct 37.3 MCV 88.4 MCH 28.1 MCHC 31.8 L RDW 15.5 Plt Count 379 MPV 8.1 Sodium 137 Potassium 4.0 Chloride 102 Carbon Dioxide 29 Anion Gap 7 L BUN 13 Creatinine 0.9 Creat Clearance w eGFR > 60 POC Glucometer Random Glucose 373 H* Calcium 8.6 Total Bilirubin 0.1 L AST 10 L ALT 13 Alkaline Phosphatase 91 Total Protein 6.2 L Albumin 2.3 L Vancomycin Pre-Dose CT brain/Lumbar/Thoracic xray results reviewed ASSESSMENT AND PLAN: 47 yom with PMHx of Polysubstance abuse (Cocaine, EtOH), IDDM, HTN, admitted with left gluteal cellulitis+/- Abscess -MRSA left gluteal cellulitis/abscess _left knee pain/swelling, ?recent washout for abscess at [facility] 3 weeks ago -IDDM, poorly controlled, A1c 14.8 -Diabetic/starvation ketosis -Polysubstance abuse with cocaine/ETOH -HTN -Hypomagnesemia -Fall -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 Plan: Clinically improved. Self drainage. Wound cx noted Zosyn d/mariel. Vancomycin day 4, transtion to doxycycline in 24 hours. Surgery/ID consult appreciated. Sitz bath/warm compresses. Blood cx neg so far. Orthopedic input appreciated. Fall last night. PT eval. Will off on additional spinal imaging till active infection concerns improved unless new findings. Patient reports non compliance with insulin and diet. Diabetic education. Increase levemir to 30 units BID, ISS, diabetic diet. Titrate up as tolerated. High sugars likely from getting multiple trays and dietary non compliance. Hold glyburide/Metformin. Resumed lisinopril/gabapentin/atorvastatin. Resume ASA. DVTPPX with lovenox Ongoing PT. Dispo d/c planning in 24 hours pending clinical improvement. Plan discussed with patient, CM and nursing in detail, all questions answered.
--- NOTE | 2018-07-18 14:12 | PN ---
Physical Exam: SUBJECTIVE: Patient seen and examined. Patient fell overnight. Denies head trauma. Head CT negative. Says pain in buttock is better today. offers no new complaints. OBJECTIVE: Vital Signs Period Temp Pulse Resp BP Sys/Harding Pulse Ox Last 24 Hr 97.8 F-98.8 F 83-101 18-20 116-157/56-94 97 GENERAL: The patient is awake, alert, and fully oriented, in no acute distress. EYES: PERRL, sclera anicteric, conjunctiva clear. ENT: Ears normal, nares patent, oropharynx clear without exudates, moist mucous membranes. NECK: supple without lymphadenopathy. LUNGS: Breath sounds equal, clear to auscultation bilaterally HEART: Regular rate and rhythm, S1, S2 without murmur, rub or gallop. ABDOMEN: Soft, mild tender to palpation at RUQ. Nondistended. EXTREMITIES: 2+ radial and dorsalis pedis pulses B/L. Vertical scar over left knee, erythematous, warm, clean, dry without discharge. Pain with passive and active flexion/ extension of left knee compared to right knee. NEUROLOGICAL: Cranial nerves II through XII grossly intact. SKIN: Dry 6cm X6cm area of induration, without fluctuance at medial left buttock. tender to palpation. no discharge expressed Laboratory Results - last 24 hr 07/17/18 07/17/18 07/17/18 16:35 20:50 21:46 WBC RBC Hgb Hct MCV MCH MCHC RDW Plt Count MPV Sodium Potassium Chloride Carbon Dioxide Anion Gap BUN Creatinine Creat Clearance w eGFR POC Glucometer 266 469 Random Glucose Calcium Total Bilirubin AST ALT Alkaline Phosphatase Total Protein Albumin Vancomycin Pre-Dose 3.6 L 07/17/18 07/18/18 07/18/18 23:27 06:19 07:00 WBC 7.6 RBC 4.22 Hgb 11.9 Hct 37.3 MCV 88.4 MCH 28.1 MCHC 31.8 L RDW 15.5 Plt Count 379 MPV 8.1 Sodium Potassium Chloride Carbon Dioxide Anion Gap BUN Creatinine Creat Clearance w eGFR POC Glucometer 291 370 Random Glucose Calcium Total Bilirubin AST ALT Alkaline Phosphatase Total Protein Albumin Vancomycin Pre-Dose 07/18/18 07/18/18 07:00 12:28 WBC RBC Hgb Hct MCV MCH MCHC RDW Plt Count MPV Sodium 137 Potassium 4.0 Chloride 102 Carbon Dioxide 29 Anion Gap 7 L BUN 13 Creatinine 0.9 Creat Clearance w eGFR > 60 POC Glucometer 317 Random Glucose 373 H* Calcium 8.6 Total Bilirubin 0.1 L AST 10 L ALT 13 Alkaline Phosphatase 91 Total Protein 6.2 L Albumin 2.3 L Vancomycin Pre-Dose Active Medications Generic Name Dose Route Start Last Admin Trade Name Freq PRN Reason Stop Dose Admin Acetaminophen 650 mg 07/15/18 15:48 07/16/18 21:10 Tylenol - PO 650 mg Q6H PRN Administration PAIN LEVEL 6-10 Atorvastatin Calcium 10 mg 07/15/18 22:00 07/17/18 21:52 Lipitor - PO 10 mg HS TYLER Administration Chlordiazepoxide HCl 10 mg 07/18/18 05:00 07/18/18 10:47 Librium - PO 07/18/18 23:01 10 mg [id number] TYLER Administration Enoxaparin Sodium 40 mg 07/15/18 10:00 07/18/18 10:47 Lovenox - SQ 40 mg DAILY [facility]ER Administration Folic Acid 1 mg 07/15/18 10:00 07/18/18 10:47 Folic Acid - PO 1 mg DAILY TYLER Administration Gabapentin 100 mg 07/15/18 22:00 07/18/18 10:47 Neurontin - PO 100 mg BID TYLER Administration Vancomycin HCl 1,250 mg/ 250 mls @ 250 mls/2 hr 07/15/18 22:00 07/17/18 21:57 Dextrose IVPB 250 mls/2 hr Q24H TYLER Administration Protocol Insulin Aspart 1 vial 07/15/18 07:00 07/18/18 12:30 Novolog Vial Sliding Scale - SQ 8 unit ACHS [facility] Administration Protocol Insulin Detemir 30 units 07/18/18 22:00 Levemir Vial SQ BID@0700,2200 [facility]ER Lisinopril 10 mg 07/15/18 15:30 07/18/18 10:47 Prinivil PO 10 mg DAILY [facility]YLER Administration Nicotine 21 mg 07/15/18 10:00 07/18/18 10:47 Nicoderm Patch - TD 21 mg DAILY TYLER Administration Thiamine HCl 100 mg 07/15/18 10:00 07/18/18 10:51 Vitamin B1 - PO 100 mg DAILY TYLER Administration ASSESSMENT/PLAN: Patient is a 47 year old male with history of polysubstance abuse (cocaine, alcohol), insulin dependent diabetes mellitus, hypertension, presents from [facility] for left buttock pain. L Gluteal abscess/cellulitis -Pelvic CT notes soft tissue swelling, and subcutaneous edema without drainable collection. -ID recommendations (Dr. Romero) appreciated -Vancomycin 1250mg IV Q24H (day 4) -Blood cultures negative -Wound cultures grow MRSA and Strep Agalactiae group B -General surgery consult appreciated (Dr. Marin) -no drainable collection at this time -Warm compress, sitz baths -Tylenol 650mg PO Q6H PRN for pain 6-10 Insulin dependent diabetes mellitus -Poorly controlled. HbA1c 14.8 -Holding home medications -Levemir increased to 30 units BID. Required 30 units yesterday. Has been eating excessively. -Gabapentin 100mg PO BID for neuropathy -ISS ACHS -BGM ACHS Polysubstance abuse -Utox positive for cocaine at time of admission -Librium protocol -Nicotine patch 21mg TD daily -Thiamine 100mg daily -Folate 1mg daily -Detox consult (Dr. Diggs) -Fall precautions -Aspiration precautions Left knee pain -History of prior surgery two months ago, with prior infection -Left knee xray shows osteoarthritis, joint space narrowing -ESR, CRP elevated -Orthopedic surgery consult (Dr. Loya) appreciated. Patient will follow up as outpatient. -Pain control with Tylenol Hypertension -Reinstate lisinopril 10mg PO daily Hyperlipidemia -Atorvastatin 10mg PO QHS FEN -dc fluids -Follow CMP -Diabetic diet (low salt, low cholesterol) Prophylaxis -Lovenox 40mg SQ daily Disposition -likely discharge tomorrow Visit type - Emergency Visit Emergency Visit: Yes ED Registration Date: 07/15/18 Care time: The patient presented to the Emergency Department on the above date and was hospitalized for further evaluation of their emergent condition. - New Patient This patient is new to me today: Yes Date on this admission: 07/18/18 - Critical Care Critical Care patient: No
--- NOTE | 2018-07-18 18:04 | PN ---
Progress Note, Physician History of Present Illness: Events noted. Pt is s/p fall last night. Orthopedics evaluated. Imaging studies reviewed. MRI lumbar spine results pending. Pt c/o buttock throbbing. He is afebrile, alert, without obvious distress. - Current Medication List Current Medications: Active Medications Acetaminophen (Tylenol -) 650 mg PO Q6H PRN PRN Reason: PAIN LEVEL 6-10 Last Admin: 07/16/18 21:10 Dose: 650 mg Atorvastatin Calcium (Lipitor -) 10 mg PO HS [facility] Last Admin: 07/17/18 21:52 Dose: 10 mg Chlordiazepoxide HCl (Librium -) 10 mg PO [id number] TYLER Stop: 07/18/18 23:01 Last Admin: 07/18/18 10:47 Dose: 10 mg Enoxaparin Sodium (Lovenox -) 40 mg SQ DAILY [facility] Last Admin: 07/18/18 10:47 Dose: 40 mg Folic Acid (Folic Acid -) 1 mg PO DAILY [facility] Last Admin: 07/18/18 10:47 Dose: 1 mg Gabapentin (Neurontin -) 100 mg PO BID [facility] Last Admin: 07/18/18 10:47 Dose: 100 mg Vancomycin HCl 1,250 mg/ (Dextrose) 250 mls @ 250 mls/2 hr IVPB Q24H [facility]; Protocol Last Admin: 07/17/18 21:57 Dose: 250 mls/2 hr Insulin Aspart (Novolog Vial Sliding Scale -) 1 vial SQ ACHS [facility]; Protocol Last Admin: 07/18/18 12:30 Dose: 8 unit Insulin Detemir (Levemir Vial) 30 units SQ BID@0700,2200 [facility] Lisinopril (Prinivil) 10 mg PO DAILY [facility] Last Admin: 07/18/18 10:47 Dose: 10 mg Nicotine (Nicoderm Patch -) 21 mg TD DAILY [facility] Last Admin: 07/18/18 10:47 Dose: 21 mg Thiamine HCl (Vitamin B1 -) 100 mg PO DAILY [facility] Last Admin: 07/18/18 10:51 Dose: 100 mg - Objective Vital Signs: Vital Signs Temperature 98.3 F 07/18/18 14:44 Pulse Rate 94 H 07/18/18 14:44 Respiratory Rate 18 07/18/18 14:44 Blood Pressure 126/64 07/18/18 14:44 O2 Sat by Pulse Oximetry (%) 97 07/17/18 21:00 Constitutional: Yes: No Distress Neck: Yes: Supple Cardiovascular: Yes: Regular Rate and Rhythm Respiratory: Yes: Regular Gastrointestinal: Yes: Normal Bowel Sounds Wound/Incision: Yes: Other (buttock with induration/surrounding erythema, minimal drainage) Neurological: Yes: Alert Labs: CBC, BMP 07/18/18 07:00 07/18/18 07:00 INR, PTT INR 0.93 (0.83-1.09) 07/14/18 17:00 Microbiology 07/14/18 17:15 Blood - Peripheral Venous Blood Culture - Preliminary NO GROWTH OBTAINED AFTER 96 HOURS, INCUBATION TO CONTINUE FOR 1 DAYS. 07/14/18 17:00 Blood - Peripheral Venous Blood Culture - Preliminary NO GROWTH OBTAINED AFTER 96 HOURS, INCUBATION TO CONTINUE FOR 1 DAYS. 07/15/18 10:45 Buttock - Left Gram Stain - Final 07/15/18 10:45 Buttock - Left Wound Culture - Final Mr S Aureus Strep Agalactiae Group B - ....Imaging X-ray: Report Reviewed Problem List - Problems (1) Abscess Code(s): L02.91 - CUTANEOUS ABSCESS, UNSPECIFIED (2) Alcohol dependence Code(s): F10.20 - ALCOHOL DEPENDENCE, UNCOMPLICATED Qualifiers: Substance use status: uncomplicated Qualified Code(s): F10.20 - Alcohol dependence, uncomplicated (3) History of left knee surgery Code(s): Z98.890 - OTHER SPECIFIED POSTPROCEDURAL STATES (4) Bipolar disorder, unspecified Code(s): F31.9 - BIPOLAR DISORDER, UNSPECIFIED Qualifiers: (5) Diabetes mellitus, insulin dependent (IDDM), uncontrolled Code(s): E10.65 - TYPE 1 DIABETES MELLITUS WITH HYPERGLYCEMIA (6) Essential hypertension Code(s): I10 - ESSENTIAL (PRIMARY) HYPERTENSION (7) Hypercholesteremia Code(s): E78.0 - PURE HYPERCHOLESTEROLEMIA * DO NOT USE * Assessment/Plan Buttock Abscess/cellulitis +MRSA Uncontrolled IDDM HTN Polysubstance abuse Lt knee pain s/p Fall -- Vancomycin level noted, extra dose ordered for a.m. after tonight's dose plan to switch to oral if wound continues to heal -- continue wound care -- f/u MRI lumbar spine -- needs tighter glycemic control
[2018-07-18] MEDS ORDERED: PT OWN MED DRAWER 7, Y5N ONE (21:19)
[2018-07-18] MEDS: ATORVASTATIN CA 10 MG TABLET (FP) PO SCH (23:03)
[2018-07-18] MEDS: VANCOMYCIN 1,250 MG in DEXTROSE 5%-WATER - 250 ML IVPB SCH (23:05)
[2018-07-18] MEDS: ACETAMINOPHEN 325 MG TABLET (FP) PO PRN (23:06)
[2018-07-19] MEDS ORDERED: VANCOMYCIN 1,250 MG in DEXTROSE 5%-WATER - 250 ML IVPB ONE (06:00)
[2018-07-19] MEDS: INSULIN (LEVEMIR) 100 UNITS/ML UNITS SQ SCH ×2 (06:07→21:58)
[2018-07-19] MEDS: INSULIN SLIDING SCALE (NOVOLOG) 1 VIAL SQ SCH ×4 (06:07→21:58)
[2018-07-19 08:00] LABS: HEMOGLOBIN 12.3 GM/dL (11.7-16.9); MCH 29.8 pg (25.7-33.7); MCHC 34.2 g/dl (32.0-35.9); MEAN CELL VOLUME 87.1 fl (80-96); MEAN PLT VOLUME 8.3 fl (7.5-11.1); PLATELET COUNT 422 K/MM3 (134-434); RBC 4.13 M/mm3 (4.00-5.60); RDW 15.7 % (11.9-15.9); WHITE BLOOD COUNT 6.1 K/mm3 (4.0-10.0)
[2018-07-19 08:50] LABS: ALBUMIN 2.6 g/dl (3.4-5.0); ALK PHOS 80 U/L (45-117); ANION GAP 7 MMOL/L (8-16); BILIRUBIN,TOTAL 0.2 mg/dL (0.2-1); BLOOD UREA NITROGEN 13 mg/dL (7-18); CALCIUM 9.1 mg/dL (8.5-10.1); CHLORIDE 103 mmol/L (98-107); CO2 29 mmol/L (21-32); CREATININE 0.8 mg/dL (0.55-1.3); GLUCOSE,RANDOM 218 mg/dL (74-106); MAGNESIUM 1.7 mg/dL (1.8-2.4); PHOSPHOROUS 3.8 mg/dL (2.5-4.9); POTASSIUM 4.2 mmol/L (3.5-5.1); SGOT/AST 12 U/L (15-37); SGPT/ALT 18 U/L (13-61); SODIUM 140 mmol/L (136-145); TOT PROT 6.4 g/dl (6.4-8.2)
--- NOTE | 2018-07-19 10:10 | PN ---
Progress Note (short form) - Note Progress Note: ORTHOPEDIC SURGERY PROGRESS NOTE Department of Orthopedic Surgery SUBJECTIVE No acute events overnight. No complaints currently. Denies chest pain, shortness of breath, or calf pain. No nausea or vomiting. Tolerating oral intake. Pain control difficult overnight, but improving. PHYSICAL EXAMINATION General: Alert, oriented, cooperative and no distress. Right Upper Extremity: Painless range of motion. No tenderness to palpation. Significant atrophy intrinsic atrophy of mild clawing deformity of the right hand. Decreased sensation in little and ring finger. Weakess with finger abduction. M/R/MSK/AX motor intact; SILT distally in thumb, ring, and long fingers; 2+ radial pulses; Cap refill brisk. Tone and reflexes normal. + Tinel' s at the elbow. Left Upper Extremity: Painless range of motion. No tenderness to palpation. Decreased sensation in little and ring finger. Weakess with finger abduction. M/ R/MSK/AX motor intact; SILT distally in thumb, ring, and long fingers; 2+ radial pulses; Cap refill brisk. Tone and reflexes normal. Right Lower Extremity: Painless range of motion. No tenderness to palpation. No cords or calf tenderness. No significant calf/ankle edema. Quads/HS/TA/EHL/GS motor 5/5. Left Lower Extremity: Left knee incisional wound just superior to the patella healed. There is granulation tissue present. No effusion. No palpable masses. No swelling. Quadriceps atrophy. No tenderness to palpation. Painless active and passive ROM 0-90 degrees. Pain in the anterior aspect of the knee with flexion beyond 90 degrees. No cords or calf tenderness. No significant calf/ ankle edema. Tibialis anterior and quadriceps are weak 4/5. Joints stable with no pathologic laxity. EHL/GS motor 5/5. SILT distally; 2+ DP pulses; Cap refill brisk. Tone and reflexes normal. DVT Exam: No evidence of DVT seen on physical exam; No cords or calf tenderness ; No significant calf/ankle edema. Intake & Output 07/17/18 07/18/18 07/19/18 23:59 23:59 23:59 Intake Total 2600 950 500 Output Total 1400 900 Balance 2600 -450 -400 Intake: IV 1600 Normal Saline - 1,000 ml 1600 @ 100 mls/hr IV ASDIR TYLER Rx#:[id number] IVPB 400 250 200 Oral 600 700 300 Output: Urine 1400 900 Void 1400 900 Other: Voiding Method Urinal Urinal # Unmeasured Voids Void 3 Bowel Movement No No No Active Medications Generic Name Dose Route Start Last Admin Trade Name Freq PRN Reason Stop Dose Admin Acetaminophen 650 mg 07/15/18 15:48 07/18/18 23:06 Tylenol - PO 650 mg Q6H PRN Administration PAIN LEVEL 6-10 Atorvastatin Calcium 10 mg 07/15/18 22:00 07/18/18 23:03 Lipitor - PO 10 mg HS TYLER Administration Enoxaparin Sodium 40 mg 07/15/18 10:00 07/18/18 10:47 Lovenox - SQ 40 mg DAILY TYLER Administration Folic Acid 1 mg 07/15/18 10:00 07/18/18 10:47 Folic Acid - PO 1 mg DAILY TYLER Administration Gabapentin 100 mg 07/15/18 22:00 07/18/18 23:03 Neurontin - PO 100 mg BID TYLER Administration Vancomycin HCl 1,250 mg/ 250 mls @ 250 mls/2 hr 07/15/18 22:00 07/18/18 23:05 Dextrose IVPB 250 mls/2 hr Q24H TYLER Administration Protocol Insulin Aspart 1 vial 07/15/18 07:00 07/19/18 06:07 Novolog Vial Sliding Scale - SQ 6 unit ACHS [facility] Administration Protocol Insulin Detemir 30 units 07/18/18 22:00 07/19/18 06:07 Levemir Vial SQ 30 units BID@0700,2200 TYLER Administration Lisinopril 10 mg 07/15/18 15:30 07/18/18 10:47 Prinivil PO 10 mg DAILY TYLER Administration Nicotine 21 mg 07/15/18 10:00 07/18/18 10:47 Nicoderm Patch - TD 21 mg DAILY TYLER Administration Thiamine HCl 100 mg 07/15/18 10:00 07/18/18 10:51 Vitamin B1 - PO 100 mg DAILY TYLER Administration Vital Signs (last) Temp Pulse Resp BP Pulse Ox 98.3 F 74 18 135/71 97 07/19/18 06:00 07/19/18 06:00 07/19/18 06:00 07/19/18 06:00 07/18/18 21:00 Laboratory (coagulation) PT with INR 11.00 SEC (9.7-13.0) 07/14/18 17:00 Laboratory 07/19/18 06:20 07/19/18 06:20 IMAGING MRI Lumbar Spine was personally reviewed by me today. It demonstrates a central disc herniation at L5-S1, mild degenerative changes, and disc bulges in the lumbar spine. Will follow up official radiology report. ASSESSMENT AND PLAN Kirk Camacho is a 47 year old male with left knee osteoarthritis. He is status post left knee superficial incision and drainage 5 months ago. There is still low suspicion for septic arthritis; the patient has no effusion or pain with range of motion from 0 to 90 degrees. He has no soft tissue swelling or fluid collections in the knee. - No acute orthopedic intervention at this time. - Follow up official radiology report of MRI Lumbar spine - Recommend Neurosurgery follow up for lumbar spine disc herniations. - General surgery managing left buttock abscess - Patient has bilateral ulnar neuropathy, right worse than left. He should have this worked up as an outpatient. Follow up with neurology. - Pain control - DVT prophylaxis - Ice and elevate Left knee - Elevate HOB, encourage oral intake - Appreciate medical management (Nutrition optimization, decubitus precautions heel/sacrum) - PT/OT; WBAT All questions were answered. Thank you for involving our team in the care of this patient. We will follow the patient with you. Please call us at [phone] with questions. Sher Loya, DO Orthopedic Surgery
--- NOTE | 2018-07-19 11:28 | PN ---
Physical Exam: SUBJECTIVE: Patient seen and examined, buttock symptoms improved, no complaints. OBJECTIVE: Vital Signs Period Temp Pulse Resp BP Sys/Harding Pulse Ox Last 24 Hr 98.1 F-98.4 F 74-97 18-18 126-135/64-71 97 GENERAL: The patient is awake, alert, and fully oriented, in no acute distress. HEAD: Normal with no signs of trauma. EYES: PERRL, extraocular movements intact, sclera anicteric, conjunctiva clear. No ptosis. ENT: Ears normal, nares patent, oropharynx clear without exudates, moist mucous membranes. NECK: Trachea midline, full range of motion, supple. LUNGS: Breath sounds equal, clear to auscultation bilaterally, no wheezes, no crackles, no accessory muscle use. HEART: Regular rate and rhythm, S1, S2 ABDOMEN: Soft, nontender, nondistended, normoactive bowel sounds, no guarding, no rebound, back: right gluteal lesion with improved induration, no swelling/erythema or tenderness, no active discharge EXTREMITIES: left knee findings unchanged, no spinal tenderness PSYCH: Normal mood, normal affect. SKIN: Warm, dry, normal turgor, no rashes or lesions noted Laboratory Results - last 24 hr 07/18/18 07/18/18 07/18/18 12:28 17:59 23:01 WBC RBC Hgb Hct MCV MCH MCHC RDW Plt Count MPV Sodium Potassium Chloride Carbon Dioxide Anion Gap BUN Creatinine Creat Clearance w eGFR POC Glucometer 317 258 298 Random Glucose Calcium Phosphorus Magnesium Total Bilirubin AST ALT Alkaline Phosphatase Total Protein Albumin 07/19/18 07/19/18 07/19/18 06:04 06:20 06:20 WBC 6.1 RBC 4.13 Hgb 12.3 Hct 36.0 MCV 87.1 MCH 29.8 MCHC 34.2 RDW 15.7 Plt Count 422 MPV 8.3 Sodium 140 Potassium 4.2 Chloride 103 Carbon Dioxide 29 Anion Gap 7 L BUN 13 Creatinine 0.8 Creat Clearance w eGFR > 60 POC Glucometer 255 Random Glucose 218 H Calcium 9.1 Phosphorus 3.8 Magnesium 1.7 L Total Bilirubin 0.2 AST 12 L ALT 18 Alkaline Phosphatase 80 Total Protein 6.4 Albumin 2.6 L Active Medications Generic Name Dose Route Start Last Admin Trade Name Freq PRN Reason Stop Dose Admin Acetaminophen 650 mg 07/15/18 15:48 07/18/18 23:06 Tylenol - PO 650 mg Q6H PRN Administration PAIN LEVEL 6-10 Atorvastatin Calcium 10 mg 07/15/18 22:00 07/18/18 23:03 Lipitor - PO 10 mg HS TYLER Administration Enoxaparin Sodium 40 mg 07/15/18 10:00 07/18/18 10:47 Lovenox - SQ 40 mg DAILY TYLER Administration Folic Acid 1 mg 07/15/18 10:00 07/18/18 10:47 Folic Acid - PO 1 mg DAILY TYLER Administration Gabapentin 100 mg 07/15/18 22:00 07/18/18 23:03 Neurontin - PO 100 mg BID TYLER Administration Vancomycin HCl 1,250 mg/ 250 mls @ 250 mls/2 hr 07/15/18 22:00 07/18/18 23:05 Dextrose IVPB 250 mls/2 hr Q24H [facility]YLER Administration Protocol Insulin Aspart 1 vial 07/15/18 07:00 07/19/18 06:07 Novolog Vial Sliding Scale - SQ 6 unit ACHS [facility] Administration Protocol Insulin Detemir 30 units 07/18/18 22:00 07/19/18 06:07 Levemir Vial SQ 30 units BID@0700,2200 TYLER Administration Lisinopril 10 mg 07/15/18 15:30 07/18/18 10:47 Prinivil PO 10 mg DAILY TYLER Administration Magnesium Sulfate 2 gm 07/19/18 11:23 Magnesium Sulfate IVPB 07/19/18 11:24 ONCE ONE Nicotine 21 mg 07/15/18 10:00 07/18/18 10:47 Nicoderm Patch - TD 21 mg DAILY TYLER Administration Thiamine HCl 100 mg 07/15/18 10:00 07/18/18 10:51 Vitamin B1 - PO 100 mg DAILY TYLER Administration lumbar MRI results pending Microbiology 07/14/18 17:15 Blood - Peripheral Venous Blood Culture - Preliminary NO GROWTH OBTAINED AFTER 96 HOURS, INCUBATION TO CONTINUE FOR 1 DAYS. 07/14/18 17:00 Blood - Peripheral Venous Blood Culture - Preliminary NO GROWTH OBTAINED AFTER 96 HOURS, INCUBATION TO CONTINUE FOR 1 DAYS. 07/15/18 10:45 Buttock - Left Gram Stain - Final 07/15/18 10:45 Buttock - Left Wound Culture - Final Mr S Aureus Strep Agalactiae Group B ASSESSMENT/PLAN: 47 yom with PMHx of Polysubstance abuse (Cocaine, EtOH), IDDM, HTN, admitted with left gluteal cellulitis+/- Abscess -MRSA left gluteal cellulitis/abscess _left knee pain/swelling, ?recent washout for abscess at [facility] 3 weeks ago -IDDM, poorly controlled, A1c 14.8 -Diabetic/starvation ketosis -Polysubstance abuse with cocaine/ETOH -HTN -Hypomagnesemia -Fall -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 Plan: Clinically improved. Self drainage. Wound cx noted Zosyn d/mariel. Vancomycin day , change to doxycycline as discussed with Dr. Romero Surgery/ID consult appreciated. Sitz bath/warm compresses. Blood cx neg so far. Orthopedic input appreciated. PT eval noted, rec SNF. Lumbar MRI done, follow up yoan Patient reports non compliance with insulin and diet. Diabetic education. Increased levemir to 30 units BID, ISS, diabetic diet. Titrate up as tolerated. High sugars likely from getting multiple trays and dietary non compliance. Hold glyburide/Metformin. Resumed lisinopril/gabapentin/atorvastatin. Continue ASA Replete Mg. DVTPPX with lovenox PT rec SNf. Discussed with CM Dispo plan for d/c to SNF on po abx when disposition arranged. Plan discussed with patient, CM and nursing in detail, all questions answered. Visit type - Emergency Visit Emergency Visit: Yes ED Registration Date: 07/15/18 Care time: The patient presented to the Emergency Department on the above date and was hospitalized for further evaluation of their emergent condition. - New Patient This patient is new to me today: No - Critical Care Critical Care patient: No - Discharge Referral Referred to [facility] Med P.C.: No
[2018-07-19] MEDS: LISINOPRIL 10 MG TABLET (FP) PO SCH (11:45)
[2018-07-19] MEDS: ENOXAPARIN NA (PORCINE) 40 MG/0.4 ML DISP.SYRIN SQ SCH (11:45)
[2018-07-19] MEDS: NICOTINE 21 MG/24 HOURS TOPICAL PATCH TD SCH (11:45)
[2018-07-19] MEDS: FOLIC ACID 1 MG TABLET (FP) PO SCH (11:45)
[2018-07-19] MEDS: THIAMINE HCL 100 MG TABLET (FP) PO SCH (11:45)
[2018-07-19] MEDS: GABAPENTIN 100 MG CAPSULE (FP) PO SCH ×2 (11:45→21:58)
[2018-07-19] MEDS ORDERED: MAGNESIUM SULF 50% (8.12 MEQ/2 ML-1 GM VIAL) IVPB ONE (12:30)
--- NOTE | 2018-07-19 14:23 | PN ---
Progress Note, Physician History of Present Illness: Pt is afebrile. Reports less pain in Lt buttock area. - Current Medication List Current Medications: Active Medications Acetaminophen (Tylenol -) 650 mg PO Q6H PRN PRN Reason: PAIN LEVEL 6-10 Last Admin: 07/18/18 23:06 Dose: 650 mg Atorvastatin Calcium (Lipitor -) 10 mg PO HS [facility] Last Admin: 07/18/18 23:03 Dose: 10 mg Bacitracin (Bacitracin -) 1 applic TP BID [facility] Doxycycline Hyclate (Vibramycin -) 100 mg PO BID@1000,1800 [facility] Enoxaparin Sodium (Lovenox -) 40 mg SQ DAILY [facility] Last Admin: 07/19/18 11:45 Dose: 40 mg Folic Acid (Folic Acid -) 1 mg PO DAILY [facility] Last Admin: 07/19/18 11:45 Dose: 1 mg Gabapentin (Neurontin -) 100 mg PO BID [facility] Last Admin: 07/19/18 11:45 Dose: 100 mg Insulin Aspart (Novolog Vial Sliding Scale -) 1 vial SQ [facility]; Protocol Last Admin: 07/19/18 11:55 Dose: 4 unit Insulin Detemir (Levemir Vial) 30 units SQ BID@0700,2200 [facility] Last Admin: 07/19/18 06:07 Dose: 30 units Lisinopril (Prinivil) 10 mg PO DAILY [facility] Last Admin: 07/19/18 11:45 Dose: 10 mg Nicotine (Nicoderm Patch -) 21 mg TD DAILY [facility] Last Admin: 07/19/18 11:45 Dose: 21 mg Thiamine HCl (Vitamin B1 -) 100 mg PO DAILY [facility] Last Admin: 07/19/18 11:45 Dose: 100 mg - Objective Vital Signs: Vital Signs Temperature 98.3 F 07/19/18 11:00 Pulse Rate 98 H 07/19/18 11:00 Respiratory Rate 18 07/19/18 11:00 Blood Pressure 118/74 07/19/18 11:00 O2 Sat by Pulse Oximetry (%) 97 07/18/18 21:00 Constitutional: Yes: No Distress Cardiovascular: Yes: Regular Rate and Rhythm Respiratory: Yes: Regular Gastrointestinal: Yes: Normal Bowel Sounds, Soft Wound/Incision: Yes: Other (Lt buttock induration, no erythema/warmth, no drainage) Labs: CBC, BMP 07/19/18 06:20 07/19/18 06:20 INR, PTT INR 0.93 (0.83-1.09) 07/14/18 17:00 Microbiology 07/14/18 17:15 Blood - Peripheral Venous Blood Culture - Preliminary NO GROWTH OBTAINED AFTER 96 HOURS, INCUBATION TO CONTINUE FOR 1 DAYS. 07/14/18 17:00 Blood - Peripheral Venous Blood Culture - Preliminary NO GROWTH OBTAINED AFTER 96 HOURS, INCUBATION TO CONTINUE FOR 1 DAYS. 07/15/18 10:45 Buttock - Left Gram Stain - Final 07/15/18 10:45 Buttock - Left Wound Culture - Final Mr S Aureus Strep Agalactiae Group B Problem List - Problems (1) Abscess Code(s): L02.91 - CUTANEOUS ABSCESS, UNSPECIFIED (2) Alcohol dependence Code(s): F10.20 - ALCOHOL DEPENDENCE, UNCOMPLICATED Qualifiers: Substance use status: uncomplicated Qualified Code(s): F10.20 - Alcohol dependence, uncomplicated (3) History of left knee surgery Code(s): Z98.890 - OTHER SPECIFIED POSTPROCEDURAL STATES (4) Bipolar disorder, unspecified Code(s): F31.9 - BIPOLAR DISORDER, UNSPECIFIED Qualifiers: (5) Diabetes mellitus, insulin dependent (IDDM), uncontrolled Code(s): E10.65 - TYPE 1 DIABETES MELLITUS WITH HYPERGLYCEMIA (6) Essential hypertension Code(s): I10 - ESSENTIAL (PRIMARY) HYPERTENSION (7) Hypercholesteremia Code(s): E78.0 - PURE HYPERCHOLESTEROLEMIA * DO NOT USE * Assessment/Plan Lt Buttock Abscess/cellulitis +MRSA Uncontrolled IDDM HTN Polysubstance abuse Lt knee pain s/p Fall -- will switch to oral antibiotics -- continue wound care -- needs tighter glycemic control
[2018-07-19] MEDS: DOXYCYCLINE HYCLATE 100 MG CAPSULE PO SCH ×2 (17:15→20:01)
[2018-07-19] MEDS: BACITRACIN 15 GM TUBE TOPICAL OINTMENT TP SCH (21:58)
[2018-07-19] MEDS: ATORVASTATIN CA 10 MG TABLET (FP) PO SCH (21:58)
[2018-07-20] MEDS ORDERED: INSULIN (NOVOLOG) ASPART 100 UNITS/ML 10ML VIAL ONE (06:35)
[2018-07-20] MEDS: INSULIN SLIDING SCALE (NOVOLOG) 1 VIAL SQ SCH ×4 (06:36→22:16)
[2018-07-20] MEDS: INSULIN (LEVEMIR) 100 UNITS/ML UNITS SQ SCH ×2 (06:36→22:16)
--- NOTE | 2018-07-20 08:12 | PN ---
Physical Exam: SUBJECTIVE: Patient seen and examined at bedside this morning. He endorses improvement of pain at abscess site. Denies fevers, chills, chest pain, palpitations, abdominal pain, nausea, vomiting. OBJECTIVE: Vital Signs Period Temp Pulse Resp BP Sys/Harding Pulse Ox Last 24 Hr 98 F-98.4 F 84-98 18-24 118-127/66-74 97-97 GENERAL: The patient is awake, alert, and fully oriented, in no acute distress. HEAD: Normal with no signs of trauma. EYES: PERRL, extraocular movements intact, sclera anicteric, conjunctiva clear. ENT: Ears normal, nares patent, oropharynx clear without exudates, moist mucous membranes. NECK: Trachea midline, full range of motion, supple without lymphadenopathy. LUNGS: Breath sounds equal, clear to auscultation bilaterally, no wheezes, no crackles, no accessory muscle use. HEART: Regular rate and rhythm, S1, S2 without murmur, rub or gallop. ABDOMEN: Soft, mild tender to palpation at RUQ. Nondistended. Normoactive bowel sounds X4 quadrants. No guarding, no rebound tenderness. No hepatosplenomegaly, no masses. EXTREMITIES: 2+ radial and dorsalis pedis pulses B/L. Vertical scar over left knee, erythematous, warm, clean, dry without discharge. Pain with passive and active flexion/ extension of left knee compared to right knee. NEUROLOGICAL: Cranial nerves II through XII grossly intact. Normal speech. No tremors. PSYCH: Normal mood, normal affect appropriate upon my encounter today. SKIN: Warm, dry. 6cm X6cm area of induration, without fluctuance at medial left buttock. Warm, erythematous. Exquisitely tender to palpation, no purulent discharge expressed. 12 cm vertical laceration over left sided back. Clean, dry , without bleeding, drainage. Laboratory Results - last 24 hr 07/19/18 07/19/18 07/19/18 06:20 11:49 17:17 Sodium 140 Potassium 4.2 Chloride 103 Carbon Dioxide 29 Anion Gap 7 L BUN 13 Creatinine 0.8 Creat Clearance w eGFR > 60 POC Glucometer 231 292 Random Glucose 218 H Calcium 9.1 Phosphorus 3.8 Magnesium 1.7 L Total Bilirubin 0.2 AST 12 L ALT 18 Alkaline Phosphatase 80 Total Protein 6.4 Albumin 2.6 L 07/19/18 07/20/18 21:55 06:31 Sodium Potassium Chloride Carbon Dioxide Anion Gap BUN Creatinine Creat Clearance w eGFR POC Glucometer 273 226 Random Glucose Calcium Phosphorus Magnesium Total Bilirubin AST ALT Alkaline Phosphatase Total Protein Albumin Active Medications Generic Name Dose Route Start Last Admin Trade Name Freq PRN Reason Stop Dose Admin Acetaminophen 650 mg 07/15/18 15:48 07/18/18 23:06 Tylenol - PO 650 mg Q6H PRN Administration PAIN LEVEL 6-10 Atorvastatin Calcium 10 mg 07/15/18 22:00 07/19/18 21:58 Lipitor - PO 10 mg HS TYLER Administration Bacitracin 1 applic 07/19/18 22:00 07/19/18 21:58 Bacitracin - TP 1 applic BID [facility]YLER Administration Doxycycline Hyclate 100 mg 07/19/18 15:00 07/19/18 20:01 Vibramycin - PO 100 mg BID@1000,1800 [facility] Administration Enoxaparin Sodium 40 mg 07/15/18 10:00 07/19/18 11:45 Lovenox - SQ 40 mg DAILY [facility]ER Administration Folic Acid 1 mg 07/15/18 10:00 07/19/18 11:45 Folic Acid - PO 1 mg DAILY TYLER Administration Gabapentin 100 mg 07/15/18 22:00 07/19/18 21:58 Neurontin - PO 100 mg BID TYLER Administration Insulin Aspart 1 vial 07/15/18 07:00 07/20/18 06:36 Novolog Vial Sliding Scale - SQ 4 unit ACHS [facility] Administration Protocol Insulin Detemir 30 units 07/18/18 22:00 07/20/18 06:36 Levemir Vial SQ 30 units BID@0700,2200 TYLER Administration Lisinopril 10 mg 07/15/18 15:30 07/19/18 11:45 Prinivil PO 10 mg DAILY TYLER Administration Nicotine 21 mg 07/15/18 10:00 07/19/18 11:45 Nicoderm Patch - TD 21 mg DAILY TYLER Administration Thiamine HCl 100 mg 07/15/18 10:00 07/19/18 11:45 Vitamin B1 - PO 100 mg DAILY TYLER Administration ASSESSMENT/PLAN: Patient is a 47 year old male with history of polysubstance abuse (cocaine, alcohol), insulin dependent diabetes mellitus, hypertension, presents from [facility] for left buttock pain. Gluteal abscess -Pelvic CT notes soft tissue swelling, and subcutaneous edema without drainable collection. -ID recommendations (Dr. Romero) appreciated -Vancomycin switched to Doxycycline 100mg PO BID -Blood cultures negative for growth after 5 days -Wound cultures grow MRSA and Strep Agalactiae group B -General surgery consult appreciated (Dr. Marin) -no drainable collection at this time -Warm compress, zitz baths -Tylenol 650mg PO Q6H PRN for pain 6-10 Insulin dependent diabetes mellitus -Poorly controlled. HbA1c 14.8 -Holding home medications -Levemir increased to 40 units BID -Gabapentin 100mg PO BID for neuropathy -ISS ACHS -BGM ACHS Polysubstance abuse -Utox positive for cocaine at time of admission -Librium protocol -Nicotine patch 21mg TD daily -Thiamine 100mg daily -Folate 1mg daily -Detox consult (Dr. Diggs) -Fall precautions -Aspiration precautions S/P Fall -CT head negative for acute intracranial pathology -Thoracic and lumbar radiographs show degenerative changes with wedging -Lumbar MRI shows levoscoliosis, L5-S1 herniation with mass effect on S1 nerve root, soft tissue mass lateral to spleen. -F/U Chest and upper abdomen CT shows abi splenic mass to be lipoma. Notes B /L adrenal benign adenomas -Orthopedic surgery recommendations appreciated. Patient will f/u with neurosurgery as outpatient. Left knee pain -History of prior surgery two months ago, with prior infection -Left knee xray shows osteoarthritis, joint space narrowing -ESR, CRP elevated -Orthopedic surgery consult (Dr. Loya) appreciated. Patient will follow up as outpatient. -Pain control with Tylenol Hypertension -Reinstate lisinopril 10mg PO daily Hyperlipidemia -Atorvastatin 10mg PO QHS FEN -No IV fluids indicated at this time. -Follow CMP -Diabetic diet (low salt, low cholesterol) Prophylaxis -Lovenox 40mg SQ daily Disposition -Continue care in medical-surgical floor. Pending SNF placement. Visit type - Emergency Visit Emergency Visit: Yes ED Registration Date: 07/15/18 Care time: The patient presented to the Emergency Department on the above date and was hospitalized for further evaluation of their emergent condition. - New Patient This patient is new to me today: No - Critical Care Critical Care patient: No - Discharge Referral Referred to [facility] Med P.C.: No
--- NOTE | 2018-07-20 08:32 | PN ---
Teaching Attending Note Name of Resident: Malik Estrada ATTENDING PHYSICIAN STATEMENT I saw and evaluated the patient. I reviewed the resident's note and discussed the case with the resident. I agree with the resident's findings and plan as documented with exceptions below. SUBJECTIVE: Patient seen and examined. right buttock symptoms improved, no new back pain or concerns. OBJECTIVE: Vital Signs Period Temp Pulse Resp BP Sys/Harding Pulse Ox Last 24 Hr 98 F-98.4 F 84-98 18-24 118-127/66-74 97-97 Intake & Output 07/17/18 07/18/18 07/19/18 07/20/18 23:59 23:59 23:59 23:59 Intake Total 2600 950 900 400 Output Total 1400 1800 700 Balance 2600 -450 -900 -300 General: lying in bed in no acute distress Back overall unchanged right gluteal induration, no erythema or discharge, minimal tenderness Abdomen; soft NT Extremities: no new bo/erythema, unchanged ROM Active Medications Acetaminophen (Tylenol -) 650 mg PO Q6H PRN PRN Reason: PAIN LEVEL 6-10 Last Admin: 07/18/18 23:06 Dose: 650 mg Atorvastatin Calcium (Lipitor -) 10 mg PO HS [facility] Last Admin: 07/19/18 21:58 Dose: 10 mg Bacitracin (Bacitracin -) 1 applic TP BID [facility] Last Admin: 07/19/18 21:58 Dose: 1 applic Doxycycline Hyclate (Vibramycin -) 100 mg PO BID@1000,1800 [facility] Last Admin: 07/19/18 20:01 Dose: 100 mg Enoxaparin Sodium (Lovenox -) 40 mg SQ DAILY [facility] Last Admin: 07/19/18 11:45 Dose: 40 mg Folic Acid (Folic Acid -) 1 mg PO DAILY [facility] Last Admin: 07/19/18 11:45 Dose: 1 mg Gabapentin (Neurontin -) 100 mg PO BID [facility] Last Admin: 07/19/18 21:58 Dose: 100 mg Insulin Aspart (Novolog Vial Sliding Scale -) 1 vial SQ ACHS [facility]; Protocol Last Admin: 07/20/18 06:36 Dose: 4 unit Insulin Detemir (Levemir Vial) 30 units SQ BID@0700,2200 [facility] Last Admin: 07/20/18 06:36 Dose: 30 units Lisinopril (Prinivil) 10 mg PO DAILY [facility] Last Admin: 07/19/18 11:45 Dose: 10 mg Nicotine (Nicoderm Patch -) 21 mg TD DAILY [facility] Last Admin: 07/19/18 11:45 Dose: 21 mg Thiamine HCl (Vitamin B1 -) 100 mg PO DAILY [facility] Last Admin: 07/19/18 11:45 Dose: 100 mg Laboratory Results - last 24 hr 07/19/18 07/19/18 07/19/18 06:20 11:49 17:17 Sodium 140 Potassium 4.2 Chloride 103 Carbon Dioxide 29 Anion Gap 7 L BUN 13 Creatinine 0.8 Creat Clearance w eGFR > 60 POC Glucometer 231 292 Random Glucose 218 H Calcium 9.1 Phosphorus 3.8 Magnesium 1.7 L Total Bilirubin 0.2 AST 12 L ALT 18 Alkaline Phosphatase 80 Total Protein 6.4 Albumin 2.6 L 07/19/18 07/20/18 21:55 06:31 Sodium Potassium Chloride Carbon Dioxide Anion Gap BUN Creatinine Creat Clearance w eGFR POC Glucometer 273 226 Random Glucose Calcium Phosphorus Magnesium Total Bilirubin AST ALT Alkaline Phosphatase Total Protein Albumin Microbiology 07/14/18 17:15 Blood - Peripheral Venous Blood Culture - Final NO GROWTH AFTER 5 DAYS INCUBATION 07/14/18 17:00 Blood - Peripheral Venous Blood Culture - Final NO GROWTH AFTER 5 DAYS INCUBATION 07/15/18 10:45 Buttock - Left Gram Stain - Final 07/15/18 10:45 Buttock - Left Wound Culture - Final Mr S Aureus Strep Agalactiae Group B MRI L spine results reviewed ASSESSMENT AND PLAN: 47 yom with PMHx of Polysubstance abuse (Cocaine, EtOH), IDDM, HTN, admitted with left gluteal cellulitis+/- Abscess -MRSA left gluteal cellulitis/abscess _left knee pain/swelling, ?recent washout for abscess at [facility] 3 weeks ago -IDDM, poorly controlled, A1c 14.8 -Diabetic/starvation ketosis -Polysubstance abuse with cocaine/ETOH -HTN -Hypomagnesemia -Fall -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 Plan: Clinically improved. Self drainage. Wound cx noted Zosyn d/mariel. Vancomycin day , doxycycline for 7-10 days. Surgery/ID consult appreciated. Sitz bath/warm compresses. Blood cx neg so far. Orthopedic input appreciated. PT eval noted, rec SNF. Lumbar MRI noted, degen changes, ?soft tissue mass lateral to spleen, CT Chest/ upper abdo prior to dc Patient reports non compliance with insulin and diet. Diabetic education. Increase Levemir to 40 units BID, ISS, diabetic diet. Titrate up as tolerated. High sugars likely from getting multiple trays and dietary non compliance. Hold glyburide/Metformin. Resumed lisinopril/gabapentin/atorvastatin. Continue ASA Replete Mg. DVTPPX with lovenox PT rec SNf. Discussed with CM Dispo plan for d/c to SNF on po abx when disposition arranged. Plan discussed with patientand nursing in detail, all questions answered.
[2018-07-20] MEDS: ENOXAPARIN NA (PORCINE) 40 MG/0.4 ML DISP.SYRIN SQ SCH (11:14)
[2018-07-20] MEDS: NICOTINE 21 MG/24 HOURS TOPICAL PATCH TD SCH (11:15)
[2018-07-20] MEDS: DOXYCYCLINE HYCLATE 100 MG CAPSULE PO SCH ×2 (11:15→17:32)
[2018-07-20] MEDS: FOLIC ACID 1 MG TABLET (FP) PO SCH (11:15)
[2018-07-20] MEDS: GABAPENTIN 100 MG CAPSULE (FP) PO SCH ×2 (11:15→22:17)
[2018-07-20] MEDS: THIAMINE HCL 100 MG TABLET (FP) PO SCH (11:15)
[2018-07-20] MEDS: LISINOPRIL 10 MG TABLET (FP) PO SCH (11:15)
[2018-07-20] MEDS: BACITRACIN 15 GM TUBE TOPICAL OINTMENT TP SCH ×2 (11:15→22:19)
--- NOTE | 2018-07-20 15:18 | PN ---
Progress Note, Physician History of Present Illness: no other issues still hard at the wound site - Current Medication List Current Medications: Active Medications Acetaminophen (Tylenol -) 650 mg PO Q6H PRN PRN Reason: PAIN LEVEL 6-10 Last Admin: 07/18/18 23:06 Dose: 650 mg Atorvastatin Calcium (Lipitor -) 10 mg PO HS [facility] Last Admin: 07/19/18 21:58 Dose: 10 mg Bacitracin (Bacitracin -) 1 applic TP BID [facility] Last Admin: 07/20/18 11:15 Dose: 1 applic Doxycycline Hyclate (Vibramycin -) 100 mg PO BID@1000,1800 [facility] Last Admin: 07/20/18 11:15 Dose: 100 mg Enoxaparin Sodium (Lovenox -) 40 mg SQ DAILY [facility] Last Admin: 07/20/18 11:14 Dose: 40 mg Folic Acid (Folic Acid -) 1 mg PO DAILY [facility] Last Admin: 07/20/18 11:15 Dose: 1 mg Gabapentin (Neurontin -) 100 mg PO BID [facility] Last Admin: 07/20/18 11:15 Dose: 100 mg Insulin Aspart (Novolog Vial Sliding Scale -) 1 vial SQ [facility]; Protocol Last Admin: 07/20/18 06:36 Dose: 4 unit Insulin Detemir (Levemir Vial) 40 units SQ BID@0700,2200 [facility] Lisinopril (Prinivil) 10 mg PO DAILY [facility] Last Admin: 07/20/18 11:15 Dose: 10 mg Nicotine (Nicoderm Patch -) 21 mg TD DAILY [facility] Last Admin: 07/20/18 11:15 Dose: 21 mg Thiamine HCl (Vitamin B1 -) 100 mg PO DAILY [facility] Last Admin: 07/20/18 11:15 Dose: 100 mg - Objective Vital Signs: Vital Signs Temperature 98 F 07/20/18 06:00 Pulse Rate 84 07/20/18 06:00 Respiratory Rate 20 07/20/18 06:00 Blood Pressure 122/74 07/20/18 06:00 O2 Sat by Pulse Oximetry (%) 97 07/19/18 21:00 Constitutional: Yes: No Distress, Calm Cardiovascular: Yes: Regular Rate and Rhythm Respiratory: Yes: Regular, CTA Bilaterally Gastrointestinal: Yes: Normal Bowel Sounds, Soft Musculoskeletal: Yes: WNL Extremities: Yes: WNL Wound/Incision: Yes: Other Neurological: Yes: Alert, Oriented Labs: CBC, BMP 07/19/18 06:20 07/19/18 06:20 INR, PTT INR 0.93 (0.83-1.09) 07/14/18 17:00 Assessment/Plan 47 y/o M with PMhx of Polysubstance abuse (Cocaine, EtOH), IDDM, HTN presents from [facility] with Left Buttock pain Problem List - Problems (1) Abscess Code(s): L02.91 - CUTANEOUS ABSCESS, UNSPECIFIED (2) Alcohol dependence Code(s): F10.20 - ALCOHOL DEPENDENCE, UNCOMPLICATED Qualifiers: Substance use status: uncomplicated Qualified Code(s): F10.20 - Alcohol dependence, uncomplicated (3) History of left knee surgery Code(s): Z98.890 - OTHER SPECIFIED POSTPROCEDURAL STATES (4) Bipolar disorder, unspecified Code(s): F31.9 - BIPOLAR DISORDER, UNSPECIFIED Qualifiers: (5) Diabetes mellitus, insulin dependent (IDDM), uncontrolled Code(s): E10.65 - TYPE 1 DIABETES MELLITUS WITH HYPERGLYCEMIA (6) Essential hypertension Code(s): I10 - ESSENTIAL (PRIMARY) HYPERTENSION (7) Hypercholesteremia Code(s): E78.0 - PURE HYPERCHOLESTEROLEMIA * DO NOT USE * Assessment/Plan Lt Buttock Abscess/cellulitis +MRSA Uncontrolled IDDM HTN Polysubstance abuse Lt knee pain s/p Fall plan continue oral abx wound care rest as per the team incentive anthony
[2018-07-20] MEDS: ATORVASTATIN CA 10 MG TABLET (FP) PO SCH (22:17)
[2018-07-20] MEDS: ACETAMINOPHEN 325 MG TABLET (FP) PO PRN (23:43)
[2018-07-21] MEDS: INSULIN (LEVEMIR) 100 UNITS/ML UNITS SQ SCH ×2 (06:50→22:22)
[2018-07-21] MEDS: INSULIN SLIDING SCALE (NOVOLOG) 1 VIAL SQ SCH ×4 (06:50→22:26)
[2018-07-21 07:43] LABS: HEMATOCRIT 37.4 % (35.4-49); HEMOGLOBIN 11.9 GM/dL (11.7-16.9); MCH 27.9 pg (25.7-33.7); MCHC 31.8 g/dl (32.0-35.9); MEAN CELL VOLUME 87.8 fl (80-96); PLATELET COUNT 438 K/MM3 (134-434); RBC 4.26 M/mm3 (4.00-5.60); RDW 15.6 % (11.9-15.9); WHITE BLOOD COUNT 7.7 K/mm3 (4.0-10.0)
[2018-07-21 08:03] LABS: ALBUMIN 2.6 g/dl (3.4-5.0); ALK PHOS 83 U/L (45-117); ANION GAP 6 MMOL/L (8-16); BILIRUBIN,TOTAL 0.2 mg/dL (0.2-1); BLOOD UREA NITROGEN 15 mg/dL (7-18); CALCIUM 8.6 mg/dL (8.5-10.1); CHLORIDE 104 mmol/L (98-107); CO2 30 mmol/L (21-32); CREATININE 0.9 mg/dL (0.55-1.3); GLUCOSE,RANDOM 199 mg/dL (74-106); POTASSIUM 4.3 mmol/L (3.5-5.1); SGOT/AST 13 U/L (15-37); SGPT/ALT 22 U/L (13-61); SODIUM 140 mmol/L (136-145); TOT PROT 6.6 g/dl (6.4-8.2)
[2018-07-21] MEDS: NICOTINE 21 MG/24 HOURS TOPICAL PATCH TD SCH (09:26)
[2018-07-21] MEDS: BACITRACIN 15 GM TUBE TOPICAL OINTMENT TP SCH ×2 (09:26→22:22)
[2018-07-21] MEDS: GABAPENTIN 100 MG CAPSULE (FP) PO SCH ×2 (09:26→22:23)
[2018-07-21] MEDS: THIAMINE HCL 100 MG TABLET (FP) PO SCH (09:26)
[2018-07-21] MEDS: FOLIC ACID 1 MG TABLET (FP) PO SCH (09:26)
[2018-07-21] MEDS: LISINOPRIL 10 MG TABLET (FP) PO SCH (09:26)
[2018-07-21] MEDS: DOXYCYCLINE HYCLATE 100 MG CAPSULE PO SCH ×2 (09:26→17:11)
[2018-07-21] MEDS: ENOXAPARIN NA (PORCINE) 40 MG/0.4 ML DISP.SYRIN SQ SCH (09:26)
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
--- NOTE | 2018-07-21 13:48 | PN ---
Progress Note, Physician History of Present Illness: 47 yom with PMHx of Polysubstance abuse (Cocaine, EtOH), IDDM, HTN, admitted with left gluteal cellulitis+/- Abscess - Current Medication List Current Medications: Active Medications Acetaminophen (Tylenol -) 650 mg PO Q6H PRN PRN Reason: PAIN LEVEL 6-10 Last Admin: 07/20/18 23:43 Dose: 650 mg Atorvastatin Calcium (Lipitor -) 10 mg PO HS [facility] Last Admin: 07/20/18 22:17 Dose: 10 mg Bacitracin (Bacitracin -) 1 applic TP BID [facility] Last Admin: 07/21/18 09:26 Dose: 1 applic Doxycycline Hyclate (Vibramycin -) 100 mg PO BID@1000,1800 [facility] Last Admin: 07/21/18 09:26 Dose: 100 mg Enoxaparin Sodium (Lovenox -) 40 mg SQ DAILY [facility] Last Admin: 07/21/18 09:26 Dose: 40 mg Folic Acid (Folic Acid -) 1 mg PO DAILY [facility] Last Admin: 07/21/18 09:26 Dose: 1 mg Gabapentin (Neurontin -) 100 mg PO BID [facility] Last Admin: 07/21/18 09:26 Dose: 100 mg Insulin Aspart (Novolog Vial Sliding Scale -) 1 vial SQ ACHS [facility]; Protocol Last Admin: 07/21/18 12:11 Dose: 4 unit Insulin Detemir (Levemir Vial) 40 units SQ BID@0700,2200 [facility] Last Admin: 07/21/18 06:50 Dose: 40 units Lisinopril (Prinivil) 10 mg PO DAILY [facility] Last Admin: 07/21/18 09:26 Dose: 10 mg Nicotine (Nicoderm Patch -) 21 mg TD DAILY [facility] Last Admin: 07/21/18 09:26 Dose: 21 mg Thiamine HCl (Vitamin B1 -) 100 mg PO DAILY [facility] Last Admin: 07/21/18 09:26 Dose: 100 mg - Objective Vital Signs: Vital Signs Temperature 98.0 F 07/21/18 10:00 Pulse Rate 95 H 07/21/18 10:00 Respiratory Rate 20 07/21/18 10:00 Blood Pressure 107/67 07/21/18 10:00 O2 Sat by Pulse Oximetry (%) 100 07/21/18 09:00 Constitutional: Yes: Well Nourished, No Distress, Calm Eyes: Yes: WNL, Conjunctiva Clear, EOM Intact HENT: Yes: WNL, Atraumatic, Normocephalic Neck: Yes: WNL, Supple, Trachea Midline Cardiovascular: Yes: WNL, Regular Rate and Rhythm, S1, S2 Respiratory: Yes: WNL, Regular, CTA Bilaterally Gastrointestinal: Yes: WNL, Normal Bowel Sounds, Soft Musculoskeletal: Yes: WNL Extremities: Yes: WNL Integumentary: Yes: WNL Neurological: Yes: WNL, Alert, Oriented ...Motor Strength: WNL Psychiatric: Yes: WNL, Alert, Oriented Labs: CBC, BMP 07/21/18 06:00 07/21/18 06:00 INR, PTT INR 0.93 (0.83-1.09) 07/14/18 17:00 Problem List - Problems (1) Abscess Code(s): L02.91 - CUTANEOUS ABSCESS, UNSPECIFIED (2) Alcohol dependence with uncomplicated withdrawal Code(s): F10.230 - ALCOHOL DEPENDENCE WITH WITHDRAWAL, UNCOMPLICATED (3) Diabetes mellitus, insulin dependent (IDDM), uncontrolled Code(s): E10.65 - TYPE 1 DIABETES MELLITUS WITH HYPERGLYCEMIA (4) Essential hypertension Code(s): I10 - ESSENTIAL (PRIMARY) HYPERTENSION (5) Hypercholesteremia Code(s): E78.0 - PURE HYPERCHOLESTEROLEMIA * DO NOT USE * (6) Neuropathic pain of both feet Code(s): G62.9 - POLYNEUROPATHY, UNSPECIFIED (7) Nicotine dependence Code(s): F17.200 - NICOTINE DEPENDENCE, UNSPECIFIED, UNCOMPLICATED Qualifiers: Nicotine product type: cigarettes Substance use status: uncomplicated Qualified Code(s): F17.210 - Nicotine dependence, cigarettes, uncomplicated (8) Diabetic nephropathy associated with type 2 diabetes mellitus Code(s): E11.21 - TYPE 2 DIABETES MELLITUS WITH DIABETIC NEPHROPATHY Assessment/Plan -MRSA left gluteal cellulitis/abscess - s/p drainage - f/u wound culture - Vancomycin day , doxycycline for 7-10 days. - Surgery/ID consult appreciated. - Sitz bath/warm compresses _left knee pain/swelling, ?recent washout for abscess at [facility] 3 weeks ago - Orthopedic input appreciated. - PT eval noted, rec SNF. - Lumbar MRI noted, degen changes, ?soft tissue mass lateral to spleen, CT Chest/upper abdo prior to dc -IDDM, poorly controlled, A1c 14.8 - Diabetic education. - Increase Levemir to 40 units BID, ISS, diabetic diet. Titrate up as tolerated. High sugars likely from getting multiple trays and dietary non compliance. - Hold glyburide/Metformin. Neuropathy - c/w gabapentin Dyslipideamia: - c/w atorvastatin HTN: - c/w lisinoprol Diabetic Nephropathy: - c/w lisinopril - c/w tight glycemic control. -Polysubstance abuse with cocaine/ETOH -HTN -Hypomagnesemia -Fall -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 Continue ASA DVTPPX with lovenox Discussed with CM Dispo plan for d/c to SNF on po abx when disposition arranged. Plan discussed with patientand nursing in detail, all questions answered
[2018-07-21] MEDS ORDERED: KETOROLAC TROMETHAMINE 30 MG/1 ML VIAL IVPB ONE ×2 (16:30→17:00)
[2018-07-21] MEDS: ATORVASTATIN CA 10 MG TABLET (FP) PO SCH (22:23)
[2018-07-22] MEDS: INSULIN (LEVEMIR) 100 UNITS/ML UNITS SQ SCH (06:42)
[2018-07-22] MEDS: INSULIN SLIDING SCALE (NOVOLOG) 1 VIAL SQ SCH ×2 (06:42→12:24)
[2018-07-22 09:47] LABS: BASO % 0.2 % (0-2.0); EOS % 2.9 % (0-4.5); HEMATOCRIT 36.8 % (35.4-49); HEMOGLOBIN 12.8 GM/dL (11.7-16.9); LYMPH % 34.6 % (8-40); MCH 30.1 pg (25.7-33.7); MCHC 34.7 g/dl (32.0-35.9); MEAN CELL VOLUME 86.7 fl (80-96); MEAN PLT VOLUME 8.4 fl (7.5-11.1); MONO % 6.7 % (3.8-10.2); NEUT % 55.6 % (42.8-82.8); PLATELET COUNT 453 K/MM3 (134-434); RBC 4.25 M/mm3 (4.00-5.60); RDW 15.2 % (11.9-15.9); WHITE BLOOD COUNT 8.8 K/mm3 (4.0-10.0)
[2018-07-22] MEDS: THIAMINE HCL 100 MG TABLET (FP) PO SCH (09:48)
[2018-07-22] MEDS: LISINOPRIL 10 MG TABLET (FP) PO SCH (09:48)
[2018-07-22] MEDS: FOLIC ACID 1 MG TABLET (FP) PO SCH (09:48)
[2018-07-22] MEDS: DOXYCYCLINE HYCLATE 100 MG CAPSULE PO SCH (09:48)
[2018-07-22] MEDS: GABAPENTIN 100 MG CAPSULE (FP) PO SCH (09:48)
[2018-07-22] MEDS: NICOTINE 21 MG/24 HOURS TOPICAL PATCH TD SCH (09:49)
[2018-07-22] MEDS: BACITRACIN 15 GM TUBE TOPICAL OINTMENT TP SCH (09:49)
[2018-07-22] MEDS: ENOXAPARIN NA (PORCINE) 40 MG/0.4 ML DISP.SYRIN SQ SCH (09:54)
[2018-07-22 10:03] LABS: INR 0.89 (0.83-1.09); PROTHROMBIN TIME (PATIENT) 10.5 SEC (9.7-13.0)
[2018-07-22 10:27] LABS: ALBUMIN 2.9 g/dl (3.4-5.0); ALK PHOS 95 U/L (45-117); ANION GAP 8 MMOL/L (8-16); BILIRUBIN,TOTAL 0.2 mg/dL (0.2-1); BLOOD UREA NITROGEN 23 mg/dL (7-18); CALCIUM 8.6 mg/dL (8.5-10.1); CHLORIDE 106 mmol/L (98-107); CO2 25 mmol/L (21-32); CREATININE 0.9 mg/dL (0.55-1.3); GLUCOSE,RANDOM 220 mg/dL (74-106); MAGNESIUM 1.7 mg/dL (1.8-2.4); PHOSPHOROUS 3.7 mg/dL (2.5-4.9); POTASSIUM 4.2 mmol/L (3.5-5.1); SGOT/AST 12 U/L (15-37); SGPT/ALT 23 U/L (13-61); SODIUM 138 mmol/L (136-145); TOT PROT 7.1 g/dl (6.4-8.2)
--- NOTE | 2018-07-22 10:35 | PN ---
Progress Note, Physician History of Present Illness: still c/o of buttock pain no new issues - Current Medication List Current Medications: Active Medications Acetaminophen (Tylenol -) 650 mg PO Q6H PRN PRN Reason: PAIN LEVEL 6-10 Last Admin: 07/20/18 23:43 Dose: 650 mg Atorvastatin Calcium (Lipitor -) 10 mg PO HS [facility] Last Admin: 07/21/18 22:23 Dose: 10 mg Bacitracin (Bacitracin -) 1 applic TP BID [facility] Last Admin: 07/22/18 09:49 Dose: 1 applic Doxycycline Hyclate (Vibramycin -) 100 mg PO BID@1000,1800 [facility] Last Admin: 07/22/18 09:48 Dose: 100 mg Enoxaparin Sodium (Lovenox -) 40 mg SQ DAILY [facility] Last Admin: 07/22/18 09:54 Dose: 40 mg Folic Acid (Folic Acid -) 1 mg PO DAILY [facility] Last Admin: 07/22/18 09:48 Dose: 1 mg Gabapentin (Neurontin -) 100 mg PO BID [facility] Last Admin: 07/22/18 09:48 Dose: 100 mg Insulin Aspart (Novolog Vial Sliding Scale -) 1 vial SQ [facility]; Protocol Last Admin: 07/22/18 06:42 Dose: 4 unit Insulin Detemir (Levemir Vial) 40 units SQ BID@0700,2200 [facility] Last Admin: 07/22/18 06:42 Dose: 40 units Lisinopril (Prinivil) 10 mg PO DAILY [facility] Last Admin: 07/22/18 09:48 Dose: 10 mg Nicotine (Nicoderm Patch -) 21 mg TD DAILY [facility] Last Admin: 07/22/18 09:49 Dose: 21 mg Thiamine HCl (Vitamin B1 -) 100 mg PO DAILY [facility] Last Admin: 07/22/18 09:48 Dose: 100 mg - Objective Vital Signs: Vital Signs Temperature 98.3 F 07/22/18 06:00 Pulse Rate 93 H 07/22/18 06:00 Respiratory Rate 18 07/22/18 06:00 Blood Pressure 124/72 07/22/18 06:00 O2 Sat by Pulse Oximetry (%) 97 07/21/18 21:00 Constitutional: Yes: No Distress, Calm Neck: Yes: Supple, Trachea Midline Cardiovascular: Yes: Regular Rate and Rhythm Respiratory: Yes: Regular, CTA Bilaterally Gastrointestinal: Yes: Normal Bowel Sounds, Soft Musculoskeletal: Yes: WNL Extremities: Yes: WNL Wound/Incision: Yes: Dressing Dry and Intact Neurological: Yes: Alert Labs: CBC, BMP 07/22/18 09:00 07/22/18 09:00 INR, PTT INR 0.89 (0.83-1.09) 07/22/18 09:00 Assessment/Plan 47 y/o M with PMhx of Polysubstance abuse (Cocaine, EtOH), IDDM, HTN presents from [facility] with Left Buttock pain Problem List - Problems (1) Abscess Code(s): L02.91 - CUTANEOUS ABSCESS, UNSPECIFIED (2) Alcohol dependence Code(s): F10.20 - ALCOHOL DEPENDENCE, UNCOMPLICATED Qualifiers: Substance use status: uncomplicated Qualified Code(s): F10.20 - Alcohol dependence, uncomplicated (3) History of left knee surgery Code(s): Z98.890 - OTHER SPECIFIED POSTPROCEDURAL STATES (4) Bipolar disorder, unspecified Code(s): F31.9 - BIPOLAR DISORDER, UNSPECIFIED Qualifiers: (5) Diabetes mellitus, insulin dependent (IDDM), uncontrolled Code(s): E10.65 - TYPE 1 DIABETES MELLITUS WITH HYPERGLYCEMIA (6) Essential hypertension Code(s): I10 - ESSENTIAL (PRIMARY) HYPERTENSION (7) Hypercholesteremia Code(s): E78.0 - PURE HYPERCHOLESTEROLEMIA * DO NOT USE * Assessment/Plan Lt Buttock Abscess/cellulitis +MRSA Uncontrolled IDDM HTN Polysubstance abuse Lt knee pain s/p Fall plan continue oral abx wound care rest as per the team incentive anthony
--- NOTE | 2018-07-22 11:52 | PN ---
Teaching Attending Note Name of Resident: Malik Estrada ATTENDING PHYSICIAN STATEMENT I saw and evaluated the patient. I reviewed the resident's note and discussed the case with the resident. I agree with the resident's findings and plan as documented. SUBJECTIVE: Patient has no complaints. OBJECTIVE: Vital Signs Period Temp Pulse Resp BP Sys/Harding Pulse Ox Last 24 Hr 97.7 F-98.5 F 90-101 18-20 109-124/6-87 97-99 HEART: S1S2, RRR LUNGS: Clear ABDOMEN: Soft, non-tender, non-distended, normal BS EXTREMITIES: No edema Laboratory Results - last 24 hr 07/21/18 07/21/18 07/21/18 12:10 16:19 22:25 WBC RBC Hgb Hct MCV MCH MCHC RDW Plt Count MPV Absolute Neuts (auto) Neutrophils % Lymphocytes % Monocytes % Eosinophils % Basophils % Nucleated RBC % PT with INR INR Sodium Potassium Chloride Carbon Dioxide Anion Gap BUN Creatinine Creat Clearance w eGFR POC Glucometer 217 312 369 Random Glucose Calcium Phosphorus Magnesium Total Bilirubin AST ALT Alkaline Phosphatase Total Protein Albumin 07/22/18 07/22/18 07/22/18 05:46 09:00 09:00 WBC 8.8 RBC 4.25 Hgb 12.8 Hct 36.8 MCV 86.7 MCH 30.1 MCHC 34.7 RDW 15.2 Plt Count 453 H MPV 8.4 Absolute Neuts (auto) 4.9 Neutrophils % 55.6 Lymphocytes % 34.6 Monocytes % 6.7 Eosinophils % 2.9 Basophils % 0.2 Nucleated RBC % 0 PT with INR 10.50 INR 0.89 Sodium Potassium Chloride Carbon Dioxide Anion Gap BUN Creatinine Creat Clearance w eGFR POC Glucometer 249 Random Glucose Calcium Phosphorus Magnesium Total Bilirubin AST ALT Alkaline Phosphatase Total Protein Albumin 07/22/18 07/22/18 09:00 11:28 WBC RBC Hgb Hct MCV MCH MCHC RDW Plt Count MPV Absolute Neuts (auto) Neutrophils % Lymphocytes % Monocytes % Eosinophils % Basophils % Nucleated RBC % PT with INR INR Sodium 138 Potassium 4.2 Chloride 106 Carbon Dioxide 25 Anion Gap 8 BUN 23 H Creatinine 0.9 Creat Clearance w eGFR > 60 POC Glucometer 275 Random Glucose 220 H Calcium 8.6 Phosphorus 3.7 Magnesium 1.7 L Total Bilirubin 0.2 AST 12 L ALT 23 Alkaline Phosphatase 95 Total Protein 7.1 Albumin 2.9 L Current Medications Generic Name Dose Route Start Last Admin Trade Name Maximq PRN Reason Stop Dose Admin Acetaminophen 650 mg 07/15/18 15:48 07/20/18 23:43 Tylenol - PO 650 mg Q6H PRN Administration PAIN LEVEL 6-10 Atorvastatin Calcium 10 mg 07/15/18 22:00 07/21/18 22:23 Lipitor - PO 10 mg HS TYLER Administration Bacitracin 1 applic 07/19/18 22:00 07/22/18 09:49 Bacitracin - TP 1 applic BID TYLER Administration Doxycycline Hyclate 100 mg 07/19/18 15:00 07/22/18 09:48 Vibramycin - PO 100 mg BID@1000,1800 TYLER Administration Enoxaparin Sodium 40 mg 07/15/18 10:00 07/22/18 09:54 Lovenox - SQ 40 mg DAILY TYLER Administration Folic Acid 1 mg 07/15/18 10:00 07/22/18 09:48 Folic Acid - PO 1 mg DAILY TYLER Administration Gabapentin 100 mg 07/15/18 22:00 07/22/18 09:48 Neurontin - PO 100 mg BID TYLER Administration Insulin Aspart 1 vial 07/15/18 07:00 07/22/18 06:42 Novolog Vial Sliding Scale - SQ 4 unit ACHS [facility] Administration Protocol Insulin Detemir 40 units 07/20/18 09:22 07/22/18 06:42 Levemir Vial SQ 40 units BID@0700,2200 TYLER Administration Lisinopril 10 mg 07/15/18 15:30 07/22/18 09:48 Prinivil PO 10 mg DAILY TYLER Administration Nicotine 21 mg 07/15/18 10:00 07/22/18 09:49 Nicoderm Patch - TD 21 mg DAILY [facility] Administration Thiamine HCl 100 mg 07/15/18 10:00 07/22/18 09:48 Vitamin B1 - PO 100 mg DAILY TYLER Administration ASSESSMENT AND PLAN: This is a 47 year old man with a history of substance abuse, type 2 DM, HTN who presented to the ED from [facility] with left buttock pain. 1. Left gluteal MRSA cellulitis and abscess - Wound culture growing MRSA, group B Strep - Continue doxycycline x 10 days total - Continue wound care 2. Hypomagnesemia - Continue to supplement magnesium 3. HTN - Continue lisinopril 4. Hyperlipidemia - Continue Lipitor 5. Type 2 DM, uncontrolled, with neuropathy - Glyburide, metformin held - resume at discharge - Continue Levemir, Novolog sliding scale, Neurontin 6. Continuous alcohol dependence - Continue thiamine, folic acid 7. Cocaine abuse 8. Nicotine dependence - Continue nicotine patch 9. Left knee pain - Had I&D for septic patellar bursitis 5 months ago - Continue PT 10. Lumbar disc disease - Outpatient spine surgery eval 11. s/p fall 12. Anterior mediastinal lymph node - Outpatient follow up 13. Lipoma of left posterolateral upper abdominal wall 14. Bilateral adrenal adenomas - Outpatient follow up 15. Chronic interstitial lung changes - Outpatient pulmonary follow up 16. Disposition - Ok for discharge to subacute rehab at [facility] today
--- NOTE | 2018-07-22 12:06 | DS ---
Physical Exam: SUBJECTIVE: Patient seen and examined at bedside this morning. Endorses significant improvement in pain at abscess site. He denies fevers, chills, chest pain, palpitations, abdominal pain, nausea, vomiting, diarrhea, falls, loss of consciousness. OBJECTIVE: Vital Signs Period Temp Pulse Resp BP Sys/Harding Pulse Ox Last 24 Hr 97.7 F-98.5 F 90-101 18-20 109-124/6-87 97-99 PHYSICAL EXAM GENERAL: The patient is awake, alert, and fully oriented, in no acute distress. HEAD: Normal with no signs of trauma. EYES: PERRL, extraocular movements intact, sclera anicteric, conjunctiva clear. ENT: Ears normal, nares patent, oropharynx clear without exudates, moist mucous membranes. NECK: Trachea midline, full range of motion, supple without lymphadenopathy. LUNGS: Breath sounds equal, clear to auscultation bilaterally, no wheezes, no crackles, no accessory muscle use. HEART: Regular rate and rhythm, S1, S2 without murmur, rub or gallop. ABDOMEN: Soft, mild tender to palpation at RUQ. Nondistended. Normoactive bowel sounds X4 quadrants. No guarding, no rebound tenderness. No hepatosplenomegaly, no masses. EXTREMITIES: 2+ radial and dorsalis pedis pulses B/L. Vertical scar over left knee, erythematous, warm, clean, dry without discharge. Pain with passive and active flexion/ extension of left knee compared to right knee. NEUROLOGICAL: Cranial nerves II through XII grossly intact. Normal speech. No tremors. PSYCH: Normal mood, normal affect appropriate upon my encounter today. SKIN: Warm, dry. 6cm X6cm area of induration, without fluctuance at medial left buttock. Mildly tender to palpation, no purulent discharge expressed. 12 cm vertical laceration over left sided back. Clean, dry, without bleeding, drainage , healing well. LABS Laboratory Results - last 24 hr 07/21/18 07/21/18 07/21/18 12:10 16:19 22:25 WBC RBC Hgb Hct MCV MCH MCHC RDW Plt Count MPV Absolute Neuts (auto) Neutrophils % Lymphocytes % Monocytes % Eosinophils % Basophils % Nucleated RBC % PT with INR INR Sodium Potassium Chloride Carbon Dioxide Anion Gap BUN Creatinine Creat Clearance w eGFR POC Glucometer 217 312 369 Random Glucose Calcium Phosphorus Magnesium Total Bilirubin AST ALT Alkaline Phosphatase Total Protein Albumin 07/22/18 07/22/18 07/22/18 05:46 09:00 09:00 WBC 8.8 RBC 4.25 Hgb 12.8 Hct 36.8 MCV 86.7 MCH 30.1 MCHC 34.7 RDW 15.2 Plt Count 453 H MPV 8.4 Absolute Neuts (auto) 4.9 Neutrophils % 55.6 Lymphocytes % 34.6 Monocytes % 6.7 Eosinophils % 2.9 Basophils % 0.2 Nucleated RBC % 0 PT with INR 10.50 INR 0.89 Sodium Potassium Chloride Carbon Dioxide Anion Gap BUN Creatinine Creat Clearance w eGFR POC Glucometer 249 Random Glucose Calcium Phosphorus Magnesium Total Bilirubin AST ALT Alkaline Phosphatase Total Protein Albumin 07/22/18 09:00 WBC RBC Hgb Hct MCV MCH MCHC RDW Plt Count MPV Absolute Neuts (auto) Neutrophils % Lymphocytes % Monocytes % Eosinophils % Basophils % Nucleated RBC % PT with INR INR Sodium 138 Potassium 4.2 Chloride 106 Carbon Dioxide 25 Anion Gap 8 BUN 23 H Creatinine 0.9 Creat Clearance w eGFR > 60 POC Glucometer Random Glucose 220 H Calcium 8.6 Phosphorus 3.7 Magnesium 1.7 L Total Bilirubin 0.2 AST 12 L ALT 23 Alkaline Phosphatase 95 Total Protein 7.1 Albumin 2.9 L HOSPITAL COURSE: Date of Admission:07/15/18 Date of Discharge: 07/22/18 Patient is a 47 year old male with history of polysubstance abuse (cocaine, alcohol), insulin dependent diabetes mellitus, hypertension, who presented from [facility] for left buttock pain. Pelvic CT noted soft tissue swelling, and subcutaneous edema without drainable collection. Patient was evaluated by general surgeon. No incision or drainage was performed. Blood cultures negative for growth after 5 days. Wound cultures grew MRSA and Strep Agalactiae group B. Patient was given warm compress to affected area, and Sitz baths. Patient was started on Vancomycin and Zosyn, transitioned to oral Doxycycline. Patient completed Librium protocol taper, and received Thiamine, and Folate for history of alcohol abuse. Diabetes was managed with Insulin Levemir which was raised to 40 units BID, in addition to sliding scale. Hypertension managed with Lisinopril. Hyperlipidemia managed with Atorvastatin. Patient complained of left knee pain. Radiograph showed osteoarthritis with joint space narrowing. Evaluated by orthopedic surgeon who discussed Ice packs, and outpatient follow-up. Ulnar neuropathy noted, and recommended outpatient follow up with Neurology. During hospitalization, patient experienced a fall. CT head was negative for intracranial pathology. Laceration on back was treated with bacitracin cream. Thoracic and lumbar radiographs showed degenerative changes with wedging. Lumbar MRI showed levoscoliosis, L5-S1 herniation with mass effect on S1 nerve root, soft tissue mass lateral to spleen. Patient provided outpatient neurosurgery follow up. CT chest and upper abdomen performed to evaluate soft tissue mass, which was read as a lipoma. Patient provided general surgery follow up. Patient discharged to outpatient SNF with follow up to Neurology, General surgery, Neurosurgery, Orthopedic surgery. Discharged with oral Doxycycline, topical bacitracin, aspirin, atorvastatin, lisinopril, folic acid, thiamine, gabapentin, nicotine patch, insulin levemir 40 BID, and insulin sliding scale per facility protocol. Minutes to complete discharge: 35 Discharge Summary Reason For Visit: CELLULITIS HYPERGLYCEMIA Current Active Problems Abscess (Acute) Alcohol dependence (Acute) Alcohol dependence with uncomplicated withdrawal (Acute) Diabetic nephropathy associated with type 2 diabetes mellitus (Acute) History of left knee surgery (Acute) Joint pain (Acute) Arthritis (Chronic) Cocaine dependence, uncomplicated (Chronic) Diabetes mellitus, insulin dependent (IDDM), uncontrolled (Chronic) Essential hypertension (Chronic) Condition: Stable - Instructions Diet, Activity, Other Instructions: You were admitted to the hospital for a skin infection (abscess) and were treated with intravenous antibiotics Your Xray showed osteoarthritis within the left knee. You were evaluated by the orthopedic surgeon, and will follow up as outpatient. Your MRI of your back showed numerous herniated discs at, and compression of your left S1 nerve You are being discharged on antibiotic Doxycycline 100mg every 12 hours for the next 7 days. Continue taking your home medications as directed: Aspirin 81mg daily Atorvastatin 10mg nightly Gabapentin 100mg every 12 hours Lisinopril 10mg daily Folic acid 1mg daily Thiamine 100mg daily Nicotine patch 21mg Bacitracin for your skin lacerations, applied twice a day for the next week. Doxycycline 100mg every 12 hours for the next 7 days Insulin Levemir 40 units ever 12 hours. In addition, Insulin sliding scale per facility protocol. We are holding your Metformin, and Glyburide. STOP taking the Metformin, and Glyburide. You will discuss reinstating these medications with your primary care provider. Follow up with your primary are physician within the next two-three days You will follow up with the Orthopedic Surgeon Dr. Loya within one week after discharge, regarding your knee pain. You will follow up with neurology (Dr. Gonzalez) for hand/ arm weakness (ulnar neuropathy). The neurologist may do EMG/ NCV studies to evaluate the nerves in your arms. You will follow up with neurosurgeon Dr. Hartley as outpatient to evaluate compression of left spinal cord nerve noted on MRI that may be responsible for the pain and weakness you have been experiencing. A lipoma (collection of fat tissue) was noted on your CT scan, and you will follow up with general surgeon Dr. Walker to further evaluate. Return to the nearest Emergency Department if worsening symptoms, fevers, chills , shortness of breath, chest pain, palpitations, abdominal pain, nausea, vomiting, diarrhea, painful urination, blood within the urine. Referrals: Maurice Gonzalez MD [Staff Physician] - Phillip Hartley MD, [place] [Staff Physician] - Rehan Walker MD [Staff Physician] - Sher Loya DO [Staff Physician] - Disposition: CUSTODIAL FACILITY - Home Medications Comprehensive Discharge Medication List: Ambulatory Orders Aspirin [ASA -] 81 mg PO DAILY #30 tab.chew 06/12/18 Cholecalciferol (Vitamin D3) [Vitamin D -] 400 unit PO BID #60 tab 06/12/18 Atorvastatin Ca [Lipitor] 10 mg PO HS tablet 07/22/18 Bacitracin - [Bacitracin Topical Ointment -] 1 applic TP BID 7 Days #1 tube Doxycycline Hyclate [Vibramycin -] 100 mg PO BID@1000,1800 7 Days #14 capsule Folic Acid - 1 mg PO DAILY 30 Days #30 tablet 07/22/18 Gabapentin [Neurontin -] 100 mg PO BID capsule 07/22/18 Insulin (Levemir) [Levemir Vial] 40 units SQ BID@0700,2200 units 07/22/18 Insulin Sliding Scale [Novolog Vial Sliding Scale -] 1 vial SQ ACHS units 07/22 Lisinopril [Prinivil] 10 mg PO DAILY tablet 07/22/18 Nicotine Patch [Nicoderm Patch -] 21 mg TD DAILY patch 07/22/18 Thiamine HCl [Vitamin B1 -] 100 mg PO DAILY 30 Days #30 tablet 07/22/18 This patient is new to me today: No Emergency Visit: Yes ED Registration Date: 07/15/18 Care time: The patient presented to the Emergency Department on the above date and was hospitalized for further evaluation of their emergent condition. Critical Care patient: No - Discharge Referral Referred to [facility] Med P.C.: No
[2018-07-22 14:25] VITALS: BP 118/55; PULSE 88; TEMP 97.9
== END 2018-07-22 18:46 | DRG 383 ==
LOC: JERFT 14:51 → JER 14:51 → JERBED 22:48 → OBSVTOIN 07-15 00:10 → J7W 07-15 03:47
PROVIDERS: ADMIT Internal Medicine; ATTEND Internal Medicine
PROC: HZ2ZZZZ Detoxification Services for Substance Abuse Treatment (ICD-10-PCS; principal; 2018-07-15)
DX: L02.31 Cutaneous abscess of buttock (principal); F10.20 Alcohol dependence, uncomplicated; Z98.890 Other specified postprocedural states; F31.89 Other bipolar disorder; I10 Essential (primary) hypertension; E78.5 Hyperlipidemia, unspecified; E10.65 Type 1 diabetes mellitus with hyperglycemia; F14.10 Cocaine abuse, uncomplicated; F17.210 Nicotine dependence, cigarettes, uncomplicated; L03.317 Cellulitis of buttock; E83.42 Hypomagnesemia; B95.62 Methicillin resistant Staphylococcus aureus infection as the cause of diseases classified elsewhere; E10.21 Type 1 diabetes mellitus with diabetic nephropathy; M41.87 Other forms of scoliosis, lumbosacral region
CPT/HCPCS: 36415; 70450-TC; 71045-TC-FY; 71250-TC; 72070-TC-FY; 72100-TC-FY; 72148-TC; 72193-TC; 73560-TC-LT-FY; 80053; 80307; 81003; 81015; 82009; 82803; 82962; 83036; 83735; 84100; 85025; 85027; 85610; 85651; 86140; 87040; 87070; 87186; 87205; 93005; 93010; 97116-GP; 97162-GP; 99284-25; G0378; G0480; J7030

== ENCOUNTER 2018-08-06 17:57 | Inpatient (IN) | payer OTHER ==
[2018-08-06 18:10] VITALS: BMI 28.8
--- NOTE | 2018-08-06 19:50 | HP ---
CIWA Score - Admission Criteria [facility] Guidelines: Admission for Medically Managed Detox: Requires at least one of the followin. CIWA greater than 12 2. Seizures within the past 24 hours 3. Delirium tremens within the past 24 hours 4. Hallucinations within the past 24 hours 5. Acute intervention needed for co occurring medical disorder 6. Acute intervention needed for co occurring psychiatric disorder 7. Severe withdrawal that cannot be handled at a lower level of care (continued vomiting, continued diarrhea, abnormal vital signs) requiring intravenous medication and/or fluids 8. Admission ROS [facility] Chief Complaint: Here for rehab. Uses cocaine. Recently stopped alcohol use. Allergies/Adverse Reactions: Allergies Allergy/AdvReac Type Severity Reaction Status Date / Time No Known Allergies Allergy Verified 08/06/18 19:32 History of Present Illness: Alcohol use began at age 11. Cocaine use began at age 26. Nicotine use began at age 14. Longest length of sobriety x 3 years ([id number]) Hx: DM, HTN, Treated for Syphilis in past. Hx: genital warts. Denies flare-ups. Discharged from [facility] on 07/22 after being treated for buttock abscess and uncontrolled DM. At time of discharge buttock mass was 6cm x 6 cm. States took last of antibiotics yesterday. Denies tenderness at abscess. site. States abscess was much bigger and very painful to touch. States told the lump will continue to go down. Walks and drags (L) leg. Denies hx CVA - states gait is uneven r/t arthritis. Also c/o numbness and tingling at top of both feet. [employer]IST negative Exam Limitations: No Limitations - Ebola screening Have you traveled outside of the country in the last 21 days: No Have you had contact with anyone from an Ebola affected area: No Have you been sick,other than usual withdrawal symptoms: No Do you have a fever: No - Review of Systems Constitutional: Loss of Appetite EENT: reports: Dental Problems (Missing teeth. Chews and swallows okay.) Respiratory: reports: No Symptoms reported Cardiac: reports: No Symptoms Reported (Hx: HTN) GI: reports: No Symptoms Reported : reports: No Symptoms Reported Musculoskeletal: reports: Other (Chronic arthritis in knees, feet, and hands. Sometimes hurts, but not now. Increases w/ cold weather.) Integumentary: reports: Change in Hair/Nails (Thickened toe nails.), Lumps ( Gluteal lump was recently treated and is smaller and not painful. Last antibiotic was yesterday.) Neuro: reports: Numbness (States has numbness and tingling accross top of both feet and takes gabapentin) Endocrine: reports: No Symptoms Reported Hematology: reports: No Symptoms Reported Psychiatric: reports: Judgement Intact, Orientated x3 Patient History - Patient Medical History Hx Anemia: No Hx Asthma: No Hx Chronic Obstructive Pulmonary Disease (COPD): No Hx Cancer: No Hx Cardiac Disorders: No Hx Congestive Heart Failure: No Hx Hypertension: Yes (non compliance) Hx Hypercholesterolemia: Yes (non compliance) Hx Pacemaker: No HX Cerebrovascular Accident: No Hx Seizures: No Hx Dementia: No Hx Diabetes: Yes (IDDM) Hx Gastrointestinal Disorders: No Hx Liver Disease: No Hx Genitourinary Disorders: No Hx Sexually Transmitted Disorders: Yes (syphilis and genital warts) Hx Renal Disease (ESRD): No Hx Thyroid Disease: No Hx Human Immunodeficiency Virus (HIV): No Hx Hepatitis C: No Hx Depression: No Hx Suicide Attempt: No Hx Bipolar Disorder: Yes Hx Schizophrenia: Yes - Patient Surgical History Past Surgical History: No Hx Neurologic Surgery: No Hx Cataract Extraction: No Hx Cardiac Surgery: No Hx Lung Surgery: No Hx Breast Surgery: No Hx Breast Biopsy: No Hx Abdominal Surgery: No Hx Appendectomy: No Hx Cholecystectomy: No Hx Genitourinary Surgery: No Hx Section: No Hx Orthopedic Surgery: Yes (torn ligament, left knee in ) Hx Hysterectomy: No Anesthesia Reaction: No - PPD History Previous Implant?: Yes Documented Results: Negative w/proof Implanted On Prior [facility] Admission?: Yes Date: 03/12/18 Results: 0 mm PPD to be Administered?: No - Smoking Cessation Smoking history: Current every day smoker Have you smoked in the past 12 months: Yes Aproximately how many cigarettes per day: 10 Cigars Per Day: 0 Hx Chewing Tobacco Use: No Initiated information on smoking cessation: Yes 'Breaking Loose' booklet given: 08/06/18 - Substance & Tx. History Hx Alcohol Use: Yes Hx Substance Use: Yes Substance Use Type: Alcohol, Cocaine Hx Substance Use Treatment: Yes (detox, rehab) - Substances Abused Cocaine Route: Inhalation Frequency: Daily Amount used: 1 gm Age of first use: 26 Date of Last Use: 08/04/18 Alcohol Route: Oral Frequency: Daily Amount used: 6- 12oz beers Age of first use: 11 Date of Last Use: 08/03/18 Family Disease History - Family Disease History Family Disease History: Diabetes: Grandparent, Brother, Sister Admission Physical Exam [facility] - Vital Signs Vital Signs: Vital Signs - 24 hr 08/06/18 18:06 Temperature 97.7 F Pulse Rate 96 H Respiratory 18 Rate Blood Pressure 153/86 - Physical General Appearance: Yes: No Apparent Distress, Appropriately Dressed HEENTM: Yes: EOMI, Hearing grossly Normal, Normal Voice, DENIZ, Nasal Congestion Respiratory: Yes: Chest Non-Tender, Lungs Clear, Normal Breath Sounds, No Respiratory Distress Neck: Yes: No masses,lesions,Nodules, Supple Breast: Yes: Breast Exam Deferred Abdominal: Yes: Normal Bowel Sounds, Non Tender, Flat, Soft Back: Yes: Normal Inspection Musculoskeletal: Yes: full range of Motion, Other (Walks w/ limp - drags (L) leg. Leg lift and knee bend equal; FROM spine. Able to move hips from side to side. Walks w/ (L) arm hanging down loosely at side but arm has FROM. BHG strong and equal.) Extremities: Yes: Normal Capillary Refill, Normal Range of Motion, Non-Tender Neurological: Yes: senior foreman II-XII NML intact, Fully Oriented, Alert, Motor Strength 5/5, Normal Mood/Affect, Normal Response Integumentary: Yes: Normal Color, Dry, Warm, Other ((L) inner gluteal circumscribed induration at fold, round, approx 3.5 cm w/o openings, drainage or tenderness.) Lymphatic: Yes: Within Normal Limits - Diagnostic (1) Alcohol use disorder, moderate, in early remission Current Visit: Yes Status: Acute (2) History of syphilis Current Visit: Yes Status: Chronic (3) Cocaine dependence, uncomplicated Current Visit: Yes Status: Chronic (4) Diabetes mellitus, insulin dependent (IDDM), uncontrolled Current Visit: Yes Status: Chronic Qualifiers: Glycemic state: with hyperglycemia Qualified Code(s): E10.65 - Type 1 diabetes mellitus with hyperglycemia (5) Essential hypertension Current Visit: Yes Status: Chronic (6) Hypercholesteremia Current Visit: Yes Status: Chronic (7) Nicotine dependence Current Visit: Yes Status: Chronic Qualifiers: Nicotine product type: cigarettes Substance use status: uncomplicated Qualified Code(s): F17.210 - Nicotine dependence, cigarettes, uncomplicated (8) Use of cane as ambulatory aid Current Visit: Yes Status: Chronic (9) Tinea pedis Current Visit: Yes Status: Chronic Qualifiers: Laterality: bilateral Qualified Code(s): B35.3 - Tinea pedis (10) Onychomycosis Current Visit: Yes Status: Chronic (11) Lump Current Visit: Yes Status: Chronic Comment: (L) gluteal induration at fold. Recently treated for abscess. Cleared for Admission S - Detox or Rehab Claeared for Rehab Admission: Yes [facility] Breath Alcohol Content Breath Alcohol Content: 0 Urine Drug Screen - Results Drug Screen Negative: No Urine Drug Screen Results: IRA-Cocaine Inpatient Rehab Admission - Initial Determination Are CD services needed?: Yes Free of communicable disease: Yes Not in need of hospitalization: Yes - Rehab Admission Criteria Previous failed treatment: Yes Poor recovery environment: Yes Comorbidities: Yes Lacks judgement: No Patient is meeting Inpatient Rehab admission criteria:: Yes
[2018-08-06] MEDS ORDERED: P-EPHED 60MG/TRIPROLIDI 2.5MG TABLET PO PRN (20:21)
[2018-08-06] MEDS ORDERED: MAG HYDROX/AL HYDROX/SIMETH 30 ML UNIT-DOSE CUP PO PRN (20:21)
[2018-08-06] MEDS ORDERED: NICOTINE POLACRILEX 2 MG GUM BC PRN (20:21)
[2018-08-06] MEDS ORDERED: MAGNESIUM HYDROX 2400MG/30ML ORAL SUSPENSION 30 ML CUP PO PRN (20:21)
[2018-08-06] MEDS ORDERED: MENTHOL/PHENOL 1 EACH UD MM PRN (20:21)
[2018-08-06] MEDS ORDERED: hydrOXYzine PAMOATE 50 MG CAPSULE (FP) PO PRN (20:21)
[2018-08-06] MEDS ORDERED: LOPERAMIDE HCL 2 MG CAPSULE PO PRN (20:21)
[2018-08-06] MEDS ORDERED: MAGNESIUM CITRATE 300 ML BOTTLE PO PRN (20:21)
[2018-08-06] MEDS ORDERED: MELATONIN 5 MG TABLETS PO PRN (22:00)
[2018-08-06] MEDS ORDERED: INSULIN (NOVOLOG) ASPART 100 UNITS/ML 10ML VIAL ONE (22:22)
[2018-08-06] MEDS: THIAMINE HCL 100 MG TABLET (FP) PO SCH (22:23)
[2018-08-06] MEDS: ATORVASTATIN CA 10 MG TABLET (FP) PO SCH (22:23)
[2018-08-06] MEDS: GABAPENTIN 100 MG CAPSULE (FP) PO SCH (22:23)
[2018-08-06] MEDS: INSULIN SLIDING SCALE (NOVOLOG) 1 VIAL SQ SCH (22:25)
[2018-08-06] MEDS: INSULIN (LEVEMIR) 100 UNITS/ML UNITS SQ SCH (22:25)
[2018-08-06] MEDS: TOLNAFTATE 1% CREAM 15 GM TUBE TP SCH (22:27)
[2018-08-06] MEDS: CHOLECALCIFEROL (VITAMIN D3) 400 UNIT TABLET (FP) PO SCH (22:28)
[2018-08-06] MEDS: ACETAMINOPHEN 325 MG TABLET (FP) PO PRN (23:16)
[2018-08-07] MEDS ORDERED: INSULIN (NOVOLOG) ASPART 100 UNITS/ML 10ML VIAL ONE ×3 (06:44→16:44)
[2018-08-07] MEDS: INSULIN (LEVEMIR) 100 UNITS/ML UNITS SQ SCH ×2 (07:16→21:39)
[2018-08-07] MEDS: INSULIN SLIDING SCALE (NOVOLOG) 1 VIAL SQ SCH ×4 (07:19→21:39)
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
[2018-08-07 10:21] LABS: HEMATOCRIT 36.7 % (35.4-49); HEMOGLOBIN 11.6 GM/dL (11.7-16.9); MCH 27.8 pg (25.7-33.7); MCHC 31.5 g/dl (32.0-35.9); MEAN CELL VOLUME 88.3 fl (80-96); MEAN PLT VOLUME 9.7 fl (7.5-11.1); PLATELET COUNT 217 K/MM3 (134-434); RBC 4.16 M/mm3 (4.00-5.60); RDW 16.2 % (11.9-15.9); WHITE BLOOD COUNT 6.2 K/mm3 (4.0-10.0)
[2018-08-07] MEDS: LISINOPRIL 10 MG TABLET (FP) PO SCH (10:34)
[2018-08-07] MEDS: PRENATAL VITAMINS W/ FOLIC ACID TABLET (FP) PO SCH (10:35)
[2018-08-07] MEDS: GABAPENTIN 100 MG CAPSULE (FP) PO SCH ×2 (10:35→21:37)
[2018-08-07] MEDS: ASPIRIN 81 MG CHEWABLE TABLETS PO SCH (10:35)
[2018-08-07] MEDS: TOLNAFTATE 1% CREAM 15 GM TUBE TP SCH ×2 (10:36→21:39)
[2018-08-07] MEDS: NICOTINE 14 MG/24 HOURS TOPICAL PATCH TD SCH (10:37)
[2018-08-07 11:29] LABS: ALBUMIN 2.9 g/dl (3.4-5.0); ALK PHOS 91 U/L (45-117); ANION GAP 8 MMOL/L (8-16); BILIRUBIN,TOTAL 0.6 mg/dL (0.2-1); BLOOD UREA NITROGEN 12 mg/dL (7-18); CALCIUM 8.4 mg/dL (8.5-10.1); CHLORIDE 102 mmol/L (98-107); CO2 28 mmol/L (21-32); CREATININE 1.1 mg/dL (0.55-1.3); POTASSIUM 3.5 mmol/L (3.5-5.1); SGOT/AST 6 U/L (15-37); SGPT/ALT 12 U/L (13-61); SODIUM 138 mmol/L (136-145)
[2018-08-07 11:35] LABS: GLUCOSE,RANDOM 346 mg/dL (74-106)
--- NOTE | 2018-08-07 11:40 | EKG ---
Test Reason : Blood Pressure : / mmHG Vent. Rate : 079 BPM Atrial Rate : 079 BPM P-R Int : 144 ms QRS Dur : 094 ms QT Int : 364 ms P-R-T Axes : 062 -27 -60 degrees QTc Int : 417 ms NORMAL SINUS RHYTHM MODERATE VOLTAGE CRITERIA FOR LVH, MAY BE NORMAL VARIANT NONSPECIFIC ST AND T WAVE ABNORMALITY ABNORMAL ECG WHEN COMPARED WITH ECG OF 14-JUL-2018 17:29, ST NO LONGER ELEVATED IN ANTERIOR LEADS T WAVE INVERSION NOW EVIDENT IN INFERIOR LEADS NONSPECIFIC T WAVE ABNORMALITY NOW EVIDENT IN ANTERIOR LEADS Confirmed by AMBREEN WEBSTER, RICARDO ([id number]) on 08/07/2018 11:40:05 AM Referred By: Confirmed By:RICARDO CROOK MD
[2018-08-07] MEDS: CHOLECALCIFEROL (VITAMIN D3) 400 UNIT TABLET (FP) PO SCH ×2 (12:15→21:37)
--- NOTE | 2018-08-07 15:56 | PN ---
[facility] Progress Note Note: PT ADMITTED YESTERDAY TO REHAB. PT REPORTS HE IS ON METFORMIN 1000 MG PO BID AND GLYBURIDE 10 MG DAILY, LAST DOSE UNKNOWN. PT WANTS TO GET BACK ON MEDS. ALERT O X 3. NAD. PT HAD ELEVATED SUGAR THIS MORNING AND WAS NONCOMPLIANT WITH DIET REGIMEN. Vital Signs - 24 hr 08/06/18 08/06/18 08/07/18 18:06 21:35 01:16 Temperature 97.7 F 101 F H Pulse Rate 96 H 99 H Respiratory 18 18 18 Rate Blood Pressure 153/86 117/69 08/07/18 08/07/18 03:30 06:53 Temperature 97.4 F L Pulse Rate 94 H Respiratory 18 18 Rate Blood Pressure 133/82 Laboratory Tests 08/06/18 08/07/18 08/07/18 22:19 06:42 07:00 WBC 6.2 RBC 4.16 Hgb 11.6 L Hct 36.7 MCV 88.3 MCH 27.8 MCHC 31.5 L RDW 16.2 H Plt Count 217 D MPV 9.7 D Sodium Potassium Chloride Carbon Dioxide Anion Gap BUN Creatinine Creat Clearance w eGFR POC Glucometer 499 296 Random Glucose Calcium Total Bilirubin AST ALT Alkaline Phosphatase Total Protein Albumin 08/07/18 08/07/18 07:00 12:06 WBC RBC Hgb Hct MCV MCH MCHC RDW Plt Count MPV Sodium 138 Potassium 3.5 Chloride 102 Carbon Dioxide 28 Anion Gap 8 BUN 12 Creatinine 1.1 Creat Clearance w eGFR > 60 POC Glucometer 520 Random Glucose 346 H* Calcium 8.4 L Total Bilirubin 0.6 AST 6 L ALT 12 L Alkaline Phosphatase 91 Total Protein 6.0 L Albumin 2.9 L LABS NOTED PLAN:METFORMIN 500 MG PO BID RE-EVALUATE IF NOT CONTROLLED MAY ADD GLYBURIDE 10 MG PO DAILY CRYSTAL LIGHT BEVERAGE WITH SNACKS/MEALS
[2018-08-07] MEDS: metFORMIN HCL 500 MG TABLET (FP) PO SCH (16:56)
[2018-08-07] MEDS: THIAMINE HCL 100 MG TABLET (FP) PO SCH (21:36)
[2018-08-07] MEDS: ATORVASTATIN CA 10 MG TABLET (FP) PO SCH (21:36)
[2018-08-07] MEDS: traZODone HCL 100 MG TABLET (FP) PO SCH (21:37)
[2018-08-07] MEDS ORDERED: INSULIN (LEVEMIR) 100 UNITS/ML UNITS SQ ONE (22:18)
[2018-08-08] MEDS: metFORMIN HCL 500 MG TABLET (FP) PO SCH ×2 (06:36→17:02)
[2018-08-08] MEDS: glyBURIDE 5 MG TABLET (UD) PO SCH (06:37)
[2018-08-08] MEDS: INSULIN SLIDING SCALE (NOVOLOG) 1 VIAL SQ SCH ×4 (06:38→21:41)
[2018-08-08] MEDS: INSULIN (LEVEMIR) 100 UNITS/ML UNITS SQ SCH ×2 (06:38→21:38)
[2018-08-08] MEDS: LISINOPRIL 10 MG TABLET (FP) PO SCH (10:07)
[2018-08-08] MEDS: PRENATAL VITAMINS W/ FOLIC ACID TABLET (FP) PO SCH (10:07)
[2018-08-08] MEDS: ASPIRIN 81 MG CHEWABLE TABLETS PO SCH (10:07)
[2018-08-08] MEDS: CHOLECALCIFEROL (VITAMIN D3) 400 UNIT TABLET (FP) PO SCH ×2 (10:08→21:43)
[2018-08-08] MEDS: NICOTINE 14 MG/24 HOURS TOPICAL PATCH TD SCH (10:08)
[2018-08-08] MEDS: TOLNAFTATE 1% CREAM 15 GM TUBE TP SCH ×2 (10:08→21:42)
[2018-08-08] MEDS: ACETAMINOPHEN 325 MG TABLET (FP) PO PRN (10:09)
[2018-08-08] MEDS: GABAPENTIN 100 MG CAPSULE (FP) PO SCH ×2 (10:10→21:40)
[2018-08-08] MEDS ORDERED: INSULIN (NOVOLOG) ASPART 100 UNITS/ML 10ML VIAL ONE (17:05)
[2018-08-08] MEDS: traZODone HCL 100 MG TABLET (FP) PO SCH (21:40)
[2018-08-08] MEDS: THIAMINE HCL 100 MG TABLET (FP) PO SCH (21:40)
[2018-08-08] MEDS: ATORVASTATIN CA 10 MG TABLET (FP) PO SCH (21:40)
[2018-08-09] MEDS: metFORMIN HCL 500 MG TABLET (FP) PO SCH ×2 (06:31→16:54)
[2018-08-09] MEDS: glyBURIDE 5 MG TABLET (UD) PO SCH (06:31)
[2018-08-09] MEDS: INSULIN (LEVEMIR) 100 UNITS/ML UNITS SQ SCH ×2 (06:34→21:48)
[2018-08-09] MEDS: INSULIN SLIDING SCALE (NOVOLOG) 1 VIAL SQ SCH ×4 (06:45→21:52)
[2018-08-09] MEDS: ASPIRIN 81 MG CHEWABLE TABLETS PO SCH (10:04)
[2018-08-09] MEDS: LISINOPRIL 10 MG TABLET (FP) PO SCH (10:04)
[2018-08-09] MEDS: PRENATAL VITAMINS W/ FOLIC ACID TABLET (FP) PO SCH (10:04)
[2018-08-09] MEDS: NICOTINE 14 MG/24 HOURS TOPICAL PATCH TD SCH (10:04)
[2018-08-09] MEDS: GABAPENTIN 100 MG CAPSULE (FP) PO SCH ×2 (10:04→21:46)
[2018-08-09] MEDS: TOLNAFTATE 1% CREAM 15 GM TUBE TP SCH ×2 (10:05→21:49)
[2018-08-09] MEDS: CHOLECALCIFEROL (VITAMIN D3) 400 UNIT TABLET (FP) PO SCH ×2 (10:05→21:51)
[2018-08-09] MEDS ORDERED: INSULIN (NOVOLOG) ASPART 100 UNITS/ML 10ML VIAL ONE ×2 (11:59→21:50)
[2018-08-09] MEDS: THIAMINE HCL 100 MG TABLET (FP) PO SCH (21:46)
[2018-08-09] MEDS: traZODone HCL 100 MG TABLET (FP) PO SCH (21:46)
[2018-08-09] MEDS: ATORVASTATIN CA 10 MG TABLET (FP) PO SCH (21:46)
[2018-08-10] MEDS: glyBURIDE 5 MG TABLET (UD) PO SCH (06:38)
[2018-08-10] MEDS: metFORMIN HCL 500 MG TABLET (FP) PO SCH ×2 (06:39→17:05)
[2018-08-10] MEDS: INSULIN (LEVEMIR) 100 UNITS/ML UNITS SQ SCH ×2 (06:43→21:24)
[2018-08-10] MEDS: INSULIN SLIDING SCALE (NOVOLOG) 1 VIAL SQ SCH ×4 (06:52→21:24)
[2018-08-10] MEDS: ASPIRIN 81 MG CHEWABLE TABLETS PO SCH (10:37)
[2018-08-10] MEDS: LISINOPRIL 10 MG TABLET (FP) PO SCH (10:37)
[2018-08-10] MEDS: IBUPROFEN 400 MG TABLET (FP) PO PRN (10:37)
[2018-08-10] MEDS: CHOLECALCIFEROL (VITAMIN D3) 400 UNIT TABLET (FP) PO SCH ×2 (10:39→21:22)
[2018-08-10] MEDS: TOLNAFTATE 1% CREAM 15 GM TUBE TP SCH ×2 (10:40→21:25)
[2018-08-10] MEDS: GABAPENTIN 100 MG CAPSULE (FP) PO SCH ×2 (10:41→21:23)
[2018-08-10] MEDS: NICOTINE 14 MG/24 HOURS TOPICAL PATCH TD SCH (10:41)
[2018-08-10] MEDS: PRENATAL VITAMINS W/ FOLIC ACID TABLET (FP) PO SCH (10:41)
[2018-08-10] MEDS ORDERED: INSULIN (NOVOLOG) ASPART 100 UNITS/ML 10ML VIAL ONE ×2 (13:05→17:04)
[2018-08-10] MEDS: THIAMINE HCL 100 MG TABLET (FP) PO SCH (21:22)
[2018-08-10] MEDS: traZODone HCL 100 MG TABLET (FP) PO SCH (21:23)
[2018-08-10] MEDS: ATORVASTATIN CA 10 MG TABLET (FP) PO SCH (21:23)
[2018-08-10] MEDS ORDERED: INSULIN (LEVEMIR) 100 UNITS/ML UNITS SQ ONE (22:10)
[2018-08-11] MEDS: glyBURIDE 5 MG TABLET (UD) PO SCH (06:17)
[2018-08-11] MEDS: metFORMIN HCL 500 MG TABLET (FP) PO SCH ×2 (06:17→16:45)
[2018-08-11] MEDS: INSULIN (LEVEMIR) 100 UNITS/ML UNITS SQ SCH ×2 (06:33→21:43)
[2018-08-11] MEDS: INSULIN SLIDING SCALE (NOVOLOG) 1 VIAL SQ SCH ×4 (06:34→21:43)
[2018-08-11] MEDS: ASPIRIN 81 MG CHEWABLE TABLETS PO SCH (10:06)
[2018-08-11] MEDS: LISINOPRIL 10 MG TABLET (FP) PO SCH (10:06)
[2018-08-11] MEDS: GABAPENTIN 100 MG CAPSULE (FP) PO SCH ×2 (10:06→21:40)
[2018-08-11] MEDS: PRENATAL VITAMINS W/ FOLIC ACID TABLET (FP) PO SCH (10:06)
[2018-08-11] MEDS: NICOTINE 14 MG/24 HOURS TOPICAL PATCH TD SCH (10:07)
[2018-08-11] MEDS: TOLNAFTATE 1% CREAM 15 GM TUBE TP SCH ×2 (10:07→22:13)
[2018-08-11] MEDS: CHOLECALCIFEROL (VITAMIN D3) 400 UNIT TABLET (FP) PO SCH ×2 (10:52→21:40)
[2018-08-11] MEDS ORDERED: INSULIN (NOVOLOG) ASPART 100 UNITS/ML 10ML VIAL ONE ×2 (10:55→16:31)
--- NOTE | 2018-08-11 11:15 | PN ---
[facility] Progress Note (SOAP) Subjective: PT C/O FOUL SMELLING ODOR TO HIS URINE. DENIES BURNING OR PAIN ON URINATION. REPORTS FREQUENT URINATION ESPECIALLY AT NIGHT 'LIKE 3-4 TIMES". DENIES NAUSEA/ VOMITING/DIARRHEA. REPORTS REGULAR BM. ALERT O X 3. Objective: 08/11/18 11:14 Vital Signs - 24 hr 08/11/18 08/11/18 08/11/18 00:30 03:30 07:14 Temperature 97.6 F Pulse Rate 96 H Respiratory 18 18 18 Rate Blood Pressure 134/87 Laboratory Tests 08/06/18 08/07/18 08/07/18 22:19 06:42 07:00 WBC 6.2 RBC 4.16 Hgb 11.6 L Hct 36.7 MCV 88.3 MCH 27.8 MCHC 31.5 L RDW 16.2 H Plt Count 217 D MPV 9.7 D Sodium Potassium Chloride Carbon Dioxide Anion Gap BUN Creatinine Creat Clearance w eGFR POC Glucometer 499 296 Random Glucose Calcium Total Bilirubin AST ALT Alkaline Phosphatase Total Protein Albumin 08/07/18 08/07/18 08/07/18 07:00 12:06 16:56 WBC RBC Hgb Hct MCV MCH MCHC RDW Plt Count MPV Sodium 138 Potassium 3.5 Chloride 102 Carbon Dioxide 28 Anion Gap 8 BUN 12 Creatinine 1.1 Creat Clearance w eGFR > 60 POC Glucometer 520 231 Random Glucose 346 H* Calcium 8.4 L Total Bilirubin 0.6 AST 6 L ALT 12 L Alkaline Phosphatase 91 Total Protein 6.0 L Albumin 2.9 L 08/07/18 08/08/18 08/08/18 20:48 06:35 12:15 WBC RBC Hgb Hct MCV MCH MCHC RDW Plt Count MPV Sodium Potassium Chloride Carbon Dioxide Anion Gap BUN Creatinine Creat Clearance w eGFR POC Glucometer 430 156 218 Random Glucose Calcium Total Bilirubin AST ALT Alkaline Phosphatase Total Protein Albumin 08/08/18 08/08/18 08/09/18 17:01 21:37 06:30 WBC RBC Hgb Hct MCV MCH MCHC RDW Plt Count MPV Sodium Potassium Chloride Carbon Dioxide Anion Gap BUN Creatinine Creat Clearance w eGFR POC Glucometer 269 229 250 Random Glucose Calcium Total Bilirubin AST ALT Alkaline Phosphatase Total Protein Albumin 08/09/18 08/09/18 08/09/18 11:57 16:54 21:48 WBC RBC Hgb Hct MCV MCH MCHC RDW Plt Count MPV Sodium Potassium Chloride Carbon Dioxide Anion Gap BUN Creatinine Creat Clearance w eGFR POC Glucometer 284 205 323 Random Glucose Calcium Total Bilirubin AST ALT Alkaline Phosphatase Total Protein Albumin 08/10/18 08/10/18 08/10/18 06:38 12:56 17:02 WBC RBC Hgb Hct MCV MCH MCHC RDW Plt Count MPV Sodium Potassium Chloride Carbon Dioxide Anion Gap BUN Creatinine Creat Clearance w eGFR POC Glucometer 190 377 252 Random Glucose Calcium Total Bilirubin AST ALT Alkaline Phosphatase Total Protein Albumin 08/10/18 08/11/18 20:58 06:16 WBC RBC Hgb Hct MCV MCH MCHC RDW Plt Count MPV Sodium Potassium Chloride Carbon Dioxide Anion Gap BUN Creatinine Creat Clearance w eGFR POC Glucometer 214 208 Random Glucose Calcium Total Bilirubin AST ALT Alkaline Phosphatase Total Protein Albumin Assessment: 08/11/18 11:14 NAD HXDM HXHTN R/O UTI Plan: UA &UC TODAY
[2018-08-11] MEDS: ACETAMINOPHEN 325 MG TABLET (FP) PO PRN (21:40)
[2018-08-11] MEDS: ATORVASTATIN CA 10 MG TABLET (FP) PO SCH (21:40)
[2018-08-11] MEDS: traZODone HCL 100 MG TABLET (FP) PO SCH (21:40)
[2018-08-11] MEDS: THIAMINE HCL 100 MG TABLET (FP) PO SCH (21:40)
[2018-08-12] MEDS: metFORMIN HCL 500 MG TABLET (FP) PO SCH ×2 (07:01→16:44)
[2018-08-12] MEDS: glyBURIDE 5 MG TABLET (UD) PO SCH (07:01)
[2018-08-12] MEDS: INSULIN (LEVEMIR) 100 UNITS/ML UNITS SQ SCH ×2 (07:04→21:23)
[2018-08-12] MEDS: INSULIN SLIDING SCALE (NOVOLOG) 1 VIAL SQ SCH ×4 (07:49→21:25)
[2018-08-12] MEDS: NICOTINE 14 MG/24 HOURS TOPICAL PATCH TD SCH (10:00)
[2018-08-12] MEDS: GABAPENTIN 100 MG CAPSULE (FP) PO SCH ×2 (10:00→21:25)
[2018-08-12] MEDS: LISINOPRIL 10 MG TABLET (FP) PO SCH (10:00)
[2018-08-12] MEDS: PRENATAL VITAMINS W/ FOLIC ACID TABLET (FP) PO SCH (10:00)
[2018-08-12] MEDS: ASPIRIN 81 MG CHEWABLE TABLETS PO SCH (10:00)
[2018-08-12] MEDS: CHOLECALCIFEROL (VITAMIN D3) 400 UNIT TABLET (FP) PO SCH ×2 (10:01→21:25)
[2018-08-12] MEDS: TOLNAFTATE 1% CREAM 15 GM TUBE TP SCH ×2 (10:01→21:25)
[2018-08-12] MEDS ORDERED: INSULIN (NOVOLOG) ASPART 100 UNITS/ML 10ML VIAL ONE ×2 (11:57→16:04)
[2018-08-12 15:26] LABS: URINE APPEARANCE SLCLOUDY; URINE BILIRUBIN NEGATIVE (<2.0 mg/dL); URINE COLOR YELLOW; URINE GLUCOSE (UA) 3+ (NEGATIVE); URINE KETONE NEGATIVE (NEGATIVE); URINE LEUK ESTERASE 1+ (NEGATIVE); URINE NITRITE POSITIVE (NEGATIVE); URINE PROTEIN NEGATIVE (NEGATIVE); URINE UROBILINOGEN NEGATIVE mg/dL (0.2-1.0)
[2018-08-12 15:32] LABS: EPI CELLS RARE /HPF (FEW); URINE MUCUS RARE
[2018-08-12] MEDS: THIAMINE HCL 100 MG TABLET (FP) PO SCH (21:23)
[2018-08-12] MEDS: traZODone HCL 100 MG TABLET (FP) PO SCH (21:23)
[2018-08-12] MEDS: ATORVASTATIN CA 10 MG TABLET (FP) PO SCH (21:23)
[2018-08-12] MEDS ORDERED: INSULIN (LEVEMIR) 100 UNITS/ML UNITS SQ ONE (22:00)
[2018-08-13] MEDS: glyBURIDE 5 MG TABLET (UD) PO SCH (06:19)
[2018-08-13] MEDS: metFORMIN HCL 500 MG TABLET (FP) PO SCH ×2 (06:19→16:45)
[2018-08-13] MEDS: INSULIN (LEVEMIR) 100 UNITS/ML UNITS SQ SCH ×2 (06:39→21:31)
[2018-08-13] MEDS: INSULIN SLIDING SCALE (NOVOLOG) 1 VIAL SQ SCH ×4 (07:13→21:30)
--- NOTE | 2018-08-13 09:58 | PN ---
[facility] Progress Note Note: UA AND UC RESULT REVIEW: Vital Signs - 24 hr 08/12/18 08/13/18 08/13/18 10:00 00:30 03:30 Temperature Pulse Rate 78 Respiratory 18 18 Rate Blood Pressure 124/72 08/13/18 07:08 Temperature 97.8 F Pulse Rate 82 Respiratory 18 Rate Blood Pressure 148/85 Laboratory Tests 08/06/18 08/07/18 08/07/18 22:19 06:42 07:00 WBC 6.2 RBC 4.16 Hgb 11.6 L Hct 36.7 MCV 88.3 MCH 27.8 MCHC 31.5 L RDW 16.2 H Plt Count 217 D MPV 9.7 D Sodium Potassium Chloride Carbon Dioxide Anion Gap BUN Creatinine Creat Clearance w eGFR POC Glucometer 499 296 Random Glucose Calcium Total Bilirubin AST ALT Alkaline Phosphatase Total Protein Albumin Urine Color Urine Appearance Urine pH Ur Specific [place] Urine Protein Urine Glucose (UA) Urine Ketones Urine Blood Urine Nitrite Urine Bilirubin Urine Urobilinogen Ur Leukocyte Esterase Urine WBC (Auto) Urine RBC (Auto) Ur Epithelial Cells Urine Mucus 08/07/18 08/07/18 08/07/18 07:00 12:06 16:56 WBC RBC Hgb Hct MCV MCH MCHC RDW Plt Count MPV Sodium 138 Potassium 3.5 Chloride 102 Carbon Dioxide 28 Anion Gap 8 BUN 12 Creatinine 1.1 Creat Clearance w eGFR > 60 POC Glucometer 520 231 Random Glucose 346 H* Calcium 8.4 L Total Bilirubin 0.6 AST 6 L ALT 12 L Alkaline Phosphatase 91 Total Protein 6.0 L Albumin 2.9 L Urine Color Urine Appearance Urine pH Ur Specific [place] Urine Protein Urine Glucose (UA) Urine Ketones Urine Blood Urine Nitrite Urine Bilirubin Urine Urobilinogen Ur Leukocyte Esterase Urine WBC (Auto) Urine RBC (Auto) Ur Epithelial Cells Urine Mucus 08/07/18 08/08/18 08/08/18 20:48 06:35 12:15 WBC RBC Hgb Hct MCV MCH MCHC RDW Plt Count MPV Sodium Potassium Chloride Carbon Dioxide Anion Gap BUN Creatinine Creat Clearance w eGFR POC Glucometer 430 156 218 Random Glucose Calcium Total Bilirubin AST ALT Alkaline Phosphatase Total Protein Albumin Urine Color Urine Appearance Urine pH Ur Specific [place] Urine Protein Urine Glucose (UA) Urine Ketones Urine Blood Urine Nitrite Urine Bilirubin Urine Urobilinogen Ur Leukocyte Esterase Urine WBC (Auto) Urine RBC (Auto) Ur Epithelial Cells Urine Mucus 08/08/18 08/08/18 08/09/18 17:01 21:37 06:30 WBC RBC Hgb Hct MCV MCH MCHC RDW Plt Count MPV Sodium Potassium Chloride Carbon Dioxide Anion Gap BUN Creatinine Creat Clearance w eGFR POC Glucometer 269 229 250 Random Glucose Calcium Total Bilirubin AST ALT Alkaline Phosphatase Total Protein Albumin Urine Color Urine Appearance Urine pH Ur Specific [place] Urine Protein Urine Glucose (UA) Urine Ketones Urine Blood Urine Nitrite Urine Bilirubin Urine Urobilinogen Ur Leukocyte Esterase Urine WBC (Auto) Urine RBC (Auto) Ur Epithelial Cells Urine Mucus 08/09/18 08/09/18 08/09/18 11:57 16:54 21:48 WBC RBC Hgb Hct MCV MCH MCHC RDW Plt Count MPV Sodium Potassium Chloride Carbon Dioxide Anion Gap BUN Creatinine Creat Clearance w eGFR POC Glucometer 284 205 323 Random Glucose Calcium Total Bilirubin AST ALT Alkaline Phosphatase Total Protein Albumin Urine Color Urine Appearance Urine pH Ur Specific [place] Urine Protein Urine Glucose (UA) Urine Ketones Urine Blood Urine Nitrite Urine Bilirubin Urine Urobilinogen Ur Leukocyte Esterase Urine WBC (Auto) Urine RBC (Auto) Ur Epithelial Cells Urine Mucus 08/10/18 08/10/18 08/10/18 06:38 12:56 17:02 WBC RBC Hgb Hct MCV MCH MCHC RDW Plt Count MPV Sodium Potassium Chloride Carbon Dioxide Anion Gap BUN Creatinine Creat Clearance w eGFR POC Glucometer 190 377 252 Random Glucose Calcium Total Bilirubin AST ALT Alkaline Phosphatase Total Protein Albumin Urine Color Urine Appearance Urine pH Ur Specific [place] Urine Protein Urine Glucose (UA) Urine Ketones Urine Blood Urine Nitrite Urine Bilirubin Urine Urobilinogen Ur Leukocyte Esterase Urine WBC (Auto) Urine RBC (Auto) Ur Epithelial Cells Urine Mucus 08/10/18 08/11/18 08/11/18 20:58 06:16 10:54 WBC RBC Hgb Hct MCV MCH MCHC RDW Plt Count MPV Sodium Potassium Chloride Carbon Dioxide Anion Gap BUN Creatinine Creat Clearance w eGFR POC Glucometer 214 208 361 Random Glucose Calcium Total Bilirubin AST ALT Alkaline Phosphatase Total Protein Albumin Urine Color Urine Appearance Urine pH Ur Specific [place] Urine Protein Urine Glucose (UA) Urine Ketones Urine Blood Urine Nitrite Urine Bilirubin Urine Urobilinogen Ur Leukocyte Esterase Urine WBC (Auto) Urine RBC (Auto) Ur Epithelial Cells Urine Mucus 08/12/18 11:10 WBC RBC Hgb Hct MCV MCH MCHC RDW Plt Count MPV Sodium Potassium Chloride Carbon Dioxide Anion Gap BUN Creatinine Creat Clearance w eGFR POC Glucometer Random Glucose Calcium Total Bilirubin AST ALT Alkaline Phosphatase Total Protein Albumin Urine Color Yellow Urine Appearance Slcloudy Urine pH 5.0 Ur Specific [place] 1.010 Urine Protein Negative Urine Glucose (UA) 3+ H Urine Ketones Negative Urine Blood Negative Urine Nitrite Positive Urine Bilirubin Negative Urine Urobilinogen Negative Ur Leukocyte Esterase 1+ H Urine WBC (Auto) 12 Urine RBC (Auto) 1 Ur Epithelial Cells Rare Urine Mucus Rare Microbiology 08/12/18 11:10 Urine - Urine Clean Catch Urine Culture - Preliminary Lactose Fermenting Neg Bacilli PLAN;AWAITING CONFIRMATORY RESULT AND SENSITIVITY TESTING.
--- NOTE | 2018-08-13 10:31 | PN ---
S Progress Note Note: PT REPORTS HE HAD SURGERY 3 MONTHS AGO AT [facility] ON [address], [place]. PT REQUESTING FOR ONE LONE STITCH(SAYS THE REST FELL OFF) TO BE REMOVED BECAUSE HE DID NOT GO BACK RECOMMENDED POST SURGERY. LEFT KNEE:HEALING DRY SURGICAL SCAR WITH GRANULATED SKIN TISSUE AND ONE STITCH IN PLACE. PLAN;REMOVE ONE STITCH SUTURE TODAY. BACITRACIN OINTMENT APPLY DAILY
[2018-08-13] MEDS: LISINOPRIL 10 MG TABLET (FP) PO SCH (10:32)
[2018-08-13] MEDS: NICOTINE 14 MG/24 HOURS TOPICAL PATCH TD SCH (10:33)
[2018-08-13] MEDS: PRENATAL VITAMINS W/ FOLIC ACID TABLET (FP) PO SCH (10:33)
[2018-08-13] MEDS: ASPIRIN 81 MG CHEWABLE TABLETS PO SCH (10:33)
[2018-08-13] MEDS: GABAPENTIN 100 MG CAPSULE (FP) PO SCH ×2 (10:33→21:30)
[2018-08-13] MEDS: CHOLECALCIFEROL (VITAMIN D3) 400 UNIT TABLET (FP) PO SCH ×2 (10:34→21:29)
[2018-08-13] MEDS: BACITRACIN 0.9 GM PACKET TP SCH ×2 (10:34→21:29)
[2018-08-13] MEDS: TOLNAFTATE 1% CREAM 15 GM TUBE TP SCH ×2 (10:35→21:30)
[2018-08-13] MEDS: METHYL SALICYLATE/MENTHOL OINT 30 GM TUBE TP SCH ×2 (11:55→21:31)
[2018-08-13] MEDS: AMMONIUM LACTATE 12% LOTION 225 GM BOTTLE TP SCH (11:55)
[2018-08-13] MEDS ORDERED: INSULIN (NOVOLOG) ASPART 100 UNITS/ML 10ML VIAL ONE ×2 (12:22→16:04)
[2018-08-13] MEDS: ATORVASTATIN CA 10 MG TABLET (FP) PO SCH (21:29)
[2018-08-13] MEDS: THIAMINE HCL 100 MG TABLET (FP) PO SCH (21:29)
[2018-08-13] MEDS: traZODone HCL 100 MG TABLET (FP) PO SCH (21:29)
[2018-08-14] MEDS: metFORMIN HCL 500 MG TABLET (FP) PO SCH ×2 (07:04→16:45)
[2018-08-14] MEDS: glyBURIDE 5 MG TABLET (UD) PO SCH (07:04)
[2018-08-14] MEDS ORDERED: INSULIN (NOVOLOG) ASPART 100 UNITS/ML 10ML VIAL ONE ×3 (07:06→21:04)
[2018-08-14] MEDS: INSULIN (LEVEMIR) 100 UNITS/ML UNITS SQ SCH ×2 (07:30→21:31)
[2018-08-14] MEDS: INSULIN SLIDING SCALE (NOVOLOG) 1 VIAL SQ SCH ×4 (07:31→21:33)
[2018-08-14] MEDS: LISINOPRIL 10 MG TABLET (FP) PO SCH (10:09)
[2018-08-14] MEDS: ASPIRIN 81 MG CHEWABLE TABLETS PO SCH (10:09)
[2018-08-14] MEDS: PRENATAL VITAMINS W/ FOLIC ACID TABLET (FP) PO SCH (10:09)
[2018-08-14] MEDS: GABAPENTIN 100 MG CAPSULE (FP) PO SCH ×2 (10:10→21:34)
[2018-08-14] MEDS: NICOTINE 14 MG/24 HOURS TOPICAL PATCH TD SCH (10:10)
[2018-08-14] MEDS: METHYL SALICYLATE/MENTHOL OINT 30 GM TUBE TP SCH ×2 (10:10→21:34)
[2018-08-14] MEDS: BACITRACIN 0.9 GM PACKET TP SCH ×2 (10:10→21:34)
[2018-08-14] MEDS: AMMONIUM LACTATE 12% LOTION 225 GM BOTTLE TP SCH (10:11)
--- NOTE | 2018-08-14 10:38 | PN ---
[facility] Progress Note Note: FINAL UC CONFIRMATORY RESULT/SENSITIVITY RECEIVED IN SYSTEM: Vital Signs 08/14/18 08/14/18 03:30 06:44 Temperature 98.2 F Pulse Rate 87 Respiratory 20 18 Rate Blood Pressure 136/85 Microbiology 08/12/18 11:10 Urine - Urine Clean Catch Urine Culture - Final Klebsiella Pneumoniae PLAN:LEVAQUIN 500 MG PO DAILY, FIRST DOSE NOW.
[2018-08-14] MEDS: CHOLECALCIFEROL (VITAMIN D3) 400 UNIT TABLET (FP) PO SCH ×2 (11:46→21:35)
[2018-08-14] MEDS: TOLNAFTATE 1% CREAM 15 GM TUBE TP SCH ×2 (11:47→21:34)
[2018-08-14] MEDS: ATORVASTATIN CA 10 MG TABLET (FP) PO SCH (21:30)
[2018-08-14] MEDS: traZODone HCL 100 MG TABLET (FP) PO SCH (21:30)
[2018-08-14] MEDS: THIAMINE HCL 100 MG TABLET (FP) PO SCH (21:31)
[2018-08-15] MEDS: metFORMIN HCL 500 MG TABLET (FP) PO SCH ×2 (06:46→16:46)
[2018-08-15] MEDS: INSULIN (LEVEMIR) 100 UNITS/ML UNITS SQ SCH ×2 (06:50→21:35)
[2018-08-15] MEDS: glyBURIDE 5 MG TABLET (UD) PO SCH (06:59)
[2018-08-15] MEDS: INSULIN SLIDING SCALE (NOVOLOG) 1 VIAL SQ SCH ×4 (07:51→21:35)
[2018-08-15] MEDS: ASPIRIN 81 MG CHEWABLE TABLETS PO SCH (10:01)
[2018-08-15] MEDS: GABAPENTIN 100 MG CAPSULE (FP) PO SCH ×2 (10:01→21:52)
[2018-08-15] MEDS: PRENATAL VITAMINS W/ FOLIC ACID TABLET (FP) PO SCH (10:01)
[2018-08-15] MEDS: LISINOPRIL 10 MG TABLET (FP) PO SCH (10:02)
[2018-08-15] MEDS: NICOTINE 14 MG/24 HOURS TOPICAL PATCH TD SCH (10:02)
[2018-08-15] MEDS: METHYL SALICYLATE/MENTHOL OINT 30 GM TUBE TP SCH ×2 (10:02→21:35)
[2018-08-15] MEDS: AMMONIUM LACTATE 12% LOTION 225 GM BOTTLE TP SCH (10:02)
[2018-08-15] MEDS: TOLNAFTATE 1% CREAM 15 GM TUBE TP SCH ×2 (10:02→22:21)
[2018-08-15] MEDS: BACITRACIN 0.9 GM PACKET TP SCH ×2 (10:02→21:35)
[2018-08-15] MEDS: CHOLECALCIFEROL (VITAMIN D3) 400 UNIT TABLET (FP) PO SCH ×2 (10:10→21:34)
[2018-08-15] MEDS ORDERED: INSULIN (NOVOLOG) ASPART 100 UNITS/ML 10ML VIAL ONE (12:07)
[2018-08-15] MEDS ORDERED: INSULIN (LEVEMIR) 100 UNITS/ML UNITS SQ ONE (20:58)
[2018-08-15] MEDS: THIAMINE HCL 100 MG TABLET (FP) PO SCH (21:30)
[2018-08-15] MEDS: traZODone HCL 100 MG TABLET (FP) PO SCH (21:32)
[2018-08-15] MEDS: ATORVASTATIN CA 10 MG TABLET (FP) PO SCH (21:52)
[2018-08-16] MEDS: glyBURIDE 5 MG TABLET (UD) PO SCH (06:22)
[2018-08-16] MEDS: metFORMIN HCL 500 MG TABLET (FP) PO SCH ×2 (06:22→16:43)
[2018-08-16] MEDS: INSULIN (LEVEMIR) 100 UNITS/ML UNITS SQ SCH ×2 (06:24→21:27)
[2018-08-16] MEDS: INSULIN SLIDING SCALE (NOVOLOG) 1 VIAL SQ SCH ×4 (07:08→21:27)
[2018-08-16] MEDS: ASPIRIN 81 MG CHEWABLE TABLETS PO SCH (10:15)
[2018-08-16] MEDS: PRENATAL VITAMINS W/ FOLIC ACID TABLET (FP) PO SCH (10:15)
[2018-08-16] MEDS: LISINOPRIL 10 MG TABLET (FP) PO SCH (10:15)
[2018-08-16] MEDS: GABAPENTIN 100 MG CAPSULE (FP) PO SCH ×2 (10:15→21:25)
[2018-08-16] MEDS: METHYL SALICYLATE/MENTHOL OINT 30 GM TUBE TP SCH ×2 (10:16→21:27)
[2018-08-16] MEDS: NICOTINE 14 MG/24 HOURS TOPICAL PATCH TD SCH (10:16)
[2018-08-16] MEDS: AMMONIUM LACTATE 12% LOTION 225 GM BOTTLE TP SCH (10:16)
[2018-08-16] MEDS: BACITRACIN 0.9 GM PACKET TP SCH ×2 (10:16→22:29)
[2018-08-16] MEDS: TOLNAFTATE 1% CREAM 15 GM TUBE TP SCH ×2 (10:17→21:28)
[2018-08-16] MEDS: CHOLECALCIFEROL (VITAMIN D3) 400 UNIT TABLET (FP) PO SCH ×2 (11:56→21:24)
[2018-08-16] MEDS: IBUPROFEN 400 MG TABLET (FP) PO PRN (17:02)
[2018-08-16] MEDS: traZODone HCL 100 MG TABLET (FP) PO SCH (21:24)
[2018-08-16] MEDS: ATORVASTATIN CA 10 MG TABLET (FP) PO SCH (21:24)
[2018-08-16] MEDS: THIAMINE HCL 100 MG TABLET (FP) PO SCH (21:24)
[2018-08-17] MEDS: metFORMIN HCL 500 MG TABLET (FP) PO SCH ×2 (07:39→16:29)
[2018-08-17] MEDS: glyBURIDE 5 MG TABLET (UD) PO SCH (07:39)
[2018-08-17] MEDS: INSULIN SLIDING SCALE (NOVOLOG) 1 VIAL SQ SCH ×4 (07:41→21:42)
[2018-08-17] MEDS: INSULIN (LEVEMIR) 100 UNITS/ML UNITS SQ SCH ×2 (07:41→21:41)
[2018-08-17] MEDS: BACITRACIN 0.9 GM PACKET TP SCH ×2 (09:58→21:40)
[2018-08-17] MEDS: GABAPENTIN 100 MG CAPSULE (FP) PO SCH ×2 (09:58→21:40)
[2018-08-17] MEDS: NICOTINE 14 MG/24 HOURS TOPICAL PATCH TD SCH (09:58)
[2018-08-17] MEDS: PRENATAL VITAMINS W/ FOLIC ACID TABLET (FP) PO SCH (09:58)
[2018-08-17] MEDS: LISINOPRIL 10 MG TABLET (FP) PO SCH (09:58)
[2018-08-17] MEDS: ASPIRIN 81 MG CHEWABLE TABLETS PO SCH (09:58)
[2018-08-17] MEDS: TOLNAFTATE 1% CREAM 15 GM TUBE TP SCH ×2 (09:59→21:42)
[2018-08-17] MEDS: CHOLECALCIFEROL (VITAMIN D3) 400 UNIT TABLET (FP) PO SCH ×2 (09:59→21:43)
[2018-08-17] MEDS: AMMONIUM LACTATE 12% LOTION 225 GM BOTTLE TP SCH (09:59)
[2018-08-17] MEDS: METHYL SALICYLATE/MENTHOL OINT 30 GM TUBE TP SCH ×2 (09:59→21:41)
[2018-08-17] MEDS: IBUPROFEN 400 MG TABLET (FP) PO PRN (20:17)
[2018-08-17] MEDS: THIAMINE HCL 100 MG TABLET (FP) PO SCH (21:40)
[2018-08-17] MEDS: ATORVASTATIN CA 10 MG TABLET (FP) PO SCH (21:40)
[2018-08-17] MEDS: traZODone HCL 100 MG TABLET (FP) PO SCH (21:40)
[2018-08-18] MEDS: metFORMIN HCL 500 MG TABLET (FP) PO SCH ×2 (06:17→16:35)
[2018-08-18] MEDS: glyBURIDE 5 MG TABLET (UD) PO SCH (06:17)
[2018-08-18] MEDS: INSULIN (LEVEMIR) 100 UNITS/ML UNITS SQ SCH ×2 (06:18→21:28)
[2018-08-18] MEDS: INSULIN SLIDING SCALE (NOVOLOG) 1 VIAL SQ SCH ×4 (07:47→21:28)
[2018-08-18] MEDS: BACITRACIN 0.9 GM PACKET TP SCH ×2 (10:09→21:30)
[2018-08-18] MEDS: GABAPENTIN 100 MG CAPSULE (FP) PO SCH ×2 (10:09→21:27)
[2018-08-18] MEDS: METHYL SALICYLATE/MENTHOL OINT 30 GM TUBE TP SCH ×2 (10:09→21:30)
[2018-08-18] MEDS: PRENATAL VITAMINS W/ FOLIC ACID TABLET (FP) PO SCH (10:09)
[2018-08-18] MEDS: AMMONIUM LACTATE 12% LOTION 225 GM BOTTLE TP SCH (10:09)
[2018-08-18] MEDS: LISINOPRIL 10 MG TABLET (FP) PO SCH (10:09)
[2018-08-18] MEDS: ASPIRIN 81 MG CHEWABLE TABLETS PO SCH (10:09)
[2018-08-18] MEDS: TOLNAFTATE 1% CREAM 15 GM TUBE TP SCH ×2 (10:10→21:30)
[2018-08-18] MEDS: CHOLECALCIFEROL (VITAMIN D3) 400 UNIT TABLET (FP) PO SCH ×2 (10:10→21:26)
[2018-08-18] MEDS: NICOTINE 14 MG/24 HOURS TOPICAL PATCH TD SCH (10:10)
[2018-08-18] MEDS: THIAMINE HCL 100 MG TABLET (FP) PO SCH (21:26)
[2018-08-18] MEDS: ATORVASTATIN CA 10 MG TABLET (FP) PO SCH (21:27)
[2018-08-18] MEDS: traZODone HCL 100 MG TABLET (FP) PO SCH (21:27)
[2018-08-18] MEDS: IBUPROFEN 400 MG TABLET (FP) PO PRN (21:29)
[2018-08-19] MEDS: metFORMIN HCL 500 MG TABLET (FP) PO SCH ×2 (06:24→16:53)
[2018-08-19] MEDS: glyBURIDE 5 MG TABLET (UD) PO SCH (06:24)
[2018-08-19] MEDS: INSULIN (LEVEMIR) 100 UNITS/ML UNITS SQ SCH ×2 (07:10→21:31)
[2018-08-19] MEDS: INSULIN SLIDING SCALE (NOVOLOG) 1 VIAL SQ SCH ×4 (07:11→21:34)
[2018-08-19] MEDS: ASPIRIN 81 MG CHEWABLE TABLETS PO SCH (10:12)
[2018-08-19] MEDS: BACITRACIN 0.9 GM PACKET TP SCH ×2 (10:12→21:30)
[2018-08-19] MEDS: PRENATAL VITAMINS W/ FOLIC ACID TABLET (FP) PO SCH (10:12)
[2018-08-19] MEDS: LISINOPRIL 10 MG TABLET (FP) PO SCH (10:13)
[2018-08-19] MEDS: AMMONIUM LACTATE 12% LOTION 225 GM BOTTLE TP SCH (10:13)
[2018-08-19] MEDS: GABAPENTIN 100 MG CAPSULE (FP) PO SCH ×2 (10:13→21:33)
[2018-08-19] MEDS: CHOLECALCIFEROL (VITAMIN D3) 400 UNIT TABLET (FP) PO SCH ×2 (10:14→21:34)
[2018-08-19] MEDS: TOLNAFTATE 1% CREAM 15 GM TUBE TP SCH ×2 (10:14→21:31)
[2018-08-19] MEDS: METHYL SALICYLATE/MENTHOL OINT 30 GM TUBE TP SCH ×2 (10:15→21:31)
[2018-08-19] MEDS: NICOTINE 14 MG/24 HOURS TOPICAL PATCH TD SCH (10:15)
[2018-08-19] MEDS ORDERED: INSULIN (NOVOLOG) ASPART 100 UNITS/ML 10ML VIAL ONE (11:50)
[2018-08-19] MEDS: traZODone HCL 100 MG TABLET (FP) PO SCH (21:30)
[2018-08-19] MEDS: THIAMINE HCL 100 MG TABLET (FP) PO SCH (21:30)
[2018-08-19] MEDS: ATORVASTATIN CA 10 MG TABLET (FP) PO SCH (21:30)
[2018-08-20] MEDS: metFORMIN HCL 500 MG TABLET (FP) PO SCH ×2 (06:18→16:33)
[2018-08-20] MEDS: glyBURIDE 5 MG TABLET (UD) PO SCH (06:18)
[2018-08-20] MEDS: INSULIN SLIDING SCALE (NOVOLOG) 1 VIAL SQ SCH ×4 (07:10→21:02)
[2018-08-20] MEDS: INSULIN (LEVEMIR) 100 UNITS/ML UNITS SQ SCH ×3 (07:12→21:01)
[2018-08-20] MEDS: METHYL SALICYLATE/MENTHOL OINT 30 GM TUBE TP SCH ×2 (09:50→21:00)
[2018-08-20] MEDS: ASPIRIN 81 MG CHEWABLE TABLETS PO SCH (09:50)
[2018-08-20] MEDS: BACITRACIN 0.9 GM PACKET TP SCH ×2 (09:50→21:00)
[2018-08-20] MEDS: AMMONIUM LACTATE 12% LOTION 225 GM BOTTLE TP SCH (09:51)
[2018-08-20] MEDS: NICOTINE 14 MG/24 HOURS TOPICAL PATCH TD SCH (09:51)
[2018-08-20] MEDS: PRENATAL VITAMINS W/ FOLIC ACID TABLET (FP) PO SCH (09:51)
[2018-08-20] MEDS: GABAPENTIN 100 MG CAPSULE (FP) PO SCH ×2 (09:51→21:00)
[2018-08-20] MEDS: CHOLECALCIFEROL (VITAMIN D3) 400 UNIT TABLET (FP) PO SCH ×2 (09:52→21:00)
[2018-08-20] MEDS: LISINOPRIL 10 MG TABLET (FP) PO SCH (09:52)
[2018-08-20] MEDS: TOLNAFTATE 1% CREAM 15 GM TUBE TP SCH ×2 (09:52→21:02)
[2018-08-20] MEDS ORDERED: INSULIN (NOVOLOG) ASPART 100 UNITS/ML 10ML VIAL ONE ×2 (11:49→22:04)
--- NOTE | 2018-08-20 15:07 | PN ---
[facility] Progress Note Note: DUE TO PT'S COMORBID CONDITIONS AND LIVING ARRANGEMENTS, DISCUSSED WITH THE FIELD COUNSEL OF NURSING, FITZ GOLDMAN ABOUT DOING HGBA1C AND LDL FOR THIS PATIENT WHILE INPATIENT TO FACILITATE HIS FOLLOW UP AFTERCARE TREATMENT.
--- NOTE | 2018-08-20 16:56 | PN ---
[facility] Progress Note Note: call from [facility] pharmacy to verify dose of metformin for rx .
[2018-08-20] MEDS: traZODone HCL 100 MG TABLET (FP) PO SCH (21:00)
[2018-08-20] MEDS: ATORVASTATIN CA 10 MG TABLET (FP) PO SCH (21:00)
[2018-08-20] MEDS: THIAMINE HCL 100 MG TABLET (FP) PO SCH (21:01)
[2018-08-21] MEDS: metFORMIN HCL 500 MG TABLET (FP) PO SCH (06:21)
[2018-08-21] MEDS: glyBURIDE 5 MG TABLET (UD) PO SCH (06:21)
[2018-08-21] MEDS: INSULIN (LEVEMIR) 100 UNITS/ML UNITS SQ SCH (06:24)
[2018-08-21 07:04] VITALS: BP 146/89; PULSE 84; TEMP 97.8
[2018-08-21] MEDS: INSULIN SLIDING SCALE (NOVOLOG) 1 VIAL SQ SCH (07:28)
[2018-08-21] MEDS ORDERED: PT OWN MED DRAWER 7, Y5N ONE (09:07)
[2018-08-21] MEDS: ASPIRIN 81 MG CHEWABLE TABLETS PO SCH (11:34)
[2018-08-21] MEDS: GABAPENTIN 100 MG CAPSULE (FP) PO SCH (11:34)
[2018-08-21] MEDS: AMMONIUM LACTATE 12% LOTION 225 GM BOTTLE TP SCH (11:34)
[2018-08-21] MEDS: METHYL SALICYLATE/MENTHOL OINT 30 GM TUBE TP SCH (11:34)
[2018-08-21] MEDS: BACITRACIN 0.9 GM PACKET TP SCH (11:34)
[2018-08-21] MEDS: NICOTINE 14 MG/24 HOURS TOPICAL PATCH TD SCH (11:35)
[2018-08-21] MEDS: LISINOPRIL 10 MG TABLET (FP) PO SCH (11:35)
[2018-08-21] MEDS: CHOLECALCIFEROL (VITAMIN D3) 400 UNIT TABLET (FP) PO SCH (11:35)
[2018-08-21] MEDS: TOLNAFTATE 1% CREAM 15 GM TUBE TP SCH (11:35)
[2018-08-21] MEDS: PRENATAL VITAMINS W/ FOLIC ACID TABLET (FP) PO SCH (11:35)
--- NOTE | 2018-08-21 14:32 | PN ---
[facility] Progress Note Note: PT COMPLETED REHAB AND DISCHARGED TODAY. PT MET WITH HIS COUNSELOR AND REFERRAL WAS MADE TO [facility] WHERE PT WILL BE RETURNING TO CONTINUE TREATMENT. Vital Signs - 24 hr 08/21/18 08/21/18 08/21/18 00:30 03:30 07:03 Temperature 97.8 F Pulse Rate 84 Respiratory 18 18 18 Rate Blood Pressure 146/89 Laboratory Tests 08/06/18 08/07/18 08/07/18 22:19 06:42 07:00 WBC 6.2 RBC 4.16 Hgb 11.6 L Hct 36.7 MCV 88.3 MCH 27.8 MCHC 31.5 L RDW 16.2 H Plt Count 217 D MPV 9.7 D Sodium Potassium Chloride Carbon Dioxide Anion Gap BUN Creatinine Creat Clearance w eGFR POC Glucometer 499 296 Random Glucose Hemoglobin A1c % Calcium Total Bilirubin AST ALT Alkaline Phosphatase Total Protein Albumin Total LDL Cholesterol Urine Color Urine Appearance Urine pH Ur Specific [place] Urine Protein Urine Glucose (UA) Urine Ketones Urine Blood Urine Nitrite Urine Bilirubin Urine Urobilinogen Ur Leukocyte Esterase Urine WBC (Auto) Urine RBC (Auto) Ur Epithelial Cells Urine Mucus 08/07/18 08/07/18 08/07/18 07:00 12:06 16:56 WBC RBC Hgb Hct MCV MCH MCHC RDW Plt Count MPV Sodium 138 Potassium 3.5 Chloride 102 Carbon Dioxide 28 Anion Gap 8 BUN 12 Creatinine 1.1 Creat Clearance w eGFR > 60 POC Glucometer 520 231 Random Glucose 346 H* Hemoglobin A1c % Calcium 8.4 L Total Bilirubin 0.6 AST 6 L ALT 12 L Alkaline Phosphatase 91 Total Protein 6.0 L Albumin 2.9 L Total LDL Cholesterol Urine Color Urine Appearance Urine pH Ur Specific [place] Urine Protein Urine Glucose (UA) Urine Ketones Urine Blood Urine Nitrite Urine Bilirubin Urine Urobilinogen Ur Leukocyte Esterase Urine WBC (Auto) Urine RBC (Auto) Ur Epithelial Cells Urine Mucus 08/07/18 08/08/18 08/08/18 20:48 06:35 12:15 WBC RBC Hgb Hct MCV MCH MCHC RDW Plt Count MPV Sodium Potassium Chloride Carbon Dioxide Anion Gap BUN Creatinine Creat Clearance w eGFR POC Glucometer 430 156 218 Random Glucose Hemoglobin A1c % Calcium Total Bilirubin AST ALT Alkaline Phosphatase Total Protein Albumin Total LDL Cholesterol Urine Color Urine Appearance Urine pH Ur Specific [place] Urine Protein Urine Glucose (UA) Urine Ketones Urine Blood Urine Nitrite Urine Bilirubin Urine Urobilinogen Ur Leukocyte Esterase Urine WBC (Auto) Urine RBC (Auto) Ur Epithelial Cells Urine Mucus 08/08/18 08/08/18 08/09/18 17:01 21:37 06:30 WBC RBC Hgb Hct MCV MCH MCHC RDW Plt Count MPV Sodium Potassium Chloride Carbon Dioxide Anion Gap BUN Creatinine Creat Clearance w eGFR POC Glucometer 269 229 250 Random Glucose Hemoglobin A1c % Calcium Total Bilirubin AST ALT Alkaline Phosphatase Total Protein Albumin Total LDL Cholesterol Urine Color Urine Appearance Urine pH Ur Specific [place] Urine Protein Urine Glucose (UA) Urine Ketones Urine Blood Urine Nitrite Urine Bilirubin Urine Urobilinogen Ur Leukocyte Esterase Urine WBC (Auto) Urine RBC (Auto) Ur Epithelial Cells Urine Mucus 08/09/18 08/09/18 08/09/18 11:57 16:54 21:48 WBC RBC Hgb Hct MCV MCH MCHC RDW Plt Count MPV Sodium Potassium Chloride Carbon Dioxide Anion Gap BUN Creatinine Creat Clearance w eGFR POC Glucometer 284 205 323 Random Glucose Hemoglobin A1c % Calcium Total Bilirubin AST ALT Alkaline Phosphatase Total Protein Albumin Total LDL Cholesterol Urine Color Urine Appearance Urine pH Ur Specific [place] Urine Protein Urine Glucose (UA) Urine Ketones Urine Blood Urine Nitrite Urine Bilirubin Urine Urobilinogen Ur Leukocyte Esterase Urine WBC (Auto) Urine RBC (Auto) Ur Epithelial Cells Urine Mucus 08/10/18 08/10/18 08/10/18 06:38 12:56 17:02 WBC RBC Hgb Hct MCV MCH MCHC RDW Plt Count MPV Sodium Potassium Chloride Carbon Dioxide Anion Gap BUN Creatinine Creat Clearance w eGFR POC Glucometer 190 377 252 Random Glucose Hemoglobin A1c % Calcium Total Bilirubin AST ALT Alkaline Phosphatase Total Protein Albumin Total LDL Cholesterol Urine Color Urine Appearance Urine pH Ur Specific [place] Urine Protein Urine Glucose (UA) Urine Ketones Urine Blood Urine Nitrite Urine Bilirubin Urine Urobilinogen Ur Leukocyte Esterase Urine WBC (Auto) Urine RBC (Auto) Ur Epithelial Cells Urine Mucus 08/10/18 08/11/18 08/11/18 20:58 06:16 10:54 WBC RBC Hgb Hct MCV MCH MCHC RDW Plt Count MPV Sodium Potassium Chloride Carbon Dioxide Anion Gap BUN Creatinine Creat Clearance w eGFR POC Glucometer 214 208 361 Random Glucose Hemoglobin A1c % Calcium Total Bilirubin AST ALT Alkaline Phosphatase Total Protein Albumin Total LDL Cholesterol Urine Color Urine Appearance Urine pH Ur Specific [place] Urine Protein Urine Glucose (UA) Urine Ketones Urine Blood Urine Nitrite Urine Bilirubin Urine Urobilinogen Ur Leukocyte Esterase Urine WBC (Auto) Urine RBC (Auto) Ur Epithelial Cells Urine Mucus 08/11/18 08/11/18 08/12/18 16:45 20:36 11:10 WBC RBC Hgb Hct MCV MCH MCHC RDW Plt Count MPV Sodium Potassium Chloride Carbon Dioxide Anion Gap BUN Creatinine Creat Clearance w eGFR POC Glucometer 227 370 Random Glucose Hemoglobin A1c % Calcium Total Bilirubin AST ALT Alkaline Phosphatase Total Protein Albumin Total LDL Cholesterol Urine Color Yellow Urine Appearance Slcloudy Urine pH 5.0 Ur Specific [place] 1.010 Urine Protein Negative Urine Glucose (UA) 3+ H Urine Ketones Negative Urine Blood Negative Urine Nitrite Positive Urine Bilirubin Negative Urine Urobilinogen Negative Ur Leukocyte Esterase 1+ H Urine WBC (Auto) 12 Urine RBC (Auto) 1 Ur Epithelial Cells Rare Urine Mucus Rare 08/12/18 08/12/18 08/12/18 11:52 16:43 20:51 WBC RBC Hgb Hct MCV MCH MCHC RDW Plt Count MPV Sodium Potassium Chloride Carbon Dioxide Anion Gap BUN Creatinine Creat Clearance w eGFR POC Glucometer 413 148 159 Random Glucose Hemoglobin A1c % Calcium Total Bilirubin AST ALT Alkaline Phosphatase Total Protein Albumin Total LDL Cholesterol Urine Color Urine Appearance Urine pH Ur Specific [place] Urine Protein Urine Glucose (UA) Urine Ketones Urine Blood Urine Nitrite Urine Bilirubin Urine Urobilinogen Ur Leukocyte Esterase Urine WBC (Auto) Urine RBC (Auto) Ur Epithelial Cells Urine Mucus 08/13/18 08/13/18 08/13/18 06:18 12:07 16:45 WBC RBC Hgb Hct MCV MCH MCHC RDW Plt Count MPV Sodium Potassium Chloride Carbon Dioxide Anion Gap BUN Creatinine Creat Clearance w eGFR POC Glucometer 187 285 238 Random Glucose Hemoglobin A1c % Calcium Total Bilirubin AST ALT Alkaline Phosphatase Total Protein Albumin Total LDL Cholesterol Urine Color Urine Appearance Urine pH Ur Specific [place] Urine Protein Urine Glucose (UA) Urine Ketones Urine Blood Urine Nitrite Urine Bilirubin Urine Urobilinogen Ur Leukocyte Esterase Urine WBC (Auto) Urine RBC (Auto) Ur Epithelial Cells Urine Mucus 08/13/18 08/14/18 08/14/18 20:52 05:48 11:39 WBC RBC Hgb Hct MCV MCH MCHC RDW Plt Count MPV Sodium Potassium Chloride Carbon Dioxide Anion Gap BUN Creatinine Creat Clearance w eGFR POC Glucometer 255 260 242 Random Glucose Hemoglobin A1c % Calcium Total Bilirubin AST ALT Alkaline Phosphatase Total Protein Albumin Total LDL Cholesterol Urine Color Urine Appearance Urine pH Ur Specific [place] Urine Protein Urine Glucose (UA) Urine Ketones Urine Blood Urine Nitrite Urine Bilirubin Urine Urobilinogen Ur Leukocyte Esterase Urine WBC (Auto) Urine RBC (Auto) Ur Epithelial Cells Urine Mucus 08/14/18 08/14/18 08/15/18 16:56 20:51 06:46 WBC RBC Hgb Hct MCV MCH MCHC RDW Plt Count MPV Sodium Potassium Chloride Carbon Dioxide Anion Gap BUN Creatinine Creat Clearance w eGFR POC Glucometer 187 285 175 Random Glucose Hemoglobin A1c % Calcium Total Bilirubin AST ALT Alkaline Phosphatase Total Protein Albumin Total LDL Cholesterol Urine Color Urine Appearance Urine pH Ur Specific [place] Urine Protein Urine Glucose (UA) Urine Ketones Urine Blood Urine Nitrite Urine Bilirubin Urine Urobilinogen Ur Leukocyte Esterase Urine WBC (Auto) Urine RBC (Auto) Ur Epithelial Cells Urine Mucus 08/15/18 08/15/18 08/15/18 11:07 16:45 21:33 WBC RBC Hgb Hct MCV MCH MCHC RDW Plt Count MPV Sodium Potassium Chloride Carbon Dioxide Anion Gap BUN Creatinine Creat Clearance w eGFR POC Glucometer 297 323 229 Random Glucose Hemoglobin A1c % Calcium Total Bilirubin AST ALT Alkaline Phosphatase Total Protein Albumin Total LDL Cholesterol Urine Color Urine Appearance Urine pH Ur Specific [place] Urine Protein Urine Glucose (UA) Urine Ketones Urine Blood Urine Nitrite Urine Bilirubin Urine Urobilinogen Ur Leukocyte Esterase Urine WBC (Auto) Urine RBC (Auto) Ur Epithelial Cells Urine Mucus 08/16/18 08/16/18 08/16/18 06:21 11:19 16:43 WBC RBC Hgb Hct MCV MCH MCHC RDW Plt Count MPV Sodium Potassium Chloride Carbon Dioxide Anion Gap BUN Creatinine Creat Clearance w eGFR POC Glucometer 191 298 202 Random Glucose Hemoglobin A1c % Calcium Total Bilirubin AST ALT Alkaline Phosphatase Total Protein Albumin Total LDL Cholesterol Urine Color Urine Appearance Urine pH Ur Specific [place] Urine Protein Urine Glucose (UA) Urine Ketones Urine Blood Urine Nitrite Urine Bilirubin Urine Urobilinogen Ur Leukocyte Esterase Urine WBC (Auto) Urine RBC (Auto) Ur Epithelial Cells Urine Mucus 08/16/18 08/17/18 08/17/18 21:26 05:59 11:55 WBC RBC Hgb Hct MCV MCH MCHC RDW Plt Count MPV Sodium Potassium Chloride Carbon Dioxide Anion Gap BUN Creatinine Creat Clearance w eGFR POC Glucometer 209 233 266 Random Glucose Hemoglobin A1c % Calcium Total Bilirubin AST ALT Alkaline Phosphatase Total Protein Albumin Total LDL Cholesterol Urine Color Urine Appearance Urine pH Ur Specific [place] Urine Protein Urine Glucose (UA) Urine Ketones Urine Blood Urine Nitrite Urine Bilirubin Urine Urobilinogen Ur Leukocyte Esterase Urine WBC (Auto) Urine RBC (Auto) Ur Epithelial Cells Urine Mucus 08/17/18 08/17/18 08/18/18 16:27 20:16 06:16 WBC RBC Hgb Hct MCV MCH MCHC RDW Plt Count MPV Sodium Potassium Chloride Carbon Dioxide Anion Gap BUN Creatinine Creat Clearance w eGFR POC Glucometer 190 211 188 Random Glucose Hemoglobin A1c % Calcium Total Bilirubin AST ALT Alkaline Phosphatase Total Protein Albumin Total LDL Cholesterol Urine Color Urine Appearance Urine pH Ur Specific [place] Urine Protein Urine Glucose (UA) Urine Ketones Urine Blood Urine Nitrite Urine Bilirubin Urine Urobilinogen Ur Leukocyte Esterase Urine WBC (Auto) Urine RBC (Auto) Ur Epithelial Cells Urine Mucus 08/18/18 08/18/18 08/18/18 11:51 16:32 20:56 WBC RBC Hgb Hct MCV MCH MCHC RDW Plt Count MPV Sodium Potassium Chloride Carbon Dioxide Anion Gap BUN Creatinine Creat Clearance w eGFR POC Glucometer 294 292 243 Random Glucose Hemoglobin A1c % Calcium Total Bilirubin AST ALT Alkaline Phosphatase Total Protein Albumin Total LDL Cholesterol Urine Color Urine Appearance Urine pH Ur Specific [place] Urine Protein Urine Glucose (UA) Urine Ketones Urine Blood Urine Nitrite Urine Bilirubin Urine Urobilinogen Ur Leukocyte Esterase Urine WBC (Auto) Urine RBC (Auto) Ur Epithelial Cells Urine Mucus 08/19/18 08/19/18 08/19/18 06:22 11:47 16:53 WBC RBC Hgb Hct MCV MCH MCHC RDW Plt Count MPV Sodium Potassium Chloride Carbon Dioxide Anion Gap BUN Creatinine Creat Clearance w eGFR POC Glucometer 216 347 164 Random Glucose Hemoglobin A1c % Calcium Total Bilirubin AST ALT Alkaline Phosphatase Total Protein Albumin Total LDL Cholesterol Urine Color Urine Appearance Urine pH Ur Specific [place] Urine Protein Urine Glucose (UA) Urine Ketones Urine Blood Urine Nitrite Urine Bilirubin Urine Urobilinogen Ur Leukocyte Esterase Urine WBC (Auto) Urine RBC (Auto) Ur Epithelial Cells Urine Mucus 08/19/18 08/20/18 08/20/18 20:44 06:15 11:46 WBC RBC Hgb Hct MCV MCH MCHC RDW Plt Count MPV Sodium Potassium Chloride Carbon Dioxide Anion Gap BUN Creatinine Creat Clearance w eGFR POC Glucometer 184 208 251 Random Glucose Hemoglobin A1c % Calcium Total Bilirubin AST ALT Alkaline Phosphatase Total Protein Albumin Total LDL Cholesterol Urine Color Urine Appearance Urine pH Ur Specific [place] Urine Protein Urine Glucose (UA) Urine Ketones Urine Blood Urine Nitrite Urine Bilirubin Urine Urobilinogen Ur Leukocyte Esterase Urine WBC (Auto) Urine RBC (Auto) Ur Epithelial Cells Urine Mucus 08/20/18 08/20/18 08/20/18 15:20 15:29 16:33 WBC RBC Hgb Hct MCV MCH MCHC RDW Plt Count MPV Sodium Potassium Chloride Carbon Dioxide Anion Gap BUN Creatinine Creat Clearance w eGFR POC Glucometer 284 Random Glucose Hemoglobin A1c % 12.5 H Calcium Total Bilirubin AST ALT Alkaline Phosphatase Total Protein Albumin Total LDL Cholesterol 96 Urine Color Urine Appearance Urine pH Ur Specific [place] Urine Protein Urine Glucose (UA) Urine Ketones Urine Blood Urine Nitrite Urine Bilirubin Urine Urobilinogen Ur Leukocyte Esterase Urine WBC (Auto) Urine RBC (Auto) Ur Epithelial Cells Urine Mucus 08/20/18 08/21/18 20:52 06:19 WBC RBC Hgb Hct MCV MCH MCHC RDW Plt Count MPV Sodium Potassium Chloride Carbon Dioxide Anion Gap BUN Creatinine Creat Clearance w eGFR POC Glucometer 276 242 Random Glucose Hemoglobin A1c % Calcium Total Bilirubin AST ALT Alkaline Phosphatase Total Protein Albumin Total LDL Cholesterol Urine Color Urine Appearance Urine pH Ur Specific [place] Urine Protein Urine Glucose (UA) Urine Ketones Urine Blood Urine Nitrite Urine Bilirubin Urine Urobilinogen Ur Leukocyte Esterase Urine WBC (Auto) Urine RBC (Auto) Ur Epithelial Cells Urine Mucus LABS NOTED. PLAN:PT WILL FOLLOW UP FOR CD AFTERCARE TREATMENT AT [facility] RECOMMENDED PT TO FOLLOW UP WITH AT [facility].
== END 2018-08-21 10:05 | disposition home or self-care (01) | DRG 772 ==
LOC: YASAS 17:57 → Y5N 20:52
PROVIDERS: ADMIT Psychiatry & Neurology Psychiatry; ATTEND Psychiatry & Neurology Psychiatry
PROC: HZ42ZZZ Group Counseling for Substance Abuse Treatment, Cognitive-Behavioral (ICD-10-PCS; principal; 2018-08-06)
DX: F10.20 Alcohol dependence, uncomplicated (principal); F14.20 Cocaine dependence, uncomplicated; F17.210 Nicotine dependence, cigarettes, uncomplicated; F25.9 Schizoaffective disorder, unspecified; F19.282 Other psychoactive substance dependence with psychoactive substance-induced sleep disorder; I10 Essential (primary) hypertension; E78.00 Pure hypercholesterolemia, unspecified; E10.65 Type 1 diabetes mellitus with hyperglycemia; E11.21 Type 2 diabetes mellitus with diabetic nephropathy; Z79.4 Long term (current) use of insulin; B35.3 Tinea pedis; B35.1 Tinea unguium; R26.89 Other abnormalities of gait and mobility; Z99.89 Dependence on other enabling machines and devices; Z86.19 Personal history of other infectious and parasitic diseases
CPT/HCPCS: 36415; 80053; 81003; 81015; 82962; 83036; 83721; 85027; 87086; 87186; 93005; 93010

== ENCOUNTER 2018-10-19 09:25 | Inpatient (IN) | payer OTHER ==
[2018-10-19 09:53] VITALS: BMI 28.6
--- NOTE | 2018-10-19 11:57 | HP ---
CIWA Score - Admission Criteria [facility] Guidelines: Admission for Medically Managed Detox: Requires at least one of the followin. CIWA greater than 12 2. Seizures within the past 24 hours 3. Delirium tremens within the past 24 hours 4. Hallucinations within the past 24 hours 5. Acute intervention needed for co occurring medical disorder 6. Acute intervention needed for co occurring psychiatric disorder 7. Severe withdrawal that cannot be handled at a lower level of care (continued vomiting, continued diarrhea, abnormal vital signs) requiring intravenous medication and/or fluids 8. Admission ROS [facility] Chief Complaint: PATIENT PRESENTS FOR REHAB SERVICES FOR COCAINE/ETOH DEPENDENCE. Allergies/Adverse Reactions: Allergies Allergy/AdvReac Type Severity Reaction Status Date / Time No Known Allergies Allergy Verified 10/19/18 11:31 History of Present Illness: PATIENT IS KNOWN TO [facility] DUE TO PREVIOUS ADMISSIONS, LAST ADMISSION 07/2018. PATIENT HAS HX OF ETOH/COCAINE DEPENDENCE SINCE AGE 13. PATIENT'S LAST USE OF SUBSTANCES ONE WEEK AGO. PATIENT HAS HX OF DRINKING 2 (40) OUNCE BEERS DAILY, DENIES SEIZURES, BLACKOUTS AND DTS. ALSO HAS HX OF SMOKING 50 DOLLARS OF CRACK/ COCAINE 3-6 TIME A WEEK. UDS + IRA. ISTOP VERIFIED PRESCRIPTION FOR PERCOCET 10/ 325MG -LAST ORDERED 09/30/18. PATIENT STATES HE ONLY TAKES MEDICATION ONCE IN A WHILE. PMH INCLUDES DM, HLD AND HTN. PATIENT DENIES SI/HI AND SUICIDE ATTEMPTS. REFUSED PSYCH CONSULT AT THIS TIME. Exam Limitations: Other (AMBULATES WITH CANE) - Ebola screening Have you traveled outside of the country in the last 21 days: No Have you had contact with anyone from an Ebola affected area: No Have you been sick,other than usual withdrawal symptoms: No Do you have a fever: No - Review of Systems Constitutional: Changes in sleep, Unexplained wgt Loss EENT: reports: No Symptoms Reported Respiratory: reports: No Symptoms reported Cardiac: reports: No Symptoms Reported GI: reports: No Symptoms Reported : reports: No Symptoms Reported Musculoskeletal: reports: Back Pain, Joint Pain, Muscle Pain Integumentary: reports: No Symptoms Reported Neuro: reports: Numbness, Tingling, Unsteady Gait (RIGHT LEG LIMP) Endocrine: reports: Unexplained Weight Loss Hematology: reports: No Symptoms Reported Psychiatric: reports: Judgement Intact, Mood/Affect Appropiate, Orientated x3 Patient History - Patient Medical History Hx Anemia: No Hx Asthma: No Hx Chronic Obstructive Pulmonary Disease (COPD): No Hx Cancer: No Hx Cardiac Disorders: No Hx Congestive Heart Failure: No Hx Hypertension: No Hx Hypercholesterolemia: Yes (non compliance) Hx Pacemaker: No HX Cerebrovascular Accident: No Hx Seizures: No Hx Dementia: No Hx Diabetes: Yes (1987) Hx Gastrointestinal Disorders: No Hx Liver Disease: No Hx Genitourinary Disorders: No Hx Sexually Transmitted Disorders: No Hx Renal Disease (ESRD): No Hx Thyroid Disease: No Hx Human Immunodeficiency Virus (HIV): No Hx Hepatitis C: No Hx Depression: No Hx Suicide Attempt: No Hx Bipolar Disorder: Yes Hx Schizophrenia: Yes - Patient Surgical History Past Surgical History: No Hx Neurologic Surgery: No Hx Cataract Extraction: No Hx Cardiac Surgery: No Hx Lung Surgery: No Hx Breast Surgery: No Hx Breast Biopsy: No Hx Abdominal Surgery: No Hx Appendectomy: No Hx Cholecystectomy: No Hx Genitourinary Surgery: No Hx Orthopedic Surgery: Yes (torn ligament, left knee in ) Hx Hysterectomy: No Anesthesia Reaction: No - PPD History Previous Implant?: Yes Documented Results: Negative w/proof Date: 03/12/18 Results: 0 mm PPD to be Administered?: No - Reproductive History Patient : No - Smoking Cessation Smoking history: Current every day smoker Have you smoked in the past 12 months: Yes Aproximately how many cigarettes per day: 10 Cigars Per Day: 0 Hx Chewing Tobacco Use: No Initiated information on smoking cessation: Yes 'Breaking Loose' booklet given: 10/19/18 - Substance & Tx. History Hx Alcohol Use: Yes Hx Substance Use: Yes Substance Use Type: Alcohol, Cocaine Hx Substance Use Treatment: Yes - Substances Abused Alcohol Route: Oral Frequency: Daily Amount used: 2 quarts of beer 40 ounce each Age of first use: 13 Date of Last Use: 10/12/18 Cocaine Route: Inhalation Frequency: 3-6 times per week Amount used: $50 every other day Age of first use: 25 Date of Last Use: 10/12/18 Family Disease History - Family Disease History Family Disease History: Diabetes: Grandparent, Brother, Sister Admission Physical Exam BHS - Vital Signs Vital Signs: Vital Signs - 24 hr 10/19/18 09:47 Temperature 97.0 F L Pulse Rate 82 Respiratory 18 Rate Blood Pressure 138/82 - Physical General Appearance: Yes: Disheveled HEENTM: Yes: EOMI, Hearing grossly Normal, Normal ENT Inspection, Normocephalic , Normal Voice, DENIZ, Pharynx Normal Respiratory: Yes: Chest Non-Tender, Lungs Clear, Normal Breath Sounds, No Respiratory Distress, No Accessory Muscle Use Neck: Yes: No masses,lesions,Nodules, Supple, Trachea in good position Breast: Yes: Breast Exam Deferred Cardiology: Yes: Regular Rhythm, Regular Rate, S1, S2 Abdominal: Yes: Normal Bowel Sounds, Non Tender, Soft Genitourinary: Yes: Within Normal Limits Back: Yes: Muscle Spasm Musculoskeletal: Yes: Pelvis Stable (RIGHT LEG LIMP), Back pain, Muscle Pain Extremities: Yes: Normal Range of Motion, Non-Tender Neurological: Yes: klystrom tube tester II-XII NML intact, Fully Oriented, Alert, Normal Mood/ Affect, Numbness Integumentary: Yes: Normal Color, Dry, Warm Lymphatic: Yes: Within Normal Limits - Diagnostic (1) Alcohol dependence Current Visit: Yes Status: Acute Qualifiers: Substance use status: uncomplicated Qualified Code(s): F10.20 - Alcohol dependence, uncomplicated (2) Cocaine dependence Current Visit: Yes Status: Chronic Qualifiers: Complication of substance-induced condition: uncomplicated (3) Diabetes mellitus, insulin dependent (IDDM), uncontrolled Current Visit: Yes Status: Chronic Qualifiers: Coma presence: without coma (4) Diabetic nephropathy associated with type 2 diabetes mellitus Current Visit: No Status: Chronic (5) Essential hypertension Current Visit: No Status: Chronic (6) Hypercholesteremia Current Visit: No Status: Chronic (7) Nicotine dependence Current Visit: No Status: Chronic Qualifiers: Nicotine product type: cigarettes Substance use status: uncomplicated Qualified Code(s): F17.210 - Nicotine dependence, cigarettes, uncomplicated (8) Use of cane as ambulatory aid Current Visit: Yes Status: Chronic (9) Bipolar II disorder Current Visit: Yes Status: Suspected (10) History of left knee surgery Current Visit: No Status: Resolved Cleared for Admission S - Detox or Rehab Claeared for Rehab Admission: Yes [facility] Breath Alcohol Content Breath Alcohol Content: 0 Urine Drug Screen - Results Drug Screen Negative: No Urine Drug Screen Results: IRA-Cocaine Inpatient Rehab Admission - Rehab Decision to Admit Inpatient rehab admission?: Yes - Initial Determination Are CD services needed?: Yes Free of communicable disease: Yes Not in need of hospitalization: Yes - Rehab Admission Criteria Previous failed treatment: Yes Poor recovery environment: Yes Comorbidities: Yes Lacks judgement: No Patient is meeting Inpatient Rehab admission criteria:: Yes
[2018-10-19] MEDS ORDERED: MAG HYDROX/AL HYDROX/SIMETH 30 ML UNIT-DOSE CUP PO PRN (12:05)
[2018-10-19] MEDS ORDERED: guaiFENesin 200 MG/10 ML 10 ML UNIT-DOSE CUPS PO PRN (12:05)
[2018-10-19] MEDS ORDERED: NICOTINE POLACRILEX 2 MG GUM BUC PRN (12:05)
[2018-10-19] MEDS ORDERED: MAGNESIUM HYDROX 2400MG/30ML ORAL SUSPENSION 30 ML CUP PO PRN (12:05)
[2018-10-19] MEDS ORDERED: LOPERAMIDE HCL 2 MG CAPSULE PO PRN (12:05)
[2018-10-19] MEDS ORDERED: MENTHOL/PHENOL 1 EACH UD MM PRN (12:05)
[2018-10-19] MEDS ORDERED: MAGNESIUM CITRATE 300 ML BOTTLE PO PRN (12:05)
[2018-10-19] MEDS ORDERED: P-EPHED 60MG/TRIPROLIDI 2.5MG TABLET PO PRN (12:05)
[2018-10-19 15:30] LABS: HEMATOCRIT 40.5 % (35.4-49); HEMOGLOBIN 13.8 GM/dL (11.7-16.9); MCH 30.3 pg (25.7-33.7); MCHC 34.1 g/dl (32.0-35.9); MEAN PLT VOLUME 9.2 fl (7.5-11.1); PLATELET COUNT 268 K/MM3 (134-434); RBC 4.55 M/mm3 (4.00-5.60); RDW 16.4 % (11.9-15.9); WHITE BLOOD COUNT 6.6 K/mm3 (4.0-10.0)
[2018-10-19 15:42] LABS: ALBUMIN 3.5 g/dl (3.4-5.0); ALK PHOS 101 U/L (45-117); ANION GAP 6 MMOL/L (8-16); BILIRUBIN,TOTAL 0.3 mg/dL (0.2-1); BLOOD UREA NITROGEN 12 mg/dL (7-18); CALCIUM 8.9 mg/dL (8.5-10.1); CHLORIDE 102 mmol/L (98-107); CO2 26 mmol/L (21-32); POTASSIUM 4.3 mmol/L (3.5-5.1); SGOT/AST 14 U/L (15-37); SGPT/ALT 24 U/L (13-61); SODIUM 134 mmol/L (136-145); TOT PROT 7.2 g/dl (6.4-8.2)
[2018-10-19 15:47] LABS: GLUCOSE,RANDOM 453 mg/dL (74-106)
[2018-10-19] MEDS ORDERED: INSULIN (NOVOLOG) ASPART 100 UNITS/ML 10ML VIAL SQ ONE (16:30)
[2018-10-19] MEDS ORDERED: INSULIN (NOVOLOG) ASPART 100 UNITS/ML 10ML VIAL ONE (16:34)
[2018-10-19] MEDS: metFORMIN HCL 500 MG TABLET (FP) PO SCH (16:45)
[2018-10-19] MEDS: INSULIN SLIDING SCALE (NOVOLOG) 1 VIAL SQ SCH (16:47)
[2018-10-19 21:20] LABS: EPI CELLS 2.1 /HPF (0-5); PH,URINE 6.5 (5.0-8.0); URINE APPEARANCE CLEAR; URINE BACTERIA 6570.18 /hpf (NEGATIVE); URINE BILIRUBIN NEGATIVE (NEGATIVE); URINE COLOR YELLOW; URINE GLUCOSE (UA) 3+ (NEGATIVE); URINE KETONE NEGATIVE (NEGATIVE); URINE LEUK ESTERASE TRACE (NEGATIVE); URINE NITRITE POSITIVE (NEGATIVE); URINE PROTEIN NEGATIVE (NEGATIVE); URINE RBC 0 /hpf (0-4); URINE WBC 11 /hpf (0-5)
[2018-10-19] MEDS: MINERAL OIL/PETROLAT/WATER TOPICAL CREAM 113 GM JAR TP SCH (21:30)
[2018-10-19] MEDS: THIAMINE HCL 100 MG TABLET (FP) PO SCH (21:30)
[2018-10-19] MEDS: ATORVASTATIN CA 10 MG TABLET (FP) PO SCH (21:30)
[2018-10-19] MEDS: MELATONIN 5 MG TABLETS PO PRN (21:30)
[2018-10-19] MEDS: GABAPENTIN 100 MG CAPSULE (FP) PO SCH (21:30)
[2018-10-19 21:55] LABS: URINE CASTS NONE SEEN /hpf (0-8)
[2018-10-20] MEDS: glyBURIDE 5 MG TABLET (UD) PO SCH (06:26)
[2018-10-20] MEDS: metFORMIN HCL 500 MG TABLET (FP) PO SCH ×2 (06:26→17:01)
[2018-10-20] MEDS: INSULIN SLIDING SCALE (NOVOLOG) 1 VIAL SQ SCH ×2 (06:27→17:05)
[2018-10-20] MEDS ORDERED: INSULIN (NOVOLOG) ASPART 100 UNITS/ML 10ML VIAL ONE ×2 (06:27→11:44)
[2018-10-20] MEDS: GABAPENTIN 100 MG CAPSULE (FP) PO SCH ×2 (10:20→21:15)
[2018-10-20] MEDS: ASPIRIN 81 MG CHEWABLE TABLETS PO SCH (10:20)
[2018-10-20] MEDS: LISINOPRIL 10 MG TABLET (FP) PO SCH (10:20)
[2018-10-20] MEDS: PRENATAL VITAMINS W/ FOLIC ACID TABLET (FP) PO SCH (10:20)
[2018-10-20] MEDS: MINERAL OIL/PETROLAT/WATER TOPICAL CREAM 113 GM JAR TP SCH ×2 (10:21→21:15)
[2018-10-20] MEDS ORDERED: INSULIN SLIDING SCALE (NOVOLOG) 1 VIAL SQ SCH (11:00)
[2018-10-20] MEDS ORDERED: PT OWN MED DRAWER 7, Y5N ONE (11:42)
[2018-10-20] MEDS ORDERED: FLU VACCINE QUAD 60 MCG/0.5 ML (MDV 18-19) IM ONE (12:00)
[2018-10-20] MEDS: THIAMINE HCL 100 MG TABLET (FP) PO SCH (21:14)
[2018-10-20] MEDS: ATORVASTATIN CA 10 MG TABLET (FP) PO SCH (21:15)
[2018-10-20] MEDS ORDERED: INSULIN (LEVEMIR) 100 UNITS/ML UNITS SQ SCH (22:00)
[2018-10-21] MEDS ORDERED: INSULIN (NOVOLOG) ASPART 100 UNITS/ML 10ML VIAL ONE ×3 (06:39→21:59)
[2018-10-21] MEDS: metFORMIN HCL 500 MG TABLET (FP) PO SCH ×2 (06:41→16:33)
[2018-10-21] MEDS: INSULIN SLIDING SCALE (NOVOLOG) 1 VIAL SQ SCH ×3 (06:41→16:36)
[2018-10-21] MEDS: glyBURIDE 5 MG TABLET (UD) PO SCH (07:38)
[2018-10-21] MEDS: ASPIRIN 81 MG CHEWABLE TABLETS PO SCH (10:19)
[2018-10-21] MEDS: LISINOPRIL 10 MG TABLET (FP) PO SCH (10:19)
[2018-10-21] MEDS: PRENATAL VITAMINS W/ FOLIC ACID TABLET (FP) PO SCH (10:19)
[2018-10-21] MEDS: GABAPENTIN 100 MG CAPSULE (FP) PO SCH ×2 (10:19→21:08)
[2018-10-21] MEDS: MINERAL OIL/PETROLAT/WATER TOPICAL CREAM 113 GM JAR TP SCH ×2 (10:20→21:09)
--- NOTE | 2018-10-21 10:38 | PN ---
S Progress Note Note: Patient with elevated fingersticks; Blood glucose-344. Patient states that he is on Levemir twice a day. Order changed to reflect patient's usual medication schedule.
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
[2018-10-21] MEDS ORDERED: INSULIN (LEVEMIR) 100 UNITS/ML UNITS SQ ONE (19:37)
[2018-10-21] MEDS: THIAMINE HCL 100 MG TABLET (FP) PO SCH (21:08)
[2018-10-21] MEDS: ATORVASTATIN CA 10 MG TABLET (FP) PO SCH (21:08)
[2018-10-21] MEDS: INSULIN (LEVEMIR) 100 UNITS/ML UNITS SQ SCH (21:09)
[2018-10-22] MEDS ORDERED: INSULIN (NOVOLOG) ASPART 100 UNITS/ML 10ML VIAL ONE ×2 (06:51→11:56)
[2018-10-22] MEDS: metFORMIN HCL 500 MG TABLET (FP) PO SCH ×2 (07:12→16:47)
[2018-10-22] MEDS: INSULIN SLIDING SCALE (NOVOLOG) 1 VIAL SQ SCH ×3 (07:12→16:49)
[2018-10-22] MEDS: glyBURIDE 5 MG TABLET (UD) PO SCH (07:12)
[2018-10-22] MEDS ORDERED: INSULIN (LEVEMIR) 100 UNITS/ML UNITS SQ SCH (07:30)
[2018-10-22] MEDS: LISINOPRIL 10 MG TABLET (FP) PO SCH (10:11)
[2018-10-22] MEDS: ASPIRIN 81 MG CHEWABLE TABLETS PO SCH (10:11)
[2018-10-22] MEDS: GABAPENTIN 100 MG CAPSULE (FP) PO SCH ×2 (10:11→21:27)
[2018-10-22] MEDS: MINERAL OIL/PETROLAT/WATER TOPICAL CREAM 113 GM JAR TP SCH ×2 (10:11→21:27)
[2018-10-22] MEDS: PRENATAL VITAMINS W/ FOLIC ACID TABLET (FP) PO SCH (10:11)
[2018-10-22] MEDS: IBUPROFEN 400 MG TABLET (FP) PO PRN ×2 (10:12→21:28)
[2018-10-22] MEDS: INSULIN (LEVEMIR) 100 UNITS/ML UNITS SQ SCH ×2 (10:12→21:33)
[2018-10-22] MEDS: ATORVASTATIN CA 10 MG TABLET (FP) PO SCH (21:27)
[2018-10-22] MEDS: THIAMINE HCL 100 MG TABLET (FP) PO SCH (21:27)
[2018-10-22] MEDS: MELATONIN 5 MG TABLETS PO PRN (21:27)
[2018-10-22] MEDS: traZODone HCL 50 MG TABLET (FP) PO SCH (21:29)
[2018-10-23] MEDS ORDERED: INSULIN (LEVEMIR) 100 UNITS/ML UNITS SQ ONE (06:47)
[2018-10-23] MEDS ORDERED: INSULIN (NOVOLOG) ASPART 100 UNITS/ML 10ML VIAL ONE ×2 (06:47→16:45)
[2018-10-23] MEDS: INSULIN SLIDING SCALE (NOVOLOG) 1 VIAL SQ SCH ×2 (07:10→16:54)
[2018-10-23] MEDS: glyBURIDE 5 MG TABLET (UD) PO SCH (07:10)
[2018-10-23] MEDS: INSULIN (LEVEMIR) 100 UNITS/ML UNITS SQ SCH ×2 (07:10→21:34)
[2018-10-23] MEDS: metFORMIN HCL 500 MG TABLET (FP) PO SCH ×2 (07:10→16:52)
[2018-10-23] MEDS: PRENATAL VITAMINS W/ FOLIC ACID TABLET (FP) PO SCH (10:28)
[2018-10-23] MEDS: LISINOPRIL 10 MG TABLET (FP) PO SCH (10:28)
[2018-10-23] MEDS: GABAPENTIN 100 MG CAPSULE (FP) PO SCH ×2 (10:29→21:34)
[2018-10-23] MEDS: IBUPROFEN 400 MG TABLET (FP) PO PRN (10:29)
[2018-10-23] MEDS: ASPIRIN 81 MG CHEWABLE TABLETS PO SCH (10:31)
[2018-10-23] MEDS: MINERAL OIL/PETROLAT/WATER TOPICAL CREAM 113 GM JAR TP SCH ×2 (10:31→21:35)
[2018-10-23] MEDS: traZODone HCL 50 MG TABLET (FP) PO SCH (21:34)
[2018-10-23] MEDS: THIAMINE HCL 100 MG TABLET (FP) PO SCH (21:34)
[2018-10-23] MEDS: ATORVASTATIN CA 10 MG TABLET (FP) PO SCH (21:35)
[2018-10-24] MEDS: INSULIN SLIDING SCALE (NOVOLOG) 1 VIAL SQ SCH ×3 (07:30→21:19)
[2018-10-24] MEDS: metFORMIN HCL 500 MG TABLET (FP) PO SCH ×2 (07:30→16:57)
[2018-10-24] MEDS: glyBURIDE 5 MG TABLET (UD) PO SCH (07:30)
[2018-10-24] MEDS: INSULIN (LEVEMIR) 100 UNITS/ML UNITS SQ SCH ×2 (07:30→21:19)
[2018-10-24] MEDS: GABAPENTIN 100 MG CAPSULE (FP) PO SCH ×2 (10:15→21:18)
[2018-10-24] MEDS: LISINOPRIL 10 MG TABLET (FP) PO SCH (10:15)
[2018-10-24] MEDS: PRENATAL VITAMINS W/ FOLIC ACID TABLET (FP) PO SCH (10:15)
[2018-10-24] MEDS: ASPIRIN 81 MG CHEWABLE TABLETS PO SCH (10:15)
[2018-10-24] MEDS: IBUPROFEN 400 MG TABLET (FP) PO PRN (10:16)
[2018-10-24] MEDS: MINERAL OIL/PETROLAT/WATER TOPICAL CREAM 113 GM JAR TP SCH ×2 (10:17→21:18)
--- NOTE | 2018-10-24 15:56 | PN ---
S Progress Note Note: patient in iddm,on insulin coverage,will give insulin scale coverage sliding scale achs,close monitoring
[2018-10-24] MEDS: ATORVASTATIN CA 10 MG TABLET (FP) PO SCH (21:18)
[2018-10-24] MEDS: traZODone HCL 50 MG TABLET (FP) PO SCH (21:18)
[2018-10-24] MEDS: THIAMINE HCL 100 MG TABLET (FP) PO SCH (21:18)
[2018-10-25] MEDS: INSULIN (LEVEMIR) 100 UNITS/ML UNITS SQ SCH ×2 (07:21→21:39)
[2018-10-25] MEDS: glyBURIDE 5 MG TABLET (UD) PO SCH (07:21)
[2018-10-25] MEDS: INSULIN SLIDING SCALE (NOVOLOG) 1 VIAL SQ SCH ×4 (07:21→21:40)
[2018-10-25] MEDS: metFORMIN HCL 500 MG TABLET (FP) PO SCH ×2 (07:21→16:55)
[2018-10-25] MEDS: LISINOPRIL 10 MG TABLET (FP) PO SCH (10:12)
[2018-10-25] MEDS: GABAPENTIN 100 MG CAPSULE (FP) PO SCH ×2 (10:12→21:38)
[2018-10-25] MEDS: IBUPROFEN 400 MG TABLET (FP) PO PRN ×2 (10:12→21:38)
[2018-10-25] MEDS: ASPIRIN 81 MG CHEWABLE TABLETS PO SCH (10:12)
[2018-10-25] MEDS: PRENATAL VITAMINS W/ FOLIC ACID TABLET (FP) PO SCH (10:12)
[2018-10-25] MEDS: MINERAL OIL/PETROLAT/WATER TOPICAL CREAM 113 GM JAR TP SCH ×2 (10:13→22:10)
[2018-10-25] MEDS ORDERED: INSULIN (NOVOLOG) ASPART 100 UNITS/ML 10ML VIAL ONE ×2 (12:00→16:33)
[2018-10-25] MEDS: ATORVASTATIN CA 10 MG TABLET (FP) PO SCH (21:38)
[2018-10-25] MEDS: traZODone HCL 50 MG TABLET (FP) PO SCH (21:38)
[2018-10-25] MEDS: THIAMINE HCL 100 MG TABLET (FP) PO SCH (21:38)
[2018-10-26] MEDS ORDERED: PT OWN MED DRAWER 7, Y5N ONE (03:15)
[2018-10-26] MEDS: glyBURIDE 5 MG TABLET (UD) PO SCH (06:21)
[2018-10-26] MEDS: metFORMIN HCL 500 MG TABLET (FP) PO SCH ×2 (06:21→16:21)
[2018-10-26] MEDS: INSULIN (LEVEMIR) 100 UNITS/ML UNITS SQ SCH ×2 (07:51→21:52)
[2018-10-26] MEDS: INSULIN SLIDING SCALE (NOVOLOG) 1 VIAL SQ SCH ×4 (07:51→21:50)
[2018-10-26] MEDS ORDERED: INSULIN (LEVEMIR) 100 UNITS/ML UNITS SQ ONE (07:54)
[2018-10-26] MEDS ORDERED: INSULIN (NOVOLOG) ASPART 100 UNITS/ML 10ML VIAL ONE (07:54)
[2018-10-26] MEDS: ASPIRIN 81 MG CHEWABLE TABLETS PO SCH (10:21)
[2018-10-26] MEDS: GABAPENTIN 100 MG CAPSULE (FP) PO SCH ×2 (10:21→21:47)
[2018-10-26] MEDS: PRENATAL VITAMINS W/ FOLIC ACID TABLET (FP) PO SCH (10:21)
[2018-10-26] MEDS: LISINOPRIL 10 MG TABLET (FP) PO SCH (10:21)
[2018-10-26] MEDS: MINERAL OIL/PETROLAT/WATER TOPICAL CREAM 113 GM JAR TP SCH ×2 (10:22→21:48)
[2018-10-26] MEDS: ACETAMINOPHEN 325 MG TABLET (FP) PO PRN (10:22)
[2018-10-26] MEDS: ATORVASTATIN CA 10 MG TABLET (FP) PO SCH (21:47)
[2018-10-26] MEDS: THIAMINE HCL 100 MG TABLET (FP) PO SCH (21:47)
[2018-10-26] MEDS: traZODone HCL 50 MG TABLET (FP) PO SCH (21:48)
[2018-10-27] MEDS ORDERED: INSULIN (NOVOLOG) ASPART 100 UNITS/ML 10ML VIAL ONE ×2 (07:11→11:38)
[2018-10-27] MEDS: INSULIN SLIDING SCALE (NOVOLOG) 1 VIAL SQ SCH ×4 (07:28→21:25)
[2018-10-27] MEDS: metFORMIN HCL 500 MG TABLET (FP) PO SCH ×2 (07:28→16:37)
[2018-10-27] MEDS: glyBURIDE 5 MG TABLET (UD) PO SCH (07:28)
[2018-10-27] MEDS: INSULIN (LEVEMIR) 100 UNITS/ML UNITS SQ SCH (07:29)
[2018-10-27] MEDS ORDERED: INSULIN (LEVEMIR) 100 UNITS/ML UNITS SQ SCH (10:00)
[2018-10-27] MEDS: PRENATAL VITAMINS W/ FOLIC ACID TABLET (FP) PO SCH (10:10)
[2018-10-27] MEDS: ASPIRIN 81 MG CHEWABLE TABLETS PO SCH (10:10)
[2018-10-27] MEDS: GABAPENTIN 100 MG CAPSULE (FP) PO SCH ×2 (10:10→21:22)
[2018-10-27] MEDS: LISINOPRIL 10 MG TABLET (FP) PO SCH (10:10)
[2018-10-27] MEDS: MINERAL OIL/PETROLAT/WATER TOPICAL CREAM 113 GM JAR TP SCH ×2 (10:11→21:22)
[2018-10-27] MEDS: ACETAMINOPHEN 325 MG TABLET (FP) PO PRN ×2 (10:12→21:23)
[2018-10-27] MEDS: MELATONIN 5 MG TABLETS PO PRN (21:22)
[2018-10-27] MEDS: ATORVASTATIN CA 10 MG TABLET (FP) PO SCH (21:22)
[2018-10-27] MEDS: THIAMINE HCL 100 MG TABLET (FP) PO SCH (21:22)
[2018-10-27] MEDS: traZODone HCL 50 MG TABLET (FP) PO SCH (21:22)
[2018-10-27] MEDS ORDERED: INSULIN (LEVEMIR) 100 UNITS/ML UNITS SQ ONE (21:30)
[2018-10-28] MEDS: INSULIN SLIDING SCALE (NOVOLOG) 1 VIAL SQ SCH ×4 (07:22→21:43)
[2018-10-28] MEDS: INSULIN (LEVEMIR) 100 UNITS/ML UNITS SQ SCH ×2 (07:22→21:46)
[2018-10-28] MEDS: metFORMIN HCL 500 MG TABLET (FP) PO SCH ×2 (07:23→16:46)
[2018-10-28] MEDS: glyBURIDE 5 MG TABLET (UD) PO SCH (07:23)
[2018-10-28] MEDS ORDERED: INSULIN SLIDING SCALE (NOVOLOG) 1 VIAL SQ SCH (07:30)
[2018-10-28] MEDS ORDERED: INSULIN (LEVEMIR) 100 UNITS/ML UNITS SQ ONE (09:30)
[2018-10-28] MEDS: GABAPENTIN 100 MG CAPSULE (FP) PO SCH ×2 (10:22→21:40)
[2018-10-28] MEDS: PRENATAL VITAMINS W/ FOLIC ACID TABLET (FP) PO SCH (10:22)
[2018-10-28] MEDS: MINERAL OIL/PETROLAT/WATER TOPICAL CREAM 113 GM JAR TP SCH ×2 (10:22→21:40)
[2018-10-28] MEDS: ASPIRIN 81 MG CHEWABLE TABLETS PO SCH (10:22)
[2018-10-28] MEDS: LISINOPRIL 10 MG TABLET (FP) PO SCH (10:22)
[2018-10-28] MEDS: ACETAMINOPHEN 325 MG TABLET (FP) PO PRN (10:23)
[2018-10-28] MEDS ORDERED: INSULIN (NOVOLOG) ASPART 100 UNITS/ML 10ML VIAL ONE (12:07)
[2018-10-28] MEDS: MELATONIN 5 MG TABLETS PO PRN (21:39)
[2018-10-28] MEDS: traZODone HCL 50 MG TABLET (FP) PO SCH (21:39)
[2018-10-28] MEDS: THIAMINE HCL 100 MG TABLET (FP) PO SCH (21:39)
[2018-10-28] MEDS: ATORVASTATIN CA 10 MG TABLET (FP) PO SCH (21:40)
[2018-10-28] MEDS: IBUPROFEN 400 MG TABLET (FP) PO PRN (21:41)
[2018-10-29] MEDS ORDERED: INSULIN (NOVOLOG) ASPART 100 UNITS/ML 10ML VIAL ONE (06:36)
[2018-10-29 07:03] VITALS: BP 147/78; PULSE 77; TEMP 98.1
[2018-10-29] MEDS: metFORMIN HCL 500 MG TABLET (FP) PO SCH (07:25)
[2018-10-29] MEDS: glyBURIDE 5 MG TABLET (UD) PO SCH (07:25)
[2018-10-29] MEDS: INSULIN SLIDING SCALE (NOVOLOG) 1 VIAL SQ SCH (07:26)
[2018-10-29] MEDS: INSULIN (LEVEMIR) 100 UNITS/ML UNITS SQ SCH (07:26)
--- NOTE | 2018-10-29 08:33 | PN ---
BHS Progress Note (SOAP) Subjective: Patient to be discharged today. Objective: 10/29/18 08:24 Vital Signs (72 hours) 10/26/18 10/26/18 10/27/18 09:30 20:20 00:30 Temperature Pulse Rate 87 72 Respiratory 18 18 18 Rate Blood Pressure 156/85 139/82 10/27/18 10/27/18 10/27/18 03:30 06:37 08:40 Temperature 98.2 F Pulse Rate 79 74 Respiratory 18 18 18 Rate Blood Pressure 128/75 141/75 10/27/18 10/28/18 10/28/18 09:30 00:30 03:30 Temperature Pulse Rate 81 Respiratory 18 20 18 Rate Blood Pressure 133/71 10/28/18 10/28/18 10/29/18 06:59 09:30 00:30 Temperature 97.8 F Pulse Rate 74 72 Respiratory 18 18 18 Rate Blood Pressure 126/72 142/71 10/29/18 10/29/18 03:30 07:02 Temperature 98.1 F Pulse Rate 77 Respiratory 18 18 Rate Blood Pressure 147/78 10/29/18 08:25 CBC, BMP 10/19/18 12:00 10/19/18 12:00 10/29/18 08:35 Neurologically intact; A=O x 3, ambulating well with cane, Lungs clear, Heart rate regular. Assessment: Stable for discharge. Diagnoses: Diabetes, Type 2 uncontrolled Neuropathy, Diabetic ETOH Dependence Cocaine Dependance 10/29/18 08:33 Plan: Client will receive aftercare at [facility] Client receives aftercare at [facility], PCP- Dr. Lopez Prescriptions sent to patient's pharmacy for home mediations.
== END 2018-10-29 08:50 | disposition home or self-care (01) | DRG 772 ==
LOC: YASAS 09:25 → Y3W 13:05
PROVIDERS: ADMIT Neuromusculoskeletal Medicine & OMM; ATTEND Neuromusculoskeletal Medicine & OMM
PROC: HZ42ZZZ Group Counseling for Substance Abuse Treatment, Cognitive-Behavioral (ICD-10-PCS; principal; 2018-10-19)
DX: F10.20 Alcohol dependence, uncomplicated (principal); F14.20 Cocaine dependence, uncomplicated; F17.210 Nicotine dependence, cigarettes, uncomplicated; F25.9 Schizoaffective disorder, unspecified; F31.81 Bipolar II disorder; F19.282 Other psychoactive substance dependence with psychoactive substance-induced sleep disorder; I10 Essential (primary) hypertension; E11.65 Type 2 diabetes mellitus with hyperglycemia; E11.42 Type 2 diabetes mellitus with diabetic polyneuropathy; Z79.4 Long term (current) use of insulin; E78.5 Hyperlipidemia, unspecified; M19.90 Unspecified osteoarthritis, unspecified site; R26.2 Difficulty in walking, not elsewhere classified; Z99.89 Dependence on other enabling machines and devices; Z87.438 Personal history of other diseases of male genital organs; Z91.14 Patient's other noncompliance with medication regimen
CPT/HCPCS: 36415; 80053; 81003; 82962; 85027; 86593; 90688; G0008

== ENCOUNTER 2019-04-13 08:59 | Inpatient (IN) | payer OTHER ==
[2019-04-13 09:36] VITALS: BMI 28.8
--- NOTE | 2019-04-13 11:52 | HP ---
CIWA Score Nausea/Vomitin-No Nausea/No Vomiting Muscle Tremors: None Anxiety: 0-No Anxiety, at Ease Agitation: 0-Normal Activity Paroxysmal Sweats: No Perspiration Orientation: 0-Oriented Tacttile Disturbances: 0-None Auditory Disturbances: 0-None Visual Disturbances: 0-None Headache: 0-None Present CIWA-Ar Total Score: 0 - Admission Criteria OASAS Guidelines: Admission for Medically Managed Detox: Requires at least one of the followin. CIWA greater than 12 2. Seizures within the past 24 hours 3. Delirium tremens within the past 24 hours 4. Hallucinations within the past 24 hours 5. Acute intervention needed for co occurring medical disorder 6. Acute intervention needed for co occurring psychiatric disorder 7. Severe withdrawal that cannot be handled at a lower level of care (continued vomiting, continued diarrhea, abnormal vital signs) requiring intravenous medication and/or fluids 8. Admission ROS [facility] - HPI Allergies/Adverse Reactions: Allergies Allergy/AdvReac Type Severity Reaction Status Date / Time No Known Allergies Allergy Verified 04/13/19 09:24 History of Present Illness: 48 y.o. male reports relapse on etoh and cociane 2 days ago , prior sobriety x 6 mo after d/c from this facility . denies symptoms at this time, states used 300$ worth of cocaine via inhalaiton , and 1/5 pints liquor . homeless , unemployed PMHX : htn , DM , HLD PSHX : lipoma excision occiput 1 week ago PSych : SAD , denies SI / HI on Seroquel , latest taken yesterday . Exam Limitations: No Limitations - Ebola screening Have you traveled outside of the country in the last 21 days: No Have you had contact with anyone from an Ebola affected area: No Do you have a fever: No - Review of Systems Constitutional: No Symptoms Reported EENT: reports: No Symptoms Reported Respiratory: reports: No Symptoms reported Cardiac: reports: No Symptoms Reported GI: reports: No Symptoms Reported : reports: No Symptoms Reported Musculoskeletal: reports: Muscle Weakness ( LLE weakness after knee surgery for OA , uses cane for ambulation) Integumentary: reports: See HPI Neuro: reports: Unsteady Gait Endocrine: reports: See HPI Psychiatric: reports: Orientated x3 Patient History - Patient Medical History Hx Anemia: No Hx Asthma: No Hx Chronic Obstructive Pulmonary Disease (COPD): No Hx Cancer: No Hx Cardiac Disorders: No Hx Congestive Heart Failure: No Hx Hypertension: No Hx Hypercholesterolemia: Yes (non compliance) Hx Pacemaker: No HX Cerebrovascular Accident: No Hx Seizures: No Hx Dementia: No Hx Diabetes: Yes (1987) Hx Gastrointestinal Disorders: No Hx Liver Disease: No Hx Genitourinary Disorders: No Hx Sexually Transmitted Disorders: No Hx Renal Disease (ESRD): No Hx Thyroid Disease: No Hx Human Immunodeficiency Virus (HIV): No Hx Hepatitis C: No Hx Depression: No Hx Suicide Attempt: No Hx Bipolar Disorder: Yes Hx Schizophrenia: Yes - Patient Surgical History Past Surgical History: No Hx Neurologic Surgery: No Hx Cataract Extraction: No Hx Cardiac Surgery: No Hx Lung Surgery: No Hx Breast Surgery: No Hx Breast Biopsy: No Hx Abdominal Surgery: No Hx Appendectomy: No Hx Cholecystectomy: No Hx Genitourinary Surgery: No Hx Section: No Hx Orthopedic Surgery: Yes (torn ligament, left knee in ) Hx Hysterectomy: No Anesthesia Reaction: No - PPD History Date: 03/12/18 Results: 0 mm - Smoking Cessation Smoking history: Current every day smoker Have you smoked in the past 12 months: Yes Aproximately how many cigarettes per day: 10 Cigars Per Day: 0 Hx Chewing Tobacco Use: No Initiated information on smoking cessation: No - Substances abused Alcohol Substance route: Oral Frequency: 1-2 times per week Amount used: VODKA- 1 PT Age of first use: 11 Date of last use: 04/11/19 Family Disease History - Family Disease History Family Disease History: Diabetes: Grandparent, Brother, Sister Admission Physical Exam S - Vital Signs Vital Signs: Vital Signs - 24 hr 04/13/19 04/13/19 09:23 09:44 Temperature 97.1 F L 97.1 F L Pulse Rate 106 H 106 H Respiratory 18 18 Rate Blood Pressure 135/83 135/83 - Physical General Appearance: Yes: Other (fatigued) HEENTM: Yes: EOMI, Hearing grossly Normal, Normocephalic, Normal Voice, Other ( occitpital sutures c/d/i) Respiratory: Yes: Lungs Clear, Normal Breath Sounds, No Respiratory Distress, No Accessory Muscle Use Neck: Yes: No masses,lesions,Nodules, Trachea in good position Cardiology: Yes: Regular Rhythm, Regular Rate, S1, S2, Tachycardia Abdominal: Yes: Non Tender, Soft Musculoskeletal: Yes: Muscle weakness (LLE , unsteady gait , ambulating w/ cane), Other Extremities: Yes: Non-Tender, Other (scarring left knee from prior surgical intervention) Neurological: Yes: Alert, Normal Mood/Affect Integumentary: Yes: Warm - Diagnostic (1) Alcohol dependence Current Visit: Yes Status: Acute Qualifiers: Substance use status: uncomplicated Qualified Code(s): F10.20 - Alcohol dependence, uncomplicated (2) Cocaine dependence Current Visit: Yes Status: Acute Qualifiers: Complication of substance-induced condition: uncomplicated Breathalyzer - Breathalyzer Breathalyzer: 0 Urine Drug Screen - Test Device Lot number: [id number] Expiration date: 12/25/20 - Control Is test valid?: Yes - Results Drug screen NEGATIVE: Yes Urine drug screen results: IRA-Cocaine Inpatient Rehab Admission - Rehab Decision to Admit Inpatient rehab admission?: Yes - Initial Determination Are CD services needed?: Yes Free of communicable disease: Yes Not in need of hospitalization: Yes - Rehab Admission Criteria Previous failed treatment: No Poor recovery environment: Yes Comorbidities: No Lacks judgement: Yes Patient is meeting Inpatient Rehab admission criteria:: Yes
[2019-04-13] MEDS ORDERED: MENTHOL/PHENOL 1 EACH UD MM PRN (11:58)
[2019-04-13] MEDS ORDERED: MAGNESIUM HYDROX 2400MG/30ML ORAL SUSPENSION 30 ML CUP PO PRN (11:58)
[2019-04-13] MEDS ORDERED: MAGNESIUM CITRATE 300 ML BOTTLE PO PRN (11:58)
[2019-04-13] MEDS ORDERED: MAG HYDROX/AL HYDROX/SIMETH 30 ML UNIT-DOSE CUP PO PRN (11:58)
[2019-04-13] MEDS ORDERED: P-EPHED 60MG/TRIPROLIDI 2.5MG TABLET PO PRN (11:58)
[2019-04-13] MEDS ORDERED: guaiFENesin 200 MG/10 ML 10 ML UNIT-DOSE CUPS PO PRN (11:58)
[2019-04-13] MEDS: PANTOPRAZOLE 20 MG TABLET (FP) PO SCH (13:11)
[2019-04-13 16:41] LABS: HEMATOCRIT 40.3 % (35.4-49); HEMOGLOBIN 13.1 GM/dL (11.7-16.9); MCH 30.1 pg (25.7-33.7); MCHC 32.6 g/dl (32.0-35.9); MEAN CELL VOLUME 92.1 fl (80-96); MEAN PLT VOLUME 9.2 fl (7.5-11.1); PLATELET COUNT 337 K/MM3 (134-434); RBC 4.37 M/mm3 (4.00-5.60); RDW 14.6 % (11.9-15.9); WHITE BLOOD COUNT 9.8 K/mm3 (4.0-10.0)
[2019-04-13 17:03] LABS: ALBUMIN 3.3 g/dl (3.4-5.0); BILIRUBIN,TOTAL 0.2 mg/dL (0.2-1); BLOOD UREA NITROGEN 14.6 mg/dL (7-18); CREATININE 1.3 mg/dL (0.55-1.3); POTASSIUM 3.8 mmol/L (3.5-5.1); TOT PROT 6.9 g/dl (6.4-8.2)
[2019-04-13] MEDS: metFORMIN HCL 500 MG TABLET (FP) PO SCH (17:15)
[2019-04-13] MEDS: INSULIN SLIDING SCALE (NOVOLOG) 1 VIAL SQ SCH (17:17)
[2019-04-13] MEDS: GABAPENTIN 100 MG CAPSULE (FP) PO SCH (21:21)
[2019-04-13] MEDS: THIAMINE HCL 100 MG TABLET (FP) PO SCH (21:21)
[2019-04-13] MEDS: ATORVASTATIN CA 10 MG TABLET (FP) PO SCH (21:21)
[2019-04-13] MEDS: MELATONIN 5 MG TABLETS PO PRN (21:22)
[2019-04-14] MEDS ORDERED: INSULIN (NOVOLOG) ASPART 100 UNITS/ML 10ML VIAL ONE (07:16)
[2019-04-14] MEDS: metFORMIN HCL 500 MG TABLET (FP) PO SCH ×2 (07:18→16:39)
[2019-04-14] MEDS: INSULIN SLIDING SCALE (NOVOLOG) 1 VIAL SQ SCH ×2 (07:18→16:42)
[2019-04-14] MEDS: PRENATAL VITAMINS W/ FOLIC ACID TABLET (FP) PO SCH (10:35)
[2019-04-14] MEDS: GABAPENTIN 100 MG CAPSULE (FP) PO SCH ×2 (10:35→21:53)
[2019-04-14] MEDS: ASPIRIN 81 MG CHEWABLE TABLETS PO SCH (10:35)
[2019-04-14] MEDS: PANTOPRAZOLE 20 MG TABLET (FP) PO SCH (10:35)
[2019-04-14] MEDS: LISINOPRIL 20 MG TABLET (FP) PO SCH (10:35)
[2019-04-14] MEDS ORDERED: glyBURIDE 5 MG TABLET (UD) PO ONE (11:00)
[2019-04-14] MEDS: IBUPROFEN 400 MG TABLET (FP) PO PRN (11:52)
--- NOTE | 2019-04-14 12:13 | PN ---
BHS Progress Note (SOAP) Subjective: Elevated BGM. Asymptomatic. Patient reported that he was taking standing order of levimir and glyberide. Objective: General: No apparent distress HEENT: normocephalic Lungs: clear Heart: s1 s2 audible. ABD: +BS Neuro: 2-12 intact 04/14/19 12:09 04/14/19 12:10 CBC, BMP 04/13/19 14:00 04/13/19 14:00 Vital Signs (72 hours) 04/13/19 04/13/19 04/14/19 09:23 09:44 01:28 Temperature 97.1 F L 97.1 F L Pulse Rate 106 H 106 H Respiratory 18 18 18 Rate Blood Pressure 135/83 135/83 04/14/19 04/14/19 04/14/19 03:30 06:30 06:36 Temperature 98.1 F Pulse Rate 86 Respiratory 18 18 18 Rate Blood Pressure 135/79 Assessment: DM2, uncontrolled. 04/14/19 12:10 Plan: Glyberide 10 mg daily and Levimir 10 mg BID added to regimen. Sliding scale increased to before all meals and hour of sleep; insulin coverage for sliding scale increased 2 unit for each range and 2 units was added for fingersticks > 150-200.
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
[2019-04-14] MEDS: THIAMINE HCL 100 MG TABLET (FP) PO SCH (21:53)
[2019-04-14] MEDS: ATORVASTATIN CA 10 MG TABLET (FP) PO SCH (21:53)
[2019-04-14] MEDS: INSULIN (LEVEMIR) 100 UNITS/ML UNITS SQ SCH (21:56)
[2019-04-14] MEDS: MELATONIN 5 MG TABLETS PO PRN (21:57)
[2019-04-15] MEDS: metFORMIN HCL 500 MG TABLET (FP) PO SCH ×2 (05:59→16:48)
[2019-04-15] MEDS: glyBURIDE 5 MG TABLET (UD) PO SCH (05:59)
[2019-04-15] MEDS ORDERED: INSULIN (LEVEMIR) 100 UNITS/ML UNITS SQ ONE (06:31)
[2019-04-15] MEDS ORDERED: INSULIN (NOVOLOG) ASPART 100 UNITS/ML 10ML VIAL ONE ×2 (06:58→17:12)
[2019-04-15] MEDS: INSULIN (LEVEMIR) 100 UNITS/ML UNITS SQ SCH ×2 (07:03→21:33)
[2019-04-15] MEDS: INSULIN SLIDING SCALE (NOVOLOG) 1 VIAL SQ SCH ×2 (07:04→16:48)
[2019-04-15] MEDS: GABAPENTIN 100 MG CAPSULE (FP) PO SCH ×2 (09:55→21:33)
[2019-04-15] MEDS: ASPIRIN 81 MG CHEWABLE TABLETS PO SCH (09:55)
[2019-04-15] MEDS: PANTOPRAZOLE 20 MG TABLET (FP) PO SCH (09:55)
[2019-04-15] MEDS: PRENATAL VITAMINS W/ FOLIC ACID TABLET (FP) PO SCH (09:55)
[2019-04-15] MEDS: LISINOPRIL 20 MG TABLET (FP) PO SCH (09:55)
[2019-04-15] MEDS: IBUPROFEN 400 MG TABLET (FP) PO PRN (09:57)
[2019-04-15] MEDS: LOPERAMIDE HCL 2 MG CAPSULE PO PRN (10:00)
--- NOTE | 2019-04-15 14:48 | PN ---
B[facility] Progress Note (SOAP) Subjective: patient with stitches back of head from removal of a fatty lipoma. He had 3 stitches removed 1 week ago and 5 stitches remain. Objective: 04/15/19 14:44 CBC, BMP 04/13/19 14:00 04/13/19 14:00 04/15/19 14:44 Vital Signs (72 hours) 04/13/19 04/13/19 04/14/19 09:23 09:44 01:28 Temperature 97.1 F L 97.1 F L Pulse Rate 106 H 106 H Respiratory 18 18 18 Rate Blood Pressure 135/83 135/83 04/14/19 04/14/19 04/14/19 03:30 06:30 06:36 Temperature 98.1 F Pulse Rate 86 Respiratory 18 18 18 Rate Blood Pressure 135/79 04/14/19 04/15/19 04/15/19 15:10 00:30 03:30 Temperature Pulse Rate 97 H Respiratory 18 18 18 Rate Blood Pressure 136/74 04/15/19 04/15/19 06:15 09:30 Temperature 97.8 F Pulse Rate 89 83 Respiratory 20 18 Rate Blood Pressure 141/86 140/97 PHYSICAL General: no apparent distress HEENTM: normocephalic Skin: surgical incision well healed, edges approximated, 5 stitches equally spaced throughout incision. Assessment: surgical incision, occipital area of head, healed. 04/15/19 14:46 Plan: 5 stitches removed, patient tolerated procedure well. clean, dry, intact.
[2019-04-15 18:15] LABS: EPI CELLS 0.3 /HPF (0-5/HPF); HYALINE CASTS 10 /lpf (0-8); PH,URINE 5.5 (5.0-8.0); URINE APPEARANCE CLOUDY; URINE BACTERIA >9000 /hpf (NEGATIVE); URINE BILIRUBIN NEGATIVE (NEGATIVE); URINE COLOR YELLOW; URINE GLUCOSE (UA) 3+ (NEGATIVE); URINE KETONE NEGATIVE (NEGATIVE); URINE LEUK ESTERASE 1+ (NEGATIVE); URINE NITRITE POSITIVE (NEGATIVE); URINE PROTEIN NEGATIVE (NEGATIVE); URINE RBC 2 /hpf (0-4); URINE UROBILINOGEN 0.2 mg/dL (0.2-1.0); URINE WBC 71 /hpf (0-5)
[2019-04-15] MEDS: MELATONIN 5 MG TABLETS PO PRN (21:33)
[2019-04-15] MEDS: ATORVASTATIN CA 10 MG TABLET (FP) PO SCH (21:33)
[2019-04-15] MEDS: THIAMINE HCL 100 MG TABLET (FP) PO SCH (21:33)
[2019-04-16] MEDS: glyBURIDE 5 MG TABLET (UD) PO SCH (07:02)
[2019-04-16] MEDS: metFORMIN HCL 500 MG TABLET (FP) PO SCH ×2 (07:02→16:34)
[2019-04-16] MEDS ORDERED: INSULIN (NOVOLOG) ASPART 100 UNITS/ML 10ML VIAL ONE ×2 (07:05→16:31)
[2019-04-16] MEDS: INSULIN SLIDING SCALE (NOVOLOG) 1 VIAL SQ SCH ×2 (07:08→16:35)
[2019-04-16] MEDS: INSULIN (LEVEMIR) 100 UNITS/ML UNITS SQ SCH ×2 (07:09→21:55)
[2019-04-16] MEDS: LISINOPRIL 20 MG TABLET (FP) PO SCH (10:26)
[2019-04-16] MEDS: PANTOPRAZOLE 20 MG TABLET (FP) PO SCH (10:26)
[2019-04-16] MEDS: ASPIRIN 81 MG CHEWABLE TABLETS PO SCH (10:26)
[2019-04-16] MEDS: GABAPENTIN 100 MG CAPSULE (FP) PO SCH ×2 (10:26→21:52)
[2019-04-16] MEDS: PRENATAL VITAMINS W/ FOLIC ACID TABLET (FP) PO SCH (10:26)
[2019-04-16] MEDS: THIAMINE HCL 100 MG TABLET (FP) PO SCH (21:52)
[2019-04-16] MEDS: ATORVASTATIN CA 10 MG TABLET (FP) PO SCH (21:52)
[2019-04-16] MEDS: MELATONIN 5 MG TABLETS PO PRN (21:54)
[2019-04-17] MEDS: metFORMIN HCL 500 MG TABLET (FP) PO SCH ×2 (06:27→16:20)
[2019-04-17] MEDS: glyBURIDE 5 MG TABLET (UD) PO SCH (06:27)
[2019-04-17] MEDS ORDERED: INSULIN (NOVOLOG) ASPART 100 UNITS/ML 10ML VIAL ONE ×2 (07:11→16:23)
[2019-04-17] MEDS: INSULIN SLIDING SCALE (NOVOLOG) 1 VIAL SQ SCH ×2 (07:45→16:23)
[2019-04-17] MEDS: INSULIN (LEVEMIR) 100 UNITS/ML UNITS SQ SCH ×2 (07:48→21:37)
[2019-04-17] MEDS: LISINOPRIL 20 MG TABLET (FP) PO SCH (10:04)
[2019-04-17] MEDS: PRENATAL VITAMINS W/ FOLIC ACID TABLET (FP) PO SCH (10:04)
[2019-04-17] MEDS: GABAPENTIN 100 MG CAPSULE (FP) PO SCH ×2 (10:04→21:33)
[2019-04-17] MEDS: PANTOPRAZOLE 20 MG TABLET (FP) PO SCH (10:04)
[2019-04-17] MEDS: ASPIRIN 81 MG CHEWABLE TABLETS PO SCH (10:04)
[2019-04-17] MEDS: ATORVASTATIN CA 10 MG TABLET (FP) PO SCH (21:33)
[2019-04-17] MEDS: THIAMINE HCL 100 MG TABLET (FP) PO SCH (21:36)
[2019-04-17] MEDS: MELATONIN 5 MG TABLETS PO PRN (21:37)
[2019-04-18] MEDS: glyBURIDE 5 MG TABLET (UD) PO SCH (06:18)
[2019-04-18] MEDS: metFORMIN HCL 500 MG TABLET (FP) PO SCH ×2 (06:18→16:43)
[2019-04-18] MEDS ORDERED: INSULIN (NOVOLOG) ASPART 100 UNITS/ML 10ML VIAL ONE ×2 (06:50→16:43)
[2019-04-18] MEDS: INSULIN SLIDING SCALE (NOVOLOG) 1 VIAL SQ SCH ×2 (07:44→16:46)
[2019-04-18] MEDS: INSULIN (LEVEMIR) 100 UNITS/ML UNITS SQ SCH ×2 (07:44→21:17)
[2019-04-18] MEDS: LISINOPRIL 20 MG TABLET (FP) PO SCH (09:20)
[2019-04-18] MEDS: ASPIRIN 81 MG CHEWABLE TABLETS PO SCH (09:20)
[2019-04-18] MEDS: PRENATAL VITAMINS W/ FOLIC ACID TABLET (FP) PO SCH (09:20)
[2019-04-18] MEDS: PANTOPRAZOLE 20 MG TABLET (FP) PO SCH (09:20)
[2019-04-18] MEDS: GABAPENTIN 100 MG CAPSULE (FP) PO SCH ×2 (09:20→21:17)
[2019-04-18] MEDS: MELATONIN 5 MG TABLETS PO PRN (21:17)
[2019-04-18] MEDS: ATORVASTATIN CA 10 MG TABLET (FP) PO SCH (21:17)
[2019-04-18] MEDS: THIAMINE HCL 100 MG TABLET (FP) PO SCH (21:17)
[2019-04-19] MEDS ORDERED: INSULIN (NOVOLOG) ASPART 100 UNITS/ML 10ML VIAL ONE ×2 (06:49→17:18)
[2019-04-19] MEDS: glyBURIDE 5 MG TABLET (UD) PO SCH (07:49)
[2019-04-19] MEDS: metFORMIN HCL 500 MG TABLET (FP) PO SCH ×2 (07:49→17:29)
[2019-04-19] MEDS: INSULIN SLIDING SCALE (NOVOLOG) 1 VIAL SQ SCH ×2 (07:50→17:30)
[2019-04-19] MEDS: INSULIN (LEVEMIR) 100 UNITS/ML UNITS SQ SCH ×2 (07:50→21:36)
[2019-04-19] MEDS: ASPIRIN 81 MG CHEWABLE TABLETS PO SCH (10:16)
[2019-04-19] MEDS: PRENATAL VITAMINS W/ FOLIC ACID TABLET (FP) PO SCH (10:16)
[2019-04-19] MEDS: PANTOPRAZOLE 20 MG TABLET (FP) PO SCH (10:16)
[2019-04-19] MEDS: GABAPENTIN 100 MG CAPSULE (FP) PO SCH ×2 (10:16→21:38)
[2019-04-19] MEDS: LISINOPRIL 20 MG TABLET (FP) PO SCH (10:16)
--- NOTE | 2019-04-19 10:45 | PN ---
[facility] Progress Note Note: PATIENT SEEN FOR C/O URINARY FREQUENCY AND FOUL SMELL. PATIENT DENIES BURNING UPON URINATION AND FEVER. Laboratory Tests 04/13/19 04/13/19 04/13/19 12:10 14:00 14:00 WBC 9.8 RBC 4.37 Hgb 13.1 Hct 40.3 MCV 92.1 MCH 30.1 MCHC 32.6 RDW 14.6 D Plt Count 337 D MPV 9.2 Sodium 138 Potassium 3.8 Chloride 102 Carbon Dioxide 27 Anion Gap 9 BUN 14.6 Creatinine 1.3 Est GFR (CKD-EPI)AfAm 73.74 Est GFR (CKD-EPI)NonAf 63.62 POC Glucometer 372 Random Glucose 413 H* Calcium 9.0 Total Bilirubin 0.2 AST 13 L ALT 22 Alkaline Phosphatase 96 Total Protein 6.9 Albumin 3.3 L Urine Color Urine Appearance Urine pH Ur Specific Amonate Urine Protein Urine Glucose (UA) Urine Ketones Urine Blood Urine Nitrite Urine Bilirubin Urine Urobilinogen Ur Leukocyte Esterase Urine WBC (Auto) Urine RBC (Auto) Urine Casts (Auto) U Epithel Cells (Auto) Urine Bacteria (Auto) RPR Titer 04/13/19 04/13/19 04/14/19 14:00 17:15 06:27 WBC RBC Hgb Hct MCV MCH MCHC RDW Plt Count MPV Sodium Potassium Chloride Carbon Dioxide Anion Gap BUN Creatinine Est GFR (CKD-EPI)AfAm Est GFR (CKD-EPI)NonAf POC Glucometer [phone] Random Glucose Calcium Total Bilirubin AST ALT Alkaline Phosphatase Total Protein Albumin Urine Color Urine Appearance Urine pH Ur Specific Amonate Urine Protein Urine Glucose (UA) Urine Ketones Urine Blood Urine Nitrite Urine Bilirubin Urine Urobilinogen Ur Leukocyte Esterase Urine WBC (Auto) Urine RBC (Auto) Urine Casts (Auto) U Epithel Cells (Auto) Urine Bacteria (Auto) RPR Titer Nonreactive 04/14/19 04/14/19 04/14/19 11:49 16:40 21:54 WBC RBC Hgb Hct MCV MCH MCHC RDW Plt Count MPV Sodium Potassium Chloride Carbon Dioxide Anion Gap BUN Creatinine Est GFR (CKD-EPI)AfAm Est GFR (CKD-EPI)NonAf POC Glucometer [phone] Random Glucose Calcium Total Bilirubin AST ALT Alkaline Phosphatase Total Protein Albumin Urine Color Urine Appearance Urine pH Ur Specific Amonate Urine Protein Urine Glucose (UA) Urine Ketones Urine Blood Urine Nitrite Urine Bilirubin Urine Urobilinogen Ur Leukocyte Esterase Urine WBC (Auto) Urine RBC (Auto) Urine Casts (Auto) U Epithel Cells (Auto) Urine Bacteria (Auto) RPR Titer 04/15/19 04/15/19 04/15/19 05:56 15:39 16:46 WBC RBC Hgb Hct MCV MCH MCHC RDW Plt Count MPV Sodium Potassium Chloride Carbon Dioxide Anion Gap BUN Creatinine Est GFR (CKD-EPI)AfAm Est GFR (CKD-EPI)NonAf POC Glucometer 175 255 Random Glucose Calcium Total Bilirubin AST ALT Alkaline Phosphatase Total Protein Albumin Urine Color Yellow Urine Appearance Cloudy Urine pH 5.5 Ur Specific Amonate 1.026 Urine Protein Negative Urine Glucose (UA) 3+ H Urine Ketones Negative Urine Blood Trace Urine Nitrite Positive H Urine Bilirubin Negative Urine Urobilinogen 0.2 Ur Leukocyte Esterase 1+ H Urine WBC (Auto) 71 Urine RBC (Auto) 2 Urine Casts (Auto) 10 U Epithel Cells (Auto) 0.3 Urine Bacteria (Auto) >9000 RPR Titer 04/15/19 04/16/19 04/16/19 20:35 06:11 16:32 WBC RBC Hgb Hct MCV MCH MCHC RDW Plt Count MPV Sodium Potassium Chloride Carbon Dioxide Anion Gap BUN Creatinine Est GFR (CKD-EPI)AfAm Est GFR (CKD-EPI)NonAf POC Glucometer [phone] Random Glucose Calcium Total Bilirubin AST ALT Alkaline Phosphatase Total Protein Albumin Urine Color Urine Appearance Urine pH Ur Specific Amonate Urine Protein Urine Glucose (UA) Urine Ketones Urine Blood Urine Nitrite Urine Bilirubin Urine Urobilinogen Ur Leukocyte Esterase Urine WBC (Auto) Urine RBC (Auto) Urine Casts (Auto) U Epithel Cells (Auto) Urine Bacteria (Auto) RPR Titer 04/16/19 04/17/19 04/17/19 21:54 06:26 11:30 WBC RBC Hgb Hct MCV MCH MCHC RDW Plt Count MPV Sodium Potassium Chloride Carbon Dioxide Anion Gap BUN Creatinine Est GFR (CKD-EPI)AfAm Est GFR (CKD-EPI)NonAf POC Glucometer [phone] Random Glucose Calcium Total Bilirubin AST ALT Alkaline Phosphatase Total Protein Albumin Urine Color Urine Appearance Urine pH Ur Specific Amonate Urine Protein Urine Glucose (UA) Urine Ketones Urine Blood Urine Nitrite Urine Bilirubin Urine Urobilinogen Ur Leukocyte Esterase Urine WBC (Auto) Urine RBC (Auto) Urine Casts (Auto) U Epithel Cells (Auto) Urine Bacteria (Auto) RPR Titer 04/17/19 04/17/19 04/18/19 16:21 21:34 06:17 WBC RBC Hgb Hct MCV MCH MCHC RDW Plt Count MPV Sodium Potassium Chloride Carbon Dioxide Anion Gap BUN Creatinine Est GFR (CKD-EPI)AfAm Est GFR (CKD-EPI)NonAf POC Glucometer [phone] Random Glucose Calcium Total Bilirubin AST ALT Alkaline Phosphatase Total Protein Albumin Urine Color Urine Appearance Urine pH Ur Specific Amonate Urine Protein Urine Glucose (UA) Urine Ketones Urine Blood Urine Nitrite Urine Bilirubin Urine Urobilinogen Ur Leukocyte Esterase Urine WBC (Auto) Urine RBC (Auto) Urine Casts (Auto) U Epithel Cells (Auto) Urine Bacteria (Auto) RPR Titer 04/18/19 04/18/19 04/19/19 16:44 21:15 06:11 WBC RBC Hgb Hct MCV MCH MCHC RDW Plt Count MPV Sodium Potassium Chloride Carbon Dioxide Anion Gap BUN Creatinine Est GFR (CKD-EPI)AfAm Est GFR (CKD-EPI)NonAf POC Glucometer [phone] Random Glucose Calcium Total Bilirubin AST ALT Alkaline Phosphatase Total Protein Albumin Urine Color Urine Appearance Urine pH Ur Specific Amonate Urine Protein Urine Glucose (UA) Urine Ketones Urine Blood Urine Nitrite Urine Bilirubin Urine Urobilinogen Ur Leukocyte Esterase Urine WBC (Auto) Urine RBC (Auto) Urine Casts (Auto) U Epithel Cells (Auto) Urine Bacteria (Auto) RPR Titer PE ALERT AND ORIENTED X 3 SKIN WARM AND DRY +PERRLA EOMS INTACT BL GI NT, ND MILD PELVIC TENDERNESS EXT AMB WITH CANE, NO VISIBLE EDEMA A/P UTI ENCOURAGE ORAL FLUIDS START NITROFURATOIN 100MG BID X 7 DAYS MONITOR CLINICALLY
[2019-04-19] MEDS: IBUPROFEN 400 MG TABLET (FP) PO PRN (11:45)
[2019-04-19] MEDS: NITROFURANTOIN MACROCRYSTAL 50 MG CAPSULE (FP) PO SCH ×2 (12:17→17:29)
[2019-04-19] MEDS: THIAMINE HCL 100 MG TABLET (FP) PO SCH (21:36)
[2019-04-19] MEDS: MELATONIN 5 MG TABLETS PO PRN (21:38)
[2019-04-19] MEDS: ATORVASTATIN CA 10 MG TABLET (FP) PO SCH (21:38)
[2019-04-20] MEDS: NITROFURANTOIN MACROCRYSTAL 50 MG CAPSULE (FP) PO SCH ×5 (00:43→23:53)
[2019-04-20] MEDS: glyBURIDE 5 MG TABLET (UD) PO SCH (06:15)
[2019-04-20] MEDS: metFORMIN HCL 500 MG TABLET (FP) PO SCH ×2 (06:15→16:34)
[2019-04-20] MEDS: INSULIN SLIDING SCALE (NOVOLOG) 1 VIAL SQ SCH ×2 (07:43→16:38)
[2019-04-20] MEDS: INSULIN (LEVEMIR) 100 UNITS/ML UNITS SQ SCH ×2 (07:43→21:33)
[2019-04-20] MEDS: ASPIRIN 81 MG CHEWABLE TABLETS PO SCH (10:13)
[2019-04-20] MEDS: PANTOPRAZOLE 20 MG TABLET (FP) PO SCH (10:13)
[2019-04-20] MEDS: GABAPENTIN 100 MG CAPSULE (FP) PO SCH ×2 (10:13→21:33)
[2019-04-20] MEDS: PRENATAL VITAMINS W/ FOLIC ACID TABLET (FP) PO SCH (10:13)
[2019-04-20] MEDS: LISINOPRIL 20 MG TABLET (FP) PO SCH (10:13)
[2019-04-20] MEDS: IBUPROFEN 400 MG TABLET (FP) PO PRN (10:15)
[2019-04-20] MEDS: LOPERAMIDE HCL 2 MG CAPSULE PO PRN (16:35)
[2019-04-20] MEDS: ATORVASTATIN CA 10 MG TABLET (FP) PO SCH (21:33)
[2019-04-20] MEDS: THIAMINE HCL 100 MG TABLET (FP) PO SCH (21:33)
[2019-04-20] MEDS: MELATONIN 5 MG TABLETS PO PRN (21:34)
[2019-04-21] MEDS: NITROFURANTOIN MACROCRYSTAL 50 MG CAPSULE (FP) PO SCH ×3 (07:00→17:31)
[2019-04-21] MEDS: INSULIN (LEVEMIR) 100 UNITS/ML UNITS SQ SCH ×2 (07:25→21:33)
[2019-04-21] MEDS: glyBURIDE 5 MG TABLET (UD) PO SCH (07:25)
[2019-04-21] MEDS: metFORMIN HCL 500 MG TABLET (FP) PO SCH ×2 (07:27→16:44)
[2019-04-21] MEDS: LISINOPRIL 20 MG TABLET (FP) PO SCH (10:29)
[2019-04-21] MEDS: PANTOPRAZOLE 20 MG TABLET (FP) PO SCH (10:29)
[2019-04-21] MEDS: PRENATAL VITAMINS W/ FOLIC ACID TABLET (FP) PO SCH (10:29)
[2019-04-21] MEDS: ASPIRIN 81 MG CHEWABLE TABLETS PO SCH (10:29)
[2019-04-21] MEDS: GABAPENTIN 100 MG CAPSULE (FP) PO SCH ×2 (10:29→21:34)
[2019-04-21] MEDS: IBUPROFEN 400 MG TABLET (FP) PO PRN (10:30)
[2019-04-21] MEDS: INSULIN SLIDING SCALE (NOVOLOG) 1 VIAL SQ SCH ×2 (10:47→16:47)
[2019-04-21] MEDS ORDERED: IBUPROFEN 600 MG TABLET (FP) PO ONE (11:47)
[2019-04-21] MEDS ORDERED: INSULIN (NOVOLOG) ASPART 100 UNITS/ML 10ML VIAL ONE (16:46)
[2019-04-21] MEDS: ATORVASTATIN CA 10 MG TABLET (FP) PO SCH (21:33)
[2019-04-21] MEDS: ACETAMINOPHEN 325 MG TABLET (FP) PO PRN (21:33)
[2019-04-21] MEDS: MELATONIN 5 MG TABLETS PO PRN (21:34)
[2019-04-21] MEDS: THIAMINE HCL 100 MG TABLET (FP) PO SCH (21:34)
[2019-04-22] MEDS: NITROFURANTOIN MACROCRYSTAL 50 MG CAPSULE (FP) PO SCH ×3 (01:36→12:06)
[2019-04-22] MEDS: glyBURIDE 5 MG TABLET (UD) PO SCH (06:19)
[2019-04-22] MEDS: metFORMIN HCL 500 MG TABLET (FP) PO SCH ×2 (06:19→16:30)
[2019-04-22] MEDS: INSULIN SLIDING SCALE (NOVOLOG) 1 VIAL SQ SCH ×2 (06:20→16:30)
[2019-04-22 07:08] VITALS: TEMP 97.9
[2019-04-22] MEDS: INSULIN (LEVEMIR) 100 UNITS/ML UNITS SQ SCH (07:39)
[2019-04-22] MEDS: ASPIRIN 81 MG CHEWABLE TABLETS PO SCH (09:28)
[2019-04-22] MEDS: PRENATAL VITAMINS W/ FOLIC ACID TABLET (FP) PO SCH (09:28)
[2019-04-22] MEDS: LISINOPRIL 20 MG TABLET (FP) PO SCH (09:28)
[2019-04-22] MEDS: GABAPENTIN 100 MG CAPSULE (FP) PO SCH (09:28)
[2019-04-22] MEDS: ACETAMINOPHEN 325 MG TABLET (FP) PO PRN (09:29)
[2019-04-22] MEDS: PANTOPRAZOLE 20 MG TABLET (FP) PO SCH (09:29)
[2019-04-22 11:14] VITALS: BP 138/77; PULSE 77
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
== END 2019-04-22 17:30 | disposition left against medical advice (07) | DRG 770 ==
LOC: YASAS 08:59 → Y3W 12:13
PROVIDERS: ADMIT Surgery; ATTEND Surgery
PROC: HZ42ZZZ Group Counseling for Substance Abuse Treatment, Cognitive-Behavioral (ICD-10-PCS; principal; 2019-04-13)
DX: F10.20 Alcohol dependence, uncomplicated (principal); F14.20 Cocaine dependence, uncomplicated; F17.210 Nicotine dependence, cigarettes, uncomplicated; F31.9 Bipolar disorder, unspecified; F25.9 Schizoaffective disorder, unspecified; I10 Essential (primary) hypertension; E11.42 Type 2 diabetes mellitus with diabetic polyneuropathy; E11.65 Type 2 diabetes mellitus with hyperglycemia; Z79.4 Long term (current) use of insulin; N39.0 Urinary tract infection, site not specified; M19.90 Unspecified osteoarthritis, unspecified site; R00.0 Tachycardia, unspecified; Z48.02 Encounter for removal of sutures; Z87.438 Personal history of other diseases of male genital organs; Z91.14 Patient's other noncompliance with medication regimen
CPT/HCPCS: 36415; 80053; 81003; 82962; 85027; 86593

== ENCOUNTER 2020-12-01 10:28 | Inpatient (IN) | payer OTHER ==
[2020-12-01 12:57] VITALS: BMI 27.3
[2020-12-01] MEDS ORDERED: MENTHOL/PHENOL 1 EACH UD MM PRN (14:37)
[2020-12-01] MEDS ORDERED: NICOTINE POLACRILEX 2 MG GUM BC PRN (14:37)
[2020-12-01] MEDS ORDERED: MAGNESIUM HYDROX 2400MG/30ML ORAL SUSPENSION 30 ML CUP PO PRN ×2 (14:37)
[2020-12-01] MEDS ORDERED: MAGNESIUM CITRATE 300 ML BOTTLE PO PRN ×2 (14:37)
[2020-12-01] MEDS ORDERED: MAG HYDROX/AL HYDROX/SIMETH 30 ML UNIT-DOSE CUP PO PRN (14:37)
[2020-12-01] MEDS ORDERED: BISMUTH SUBSALICYLATE 524 MG/30 ML PO PRN (14:37)
[2020-12-01] MEDS ORDERED: ACETAMINOPHEN 325 MG TABLET (FP) PO PRN ×2 (14:37)
[2020-12-01] MEDS ORDERED: hydrOXYzine PAMOATE 25 MG CAPSULE (FP) PO PRN ×2 (14:37)
[2020-12-01] MEDS ORDERED: IBUPROFEN 400 MG TABLET (FP) PO PRN (14:37)
[2020-12-01] MEDS ORDERED: ONDANSETRON *ODT* 4 MG TABLET SL PRN (14:37)
[2020-12-01] MEDS ORDERED: P-EPHED 60MG/TRIPROLIDI 2.5MG TABLET PO PRN (14:37)
[2020-12-01] MEDS ORDERED: guaiFENesin 200 MG/10 ML 10 ML UNIT-DOSE CUPS PO PRN (14:37)
[2020-12-01] MEDS ORDERED: FLU VACCINE (FLULAVAL) PF 60 MCG/0.5 ML SYRINGE 2020-2021 IM ONE (16:15)
[2020-12-01] MEDS ORDERED: INSULIN (NOVOLOG) ASPART 100 UNITS/ML 10ML VIAL SQ SCH (16:30)
[2020-12-01] MEDS ORDERED: TUBERCULIN PPD 5 TU/0.1ML VIAL ID ONE (19:57)
[2020-12-01] MEDS: INSULIN SLIDING SCALE (NOVOLOG) 1 VIAL SQ SCH (20:02)
[2020-12-01] MEDS: metFORMIN HCL 500 MG TABLET (FP) PO SCH (20:07)
[2020-12-01] MEDS: CEPHALEXIN MONOHYDRATE 500 MG CAPSULE (UD) PO SCH ×2 (20:07→23:57)
[2020-12-01] MEDS: INSULIN (LEVEMIR) 100 UNITS/ML UNITS SQ SCH (21:48)
[2020-12-01] MEDS: ATORVASTATIN CA 10 MG TABLET (FP) PO SCH (21:49)
[2020-12-01] MEDS: THIAMINE HCL 100 MG TABLET (FP) PO SCH (21:49)
[2020-12-01] MEDS: MELATONIN 5 MG TABLETS PO SCH (21:49)
[2020-12-01] MEDS: BACITRACIN 0.9 GM PACKET TP SCH (21:49)
[2020-12-01] MEDS ORDERED: MELATONIN 5 MG TABLETS PO SCH (22:00)
[2020-12-01] MEDS ORDERED: THIAMINE HCL 100 MG TABLET (FP) PO SCH (22:00)
[2020-12-02] MEDS: INSULIN (LEVEMIR) 100 UNITS/ML UNITS SQ SCH ×2 (06:45→22:20)
[2020-12-02] MEDS ORDERED: INSULIN (NOVOLOG) ASPART 100 UNITS/ML 10ML VIAL ONE ×2 (06:47→12:02)
[2020-12-02] MEDS: CEPHALEXIN MONOHYDRATE 500 MG CAPSULE (UD) PO SCH ×3 (06:48→18:09)
[2020-12-02] MEDS: glyBURIDE 5 MG TABLET PO SCH (06:48)
[2020-12-02] MEDS: metFORMIN HCL 500 MG TABLET (FP) PO SCH ×2 (06:48→17:59)
[2020-12-02] MEDS: INSULIN SLIDING SCALE (NOVOLOG) 1 VIAL SQ SCH ×3 (07:45→18:00)
[2020-12-02] MEDS ORDERED: INSULIN (LEVEMIR) 100 UNITS/ML UNITS SQ ONE (07:52)
[2020-12-02] MEDS: ASPIRIN 81 MG CHEWABLE TABLETS PO SCH (09:44)
[2020-12-02] MEDS: BACITRACIN 0.9 GM PACKET TP SCH ×2 (09:44→22:19)
[2020-12-02] MEDS: LISINOPRIL 10 MG TABLET PO SCH (09:44)
[2020-12-02] MEDS: PRENATAL VITAMINS W/ FOLIC ACID TABLET (FP) PO SCH (09:44)
[2020-12-02] MEDS: NICOTINE 7 MG/24 HOURS TOPICAL PATCH TD SCH (09:45)
[2020-12-02] MEDS ORDERED: PRENATAL VITAMINS W/ FOLIC ACID TABLET (FP) PO SCH (10:00)
[2020-12-02 10:49] LABS: HEMATOCRIT 35.8 % (35.4-49); HEMOGLOBIN 11.9 GM/dL (11.7-16.9); MCH 29.8 pg (25.7-33.7); MCHC 33.4 g/dl (32.0-35.9); MEAN CELL VOLUME 89.2 fl (80-96); MEAN PLT VOLUME 9.8 fl (7.5-11.1); PLATELET COUNT 280 K/MM3 (134-434); RBC 4.01 M/mm3 (4.00-5.60); RDW 15.8 % (11.9-15.9); WHITE BLOOD COUNT 6.2 K/mm3 (4.0-10.0)
[2020-12-02 11:01] LABS: ALBUMIN 2.9 g/dl (3.4-5.0); BLOOD UREA NITROGEN 14.6 mg/dL (7-18); CALCIUM 8.4 mg/dL (8.5-10.1)
[2020-12-02 11:04] LABS: CREATININE 0.9 mg/dL (0.55-1.3)
[2020-12-02 11:06] LABS: BILIRUBIN,TOTAL 0.4 mg/dL (0.2-1); TOT PROT 6.2 g/dl (6.4-8.2)
[2020-12-02] MEDS ORDERED: FLU VACCINE (FLULAVAL) PF 60 MCG/0.5 ML SYRINGE 2020-2021 IM ONE (12:00)
[2020-12-02] MEDS: QUEtiapine FUMARATE 200 MG TABLET PO SCH (22:19)
[2020-12-02] MEDS: THIAMINE HCL 100 MG TABLET (FP) PO SCH (22:19)
[2020-12-02] MEDS: ATORVASTATIN CA 10 MG TABLET (FP) PO SCH (22:19)
[2020-12-02] MEDS: MELATONIN 5 MG TABLETS PO SCH (22:20)
[2020-12-03] MEDS: CEPHALEXIN MONOHYDRATE 500 MG CAPSULE (UD) PO SCH ×5 (01:09→23:27)
[2020-12-03] MEDS: metFORMIN HCL 500 MG TABLET (FP) PO SCH ×2 (06:26→17:13)
[2020-12-03] MEDS: glyBURIDE 5 MG TABLET PO SCH (06:26)
[2020-12-03] MEDS ORDERED: INSULIN (NOVOLOG) ASPART 100 UNITS/ML 10ML VIAL ONE ×2 (06:29→16:57)
[2020-12-03] MEDS ORDERED: INSULIN (LEVEMIR) 100 UNITS/ML UNITS SQ ONE (06:29)
[2020-12-03] MEDS: INSULIN (LEVEMIR) 100 UNITS/ML UNITS SQ SCH ×2 (06:32→22:07)
[2020-12-03] MEDS: INSULIN SLIDING SCALE (NOVOLOG) 1 VIAL SQ SCH ×3 (06:33→17:13)
[2020-12-03] MEDS: ASPIRIN 81 MG CHEWABLE TABLETS PO SCH (10:25)
[2020-12-03] MEDS: LISINOPRIL 10 MG TABLET PO SCH (10:25)
[2020-12-03] MEDS: BACITRACIN 0.9 GM PACKET TP SCH ×2 (10:25→22:06)
[2020-12-03] MEDS: NICOTINE 7 MG/24 HOURS TOPICAL PATCH TD SCH (10:25)
[2020-12-03] MEDS: PRENATAL VITAMINS W/ FOLIC ACID TABLET (FP) PO SCH (10:25)
[2020-12-03] MEDS: ACETAMINOPHEN 325 MG TABLET (FP) PO PRN (18:38)
[2020-12-03] MEDS: LOPERAMIDE HCL 2 MG CAPSULE PO PRN (20:33)
[2020-12-03] MEDS: QUEtiapine FUMARATE 200 MG TABLET PO SCH (22:06)
[2020-12-03] MEDS: ATORVASTATIN CA 10 MG TABLET (FP) PO SCH (22:06)
[2020-12-03] MEDS: MELATONIN 5 MG TABLETS PO SCH (22:06)
[2020-12-03] MEDS: THIAMINE HCL 100 MG TABLET (FP) PO SCH (22:07)
[2020-12-04] MEDS ORDERED: PT OWN MED DRAWER 7, Y5N ONE ×3 (03:18→07:37)
[2020-12-04] MEDS: glyBURIDE 5 MG TABLET PO SCH (07:32)
[2020-12-04] MEDS: CEPHALEXIN MONOHYDRATE 500 MG CAPSULE (UD) PO SCH ×2 (07:32→11:52)
[2020-12-04] MEDS: metFORMIN HCL 500 MG TABLET (FP) PO SCH ×2 (07:32→16:44)
[2020-12-04] MEDS: INSULIN (LEVEMIR) 100 UNITS/ML UNITS SQ SCH ×2 (07:33→21:14)
[2020-12-04] MEDS: INSULIN SLIDING SCALE (NOVOLOG) 1 VIAL SQ SCH ×3 (07:33→16:46)
[2020-12-04] MEDS ORDERED: INSULIN (NOVOLOG) ASPART 100 UNITS/ML 10ML VIAL ONE ×3 (07:37→16:46)
[2020-12-04] MEDS: NICOTINE 7 MG/24 HOURS TOPICAL PATCH TD SCH (09:35)
[2020-12-04] MEDS: LISINOPRIL 10 MG TABLET PO SCH (09:35)
[2020-12-04] MEDS: ASPIRIN 81 MG CHEWABLE TABLETS PO SCH (09:35)
[2020-12-04] MEDS: BACITRACIN 0.9 GM PACKET TP SCH ×2 (09:35→21:14)
[2020-12-04] MEDS: PRENATAL VITAMINS W/ FOLIC ACID TABLET (FP) PO SCH (09:35)
[2020-12-04] MEDS: IBUPROFEN 400 MG TABLET (FP) PO PRN (10:29)
[2020-12-04] MEDS: METHOCARBAMOL 500 MG TABLET PO PRN (10:29)
[2020-12-04] MEDS: THIAMINE HCL 100 MG TABLET (FP) PO SCH (21:13)
[2020-12-04] MEDS: ATORVASTATIN CA 10 MG TABLET (FP) PO SCH (21:13)
[2020-12-04] MEDS: QUEtiapine FUMARATE 200 MG TABLET PO SCH (21:13)
[2020-12-04] MEDS: MELATONIN 5 MG TABLETS PO SCH (21:13)
[2020-12-05] MEDS: metFORMIN HCL 500 MG TABLET (FP) PO SCH ×2 (06:41→17:00)
[2020-12-05] MEDS: glyBURIDE 5 MG TABLET PO SCH (06:42)
[2020-12-05] MEDS: METHOCARBAMOL 500 MG TABLET PO PRN ×2 (06:46→14:12)
[2020-12-05] MEDS: ACETAMINOPHEN 325 MG TABLET (FP) PO PRN (06:46)
[2020-12-05] MEDS ORDERED: INSULIN (NOVOLOG) ASPART 100 UNITS/ML 10ML VIAL ONE ×3 (06:48→16:54)
[2020-12-05] MEDS: INSULIN (LEVEMIR) 100 UNITS/ML UNITS SQ SCH ×2 (06:50→22:16)
[2020-12-05] MEDS: INSULIN SLIDING SCALE (NOVOLOG) 1 VIAL SQ SCH ×3 (06:50→17:00)
[2020-12-05] MEDS: ASPIRIN 81 MG CHEWABLE TABLETS PO SCH (09:48)
[2020-12-05] MEDS: PRENATAL VITAMINS W/ FOLIC ACID TABLET (FP) PO SCH (09:48)
[2020-12-05] MEDS: BACITRACIN 0.9 GM PACKET TP SCH ×2 (09:48→21:51)
[2020-12-05] MEDS: NICOTINE 7 MG/24 HOURS TOPICAL PATCH TD SCH (09:48)
[2020-12-05] MEDS: LISINOPRIL 10 MG TABLET PO SCH (09:48)
[2020-12-05] MEDS: IBUPROFEN 400 MG TABLET (FP) PO PRN (14:12)
[2020-12-05] MEDS: METHYL SALICYLATE/MENTHOL OINT 30 GM TUBE TP SCH ×2 (14:44→21:52)
[2020-12-05] MEDS: ATORVASTATIN CA 10 MG TABLET (FP) PO SCH (21:51)
[2020-12-05] MEDS: THIAMINE HCL 100 MG TABLET (FP) PO SCH (21:51)
[2020-12-05] MEDS: QUEtiapine FUMARATE 200 MG TABLET PO SCH (21:51)
[2020-12-05] MEDS: MELATONIN 5 MG TABLETS PO SCH (21:51)
[2020-12-06 06:07] LABS: SARS-CoV-2 NAA Not Detected (Not Detected)
[2020-12-06] MEDS: metFORMIN HCL 500 MG TABLET (FP) PO SCH ×2 (06:50→17:08)
[2020-12-06] MEDS: LOPERAMIDE HCL 2 MG CAPSULE PO PRN (06:50)
[2020-12-06] MEDS: glyBURIDE 5 MG TABLET PO SCH (06:50)
[2020-12-06] MEDS ORDERED: INSULIN (NOVOLOG) ASPART 100 UNITS/ML 10ML VIAL ONE ×3 (07:37→17:11)
[2020-12-06] MEDS: INSULIN (LEVEMIR) 100 UNITS/ML UNITS SQ SCH ×2 (07:57→21:15)
[2020-12-06] MEDS: INSULIN SLIDING SCALE (NOVOLOG) 1 VIAL SQ SCH ×3 (07:57→17:13)
[2020-12-06] MEDS: PRENATAL VITAMINS W/ FOLIC ACID TABLET (FP) PO SCH (10:53)
[2020-12-06] MEDS: BACITRACIN 0.9 GM PACKET TP SCH ×2 (10:53→21:16)
[2020-12-06] MEDS: METHYL SALICYLATE/MENTHOL OINT 30 GM TUBE TP SCH ×2 (10:53→22:08)
[2020-12-06] MEDS: NICOTINE 7 MG/24 HOURS TOPICAL PATCH TD SCH (10:53)
[2020-12-06] MEDS: LISINOPRIL 10 MG TABLET PO SCH (10:53)
[2020-12-06] MEDS: ASPIRIN 81 MG CHEWABLE TABLETS PO SCH (10:53)
[2020-12-06] MEDS: ACETAMINOPHEN 325 MG TABLET (FP) PO PRN (17:07)
[2020-12-06] MEDS: QUEtiapine FUMARATE 200 MG TABLET PO SCH (21:16)
[2020-12-06] MEDS: ATORVASTATIN CA 10 MG TABLET (FP) PO SCH (21:16)
[2020-12-06] MEDS: METHOCARBAMOL 500 MG TABLET PO PRN (21:16)
[2020-12-06] MEDS: MELATONIN 5 MG TABLETS PO SCH (21:16)
[2020-12-06] MEDS: THIAMINE HCL 100 MG TABLET (FP) PO SCH (21:16)
[2020-12-07] MEDS: glyBURIDE 5 MG TABLET PO SCH (06:54)
[2020-12-07] MEDS: metFORMIN HCL 500 MG TABLET (FP) PO SCH ×2 (06:54→17:05)
[2020-12-07] MEDS ORDERED: INSULIN (NOVOLOG) ASPART 100 UNITS/ML 10ML VIAL ONE ×2 (06:58→12:11)
[2020-12-07] MEDS: INSULIN (LEVEMIR) 100 UNITS/ML UNITS SQ SCH ×2 (06:59→22:23)
[2020-12-07] MEDS: INSULIN SLIDING SCALE (NOVOLOG) 1 VIAL SQ SCH ×3 (06:59→17:08)
[2020-12-07] MEDS: PRENATAL VITAMINS W/ FOLIC ACID TABLET (FP) PO SCH (09:54)
[2020-12-07] MEDS: METHYL SALICYLATE/MENTHOL OINT 30 GM TUBE TP SCH ×2 (09:54→22:23)
[2020-12-07] MEDS: LISINOPRIL 10 MG TABLET PO SCH (09:54)
[2020-12-07] MEDS: NICOTINE 7 MG/24 HOURS TOPICAL PATCH TD SCH (09:54)
[2020-12-07] MEDS: ASPIRIN 81 MG CHEWABLE TABLETS PO SCH (09:54)
[2020-12-07] MEDS: IBUPROFEN 400 MG TABLET (FP) PO PRN (09:54)
[2020-12-07] MEDS: BACITRACIN 0.9 GM PACKET TP SCH ×2 (09:54→22:13)
[2020-12-07] MEDS ORDERED: MASKS NR ONE (20:05)
[2020-12-07] MEDS: MELATONIN 5 MG TABLETS PO SCH (22:13)
[2020-12-07] MEDS: QUEtiapine FUMARATE 200 MG TABLET PO SCH (22:13)
[2020-12-07] MEDS: THIAMINE HCL 100 MG TABLET (FP) PO SCH (22:13)
[2020-12-07] MEDS: ATORVASTATIN CA 10 MG TABLET (FP) PO SCH (22:13)
[2020-12-08] MEDS: metFORMIN HCL 500 MG TABLET (FP) PO SCH ×2 (06:31→17:19)
[2020-12-08] MEDS: glyBURIDE 5 MG TABLET PO SCH (06:31)
[2020-12-08] MEDS ORDERED: INSULIN (NOVOLOG) ASPART 100 UNITS/ML 10ML VIAL ONE ×4 (08:00→17:42)
[2020-12-08] MEDS: INSULIN (LEVEMIR) 100 UNITS/ML UNITS SQ SCH ×2 (08:02→22:10)
[2020-12-08] MEDS: INSULIN SLIDING SCALE (NOVOLOG) 1 VIAL SQ SCH ×3 (08:03→17:19)
[2020-12-08] MEDS: METHYL SALICYLATE/MENTHOL OINT 30 GM TUBE TP SCH ×2 (09:40→22:10)
[2020-12-08] MEDS: NICOTINE 7 MG/24 HOURS TOPICAL PATCH TD SCH (09:40)
[2020-12-08] MEDS: PRENATAL VITAMINS W/ FOLIC ACID TABLET (FP) PO SCH (09:40)
[2020-12-08] MEDS: BACITRACIN 0.9 GM PACKET TP SCH ×2 (09:40→22:10)
[2020-12-08] MEDS: ASPIRIN 81 MG CHEWABLE TABLETS PO SCH (09:40)
[2020-12-08] MEDS: LISINOPRIL 10 MG TABLET PO SCH (09:41)
[2020-12-08] MEDS: THIAMINE HCL 100 MG TABLET (FP) PO SCH (22:10)
[2020-12-08] MEDS: ATORVASTATIN CA 10 MG TABLET (FP) PO SCH (22:10)
[2020-12-08] MEDS: MELATONIN 5 MG TABLETS PO SCH (22:10)
[2020-12-08] MEDS: QUEtiapine FUMARATE 200 MG TABLET PO SCH (22:10)
[2020-12-09] MEDS ORDERED: PT OWN MED DRAWER 7, Y5N ONE ×2 (03:46→07:58)
[2020-12-09] MEDS: glyBURIDE 5 MG TABLET PO SCH (07:52)
[2020-12-09] MEDS: metFORMIN HCL 500 MG TABLET (FP) PO SCH ×2 (07:52→16:57)
[2020-12-09] MEDS: INSULIN (LEVEMIR) 100 UNITS/ML UNITS SQ SCH ×2 (07:53→21:10)
[2020-12-09] MEDS: INSULIN SLIDING SCALE (NOVOLOG) 1 VIAL SQ SCH ×3 (07:54→16:57)
[2020-12-09] MEDS: PRENATAL VITAMINS W/ FOLIC ACID TABLET (FP) PO SCH (09:07)
[2020-12-09] MEDS: METHYL SALICYLATE/MENTHOL OINT 30 GM TUBE TP SCH ×2 (09:08→21:11)
[2020-12-09] MEDS: ACETAMINOPHEN 325 MG TABLET (FP) PO PRN (09:08)
[2020-12-09] MEDS: NICOTINE 7 MG/24 HOURS TOPICAL PATCH TD SCH (09:08)
[2020-12-09] MEDS: BACITRACIN 0.9 GM PACKET TP SCH ×2 (09:08→21:10)
[2020-12-09] MEDS: LISINOPRIL 10 MG TABLET PO SCH (09:08)
[2020-12-09] MEDS: ASPIRIN 81 MG CHEWABLE TABLETS PO SCH (09:08)
[2020-12-09] MEDS ORDERED: INSULIN (NOVOLOG) ASPART 100 UNITS/ML 10ML VIAL ONE (11:48)
[2020-12-09] MEDS: QUEtiapine FUMARATE 200 MG TABLET PO SCH (21:11)
[2020-12-09] MEDS: MELATONIN 5 MG TABLETS PO SCH (21:11)
[2020-12-09] MEDS: THIAMINE HCL 100 MG TABLET (FP) PO SCH (21:11)
[2020-12-09] MEDS: ATORVASTATIN CA 10 MG TABLET (FP) PO SCH (21:11)
[2020-12-10] MEDS: INSULIN SLIDING SCALE (NOVOLOG) 1 VIAL SQ SCH ×3 (07:33→16:57)
[2020-12-10] MEDS: INSULIN (LEVEMIR) 100 UNITS/ML UNITS SQ SCH ×2 (07:33→21:51)
[2020-12-10] MEDS: metFORMIN HCL 500 MG TABLET (FP) PO SCH ×2 (07:34→16:57)
[2020-12-10] MEDS: glyBURIDE 5 MG TABLET PO SCH (07:34)
[2020-12-10] MEDS ORDERED: INSULIN (NOVOLOG) ASPART 100 UNITS/ML 10ML VIAL ONE ×2 (08:33→12:21)
[2020-12-10] MEDS ORDERED: PT OWN MED DRAWER 7, Y5N ONE ×2 (08:34→22:02)
[2020-12-10] MEDS: METHYL SALICYLATE/MENTHOL OINT 30 GM TUBE TP SCH ×2 (11:00→21:52)
[2020-12-10] MEDS: BACITRACIN 0.9 GM PACKET TP SCH ×2 (11:00→21:51)
[2020-12-10] MEDS: NICOTINE 7 MG/24 HOURS TOPICAL PATCH TD SCH (11:00)
[2020-12-10] MEDS: PRENATAL VITAMINS W/ FOLIC ACID TABLET (FP) PO SCH (11:00)
[2020-12-10] MEDS: LISINOPRIL 10 MG TABLET PO SCH (11:00)
[2020-12-10] MEDS: ASPIRIN 81 MG CHEWABLE TABLETS PO SCH (11:02)
[2020-12-10] MEDS: IBUPROFEN 400 MG TABLET (FP) PO PRN (11:04)
[2020-12-10] MEDS: ATORVASTATIN CA 10 MG TABLET (FP) PO SCH (21:51)
[2020-12-10] MEDS: QUEtiapine FUMARATE 200 MG TABLET PO SCH (21:51)
[2020-12-10] MEDS: THIAMINE HCL 100 MG TABLET (FP) PO SCH (21:51)
[2020-12-10] MEDS: MELATONIN 5 MG TABLETS PO SCH (21:52)
[2020-12-11] MEDS: metFORMIN HCL 500 MG TABLET (FP) PO SCH ×2 (06:31→16:48)
[2020-12-11] MEDS: glyBURIDE 5 MG TABLET PO SCH (06:32)
[2020-12-11] MEDS ORDERED: INSULIN (NOVOLOG) ASPART 100 UNITS/ML 10ML VIAL ONE ×2 (06:39→16:46)
[2020-12-11] MEDS: INSULIN SLIDING SCALE (NOVOLOG) 1 VIAL SQ SCH ×3 (07:15→16:46)
[2020-12-11] MEDS: INSULIN (LEVEMIR) 100 UNITS/ML UNITS SQ SCH ×2 (07:15→21:17)
[2020-12-11] MEDS: ASPIRIN 81 MG CHEWABLE TABLETS PO SCH (09:36)
[2020-12-11] MEDS: PRENATAL VITAMINS W/ FOLIC ACID TABLET (FP) PO SCH (09:36)
[2020-12-11] MEDS: LISINOPRIL 10 MG TABLET PO SCH (09:37)
[2020-12-11] MEDS: BACITRACIN 0.9 GM PACKET TP SCH ×2 (09:37→21:16)
[2020-12-11] MEDS: METHYL SALICYLATE/MENTHOL OINT 30 GM TUBE TP SCH ×2 (09:37→21:16)
[2020-12-11] MEDS: NICOTINE 7 MG/24 HOURS TOPICAL PATCH TD SCH (09:37)
[2020-12-11] MEDS: LIDOCAINE 5% TOPICAL PATCH TP SCH (11:06)
[2020-12-11] MEDS: QUEtiapine FUMARATE 200 MG TABLET PO SCH (21:16)
[2020-12-11] MEDS: MELATONIN 5 MG TABLETS PO SCH (21:16)
[2020-12-11] MEDS: ATORVASTATIN CA 10 MG TABLET (FP) PO SCH (21:16)
[2020-12-11] MEDS: THIAMINE HCL 100 MG TABLET (FP) PO SCH (21:16)
[2020-12-11] MEDS: LIDOCAINE PATCH REMOVAL MC SCH (21:17)
[2020-12-12] MEDS: metFORMIN HCL 500 MG TABLET (FP) PO SCH ×2 (06:53→16:29)
[2020-12-12] MEDS: glyBURIDE 5 MG TABLET PO SCH (06:53)
[2020-12-12] MEDS: ACETAMINOPHEN 325 MG TABLET (FP) PO PRN (06:54)
[2020-12-12] MEDS ORDERED: INSULIN (NOVOLOG) ASPART 100 UNITS/ML 10ML VIAL ONE ×3 (06:57→16:27)
[2020-12-12] MEDS: INSULIN (LEVEMIR) 100 UNITS/ML UNITS SQ SCH ×2 (07:15→22:23)
[2020-12-12] MEDS: INSULIN SLIDING SCALE (NOVOLOG) 1 VIAL SQ SCH ×3 (07:16→16:30)
[2020-12-12] MEDS: BACITRACIN 0.9 GM PACKET TP SCH ×2 (09:40→22:21)
[2020-12-12] MEDS: LISINOPRIL 10 MG TABLET PO SCH (09:40)
[2020-12-12] MEDS: ASPIRIN 81 MG CHEWABLE TABLETS PO SCH (09:40)
[2020-12-12] MEDS: LIDOCAINE 5% TOPICAL PATCH TP SCH (09:40)
[2020-12-12] MEDS: PRENATAL VITAMINS W/ FOLIC ACID TABLET (FP) PO SCH (09:40)
[2020-12-12] MEDS: NICOTINE 7 MG/24 HOURS TOPICAL PATCH TD SCH (09:40)
[2020-12-12] MEDS: METHYL SALICYLATE/MENTHOL OINT 30 GM TUBE TP SCH ×2 (09:43→22:20)
[2020-12-12] MEDS: THIAMINE HCL 100 MG TABLET (FP) PO SCH (22:21)
[2020-12-12] MEDS: QUEtiapine FUMARATE 200 MG TABLET PO SCH (22:21)
[2020-12-12] MEDS: ATORVASTATIN CA 10 MG TABLET (FP) PO SCH (22:21)
[2020-12-12] MEDS: MELATONIN 5 MG TABLETS PO SCH (22:23)
[2020-12-12] MEDS: LIDOCAINE PATCH REMOVAL MC SCH (22:23)
[2020-12-13] MEDS: metFORMIN HCL 500 MG TABLET (FP) PO SCH ×2 (06:43→17:07)
[2020-12-13] MEDS: glyBURIDE 5 MG TABLET PO SCH (06:43)
[2020-12-13] MEDS ORDERED: INSULIN (NOVOLOG) ASPART 100 UNITS/ML 10ML VIAL ONE ×2 (07:01→11:53)
[2020-12-13] MEDS: INSULIN (LEVEMIR) 100 UNITS/ML UNITS SQ SCH ×2 (07:07→22:45)
[2020-12-13] MEDS: INSULIN SLIDING SCALE (NOVOLOG) 1 VIAL SQ SCH ×3 (07:07→17:04)
[2020-12-13] MEDS ORDERED: PT OWN MED DRAWER 7, Y5N ONE (08:37)
[2020-12-13] MEDS: PRENATAL VITAMINS W/ FOLIC ACID TABLET (FP) PO SCH (10:13)
[2020-12-13] MEDS: BACITRACIN 0.9 GM PACKET TP SCH ×2 (10:13→22:10)
[2020-12-13] MEDS: METHYL SALICYLATE/MENTHOL OINT 30 GM TUBE TP SCH ×2 (10:13→22:11)
[2020-12-13] MEDS: ASPIRIN 81 MG CHEWABLE TABLETS PO SCH (10:13)
[2020-12-13] MEDS: NICOTINE 7 MG/24 HOURS TOPICAL PATCH TD SCH (10:14)
[2020-12-13] MEDS: LISINOPRIL 10 MG TABLET PO SCH (10:14)
[2020-12-13 11:14] LABS: HIV INTERPRETATION NEGATIVE (NEGATIVE)
[2020-12-13] MEDS: LIDOCAINE 5% TOPICAL PATCH TP SCH (11:54)
[2020-12-13] MEDS: MAG HYDROX/AL HYDROX/SIMETH 30 ML UNIT-DOSE CUP PO PRN (17:10)
[2020-12-13] MEDS: ATORVASTATIN CA 10 MG TABLET (FP) PO SCH (22:10)
[2020-12-13] MEDS: MELATONIN 5 MG TABLETS PO SCH (22:10)
[2020-12-13] MEDS: QUEtiapine FUMARATE 200 MG TABLET PO SCH (22:10)
[2020-12-13] MEDS: THIAMINE HCL 100 MG TABLET (FP) PO SCH (22:10)
[2020-12-13] MEDS: LIDOCAINE PATCH REMOVAL MC SCH (22:11)
[2020-12-14] MEDS ORDERED: INSULIN (LEVEMIR) 100 UNITS/ML UNITS SQ ONE ×2 (04:43→07:46)
[2020-12-14] MEDS ORDERED: INSULIN (NOVOLOG) ASPART 100 UNITS/ML 10ML VIAL ONE ×2 (04:43→07:46)
[2020-12-14] MEDS ORDERED: PT OWN MED DRAWER 7, Y5N ONE ×2 (04:44→22:38)
[2020-12-14] MEDS: metFORMIN HCL 500 MG TABLET (FP) PO SCH ×2 (07:42→16:51)
[2020-12-14] MEDS: glyBURIDE 5 MG TABLET PO SCH (07:42)
[2020-12-14] MEDS: INSULIN SLIDING SCALE (NOVOLOG) 1 VIAL SQ SCH ×3 (07:43→16:51)
[2020-12-14] MEDS: INSULIN (LEVEMIR) 100 UNITS/ML UNITS SQ SCH ×2 (07:43→22:06)
[2020-12-14] MEDS: ASPIRIN 81 MG CHEWABLE TABLETS PO SCH (09:43)
[2020-12-14] MEDS: METHYL SALICYLATE/MENTHOL OINT 30 GM TUBE TP SCH ×2 (09:44→22:04)
[2020-12-14] MEDS: PRENATAL VITAMINS W/ FOLIC ACID TABLET (FP) PO SCH (09:44)
[2020-12-14] MEDS: LISINOPRIL 10 MG TABLET PO SCH (09:44)
[2020-12-14] MEDS: LIDOCAINE 5% TOPICAL PATCH TP SCH (09:44)
[2020-12-14] MEDS: BACITRACIN 0.9 GM PACKET TP SCH ×2 (09:44→22:03)
[2020-12-14] MEDS: NICOTINE 7 MG/24 HOURS TOPICAL PATCH TD SCH (09:45)
[2020-12-14] MEDS: MELATONIN 5 MG TABLETS PO SCH (22:04)
[2020-12-14] MEDS: ATORVASTATIN CA 10 MG TABLET (FP) PO SCH (22:04)
[2020-12-14] MEDS: THIAMINE HCL 100 MG TABLET (FP) PO SCH (22:04)
[2020-12-14] MEDS: QUEtiapine FUMARATE 200 MG TABLET PO SCH (22:04)
[2020-12-14] MEDS: LIDOCAINE PATCH REMOVAL MC SCH (22:07)
[2020-12-15] MEDS: MAG HYDROX/AL HYDROX/SIMETH 30 ML UNIT-DOSE CUP PO PRN (00:25)
[2020-12-15 06:58] VITALS: BP 159/94; PULSE 109; TEMP 97.5
[2020-12-15] MEDS: glyBURIDE 5 MG TABLET PO SCH (07:29)
[2020-12-15] MEDS: metFORMIN HCL 500 MG TABLET (FP) PO SCH (07:30)
[2020-12-15] MEDS ORDERED: INSULIN (NOVOLOG) ASPART 100 UNITS/ML 10ML VIAL ONE (07:34)
[2020-12-15] MEDS: INSULIN (LEVEMIR) 100 UNITS/ML UNITS SQ SCH (07:35)
[2020-12-15] MEDS: INSULIN SLIDING SCALE (NOVOLOG) 1 VIAL SQ SCH (07:36)
[2020-12-15] MEDS: LISINOPRIL 10 MG TABLET PO SCH (09:04)
[2020-12-15] MEDS: ASPIRIN 81 MG CHEWABLE TABLETS PO SCH (09:04)
[2020-12-15] MEDS: METHYL SALICYLATE/MENTHOL OINT 30 GM TUBE TP SCH (09:06)
[2020-12-15] MEDS: PRENATAL VITAMINS W/ FOLIC ACID TABLET (FP) PO SCH (09:06)
[2020-12-15] MEDS: NICOTINE 7 MG/24 HOURS TOPICAL PATCH TD SCH (09:06)
[2020-12-15] MEDS: LIDOCAINE 5% TOPICAL PATCH TP SCH (09:06)
[2020-12-15] MEDS: BACITRACIN 0.9 GM PACKET TP SCH (09:06)
[2020-12-15] MEDS ORDERED: PATIENT'S OWN MEDICATION (NON-FORMULARY) (Omeprazole 20 MG Capsule.Dr) PO SCH (10:00)
[2020-12-15] MEDS ORDERED: GABAPENTIN 100 MG CAPSULE PO SCH (14:00)
[2020-12-15] MEDS ORDERED: OXYCODONE ACETAMINOPHEN PO SCH (14:00)
== END 2020-12-15 09:30 | disposition home or self-care (01) | DRG 772 ==
LOC: YASAS 10:28 → Y5N 15:56
PROVIDERS: ADMIT Allergy & Immunology; ATTEND Allergy & Immunology
PROC: HZ42ZZZ Group Counseling for Substance Abuse Treatment, Cognitive-Behavioral (ICD-10-PCS; principal; 2020-12-01)
DX: F10.20 Alcohol dependence, uncomplicated (principal); F14.20 Cocaine dependence, uncomplicated; F12.20 Cannabis dependence, uncomplicated; F17.210 Nicotine dependence, cigarettes, uncomplicated; F19.24 Other psychoactive substance dependence with psychoactive substance-induced mood disorder; F19.282 Other psychoactive substance dependence with psychoactive substance-induced sleep disorder; F31.9 Bipolar disorder, unspecified; F20.9 Schizophrenia, unspecified; G62.9 Polyneuropathy, unspecified; I10 Essential (primary) hypertension; E78.00 Pure hypercholesterolemia, unspecified; E11.42 Type 2 diabetes mellitus with diabetic polyneuropathy; E11.22 Type 2 diabetes mellitus with diabetic chronic kidney disease; Z79.4 Long term (current) use of insulin; M17.12 Unilateral primary osteoarthritis, left knee; B35.1 Tinea unguium; B35.3 Tinea pedis; Z86.19 Personal history of other infectious and parasitic diseases; R26.89 Other abnormalities of gait and mobility; Z99.89 Dependence on other enabling machines and devices
CPT/HCPCS: 36415; 80053; 82962; 85027; 86593; 86780; 87389; 93005; 93010; C9803; G0008; Q2036; U0003; U0005

== ENCOUNTER 2021-08-31 13:40 | Inpatient (IN) | payer OTHER ==
[2021-08-31 15:55] VITALS: BMI 25.6
[2021-08-31] MEDS ORDERED: DICYCLOMINE HCL 10 MG CAPSULE PO PRN (17:06)
[2021-08-31] MEDS ORDERED: hydrOXYzine PAMOATE 25 MG CAPSULE (FP) PO PRN (17:06)
[2021-08-31] MEDS ORDERED: ONDANSETRON *ODT* 4 MG TABLET SL PRN (17:06)
[2021-08-31] MEDS ORDERED: MENTHOL/PHENOL 1 EACH UD MM PRN (17:06)
[2021-08-31] MEDS ORDERED: MELATONIN 5 MG TABLETS PO PRN (17:06)
[2021-08-31] MEDS ORDERED: METHOCARBAMOL 500 MG TABLET PO PRN (17:06)
[2021-08-31] MEDS ORDERED: ACETAMINOPHEN 325 MG TABLET (FP) PO PRN ×2 (17:06)
[2021-08-31] MEDS ORDERED: MAGNESIUM CITRATE 300 ML BOTTLE PO PRN (17:06)
[2021-08-31] MEDS ORDERED: MAG HYDROX/AL HYDROX/SIMETH 30 ML UNIT-DOSE CUP PO PRN (17:06)
[2021-08-31] MEDS ORDERED: MAGNESIUM HYDROX 2400MG/30ML ORAL SUSPENSION 30 ML CUP PO PRN (17:06)
[2021-08-31] MEDS: BISMUTH SUBSALICYLATE 524 MG/30 ML PO PRN (22:27)
[2021-08-31] MEDS: BACITRACIN 0.9 GM PACKET TP SCH (22:33)
[2021-08-31] MEDS: THIAMINE HCL 100 MG TABLET (FP) PO SCH (22:34)
[2021-08-31] MEDS: ATORVASTATIN CA 10 MG TABLET (FP) PO SCH (22:34)
[2021-08-31] MEDS: INSULIN (NOVOLOG MIX 70/30) 100 UNITS/ML MDV SQ SCH (22:34)
[2021-08-31] MEDS: INSULIN SLIDING SCALE (NOVOLOG) 1 VIAL SQ SCH (22:37)
[2021-09-01] MEDS: INSULIN SLIDING SCALE (NOVOLOG) 1 VIAL SQ SCH ×5 (00:55→22:36)
[2021-09-01] MEDS: metFORMIN HCL 500 MG TABLET (FP) PO SCH ×2 (07:23→17:29)
[2021-09-01] MEDS: INSULIN (NOVOLOG MIX 70/30) 100 UNITS/ML MDV SQ SCH ×2 (07:32→22:36)
[2021-09-01] MEDS: ASPIRIN 81 MG CHEWABLE TABLETS PO SCH (10:53)
[2021-09-01] MEDS: PRENATAL VITAMINS W/ FOLIC ACID TABLET (FP) PO SCH (10:53)
[2021-09-01] MEDS: BACITRACIN 0.9 GM PACKET TP SCH ×2 (10:53→22:35)
[2021-09-01] MEDS: PANTOPRAZOLE 20 MG TABLET PO SCH (11:47)
[2021-09-01] MEDS ORDERED: FLU VACC QS2021-22(6MOS UP)/PF 60 MCG/0.5 ML SYRINGE IM ONE (12:00)
[2021-09-01 13:54] LABS: HEMATOCRIT 37.1 % (35.4-49); HEMOGLOBIN 11.9 GM/dL (11.7-16.9); MCH 28.5 pg (25.7-33.7); MCHC 32.2 g/dl (32.0-35.9); MEAN CELL VOLUME 88.5 fl (80-96); MEAN PLT VOLUME 9.1 fl (7.5-11.1); PLATELET COUNT 247 10^3/uL (134-434); RBC 4.19 M/mm3 (4.00-5.60); RDW 15.8 % (11.9-15.9); WHITE BLOOD COUNT 11.3 K/mm3 (4.0-10.0)
[2021-09-01 14:19] LABS: BLOOD UREA NITROGEN 10.4 mg/dL (7-18)
[2021-09-01 14:22] LABS: CREATININE 0.9 mg/dL (0.55-1.3)
[2021-09-01 14:23] LABS: BILIRUBIN,TOTAL 0.3 mg/dL (0.2-1); TOT PROT 6.5 g/dl (6.4-8.2)
[2021-09-01 14:25] LABS: CALCIUM 9.2 mg/dL (8.5-10.1)
[2021-09-01] MEDS: THIAMINE HCL 100 MG TABLET (FP) PO SCH (22:36)
[2021-09-01] MEDS: ATORVASTATIN CA 10 MG TABLET (FP) PO SCH (22:36)
[2021-09-02] MEDS: metFORMIN HCL 500 MG TABLET (FP) PO SCH ×2 (07:07→17:20)
[2021-09-02] MEDS: INSULIN (NOVOLOG MIX 70/30) 100 UNITS/ML MDV SQ SCH ×2 (07:35→22:34)
[2021-09-02] MEDS: INSULIN SLIDING SCALE (NOVOLOG) 1 VIAL SQ SCH ×4 (07:35→22:35)
[2021-09-02] MEDS: BACITRACIN 0.9 GM PACKET TP SCH ×2 (10:46→22:31)
[2021-09-02] MEDS: PANTOPRAZOLE 20 MG TABLET PO SCH (10:46)
[2021-09-02] MEDS: ASPIRIN 81 MG CHEWABLE TABLETS PO SCH (10:46)
[2021-09-02] MEDS: PRENATAL VITAMINS W/ FOLIC ACID TABLET (FP) PO SCH (10:46)
[2021-09-02] MEDS: THIAMINE HCL 100 MG TABLET (FP) PO SCH (22:31)
[2021-09-02] MEDS: ATORVASTATIN CA 10 MG TABLET (FP) PO SCH (22:31)
[2021-09-02] MEDS: BISMUTH SUBSALICYLATE 524 MG/30 ML PO PRN (22:35)
[2021-09-03] MEDS: metFORMIN HCL 500 MG TABLET (FP) PO SCH ×2 (07:07→18:13)
[2021-09-03] MEDS: INSULIN SLIDING SCALE (NOVOLOG) 1 VIAL SQ SCH ×4 (07:10→23:52)
[2021-09-03] MEDS: INSULIN (NOVOLOG MIX 70/30) 100 UNITS/ML MDV SQ SCH ×2 (07:45→23:51)
[2021-09-03] MEDS: PANTOPRAZOLE 20 MG TABLET PO SCH (10:28)
[2021-09-03] MEDS: ASPIRIN 81 MG CHEWABLE TABLETS PO SCH (10:28)
[2021-09-03] MEDS: PRENATAL VITAMINS W/ FOLIC ACID TABLET (FP) PO SCH (10:28)
[2021-09-03] MEDS: BACITRACIN 0.9 GM PACKET TP SCH ×2 (10:28→23:50)
[2021-09-03] MEDS: SULFAMETHOXAZOLE/TRIMETHOPRIM 800MG/160MG D.S. TABLET PO SCH ×2 (10:28→23:51)
[2021-09-03 18:41] VITALS: BP 138/62; PULSE 79; TEMP 97.6
[2021-09-03] MEDS: ATORVASTATIN CA 10 MG TABLET (FP) PO SCH (23:51)
[2021-09-03] MEDS: THIAMINE HCL 100 MG TABLET (FP) PO SCH (23:52)
== END 2021-09-03 16:00 | disposition short-term general hospital (02) | DRG 774 ==
LOC: YASAS 13:40 → Y3N 19:10
PROVIDERS: ADMIT Allergy & Immunology; ATTEND Allergy & Immunology
PROC: HZ2ZZZZ Detoxification Services for Substance Abuse Treatment (ICD-10-PCS; principal; 2021-08-31)
DX: F10.230 Alcohol dependence with withdrawal, uncomplicated (principal); F14.20 Cocaine dependence, uncomplicated; F17.210 Nicotine dependence, cigarettes, uncomplicated; G62.9 Polyneuropathy, unspecified; I10 Essential (primary) hypertension; E11.65 Type 2 diabetes mellitus with hyperglycemia; Z79.4 Long term (current) use of insulin; L03.115 Cellulitis of right lower limb; L97.518 Non-pressure chronic ulcer of other part of right foot with other specified severity; L08.89 Other specified local infections of the skin and subcutaneous tissue; M17.0 Bilateral primary osteoarthritis of knee; E78.5 Hyperlipidemia, unspecified; K21.9 Gastro-esophageal reflux disease without esophagitis; Z86.19 Personal history of other infectious and parasitic diseases
CPT/HCPCS: 36415; 80053; 82962; 85027; 86593; 86780; 90686; C9803-CS; G0008; U0003; U0005

== ENCOUNTER 2021-09-03 16:04 | Inpatient (IN) | payer OTHER ==
[2021-09-03 16:30] VITALS: BMI 26.4
[2021-09-03] MEDS ORDERED: ACETAMINOPHEN 1000 MG/100 ML BAG IVPB ONE (20:35)
[2021-09-03] MEDS ORDERED: ACETAMINOPHEN INJECTION 100 ML IVPB ONE (22:25)
[2021-09-03 23:02] LABS: VENOUS BASE EXCESS 1.7 mmol/L (-2-2); VENOUS O2 SATURATION 81.6 % (70-80); VENOUS PCO2 50.5 mmHg (38-52); VENOUS PH 7.361 (7.310-7.410)
[2021-09-03 23:03] LABS: BASO % 0.3 % (0-2.0); EOS % 2.1 % (0-4.5); HEMATOCRIT 37.2 % (35.4-49); HEMOGLOBIN 12.2 GM/dL (11.7-16.9); LYMPH % 14.5 % (8-40); MCH 28.9 pg (25.7-33.7); MCHC 32.8 g/dl (32.0-35.9); MEAN PLT VOLUME 8.1 fl (7.5-11.1); MONO % 8.2 % (3.8-10.2); NEUT % 74.9 % (42.8-82.8); PLATELET COUNT 264 10^3/uL (134-434); RBC 4.22 M/mm3 (4.00-5.60); RDW 15.8 % (11.9-15.9); WHITE BLOOD COUNT 11.6 K/mm3 (4.0-10.0)
[2021-09-03 23:14] LABS: ACTIVATED PTT 30.2 SECONDS (25.2-36.5)
[2021-09-03 23:24] LABS: BLOOD UREA NITROGEN 11.4 mg/dL (7-18)
[2021-09-03 23:25] LABS: ALBUMIN 2.8 g/dl (3.4-5.0)
[2021-09-03 23:29] LABS: TOT PROT 6.9 g/dl (6.4-8.2)
[2021-09-03 23:30] LABS: BILIRUBIN,TOTAL 0.2 mg/dL (0.2-1)
[2021-09-03 23:34] LABS: EPI CELLS 3 /uL (0-25.1); HYALINE CASTS 6 /uL (0-3.1); PH,URINE 5.5 (5.0-8.0); URINE APPEARANCE CLEAR; URINE BILIRUBIN NEGATIVE (NEGATIVE); URINE COLOR YELLOW; URINE GLUCOSE (UA) 3+ (NEGATIVE); URINE KETONE TRACE (NEGATIVE); URINE LEUK ESTERASE 1+ (NEGATIVE); URINE NITRITE POSITIVE (NEGATIVE); URINE PROTEIN 1+ (NEGATIVE); URINE RBC 10 /uL (0-23.9); URINE UROBILINOGEN 0.2 mg/dL (0.2-1.0); URINE WBC 470 /uL (0-25.8)
[2021-09-03] MEDS ORDERED: PIPERACILLIN/TAZOBACTAM 4.5 GM VIAL IVPB ONE (23:45)
[2021-09-03] MEDS ORDERED: VANCOMYCIN 1,000 MG in DEXTROSE 5%-WATER - 250 ML IVPB ONE (23:45)
[2021-09-04 00:10] LABS: INR 1.08 (0.83-1.09); PROTHROMBIN TIME (PATIENT) 12.4 SEC (9.7-13.0)
[2021-09-04] MEDS ORDERED: VANCOMYCIN 1 GRAM (PRE-DOCKED) 1,000 MG/250 ML BAG IVPB ONE (01:19)
[2021-09-04] MEDS ORDERED: PIPERACILLIN/TAZOB 4.5 GM 4.5 GM/100 ML BAG IVPB ONE (01:19)
[2021-09-04] MEDS ORDERED: SODIUM CHLORIDE 1,000 ML IV STA (02:16)
[2021-09-04] MEDS ORDERED: SODIUM CHLORIDE 1,000 ML IV SCH ×2 (02:30→17:30)
[2021-09-04] MEDS ORDERED: CLINDAMYCIN 600MG PREMIX IVPB 600 MG/50 ML BAG IVPB SCH (05:30)
[2021-09-04] MEDS ORDERED: CLINDAMYCIN 600MG PREMIX IVPB 600 MG/50 ML BAG IVPB ONE ×2 (07:17→09:41)
[2021-09-04 07:38] LABS: HEMATOCRIT 33.6 % (35.4-49); HEMOGLOBIN 11.2 GM/dL (11.7-16.9); MCH 29.3 pg (25.7-33.7); MCHC 33.4 g/dl (32.0-35.9); MEAN CELL VOLUME 87.7 fl (80-96); PLATELET COUNT 252 10^3/uL (134-434); RBC 3.83 M/mm3 (4.00-5.60); RDW 15.8 % (11.9-15.9); WHITE BLOOD COUNT 8.6 K/mm3 (4.0-10.0)
[2021-09-04] MEDS: INSULIN SLIDING SCALE (NOVOLOG) 1 VIAL SQ SCH ×3 (07:45→22:04)
[2021-09-04 08:07] LABS: ALBUMIN 2.5 g/dl (3.4-5.0); CALCIUM 8.3 mg/dL (8.5-10.1)
[2021-09-04 08:08] LABS: MAGNESIUM 1.6 mg/dL (1.8-2.4)
[2021-09-04 08:10] LABS: BILIRUBIN,TOTAL 0.6 mg/dL (0.2-1); PHOSPHOROUS 4.2 mg/dL (2.5-4.9)
[2021-09-04 08:11] LABS: TOT PROT 6.2 g/dl (6.4-8.2)
[2021-09-04 08:25] LABS: HEPATITIS B SURFACE AG MATERN NON-REACTIVE (NONREACTIVE)
[2021-09-04 08:54] LABS: HIV INTERPRETATION NEGATIVE (NEGATIVE)
[2021-09-04] MEDS ORDERED: PIPERACILLIN/TAZOB 3.375 GM 3.375 GM in DEXTROSE 5%-WATER - 50 ML IVPB SCH ×2 (09:00→18:00)
[2021-09-04] MEDS ORDERED: DOXYCYCLINE INJECTION 100 MG in DEXTROSE 5%-WATER 100 ML IVPB SCH (10:00)
[2021-09-04] MEDS ORDERED: VANCOMYCIN PREMIX 1.5 GM 1,500 MG/300 ML BAG IVPB SCH (10:00)
[2021-09-04] MEDS ORDERED: VANCOMYCIN/WATER 1500 MG/300 ML PREMIXED BAG IVPB SCH (10:00)
[2021-09-04] MEDS ORDERED: INSULIN (LEVEMIR) 100 UNITS/ML UNITS SQ SCH (10:00)
[2021-09-04] MEDS ORDERED: DOXYCYCLINE HYCLATE 100 MG VIAL ONE (10:12)
[2021-09-04] MEDS ORDERED: MIDAZOLAM HCL 2 MG/2 ML SINGLE DOSE VIAL ONE (15:40)
[2021-09-04] MEDS ORDERED: PROPOFOL 20 ML ONE ×2 (15:40)
[2021-09-04] MEDS ORDERED: oxyCODONE HCL 5 MG TABLET PO PRN (17:30)
[2021-09-04] MEDS ORDERED: morphine SULFATE 4 MG/ML VIAL IVPUSH PRN (17:30)
[2021-09-04] MEDS ORDERED: ONDANSETRON 4 MG/2 ML VIAL IVPUSH PRN (17:44)
[2021-09-04] MEDS ORDERED: PIPERACILLIN/TAZOBACTAM 3.375 GM VIAL IVPB ONE (18:09)
[2021-09-04] MEDS: LACTATED RINGERS SOLUTION 1,000 ML IV SCH (18:30)
[2021-09-04] MEDS: PIPERACILLIN/TAZOB 3.375 GM 3.375 GM in DEXTROSE 5%-WATER - 50 ML IVPB SCH (19:36)
[2021-09-04] MEDS: INSULIN (LEVEMIR) 100 UNITS/ML UNITS SQ SCH (22:04)
[2021-09-05] MEDS ORDERED: PIPERACILLIN/TAZOBACTAM 3.375 GM VIAL IVPB ONE ×3 (01:01→16:10)
[2021-09-05] MEDS: PIPERACILLIN/TAZOB 3.375 GM 3.375 GM in DEXTROSE 5%-WATER - 50 ML IVPB SCH ×3 (01:36→17:33)
[2021-09-05] MEDS: INSULIN SLIDING SCALE (NOVOLOG) 1 VIAL SQ SCH ×4 (06:30→21:55)
[2021-09-05] MEDS: INSULIN (LEVEMIR) 100 UNITS/ML UNITS SQ SCH ×2 (06:31→21:54)
[2021-09-05 08:22] LABS: BASO % 0.4 % (0-2.0); EOS % 1.6 % (0-4.5); HEMATOCRIT 34.5 % (35.4-49); HEMOGLOBIN 11.1 GM/dL (11.7-16.9); MCH 28.2 pg (25.7-33.7); MCHC 32.2 g/dl (32.0-35.9); MEAN CELL VOLUME 87.6 fl (80-96); MEAN PLT VOLUME 8.8 fl (7.5-11.1); MONO % 7.4 % (3.8-10.2); NEUT % 70.6 % (42.8-82.8); PLATELET COUNT 316 10^3/uL (134-434); RBC 3.94 M/mm3 (4.00-5.60); RDW 15.3 % (11.9-15.9); WHITE BLOOD COUNT 9.6 K/mm3 (4.0-10.0)
[2021-09-05 08:49] LABS: CALCIUM 8.5 mg/dL (8.5-10.1)
[2021-09-05 08:50] LABS: BLOOD UREA NITROGEN 12.1 mg/dL (7-18)
[2021-09-05 08:53] LABS: CREATININE 0.9 mg/dL (0.55-1.3)
[2021-09-05] MEDS ORDERED: DEXTROSE 5%-WATER - 50 ML IVPB ONE ×2 (08:58→16:10)
[2021-09-05] MEDS: oxyCODONE HCL 5 MG TABLET PO PRN (11:47)
[2021-09-05] MEDS: COLLAGENASE CLOSTRIDIUM HIST. 30 GRAMS TUBE TP SCH (17:36)
[2021-09-05] MEDS: LACTATED RINGERS SOLUTION 1,000 ML IV SCH (19:38)
[2021-09-06] MEDS ORDERED: DEXTROSE 5%-WATER - 50 ML IVPB ONE ×3 (02:00→16:47)
[2021-09-06] MEDS ORDERED: PIPERACILLIN/TAZOBACTAM 3.375 GM VIAL IVPB ONE ×3 (02:00→16:47)
[2021-09-06] MEDS: PIPERACILLIN/TAZOB 3.375 GM 3.375 GM in DEXTROSE 5%-WATER - 50 ML IVPB SCH ×3 (02:20→17:04)
[2021-09-06] MEDS: INSULIN SLIDING SCALE (NOVOLOG) 1 VIAL SQ SCH ×4 (06:12→22:00)
[2021-09-06] MEDS: INSULIN (LEVEMIR) 100 UNITS/ML UNITS SQ SCH ×2 (06:13→21:59)
[2021-09-06 09:57] LABS: BASO % 0.4 % (0-2.0); EOS % 4.3 % (0-4.5); HEMATOCRIT 33.4 % (35.4-49); HEMOGLOBIN 11.2 GM/dL (11.7-16.9); LYMPH % 32.6 % (8-40); MCH 29.3 pg (25.7-33.7); MCHC 33.5 g/dl (32.0-35.9); MEAN CELL VOLUME 87.4 fl (80-96); MEAN PLT VOLUME 7.9 fl (7.5-11.1); MONO % 7.5 % (3.8-10.2); NEUT % 55.2 % (42.8-82.8); PLATELET COUNT 337 10^3/uL (134-434); RBC 3.82 M/mm3 (4.00-5.60); RDW 15.6 % (11.9-15.9); WHITE BLOOD COUNT 7.4 K/mm3 (4.0-10.0)
[2021-09-06] MEDS: COLLAGENASE CLOSTRIDIUM HIST. 30 GRAMS TUBE TP SCH (10:00)
[2021-09-06] MEDS: oxyCODONE HCL 5 MG TABLET PO PRN ×2 (10:14→14:28)
[2021-09-06 10:25] LABS: ALBUMIN 2.4 g/dl (3.4-5.0); CALCIUM 8.5 mg/dL (8.5-10.1)
[2021-09-06 10:26] LABS: BLOOD UREA NITROGEN 13.3 mg/dL (7-18)
[2021-09-06 10:28] LABS: CREATININE 0.9 mg/dL (0.55-1.3)
[2021-09-06 10:29] LABS: TOT PROT 6.3 g/dl (6.4-8.2)
[2021-09-06 10:30] LABS: BILIRUBIN,TOTAL 0.2 mg/dL (0.2-1)
[2021-09-06] MEDS: LACTATED RINGERS SOLUTION 1,000 ML IV SCH (22:00)
[2021-09-07] MEDS ORDERED: PIPERACILLIN/TAZOBACTAM 3.375 GM VIAL IVPB ONE ×3 (02:31→17:05)
[2021-09-07] MEDS ORDERED: DEXTROSE 5%-WATER - 50 ML IVPB ONE ×3 (02:31→17:05)
[2021-09-07] MEDS: PIPERACILLIN/TAZOB 3.375 GM 3.375 GM in DEXTROSE 5%-WATER - 50 ML IVPB SCH ×3 (02:34→18:05)
[2021-09-07] MEDS: INSULIN (LEVEMIR) 100 UNITS/ML UNITS SQ SCH ×2 (05:59→21:44)
[2021-09-07] MEDS: INSULIN SLIDING SCALE (NOVOLOG) 1 VIAL SQ SCH ×4 (06:00→21:45)
[2021-09-07] MEDS: COLLAGENASE CLOSTRIDIUM HIST. 30 GRAMS TUBE TP SCH (09:52)
[2021-09-07 12:09] LABS: BASO % 0.4 % (0-2.0); EOS % 2.4 % (0-4.5); HEMATOCRIT 35.1 % (35.4-49); HEMOGLOBIN 11.3 GM/dL (11.7-16.9); LYMPH % 22.9 % (8-40); MCH 28.4 pg (25.7-33.7); MCHC 32.3 g/dl (32.0-35.9); MEAN CELL VOLUME 88.2 fl (80-96); MONO % 6.2 % (3.8-10.2); NEUT % 68.1 % (42.8-82.8); PLATELET COUNT 388 10^3/uL (134-434); RBC 3.98 M/mm3 (4.00-5.60); RDW 15.9 % (11.9-15.9); WHITE BLOOD COUNT 9.6 K/mm3 (4.0-10.0)
[2021-09-07 12:29] LABS: BLOOD UREA NITROGEN 16.2 mg/dL (7-18)
[2021-09-07 12:31] LABS: CREATININE 0.9 mg/dL (0.55-1.3)
[2021-09-07] MEDS: LACTATED RINGERS SOLUTION 1,000 ML IV SCH (18:06)
[2021-09-07] MEDS ORDERED: ACETAMINOPHEN 1000 MG/100 ML BAG IVPB ONE (20:35)
[2021-09-08] MEDS ORDERED: DEXTROSE 5%-WATER - 50 ML IVPB ONE ×3 (02:11→17:06)
[2021-09-08] MEDS ORDERED: PIPERACILLIN/TAZOBACTAM 3.375 GM VIAL IVPB ONE ×3 (02:11→17:05)
[2021-09-08] MEDS: PIPERACILLIN/TAZOB 3.375 GM 3.375 GM in DEXTROSE 5%-WATER - 50 ML IVPB SCH ×3 (02:16→17:09)
[2021-09-08] MEDS: INSULIN SLIDING SCALE (NOVOLOG) 1 VIAL SQ SCH ×4 (07:12→23:16)
[2021-09-08] MEDS: INSULIN (LEVEMIR) 100 UNITS/ML UNITS SQ SCH ×2 (07:13→23:16)
[2021-09-08] MEDS: COLLAGENASE CLOSTRIDIUM HIST. 30 GRAMS TUBE TP SCH (09:15)
[2021-09-08 10:23] LABS: BASO % 0.5 % (0-2.0); EOS % 2.6 % (0-4.5); HEMATOCRIT 36.6 % (35.4-49); HEMOGLOBIN 11.7 GM/dL (11.7-16.9); LYMPH % 27.2 % (8-40); MCH 28.5 pg (25.7-33.7); MCHC 32.1 g/dl (32.0-35.9); MEAN CELL VOLUME 88.8 fl (80-96); MEAN PLT VOLUME 7.7 fl (7.5-11.1); MONO % 6.3 % (3.8-10.2); NEUT % 63.4 % (42.8-82.8); PLATELET COUNT 423 10^3/uL (134-434); RBC 4.12 M/mm3 (4.00-5.60); RDW 15.9 % (11.9-15.9); WHITE BLOOD COUNT 8.7 K/mm3 (4.0-10.0)
[2021-09-08 11:10] LABS: CALCIUM 9.3 mg/dL (8.5-10.1)
[2021-09-08 11:12] LABS: BLOOD UREA NITROGEN 15.2 mg/dL (7-18)
[2021-09-08 11:14] LABS: CREATININE 0.9 mg/dL (0.55-1.3)
[2021-09-08] MEDS: LACTATED RINGERS SOLUTION 1,000 ML IV SCH (15:50)
[2021-09-09] MEDS ORDERED: DEXTROSE 5%-WATER - 50 ML IVPB ONE ×3 (02:52→16:47)
[2021-09-09] MEDS ORDERED: PIPERACILLIN/TAZOBACTAM 3.375 GM VIAL IVPB ONE ×3 (02:52→16:47)
[2021-09-09] MEDS: PIPERACILLIN/TAZOB 3.375 GM 3.375 GM in DEXTROSE 5%-WATER - 50 ML IVPB SCH ×3 (02:53→17:10)
[2021-09-09] MEDS: LACTATED RINGERS SOLUTION 1,000 ML IV SCH ×2 (02:54→17:11)
[2021-09-09] MEDS: INSULIN SLIDING SCALE (NOVOLOG) 1 VIAL SQ SCH ×4 (07:00→21:29)
[2021-09-09] MEDS: INSULIN (LEVEMIR) 100 UNITS/ML UNITS SQ SCH ×2 (07:00→21:30)
[2021-09-09] MEDS: COLLAGENASE CLOSTRIDIUM HIST. 30 GRAMS TUBE TP SCH (09:39)
[2021-09-09 11:39] LABS: BASO % 0.4 % (0-2.0); EOS % 2.3 % (0-4.5); HEMATOCRIT 35.2 % (35.4-49); HEMOGLOBIN 11.5 GM/dL (11.7-16.9); LYMPH % 27.2 % (8-40); MCH 28.6 pg (25.7-33.7); MCHC 32.6 g/dl (32.0-35.9); MEAN CELL VOLUME 87.8 fl (80-96); MEAN PLT VOLUME 7.5 fl (7.5-11.1); MONO % 6.8 % (3.8-10.2); NEUT % 63.3 % (42.8-82.8); PLATELET COUNT 481 10^3/uL (134-434); RBC 4.01 M/mm3 (4.00-5.60); RDW 15.7 % (11.9-15.9); WHITE BLOOD COUNT 8.9 K/mm3 (4.0-10.0)
[2021-09-09 12:08] LABS: CALCIUM 9.4 mg/dL (8.5-10.1)
[2021-09-09 12:09] LABS: ALBUMIN 2.7 g/dl (3.4-5.0)
[2021-09-09 12:12] LABS: CREATININE 0.8 mg/dL (0.55-1.3)
[2021-09-09 12:13] LABS: BILIRUBIN,TOTAL 0.2 mg/dL (0.2-1)
[2021-09-09 12:14] LABS: TOT PROT 6.6 g/dl (6.4-8.2)
[2021-09-10] MEDS ORDERED: DEXTROSE 5%-WATER - 50 ML IVPB ONE ×3 (00:55→17:28)
[2021-09-10] MEDS ORDERED: PIPERACILLIN/TAZOBACTAM 3.375 GM VIAL IVPB ONE ×3 (00:55→17:28)
[2021-09-10] MEDS: LACTATED RINGERS SOLUTION 1,000 ML IV SCH ×2 (01:13→17:46)
[2021-09-10] MEDS: PIPERACILLIN/TAZOB 3.375 GM 3.375 GM in DEXTROSE 5%-WATER - 50 ML IVPB SCH ×3 (01:13→17:45)
[2021-09-10] MEDS: INSULIN (LEVEMIR) 100 UNITS/ML UNITS SQ SCH ×2 (06:19→22:30)
[2021-09-10] MEDS: INSULIN SLIDING SCALE (NOVOLOG) 1 VIAL SQ SCH ×4 (06:19→22:31)
[2021-09-10] MEDS: COLLAGENASE CLOSTRIDIUM HIST. 30 GRAMS TUBE TP SCH (10:29)
[2021-09-10 11:49] LABS: BASO % 1.2 % (0-2.0); EOS % 2.3 % (0-4.5); HEMATOCRIT 35.4 % (35.4-49); HEMOGLOBIN 11.7 GM/dL (11.7-16.9); LYMPH % 24.2 % (8-40); MCH 28.9 pg (25.7-33.7); MCHC 32.9 g/dl (32.0-35.9); MEAN CELL VOLUME 87.7 fl (80-96); MEAN PLT VOLUME 6.6 fl (7.5-11.1); MONO % 6.7 % (3.8-10.2); NEUT % 65.6 % (42.8-82.8); PLATELET COUNT 458 10^3/uL (134-434); RBC 4.04 M/mm3 (4.00-5.60); RDW 16.1 % (11.9-15.9)
[2021-09-11] MEDS ORDERED: PIPERACILLIN/TAZOBACTAM 3.375 GM VIAL IVPB ONE ×3 (02:18→17:49)
[2021-09-11] MEDS ORDERED: DEXTROSE 5%-WATER - 50 ML IVPB ONE ×3 (02:18→17:49)
[2021-09-11] MEDS: PIPERACILLIN/TAZOB 3.375 GM 3.375 GM in DEXTROSE 5%-WATER - 50 ML IVPB SCH ×3 (02:28→18:01)
[2021-09-11] MEDS: INSULIN (LEVEMIR) 100 UNITS/ML UNITS SQ SCH ×2 (06:49→21:16)
[2021-09-11] MEDS: INSULIN SLIDING SCALE (NOVOLOG) 1 VIAL SQ SCH ×4 (06:50→21:17)
[2021-09-11] MEDS: COLLAGENASE CLOSTRIDIUM HIST. 30 GRAMS TUBE TP SCH (09:47)
[2021-09-11 09:59] LABS: INR 0.97 (0.83-1.09); PROTHROMBIN TIME (PATIENT) 11.2 SEC (9.7-13.0)
[2021-09-11 10:18] LABS: CALCIUM 8.9 mg/dL (8.5-10.1)
[2021-09-11 10:19] LABS: BLOOD UREA NITROGEN 15.3 mg/dL (7-18)
[2021-09-11 11:13] LABS: BASO % 0.3 % (0-2.0); EOS % 2.5 % (0-4.5); HEMATOCRIT 36.3 % (35.4-49); HEMOGLOBIN 11.9 GM/dL (11.7-16.9); LYMPH % 34.4 % (8-40); MCHC 32.8 g/dl (32.0-35.9); MEAN CELL VOLUME 88.4 fl (80-96); MEAN PLT VOLUME 7.3 fl (7.5-11.1); MONO % 5.9 % (3.8-10.2); NEUT % 56.9 % (42.8-82.8); PLATELET COUNT 456 10^3/uL (134-434); RBC 4.11 M/mm3 (4.00-5.60); RDW 16.1 % (11.9-15.9); WHITE BLOOD COUNT 6.9 K/mm3 (4.0-10.0)
[2021-09-11] MEDS ORDERED: INSULIN (NOVOLOG) ASPART 100 UNITS/ML 10ML VIAL ONE ×2 (11:28→21:04)
[2021-09-11] MEDS: LACTATED RINGERS SOLUTION 1,000 ML IV SCH (18:01)
[2021-09-12] MEDS ORDERED: PIPERACILLIN/TAZOBACTAM 3.375 GM VIAL IVPB ONE ×3 (01:29→18:22)
[2021-09-12] MEDS ORDERED: DEXTROSE 5%-WATER - 50 ML IVPB ONE ×3 (01:29→18:22)
[2021-09-12] MEDS: PIPERACILLIN/TAZOB 3.375 GM 3.375 GM in DEXTROSE 5%-WATER - 50 ML IVPB SCH ×3 (01:31→18:25)
[2021-09-12] MEDS: LACTATED RINGERS SOLUTION 1,000 ML IV SCH ×2 (01:32→15:23)
[2021-09-12] MEDS: INSULIN (LEVEMIR) 100 UNITS/ML UNITS SQ SCH ×2 (06:46→21:48)
[2021-09-12] MEDS: INSULIN SLIDING SCALE (NOVOLOG) 1 VIAL SQ SCH ×4 (06:48→21:48)
[2021-09-12 09:54] LABS: BASO % 0.5 % (0-2.0); EOS % 2.7 % (0-4.5); HEMATOCRIT 36.1 % (35.4-49); HEMOGLOBIN 11.7 GM/dL (11.7-16.9); LYMPH % 34.4 % (8-40); MCH 28.4 pg (25.7-33.7); MCHC 32.4 g/dl (32.0-35.9); MEAN CELL VOLUME 87.9 fl (80-96); MEAN PLT VOLUME 7.6 fl (7.5-11.1); MONO % 6.1 % (3.8-10.2); NEUT % 56.3 % (42.8-82.8); PLATELET COUNT 471 10^3/uL (134-434); RBC 4.11 M/mm3 (4.00-5.60)
[2021-09-12 10:13] LABS: BLOOD UREA NITROGEN 14.6 mg/dL (7-18); CALCIUM 8.8 mg/dL (8.5-10.1)
[2021-09-12] MEDS: COLLAGENASE CLOSTRIDIUM HIST. 30 GRAMS TUBE TP SCH (10:14)
[2021-09-12 10:17] LABS: CREATININE 0.7 mg/dL (0.55-1.3)
[2021-09-12] MEDS ORDERED: ACETAMINOPHEN 325 MG TABLET (FP) PO PRN (15:11)
[2021-09-12] MEDS ORDERED: INSULIN (NOVOLOG) ASPART 100 UNITS/ML 10ML VIAL ONE (21:13)
[2021-09-13] MEDS: PIPERACILLIN/TAZOB 3.375 GM 3.375 GM in DEXTROSE 5%-WATER - 50 ML IVPB SCH ×3 (02:09→17:09)
[2021-09-13] MEDS: INSULIN (LEVEMIR) 100 UNITS/ML UNITS SQ SCH ×2 (06:39→21:11)
[2021-09-13] MEDS: INSULIN SLIDING SCALE (NOVOLOG) 1 VIAL SQ SCH ×4 (06:40→21:11)
[2021-09-13 09:26] LABS: BASO % 0.6 % (0-2.0); EOS % 2.1 % (0-4.5); HEMOGLOBIN 11.4 GM/dL (11.7-16.9); MCH 28.5 pg (25.7-33.7); MCHC 32.6 g/dl (32.0-35.9); MEAN CELL VOLUME 87.6 fl (80-96); MONO % 5.8 % (3.8-10.2); NEUT % 62.5 % (42.8-82.8); PLATELET COUNT 450 10^3/uL (134-434); RBC 3.99 M/mm3 (4.00-5.60); RDW 15.9 % (11.9-15.9); WHITE BLOOD COUNT 8.8 K/mm3 (4.0-10.0)
[2021-09-13 09:42] LABS: CALCIUM 9.1 mg/dL (8.5-10.1)
[2021-09-13 09:43] LABS: BLOOD UREA NITROGEN 14.2 mg/dL (7-18)
[2021-09-13] MEDS: COLLAGENASE CLOSTRIDIUM HIST. 30 GRAMS TUBE TP SCH (10:39)
[2021-09-13] MEDS ORDERED: BUPIVACAINE HCL/PF 0.5% (5MG/ML) 10 ML VIAL ONE ×2 (10:56)
[2021-09-13] MEDS ORDERED: LIDOCAINE HCL 1%, 10 MG/ML (20ML VIAL) ONE (10:56)
[2021-09-13] MEDS ORDERED: LIDOCAINE HCL/PF 2% SDV 5ML VIAL ONE ×2 (11:06→11:46)
[2021-09-13] MEDS ORDERED: PROPOFOL 20 ML ONE ×3 (11:07→11:43)
[2021-09-13] MEDS ORDERED: SUCCINYLCHOLINE CHLORIDE 200 MG/10 ML SYRINGE ONE (11:07)
[2021-09-13] MEDS ORDERED: MIDAZOLAM HCL 2 MG/2 ML SINGLE DOSE VIAL ONE (11:08)
[2021-09-13] MEDS ORDERED: PIPERACILLIN/TAZOBACTAM 3.375 GM VIAL IVPB ONE ×3 (11:13→17:00)
[2021-09-13] MEDS ORDERED: BUPIVACAINE HCL/PF 0.5% (5MG/ML) 10 ML VIAL IJ ONE ×2 (11:44→12:53)
[2021-09-13] MEDS ORDERED: LIDOCAINE HCL 1%, 10 MG/ML (20ML VIAL) INF ONE (11:44)
[2021-09-13] MEDS ORDERED: GENTAMICIN SO4 80 MG/2 ML VIAL ONE (12:03)
[2021-09-13] MEDS ORDERED: ONDANSETRON 4 MG/2 ML VIAL IVPUSH PRN ×2 (12:17→13:19)
[2021-09-13] MEDS ORDERED: GENTAMICIN SO4 80 MG/2 ML VIAL IVPB ONE (12:30)
[2021-09-13] MEDS ORDERED: ACETAMINOPHEN 325 MG TABLET (FP) PO PRN (13:19)
[2021-09-13] MEDS: LACTATED RINGERS SOLUTION 1,000 ML IV SCH (13:20)
[2021-09-13 14:32] LABS: BASO % 0.5 % (0-2.0); EOS % 2.3 % (0-4.5); HEMATOCRIT 34.5 % (35.4-49); LYMPH % 37.3 % (8-40); MCH 28.2 pg (25.7-33.7); MCHC 31.9 g/dl (32.0-35.9); MEAN CELL VOLUME 88.7 fl (80-96); MEAN PLT VOLUME 7.4 fl (7.5-11.1); MONO % 5.4 % (3.8-10.2); NEUT % 54.5 % (42.8-82.8); PLATELET COUNT 447 10^3/uL (134-434); RBC 3.89 M/mm3 (4.00-5.60); RDW 16.1 % (11.9-15.9); WHITE BLOOD COUNT 7.4 K/mm3 (4.0-10.0)
[2021-09-13] MEDS ORDERED: DEXTROSE 5%-WATER - 50 ML IVPB ONE (17:00)
[2021-09-13] MEDS ORDERED: INSULIN (NOVOLOG) ASPART 100 UNITS/ML 10ML VIAL ONE (17:00)
[2021-09-13] MEDS ORDERED: morphine SULFATE 4 MG/ML VIAL IVPUSH PRN (18:33)
[2021-09-13] MEDS ORDERED: INSULIN (LEVEMIR) 100 UNITS/ML UNITS SQ ONE (20:26)
[2021-09-14] MEDS ORDERED: DEXTROSE 5%-WATER - 50 ML IVPB ONE ×3 (01:32→16:50)
[2021-09-14] MEDS ORDERED: PIPERACILLIN/TAZOBACTAM 3.375 GM VIAL IVPB ONE ×3 (01:32→16:50)
[2021-09-14] MEDS: PIPERACILLIN/TAZOB 3.375 GM 3.375 GM in DEXTROSE 5%-WATER - 50 ML IVPB SCH ×3 (01:37→17:02)
[2021-09-14] MEDS: LACTATED RINGERS SOLUTION 1,000 ML IV SCH ×2 (01:39→14:50)
[2021-09-14] MEDS: INSULIN (LEVEMIR) 100 UNITS/ML UNITS SQ SCH ×2 (06:08→21:59)
[2021-09-14] MEDS: INSULIN SLIDING SCALE (NOVOLOG) 1 VIAL SQ SCH ×4 (06:15→22:02)
[2021-09-14 10:05] LABS: BASO % 0.4 % (0-2.0); EOS % 1.6 % (0-4.5); HEMATOCRIT 34.5 % (35.4-49); HEMOGLOBIN 11.2 GM/dL (11.7-16.9); LYMPH % 21.3 % (8-40); MCH 28.7 pg (25.7-33.7); MCHC 32.5 g/dl (32.0-35.9); MEAN CELL VOLUME 88.3 fl (80-96); MEAN PLT VOLUME 7.6 fl (7.5-11.1); MONO % 6.1 % (3.8-10.2); NEUT % 70.6 % (42.8-82.8); PLATELET COUNT 438 10^3/uL (134-434); RBC 3.91 M/mm3 (4.00-5.60); RDW 16.3 % (11.9-15.9); WHITE BLOOD COUNT 10.2 K/mm3 (4.0-10.0)
[2021-09-14 10:44] LABS: CALCIUM 8.6 mg/dL (8.5-10.1)
[2021-09-14 10:45] LABS: BLOOD UREA NITROGEN 17.6 mg/dL (7-18)
[2021-09-14] MEDS ORDERED: INSULIN (NOVOLOG) ASPART 100 UNITS/ML 10ML VIAL ONE ×2 (16:54→22:01)
[2021-09-14] MEDS ORDERED: SODIUM CHLORIDE 100 ML IVPB ONE (22:01)
[2021-09-14] MEDS: CEFTRIAXONE 2 GM in SODIUM CHLORIDE 100 ML IVPB SCH (22:02)
[2021-09-15] MEDS: LACTATED RINGERS SOLUTION 1,000 ML IV SCH ×2 (01:40→13:43)
[2021-09-15] MEDS: INSULIN (LEVEMIR) 100 UNITS/ML UNITS SQ SCH ×2 (06:48→21:19)
[2021-09-15] MEDS: INSULIN SLIDING SCALE (NOVOLOG) 1 VIAL SQ SCH ×4 (06:49→21:20)
[2021-09-15] MEDS ORDERED: INSULIN (NOVOLOG) ASPART 100 UNITS/ML 10ML VIAL ONE ×2 (06:58→21:08)
[2021-09-15 09:26] LABS: BASO % 0.3 % (0-2.0); EOS % 1.3 % (0-4.5); HEMATOCRIT 34.9 % (35.4-49); HEMOGLOBIN 11.7 GM/dL (11.7-16.9); LYMPH % 18.8 % (8-40); MCH 29.5 pg (25.7-33.7); MCHC 33.6 g/dl (32.0-35.9); MEAN CELL VOLUME 87.7 fl (80-96); MEAN PLT VOLUME 7.4 fl (7.5-11.1); MONO % 7.6 % (3.8-10.2); PLATELET COUNT 369 10^3/uL (134-434); RBC 3.98 M/mm3 (4.00-5.60); RDW 16.2 % (11.9-15.9); WHITE BLOOD COUNT 10.4 K/mm3 (4.0-10.0)
[2021-09-15 09:40] LABS: CALCIUM 9.3 mg/dL (8.5-10.1)
[2021-09-15 09:41] LABS: BLOOD UREA NITROGEN 12.5 mg/dL (7-18)
[2021-09-15 09:44] LABS: CREATININE 0.9 mg/dL (0.55-1.3)
[2021-09-15] MEDS: CEFTRIAXONE 2 GM in SODIUM CHLORIDE 100 ML IVPB SCH (09:56)
[2021-09-16] MEDS: INSULIN SLIDING SCALE (NOVOLOG) 1 VIAL SQ SCH ×4 (06:41→21:24)
[2021-09-16] MEDS: INSULIN (LEVEMIR) 100 UNITS/ML UNITS SQ SCH ×2 (06:41→21:17)
[2021-09-16] MEDS ORDERED: SODIUM CHLORIDE 100 ML IVPB ONE (09:05)
[2021-09-16] MEDS: CEFTRIAXONE 2 GM in SODIUM CHLORIDE 100 ML IVPB SCH (09:07)
[2021-09-16 13:28] LABS: HEMATOCRIT 34.4 % (35.4-49); HEMOGLOBIN 11.6 GM/dL (11.7-16.9); MCH 29.3 pg (25.7-33.7); MCHC 33.7 g/dl (32.0-35.9); MEAN PLT VOLUME 7.1 fl (7.5-11.1); PLATELET COUNT 372 10^3/uL (134-434); RBC 3.95 M/mm3 (4.00-5.60); RDW 16.4 % (11.9-15.9); WHITE BLOOD COUNT 8.4 K/mm3 (4.0-10.0)
[2021-09-16 14:22] LABS: ERYTHROCYTE SEDIMENTATION RATE 95 mm/hr (0-20)
[2021-09-16] MEDS: LACTATED RINGERS SOLUTION 1,000 ML IV SCH ×2 (17:08→21:19)
[2021-09-17] MEDS: INSULIN SLIDING SCALE (NOVOLOG) 1 VIAL SQ SCH ×4 (06:02→21:08)
[2021-09-17] MEDS: INSULIN (LEVEMIR) 100 UNITS/ML UNITS SQ SCH ×2 (06:02→21:08)
[2021-09-17] MEDS ORDERED: SODIUM CHLORIDE 100 ML IVPB ONE (09:05)
[2021-09-17] MEDS: CEFTRIAXONE 2 GM in SODIUM CHLORIDE 100 ML IVPB SCH (09:08)
[2021-09-17 10:05] LABS: BASO % 0.5 % (0-2.0); EOS % 2.1 % (0-4.5); HEMATOCRIT 35.8 % (35.4-49); HEMOGLOBIN 11.4 GM/dL (11.7-16.9); LYMPH % 25.4 % (8-40); MCHC 31.9 g/dl (32.0-35.9); MEAN PLT VOLUME 8.2 fl (7.5-11.1); MONO % 7.3 % (3.8-10.2); NEUT % 64.7 % (42.8-82.8); PLATELET COUNT 373 10^3/uL (134-434); RBC 4.06 M/mm3 (4.00-5.60); RDW 16.2 % (11.9-15.9); WHITE BLOOD COUNT 7.5 K/mm3 (4.0-10.0)
[2021-09-17 10:24] LABS: CALCIUM 9.7 mg/dL (8.5-10.1)
[2021-09-17 10:25] LABS: ALBUMIN 2.8 g/dl (3.4-5.0); BLOOD UREA NITROGEN 15.9 mg/dL (7-18)
[2021-09-17 10:28] LABS: CREATININE 0.9 mg/dL (0.55-1.3)
[2021-09-17 10:30] LABS: BILIRUBIN,TOTAL 0.3 mg/dL (0.2-1)
[2021-09-17] MEDS ORDERED: INSULIN (NOVOLOG) ASPART 100 UNITS/ML 10ML VIAL ONE ×2 (11:05→16:30)
[2021-09-17] MEDS: LACTATED RINGERS SOLUTION 1,000 ML IV SCH (17:04)
[2021-09-18] MEDS ORDERED: INSULIN (NOVOLOG) ASPART 100 UNITS/ML 10ML VIAL ONE (05:32)
[2021-09-18] MEDS: INSULIN SLIDING SCALE (NOVOLOG) 1 VIAL SQ SCH ×4 (06:44→21:08)
[2021-09-18] MEDS: INSULIN (LEVEMIR) 100 UNITS/ML UNITS SQ SCH ×2 (06:44→21:08)
[2021-09-18] MEDS ORDERED: DEXTROSE 5%-WATER 100 ML IVPB ONE (09:02)
[2021-09-18] MEDS: CEFTRIAXONE 2 GM in DEXTROSE 5%-WATER 100 ML IVPB SCH (09:06)
[2021-09-18 10:03] LABS: BASO % 0.7 % (0-2.0); EOS % 2.1 % (0-4.5); HEMATOCRIT 35.7 % (35.4-49); HEMOGLOBIN 11.7 GM/dL (11.7-16.9); LYMPH % 25.7 % (8-40); MCH 28.7 pg (25.7-33.7); MCHC 32.8 g/dl (32.0-35.9); MEAN CELL VOLUME 87.5 fl (80-96); MEAN PLT VOLUME 8.2 fl (7.5-11.1); MONO % 5.9 % (3.8-10.2); NEUT % 65.6 % (42.8-82.8); PLATELET COUNT 357 10^3/uL (134-434); RBC 4.09 M/mm3 (4.00-5.60); RDW 15.9 % (11.9-15.9); WHITE BLOOD COUNT 6.6 K/mm3 (4.0-10.0)
[2021-09-18 10:24] LABS: ALBUMIN 2.8 g/dl (3.4-5.0); BLOOD UREA NITROGEN 15.5 mg/dL (7-18); CALCIUM 9.3 mg/dL (8.5-10.1)
[2021-09-18 10:26] LABS: CREATININE 0.9 mg/dL (0.55-1.3)
[2021-09-18 10:27] LABS: BILIRUBIN,TOTAL 0.4 mg/dL (0.2-1)
[2021-09-18] MEDS: LACTATED RINGERS SOLUTION 1,000 ML IV SCH (16:26)
[2021-09-19] MEDS ORDERED: INSULIN (NOVOLOG) ASPART 100 UNITS/ML 10ML VIAL ONE (05:28)
[2021-09-19] MEDS: INSULIN SLIDING SCALE (NOVOLOG) 1 VIAL SQ SCH ×4 (06:22→21:25)
[2021-09-19] MEDS: INSULIN (LEVEMIR) 100 UNITS/ML UNITS SQ SCH ×2 (06:23→21:26)
[2021-09-19 08:10] LABS: SARS-CoV-2 NAA Not Detected (Not Detected)
[2021-09-19 08:59] LABS: BASO % 0.8 % (0-2.0); HEMATOCRIT 34.7 % (35.4-49); HEMOGLOBIN 11.6 GM/dL (11.7-16.9); LYMPH % 33.2 % (8-40); MCH 29.2 pg (25.7-33.7); MCHC 33.4 g/dl (32.0-35.9); MEAN CELL VOLUME 87.5 fl (80-96); MONO % 8.1 % (3.8-10.2); NEUT % 54.9 % (42.8-82.8); PLATELET COUNT 355 10^3/uL (134-434); RBC 3.97 M/mm3 (4.00-5.60); RDW 16.2 % (11.9-15.9); WHITE BLOOD COUNT 4.9 K/mm3 (4.0-10.0)
[2021-09-19 09:12] LABS: CALCIUM 9.9 mg/dL (8.5-10.1)
[2021-09-19 09:13] LABS: BLOOD UREA NITROGEN 17.6 mg/dL (7-18)
[2021-09-19 09:16] LABS: CREATININE 0.9 mg/dL (0.55-1.3)
[2021-09-19] MEDS ORDERED: DEXTROSE 5%-WATER 100 ML IVPB ONE (10:17)
[2021-09-19] MEDS: CEFTRIAXONE 2 GM in DEXTROSE 5%-WATER 100 ML IVPB SCH (10:27)
[2021-09-19] MEDS ORDERED: NICOTINE POLACRILEX 2 MG GUM BUC PRN (10:49)
[2021-09-19 14:23] VITALS: PULSE 94
[2021-09-20 06:18] VITALS: BP 126/78; TEMP 98
[2021-09-20] MEDS: INSULIN (LEVEMIR) 100 UNITS/ML UNITS SQ SCH (07:48)
[2021-09-20] MEDS: INSULIN SLIDING SCALE (NOVOLOG) 1 VIAL SQ SCH ×2 (07:49→12:04)
[2021-09-20] MEDS ORDERED: DEXTROSE 5%-WATER 100 ML IVPB ONE (08:42)
[2021-09-20] MEDS: CEFTRIAXONE 2 GM in DEXTROSE 5%-WATER 100 ML IVPB SCH (09:18)
== END 2021-09-20 15:07 | DRG 710 ==
LOC: JER 16:04 → JERBED 23:59 → J6S 09-04 15:22
PROVIDERS: ADMIT Hospitalist
PROC: 0J9L0ZX Drainage of Right Upper Leg Subcutaneous Tissue and Fascia, Open Approach, Diagnostic (ICD-10-PCS; 2021-09-04)
PROC: 0Y6R0Z0 Detachment at Right 2nd Toe, Complete, Open Approach (ICD-10-PCS; 2021-09-13)
PROC: 0Y6P0Z0 Detachment at Right 1st Toe, Complete, Open Approach (ICD-10-PCS; principal; 2021-09-13 11:00)
PROC: 05HB33Z Insertion of Infusion Device into Right Basilic Vein, Percutaneous Approach (ICD-10-PCS; 2021-09-20)
PROC: B51MZZA Fluoroscopy of Right Upper Extremity Veins, Guidance (ICD-10-PCS; 2021-09-20)
DX: A40.1 Sepsis due to streptococcus, group B (principal); E11.42 Type 2 diabetes mellitus with diabetic polyneuropathy; E11.69 Type 2 diabetes mellitus with other specified complication; E11.65 Type 2 diabetes mellitus with hyperglycemia; F20.9 Schizophrenia, unspecified; L02.219 Cutaneous abscess of trunk, unspecified; L02.415 Cutaneous abscess of right lower limb; L97.919 Non-pressure chronic ulcer of unspecified part of right lower leg with unspecified severity; F10.10 Alcohol abuse, uncomplicated; F31.9 Bipolar disorder, unspecified; M86.9 Osteomyelitis, unspecified; N39.0 Urinary tract infection, site not specified; K21.9 Gastro-esophageal reflux disease without esophagitis
CPT/HCPCS: 36415; 36569; 72193-TC; 73630-TC-RT-FY; 73718-TC-RT; 75820-TC-FY; 77001-TC-FY; 80048; 80053; 81003; 82550; 82803; 82962; 83036; 83605; 83735; 84100; 84484; 85025; 85027; 85610; 85651; 85730; 86705; 86707; 87040; 87070; 87076; 87077; 87081; 87086; 87186; 87205; 87340; 87350; 87389; 87491; 87517; 87522; 87591; 88305-TC; 88311-TC; 93005; 93010; 93926-TC; 94760; 97116-GP; 97162-GP; 99285-25; C1751; C1769; C9803; Q9967; U0003; U0005

== ENCOUNTER 2022-04-16 15:54 | Inpatient (IN) | payer OTHER ==
[2022-04-16 20:41] VITALS: BMI 23.7
[2022-04-17] MEDS ORDERED: MAGNESIUM HYDROX 2400MG/30ML ORAL SUSPENSION 30 ML CUP PO PRN (00:16)
[2022-04-17] MEDS ORDERED: IBUPROFEN 400 MG TABLET (FP) PO PRN (00:16)
[2022-04-17] MEDS ORDERED: BENZOCAINE/MENTHOL (CHLORASEPTIC ) LOZENGE MM PRN (00:16)
[2022-04-17] MEDS ORDERED: P-EPHED 60MG/TRIPROLIDI 2.5MG TABLET PO PRN (00:16)
[2022-04-17] MEDS ORDERED: ONDANSETRON *ODT* 4 MG TABLET SL PRN (00:16)
[2022-04-17] MEDS ORDERED: DICYCLOMINE HCL 10 MG CAPSULE PO PRN (00:16)
[2022-04-17] MEDS ORDERED: IBUPROFEN 600 MG TABLET (FP) PO PRN (00:16)
[2022-04-17] MEDS ORDERED: MELATONIN 5 MG TABLETS PO PRN (00:16)
[2022-04-17] MEDS ORDERED: MAG HYDROX/AL HYDROX/SIMETH 30 ML UNIT-DOSE CUP PO PRN (00:16)
[2022-04-17] MEDS ORDERED: ACETAMINOPHEN 325 MG TABLET (FP) PO PRN ×2 (00:16)
[2022-04-17] MEDS ORDERED: MAGNESIUM CITRATE 300 ML BOTTLE PO PRN (00:16)
[2022-04-17] MEDS ORDERED: guaiFENesin 200 MG/10 ML 10 ML UNIT-DOSE CUPS PO PRN (00:16)
[2022-04-17] MEDS ORDERED: INSULIN (NOVOLOG) ASPART 100 UNITS/ML 10ML VIAL ONE (07:06)
[2022-04-17] MEDS: BISMUTH SUBSALICYLATE 524 MG/30 ML PO PRN ×2 (07:44→14:04)
[2022-04-17] MEDS: INSULIN SLIDING SCALE (NOVOLOG) 1 VIAL SQ SCH ×4 (07:46→22:50)
[2022-04-17] MEDS: PRENATAL VITAMINS W/ FOLIC ACID TABLET (FP) PO SCH (11:25)
[2022-04-17] MEDS: LOPERAMIDE HCL 2 MG CAPSULE PO PRN ×2 (11:25→22:44)
[2022-04-17] MEDS: LISINOPRIL 10 MG TABLET PO SCH (14:04)
[2022-04-17] MEDS ORDERED: diazePAM 5 MG TABLET PO ONE (14:15)
[2022-04-17] MEDS ORDERED: diazePAM 5 MG TABLET PO PRN (14:15)
[2022-04-17 15:04] LABS: ALBUMIN 3.2 g/dl (3.4-5.0); BLOOD UREA NITROGEN 13.6 mg/dL (7-18); CALCIUM 9.5 mg/dL (8.5-10.1)
[2022-04-17 15:05] LABS: HEMATOCRIT 37.3 % (35.4-49); HEMOGLOBIN 12.2 GM/dL (11.7-16.9); MCH 29.3 pg (25.7-33.7); MCHC 32.7 g/dl (32.0-35.9); MEAN CELL VOLUME 89.9 fl (80-96); MEAN PLT VOLUME 10.4 fl (7.5-11.1); PLATELET COUNT 305 10^3/uL (134-434); RBC 4.15 M/mm3 (4.00-5.60); RDW 14.4 % (11.9-15.9); WHITE BLOOD COUNT 7.2 K/mm3 (4.0-10.0)
[2022-04-17 15:09] LABS: BILIRUBIN,TOTAL 0.2 mg/dL (0.2-1); TOT PROT 7.1 g/dl (6.4-8.2)
[2022-04-17] MEDS: metFORMIN HCL 500 MG TABLET (FP) PO SCH (17:49)
[2022-04-17] MEDS: diazePAM 5 MG TABLET PO SCH ×2 (17:50→22:44)
[2022-04-17] MEDS: THIAMINE HCL 100 MG TABLET (FP) PO SCH (22:44)
[2022-04-18] MEDS: diazePAM 5 MG TABLET PO SCH ×4 (05:45→23:06)
[2022-04-18] MEDS: LOPERAMIDE HCL 2 MG CAPSULE PO PRN (05:58)
[2022-04-18] MEDS: metFORMIN HCL 500 MG TABLET (FP) PO SCH ×2 (06:32→17:25)
[2022-04-18] MEDS: INSULIN SLIDING SCALE (NOVOLOG) 1 VIAL SQ SCH ×4 (08:24→23:08)
[2022-04-18] MEDS: PRENATAL VITAMINS W/ FOLIC ACID TABLET (FP) PO SCH (10:35)
[2022-04-18] MEDS: BISMUTH SUBSALICYLATE 524 MG/30 ML PO PRN (10:38)
[2022-04-18] MEDS: LISINOPRIL 10 MG TABLET PO SCH (10:41)
[2022-04-18] MEDS: THIAMINE HCL 100 MG TABLET (FP) PO SCH (23:05)
[2022-04-18] MEDS: hydrOXYzine PAMOATE 25 MG CAPSULE (FP) PO PRN (23:05)
[2022-04-18] MEDS: INSULIN (LEVEMIR) 100 UNITS/ML UNITS SQ SCH (23:09)
[2022-04-19] MEDS: diazePAM 5 MG TABLET PO SCH ×3 (06:01→22:11)
[2022-04-19] MEDS: metFORMIN HCL 500 MG TABLET (FP) PO SCH ×2 (06:01→19:15)
[2022-04-19] MEDS: INSULIN SLIDING SCALE (NOVOLOG) 1 VIAL SQ SCH ×4 (06:02→22:46)
[2022-04-19] MEDS ORDERED: INSULIN (NOVOLOG) ASPART 100 UNITS/ML 10ML VIAL ONE (06:03)
[2022-04-19] MEDS: PRENATAL VITAMINS W/ FOLIC ACID TABLET (FP) PO SCH (10:59)
[2022-04-19] MEDS: METHOCARBAMOL 500 MG TABLET PO PRN (10:59)
[2022-04-19] MEDS: LISINOPRIL 10 MG TABLET PO SCH (11:00)
[2022-04-19] MEDS: THIAMINE HCL 100 MG TABLET (FP) PO SCH (22:11)
[2022-04-19] MEDS: INSULIN (LEVEMIR) 100 UNITS/ML UNITS SQ SCH (22:14)
[2022-04-20] MEDS: diazePAM 5 MG TABLET PO SCH ×2 (06:23→18:20)
[2022-04-20] MEDS: cloNIDine HCL 0.1 MG TABLET PO PRN ×2 (06:24→23:11)
[2022-04-20] MEDS ORDERED: INSULIN (NOVOLOG) ASPART 100 UNITS/ML 10ML VIAL ONE ×2 (06:26→21:28)
[2022-04-20] MEDS: metFORMIN HCL 500 MG TABLET (FP) PO SCH ×2 (06:55→18:20)
[2022-04-20] MEDS: INSULIN SLIDING SCALE (NOVOLOG) 1 VIAL SQ SCH ×4 (06:56→22:59)
[2022-04-20] MEDS: LISINOPRIL 10 MG TABLET PO SCH (10:49)
[2022-04-20] MEDS: PRENATAL VITAMINS W/ FOLIC ACID TABLET (FP) PO SCH (10:49)
[2022-04-20] MEDS: INSULIN (LEVEMIR) 100 UNITS/ML UNITS SQ SCH (22:57)
[2022-04-20] MEDS: THIAMINE HCL 100 MG TABLET (FP) PO SCH (22:57)
[2022-04-20] MEDS: hydrOXYzine PAMOATE 25 MG CAPSULE (FP) PO PRN (22:58)
[2022-04-20] MEDS: METHOCARBAMOL 500 MG TABLET PO PRN (23:01)
[2022-04-21] MEDS ORDERED: diazePAM 5 MG TABLET PO ONE (06:00)
[2022-04-21] MEDS: metFORMIN HCL 500 MG TABLET (FP) PO SCH (06:31)
[2022-04-21] MEDS: INSULIN SLIDING SCALE (NOVOLOG) 1 VIAL SQ SCH ×2 (08:25→12:14)
[2022-04-21] MEDS ORDERED: INSULIN (NOVOLOG) ASPART 100 UNITS/ML 10ML VIAL ONE ×2 (08:30→09:00)
[2022-04-21] MEDS: PRENATAL VITAMINS W/ FOLIC ACID TABLET (FP) PO SCH (10:46)
[2022-04-21] MEDS: LISINOPRIL 10 MG TABLET PO SCH (10:46)
[2022-04-21 13:06] VITALS: BP 154/73; PULSE 90; RESP 17; TEMP 97.1
== END 2022-04-21 04:28 | disposition home or self-care (01) | DRG 775 ==
LOC: YASAS 15:54 → UNDOADMIN 21:44 → Y6N 21:44 → UNDOADMIN 04-17 06:22
PROVIDERS: ADMIT Surgery; ATTEND Surgery
PROC: HZ2ZZZZ Detoxification Services for Substance Abuse Treatment (ICD-10-PCS; principal; 2022-04-17)
DX: F10.230 Alcohol dependence with withdrawal, uncomplicated (principal); F17.210 Nicotine dependence, cigarettes, uncomplicated; F31.9 Bipolar disorder, unspecified; F20.9 Schizophrenia, unspecified; G62.9 Polyneuropathy, unspecified; I10 Essential (primary) hypertension; E10.65 Type 1 diabetes mellitus with hyperglycemia; Z79.4 Long term (current) use of insulin; M17.0 Bilateral primary osteoarthritis of knee; Z86.19 Personal history of other infectious and parasitic diseases; Z99.89 Dependence on other enabling machines and devices; W01.0XXA Fall on same level from slipping, tripping and stumbling without subsequent striking against object, initial encounter; Y92.230 Patient room in hospital as the place of occurrence of the external cause
CPT/HCPCS: 36415; 80053; 82962; 83036; 85027; 86593; 86780; C9803-CS; U0003; U0005

== ENCOUNTER 2022-04-17 00:25 | Emergency (ER) | payer OTHER ==
[2022-04-17 00:30] VITALS: BP 123/71; PULSE 95; RESP 17; TEMP 98.9; BMI 21.1
== END 2022-04-17 03:15 | disposition short-term general hospital (02) ==
LOC: JER 00:25
DX: M79.89 Other specified soft tissue disorders (principal)
CPT/HCPCS: 93970-TC; 99285-25

== ENCOUNTER 2022-12-25 18:40 | Inpatient (IN) | payer OTHER ==
[2022-12-25 19:40] VITALS: BMI 24.4
[2022-12-25] MEDS ORDERED: BENZOCAINE/MENTHOL (CHLORASEPTIC ) LOZENGE MM PRN (20:37)
[2022-12-25] MEDS ORDERED: AMMONIUM LACTATE 12% LOTION 225 GM BOTTLE TP PRN (20:37)
[2022-12-25] MEDS ORDERED: POLYETHYLENE GLYCOL (HEALTHYLAX) 3350 17 GM PACKET PO PRN (20:37)
[2022-12-25] MEDS ORDERED: COLLOIDAL OATMEAL 1 BAR EACH TP PRN (20:37)
[2022-12-25] MEDS ORDERED: NALOXONE HCL (KLOXXADO) 8 MG SPRAY NS PRN (20:37)
[2022-12-25] MEDS ORDERED: IBUPROFEN 600 MG TABLET (FP) PO PRN (20:37)
[2022-12-25] MEDS ORDERED: NALOXONE HCL 0.4 MG/ML VIAL IM PRN (20:37)
[2022-12-25] MEDS ORDERED: BENZONATATE 200 MG CAPSULE PO PRN (20:37)
[2022-12-25] MEDS ORDERED: NICOTINE POLACRILEX 2 MG GUM BUC PRN (20:37)
[2022-12-25] MEDS ORDERED: guaiFENesin 600 MG TABLET.ER (FP) PO PRN (20:37)
[2022-12-25] MEDS ORDERED: MAGNESIUM HYDROX 2400MG/30ML ORAL SUSPENSION 30 ML CUP PO PRN (20:37)
[2022-12-25] MEDS ORDERED: INSULIN (NOVOLOG) ASPART 100 UNITS/ML 10ML VIAL ONE (23:17)
[2022-12-25] MEDS: INSULIN (NOVOLOG) ASPART 100 UNITS/ML 10ML VIAL SQ SCH (23:18)
[2022-12-25] MEDS: THIAMINE HCL 100 MG TABLET (FP) PO SCH ×2 (23:19→23:52)
[2022-12-25] MEDS: MELATONIN 5 MG TABLETS PO SCH ×2 (23:19→23:52)
[2022-12-25] MEDS: TUBERCULIN PPD 5 TU/0.1ML SYRINGE (IN PATIENT USE ONLY) ID ONE ×2 (23:20→23:52)
[2022-12-25] MEDS ORDERED: TUBERCULIN PPD 5 TU/0.1ML VIAL ID ONE (23:48)
[2022-12-26] MEDS: hydrOXYzine PAMOATE 25 MG CAPSULE (FP) PO PRN (00:11)
[2022-12-26 07:08] VITALS: RESP 18
[2022-12-26] MEDS: INSULIN (NOVOLOG) ASPART 100 UNITS/ML 10ML VIAL SQ SCH ×3 (07:15→17:21)
[2022-12-26] MEDS: NICOTINE 14 MG/24 HOURS TOPICAL PATCH TD SCH (10:02)
[2022-12-26] MEDS: PRENATAL VITAMINS W/ FOLIC ACID TABLET (FP) PO SCH (10:02)
[2022-12-26] MEDS ORDERED: INSULIN (NOVOLOG) ASPART 100 UNITS/ML 10ML VIAL ONE (11:50)
[2022-12-26 11:55] LABS: EPI CELLS 1 /uL (0-25.1); HYALINE CASTS 0 /uL (0-3.1); PH,URINE 5.5 (5.0-8.0); URINE APPEARANCE CLEAR; URINE BACTERIA >9,000 /uL (0-1359); URINE BILIRUBIN NEGATIVE (NEGATIVE); URINE COLOR YELLOW; URINE GLUCOSE (UA) 2+ (NEGATIVE); URINE KETONE NEGATIVE (NEGATIVE); URINE LEUK ESTERASE 2+ (NEGATIVE); URINE NITRITE POSITIVE (NEGATIVE); URINE PROTEIN NEGATIVE (NEGATIVE); URINE RBC 3 /uL (0-23.9); URINE UROBILINOGEN 0.2 mg/dL (0.2-1.0); URINE WBC 139 /uL (0-25.8)
[2022-12-26 11:57] LABS: POTASSIUM 3.7 mmol/L (3.5-5.1)
[2022-12-26 11:59] LABS: HEMATOCRIT 36.3 % (35.4-49); HEMOGLOBIN 12.3 GM/dL (11.7-16.9); MCH 30.7 pg (25.7-33.7); MCHC 33.9 g/dl (32.0-35.9); MEAN CELL VOLUME 90.6 fl (80-96); MEAN PLT VOLUME 9.2 fl (7.5-11.1); PLATELET COUNT 246 10^3/uL (134-434); RDW 14.1 % (11.9-15.9); WHITE BLOOD COUNT 7.7 K/mm3 (4.0-10.0)
[2022-12-26 12:00] LABS: ALBUMIN 3.2 g/dl (3.4-5.0); BLOOD UREA NITROGEN 12.8 mg/dL (7-18); CALCIUM 8.8 mg/dL (8.5-10.1)
[2022-12-26 12:03] LABS: CREATININE 0.9 mg/dL (0.55-1.3)
[2022-12-26 12:05] LABS: BILIRUBIN,TOTAL 0.4 mg/dL (0.2-1); TOT PROT 6.4 g/dl (6.4-8.2)
[2022-12-26 13:04] LABS: SYPHILIS W/ RPR CONF REACTIVE (NONREACTIVE)
[2022-12-26] MEDS: THIAMINE HCL 100 MG TABLET (FP) PO SCH (21:40)
[2022-12-26] MEDS: MELATONIN 5 MG TABLETS PO SCH (21:40)
[2022-12-27] MEDS: INSULIN (NOVOLOG) ASPART 100 UNITS/ML 10ML VIAL SQ SCH ×3 (07:31→17:49)
[2022-12-27] MEDS: PRENATAL VITAMINS W/ FOLIC ACID TABLET (FP) PO SCH (10:13)
[2022-12-27] MEDS: NICOTINE 14 MG/24 HOURS TOPICAL PATCH TD SCH (10:14)
[2022-12-27] MEDS: LISINOPRIL 10 MG TABLET PO SCH (13:35)
[2022-12-27] MEDS: metFORMIN HCL 500 MG TABLET (FP) PO SCH (17:49)
[2022-12-27] MEDS ORDERED: INSULIN (NOVOLOG) ASPART 100 UNITS/ML 10ML VIAL SQ ONE (21:12)
[2022-12-27] MEDS: SULFAMETHOXAZOLE/TRIMETHOPRIM 800MG/160MG D.S. TABLET PO SCH (21:56)
[2022-12-27] MEDS: MELATONIN 5 MG TABLETS PO SCH (21:56)
[2022-12-27] MEDS: THIAMINE HCL 100 MG TABLET (FP) PO SCH (21:56)
[2022-12-27] MEDS: QUEtiapine FUMARATE 100 MG TABLET (FP) PO SCH (21:56)
[2022-12-27] MEDS ORDERED: METFORMIN HCL 500 MG PO SCH (22:00)
[2022-12-27] MEDS: LOPERAMIDE HCL 2 MG CAPSULE PO PRN (22:38)
[2022-12-28] MEDS ORDERED: INSULIN (NOVOLOG) ASPART 100 UNITS/ML 10ML VIAL ONE ×3 (07:14→11:54)
[2022-12-28] MEDS: metFORMIN HCL 500 MG TABLET (FP) PO SCH ×2 (07:16→17:01)
[2022-12-28] MEDS: LOPERAMIDE HCL 2 MG CAPSULE PO PRN (07:16)
[2022-12-28] MEDS: INSULIN (NOVOLOG) ASPART 100 UNITS/ML 10ML VIAL SQ SCH ×3 (07:16→17:01)
[2022-12-28] MEDS: LISINOPRIL 10 MG TABLET PO SCH (09:50)
[2022-12-28] MEDS: SULFAMETHOXAZOLE/TRIMETHOPRIM 800MG/160MG D.S. TABLET PO SCH ×2 (09:50→21:14)
[2022-12-28] MEDS: PRENATAL VITAMINS W/ FOLIC ACID TABLET (FP) PO SCH (09:50)
[2022-12-28] MEDS: NICOTINE 14 MG/24 HOURS TOPICAL PATCH TD SCH (09:51)
[2022-12-28] MEDS: IBUPROFEN 400 MG TABLET (FP) PO PRN (12:01)
[2022-12-28] MEDS: MELATONIN 5 MG TABLETS PO SCH (21:14)
[2022-12-28] MEDS: THIAMINE HCL 100 MG TABLET (FP) PO SCH (21:14)
[2022-12-28] MEDS: QUEtiapine FUMARATE 100 MG TABLET (FP) PO SCH (21:14)
[2022-12-29] MEDS: metFORMIN HCL 500 MG TABLET (FP) PO SCH ×2 (06:43→16:54)
[2022-12-29] MEDS ORDERED: INSULIN (NOVOLOG) ASPART 100 UNITS/ML 10ML VIAL ONE ×2 (06:45→11:08)
[2022-12-29] MEDS: INSULIN (NOVOLOG) ASPART 100 UNITS/ML 10ML VIAL SQ SCH ×3 (06:46→17:09)
[2022-12-29] MEDS: LISINOPRIL 10 MG TABLET PO SCH (09:37)
[2022-12-29] MEDS: SULFAMETHOXAZOLE/TRIMETHOPRIM 800MG/160MG D.S. TABLET PO SCH ×2 (09:37→21:16)
[2022-12-29] MEDS: NICOTINE 14 MG/24 HOURS TOPICAL PATCH TD SCH (09:37)
[2022-12-29] MEDS: PRENATAL VITAMINS W/ FOLIC ACID TABLET (FP) PO SCH (09:37)
[2022-12-29] MEDS: IBUPROFEN 400 MG TABLET (FP) PO PRN (16:45)
[2022-12-29] MEDS: QUEtiapine FUMARATE 100 MG TABLET (FP) PO SCH (21:16)
[2022-12-29] MEDS: MELATONIN 5 MG TABLETS PO SCH (21:16)
[2022-12-29] MEDS: THIAMINE HCL 100 MG TABLET (FP) PO SCH (21:16)
[2022-12-29] MEDS: LOPERAMIDE HCL 2 MG CAPSULE PO PRN (21:17)
[2022-12-30] MEDS: INSULIN (NOVOLOG) ASPART 100 UNITS/ML 10ML VIAL SQ SCH ×3 (06:59→16:37)
[2022-12-30] MEDS: metFORMIN HCL 500 MG TABLET (FP) PO SCH ×2 (06:59→16:35)
[2022-12-30] MEDS ORDERED: INSULIN (NOVOLOG) ASPART 100 UNITS/ML 10ML VIAL ONE ×3 (06:59→16:35)
[2022-12-30] MEDS: hydrOXYzine PAMOATE 25 MG CAPSULE (FP) PO PRN (09:38)
[2022-12-30] MEDS: PRENATAL VITAMINS W/ FOLIC ACID TABLET (FP) PO SCH (09:38)
[2022-12-30] MEDS: LISINOPRIL 10 MG TABLET PO SCH (09:38)
[2022-12-30] MEDS: SULFAMETHOXAZOLE/TRIMETHOPRIM 800MG/160MG D.S. TABLET PO SCH ×2 (09:38→21:32)
[2022-12-30] MEDS: NICOTINE 14 MG/24 HOURS TOPICAL PATCH TD SCH (09:39)
[2022-12-30] MEDS: QUEtiapine FUMARATE 100 MG TABLET (FP) PO SCH (21:32)
[2022-12-30] MEDS: THIAMINE HCL 100 MG TABLET (FP) PO SCH (21:32)
[2022-12-30] MEDS: MELATONIN 5 MG TABLETS PO SCH (21:32)
[2022-12-31] MEDS ORDERED: INSULIN (NOVOLOG) ASPART 100 UNITS/ML 10ML VIAL ONE ×3 (07:04→16:25)
[2022-12-31] MEDS: INSULIN (NOVOLOG) ASPART 100 UNITS/ML 10ML VIAL SQ SCH ×3 (07:05→16:27)
[2022-12-31] MEDS: metFORMIN HCL 500 MG TABLET (FP) PO SCH ×2 (07:05→16:26)
[2022-12-31] MEDS: NICOTINE 14 MG/24 HOURS TOPICAL PATCH TD SCH (10:09)
[2022-12-31] MEDS: LISINOPRIL 10 MG TABLET PO SCH (10:09)
[2022-12-31] MEDS: SULFAMETHOXAZOLE/TRIMETHOPRIM 800MG/160MG D.S. TABLET PO SCH ×2 (10:09→21:38)
[2022-12-31] MEDS: PRENATAL VITAMINS W/ FOLIC ACID TABLET (FP) PO SCH (10:09)
[2022-12-31] MEDS: MELATONIN 5 MG TABLETS PO SCH (21:38)
[2022-12-31] MEDS: QUEtiapine FUMARATE 100 MG TABLET (FP) PO SCH (21:38)
[2022-12-31] MEDS: THIAMINE HCL 100 MG TABLET (FP) PO SCH (21:38)
[2023-01-01] MEDS: INSULIN (NOVOLOG) ASPART 100 UNITS/ML 10ML VIAL SQ SCH ×3 (07:07→17:00)
[2023-01-01] MEDS: metFORMIN HCL 500 MG TABLET (FP) PO SCH ×2 (07:07→17:00)
[2023-01-01] MEDS: PRENATAL VITAMINS W/ FOLIC ACID TABLET (FP) PO SCH (09:36)
[2023-01-01] MEDS: LISINOPRIL 10 MG TABLET PO SCH (09:36)
[2023-01-01] MEDS: SULFAMETHOXAZOLE/TRIMETHOPRIM 800MG/160MG D.S. TABLET PO SCH ×2 (09:36→21:05)
[2023-01-01] MEDS: NICOTINE 14 MG/24 HOURS TOPICAL PATCH TD SCH (09:36)
[2023-01-01] MEDS ORDERED: INSULIN (NOVOLOG) ASPART 100 UNITS/ML 10ML VIAL ONE (12:03)
[2023-01-01] MEDS: THIAMINE HCL 100 MG TABLET (FP) PO SCH (21:05)
[2023-01-01] MEDS: QUEtiapine FUMARATE 100 MG TABLET (FP) PO SCH (21:05)
[2023-01-01] MEDS: MELATONIN 5 MG TABLETS PO SCH (21:06)
[2023-01-01] MEDS: ACETAMINOPHEN 325 MG TABLET (FP) PO PRN (21:06)
[2023-01-02] MEDS: metFORMIN HCL 500 MG TABLET (FP) PO SCH ×2 (06:45→16:55)
[2023-01-02] MEDS ORDERED: INSULIN (NOVOLOG) ASPART 100 UNITS/ML 10ML VIAL ONE ×4 (06:49→16:21)
[2023-01-02] MEDS: INSULIN (NOVOLOG) ASPART 100 UNITS/ML 10ML VIAL SQ SCH ×3 (06:49→16:56)
[2023-01-02] MEDS: LISINOPRIL 10 MG TABLET PO SCH (09:31)
[2023-01-02] MEDS: NICOTINE 14 MG/24 HOURS TOPICAL PATCH TD SCH (09:31)
[2023-01-02] MEDS: PRENATAL VITAMINS W/ FOLIC ACID TABLET (FP) PO SCH (09:31)
[2023-01-02] MEDS: SULFAMETHOXAZOLE/TRIMETHOPRIM 800MG/160MG D.S. TABLET PO SCH ×2 (09:32→21:14)
[2023-01-02] MEDS: MELATONIN 5 MG TABLETS PO SCH (21:13)
[2023-01-02] MEDS: THIAMINE HCL 100 MG TABLET (FP) PO SCH (21:13)
[2023-01-02] MEDS: QUEtiapine FUMARATE 100 MG TABLET (FP) PO SCH (21:14)
[2023-01-03] MEDS: metFORMIN HCL 500 MG TABLET (FP) PO SCH ×2 (07:02→17:03)
[2023-01-03] MEDS ORDERED: INSULIN (NOVOLOG) ASPART 100 UNITS/ML 10ML VIAL ONE ×4 (07:03→16:42)
[2023-01-03] MEDS: INSULIN (NOVOLOG) ASPART 100 UNITS/ML 10ML VIAL SQ SCH ×3 (07:04→17:02)
[2023-01-03] MEDS: NICOTINE 14 MG/24 HOURS TOPICAL PATCH TD SCH (09:54)
[2023-01-03] MEDS: PRENATAL VITAMINS W/ FOLIC ACID TABLET (FP) PO SCH (09:54)
[2023-01-03] MEDS: SULFAMETHOXAZOLE/TRIMETHOPRIM 800MG/160MG D.S. TABLET PO SCH (09:55)
[2023-01-03] MEDS: IBUPROFEN 400 MG TABLET (FP) PO PRN (09:55)
[2023-01-03] MEDS: LISINOPRIL 10 MG TABLET PO SCH (09:55)
[2023-01-03 16:59] LABS: PH,URINE 5.5 (5.0-8.0); URINE APPEARANCE CLEAR; URINE BILIRUBIN NEGATIVE (NEGATIVE); URINE COLOR YELLOW; URINE GLUCOSE (UA) 1+ (NEGATIVE); URINE KETONE NEGATIVE (NEGATIVE); URINE LEUK ESTERASE NEGATIVE (NEGATIVE); URINE NITRITE NEGATIVE (NEGATIVE); URINE PROTEIN NEGATIVE (NEGATIVE); URINE UROBILINOGEN 0.2 mg/dL (0.2-1.0)
[2023-01-03] MEDS: THIAMINE HCL 100 MG TABLET (FP) PO SCH (21:16)
[2023-01-03] MEDS: LOPERAMIDE HCL 2 MG CAPSULE PO PRN (21:16)
[2023-01-03] MEDS: MELATONIN 5 MG TABLETS PO SCH (21:16)
[2023-01-03] MEDS: QUEtiapine FUMARATE 100 MG TABLET (FP) PO SCH (21:16)
[2023-01-04] MEDS: metFORMIN HCL 500 MG TABLET (FP) PO SCH ×2 (06:22→16:55)
[2023-01-04] MEDS: INSULIN (NOVOLOG) ASPART 100 UNITS/ML 10ML VIAL SQ SCH ×3 (06:23→16:56)
[2023-01-04] MEDS: IBUPROFEN 400 MG TABLET (FP) PO PRN (09:36)
[2023-01-04] MEDS: PRENATAL VITAMINS W/ FOLIC ACID TABLET (FP) PO SCH (09:36)
[2023-01-04] MEDS: LISINOPRIL 10 MG TABLET PO SCH (09:37)
[2023-01-04] MEDS: NICOTINE 14 MG/24 HOURS TOPICAL PATCH TD SCH (09:37)
[2023-01-04] MEDS ORDERED: INSULIN (NOVOLOG) ASPART 100 UNITS/ML 10ML VIAL ONE (12:13)
[2023-01-04] MEDS: MAG HYDROX/AL HYDROX/SIMETH 30 ML UNIT-DOSE CUP PO PRN (19:31)
[2023-01-04] MEDS: THIAMINE HCL 100 MG TABLET (FP) PO SCH (22:07)
[2023-01-04] MEDS: MELATONIN 5 MG TABLETS PO SCH (22:07)
[2023-01-04] MEDS: hydrOXYzine PAMOATE 25 MG CAPSULE (FP) PO PRN (22:07)
[2023-01-04] MEDS: QUEtiapine FUMARATE 100 MG TABLET (FP) PO SCH (22:07)
[2023-01-05] MEDS: metFORMIN HCL 500 MG TABLET (FP) PO SCH ×2 (07:00→16:44)
[2023-01-05] MEDS: INSULIN (NOVOLOG) ASPART 100 UNITS/ML 10ML VIAL SQ SCH ×3 (07:01→16:45)
[2023-01-05] MEDS: PRENATAL VITAMINS W/ FOLIC ACID TABLET (FP) PO SCH (09:30)
[2023-01-05] MEDS: LISINOPRIL 10 MG TABLET PO SCH (09:31)
[2023-01-05] MEDS: IBUPROFEN 400 MG TABLET (FP) PO PRN (09:31)
[2023-01-05] MEDS: NICOTINE 14 MG/24 HOURS TOPICAL PATCH TD SCH (09:38)
[2023-01-05] MEDS ORDERED: INSULIN (NOVOLOG) ASPART 100 UNITS/ML 10ML VIAL ONE ×2 (11:40→16:43)
[2023-01-05] MEDS: MELATONIN 5 MG TABLETS PO SCH (21:33)
[2023-01-05] MEDS: THIAMINE HCL 100 MG TABLET (FP) PO SCH (21:33)
[2023-01-05] MEDS: QUEtiapine FUMARATE 100 MG TABLET (FP) PO SCH (21:33)
[2023-01-05] MEDS: MAG HYDROX/AL HYDROX/SIMETH 30 ML UNIT-DOSE CUP PO PRN (21:35)
[2023-01-06] MEDS: metFORMIN HCL 500 MG TABLET (FP) PO SCH ×2 (06:43→16:57)
[2023-01-06] MEDS ORDERED: INSULIN (NOVOLOG) ASPART 100 UNITS/ML 10ML VIAL ONE ×4 (06:44→16:54)
[2023-01-06] MEDS: INSULIN (NOVOLOG) ASPART 100 UNITS/ML 10ML VIAL SQ SCH ×3 (06:44→16:58)
[2023-01-06] MEDS: IBUPROFEN 400 MG TABLET (FP) PO PRN (09:34)
[2023-01-06] MEDS: NICOTINE 14 MG/24 HOURS TOPICAL PATCH TD SCH (09:34)
[2023-01-06] MEDS: PRENATAL VITAMINS W/ FOLIC ACID TABLET (FP) PO SCH (09:34)
[2023-01-06] MEDS: LISINOPRIL 10 MG TABLET PO SCH (09:34)
[2023-01-06] MEDS: THIAMINE HCL 100 MG TABLET (FP) PO SCH (21:08)
[2023-01-06] MEDS: QUEtiapine FUMARATE 100 MG TABLET (FP) PO SCH (21:08)
[2023-01-06] MEDS: MELATONIN 5 MG TABLETS PO SCH (21:08)
[2023-01-06] MEDS: ACETAMINOPHEN 325 MG TABLET (FP) PO PRN (21:09)
[2023-01-07] MEDS: metFORMIN HCL 500 MG TABLET (FP) PO SCH ×2 (07:02→16:52)
[2023-01-07] MEDS ORDERED: INSULIN (NOVOLOG) ASPART 100 UNITS/ML 10ML VIAL ONE ×3 (07:04→16:18)
[2023-01-07] MEDS: INSULIN (NOVOLOG) ASPART 100 UNITS/ML 10ML VIAL SQ SCH ×3 (07:05→16:52)
[2023-01-07] MEDS: NICOTINE 14 MG/24 HOURS TOPICAL PATCH TD SCH (09:35)
[2023-01-07] MEDS: LISINOPRIL 10 MG TABLET PO SCH (09:36)
[2023-01-07] MEDS: PRENATAL VITAMINS W/ FOLIC ACID TABLET (FP) PO SCH (09:36)
[2023-01-07] MEDS: ACETAMINOPHEN 325 MG TABLET (FP) PO PRN (09:36)
[2023-01-07] MEDS: QUEtiapine FUMARATE 100 MG TABLET (FP) PO SCH (21:15)
[2023-01-07] MEDS: MELATONIN 5 MG TABLETS PO SCH (21:15)
[2023-01-07] MEDS: THIAMINE HCL 100 MG TABLET (FP) PO SCH (21:15)
[2023-01-07] MEDS: LOPERAMIDE HCL 2 MG CAPSULE PO PRN (21:59)
[2023-01-08] MEDS ORDERED: INSULIN (NOVOLOG) ASPART 100 UNITS/ML 10ML VIAL ONE ×4 (04:44→16:38)
[2023-01-08] MEDS: metFORMIN HCL 500 MG TABLET (FP) PO SCH ×2 (06:27→16:51)
[2023-01-08] MEDS: INSULIN (NOVOLOG) ASPART 100 UNITS/ML 10ML VIAL SQ SCH ×3 (07:15→16:51)
[2023-01-08] MEDS: ACETAMINOPHEN 325 MG TABLET (FP) PO PRN (09:25)
[2023-01-08] MEDS: PRENATAL VITAMINS W/ FOLIC ACID TABLET (FP) PO SCH (09:25)
[2023-01-08] MEDS: LISINOPRIL 10 MG TABLET PO SCH (09:26)
[2023-01-08] MEDS: NICOTINE 14 MG/24 HOURS TOPICAL PATCH TD SCH (09:26)
[2023-01-08] MEDS: THIAMINE HCL 100 MG TABLET (FP) PO SCH (21:32)
[2023-01-08] MEDS: MAG HYDROX/AL HYDROX/SIMETH 30 ML UNIT-DOSE CUP PO PRN (21:32)
[2023-01-08] MEDS: MELATONIN 5 MG TABLETS PO SCH (21:32)
[2023-01-08] MEDS: QUEtiapine FUMARATE 100 MG TABLET (FP) PO SCH (21:32)
[2023-01-09] MEDS: metFORMIN HCL 500 MG TABLET (FP) PO SCH ×2 (06:33→16:56)
[2023-01-09] MEDS ORDERED: INSULIN (NOVOLOG) ASPART 100 UNITS/ML 10ML VIAL ONE ×3 (07:02→16:38)
[2023-01-09] MEDS: INSULIN (NOVOLOG) ASPART 100 UNITS/ML 10ML VIAL SQ SCH ×3 (07:40→16:56)
[2023-01-09] MEDS: PRENATAL VITAMINS W/ FOLIC ACID TABLET (FP) PO SCH (09:27)
[2023-01-09] MEDS: NICOTINE 14 MG/24 HOURS TOPICAL PATCH TD SCH (09:27)
[2023-01-09] MEDS: LISINOPRIL 10 MG TABLET PO SCH (09:27)
[2023-01-09] MEDS: ACETAMINOPHEN 325 MG TABLET (FP) PO PRN ×2 (09:28→21:10)
[2023-01-09] MEDS: MELATONIN 5 MG TABLETS PO SCH (21:11)
[2023-01-09] MEDS: THIAMINE HCL 100 MG TABLET (FP) PO SCH (21:11)
[2023-01-09] MEDS: QUEtiapine FUMARATE 100 MG TABLET (FP) PO SCH (21:11)
[2023-01-09] MEDS ORDERED: INSULIN (NOVOLOG) ASPART 100 UNITS/ML 10ML VIAL SQ ONE (22:42)
[2023-01-10] MEDS: metFORMIN HCL 500 MG TABLET (FP) PO SCH ×2 (06:43→16:36)
[2023-01-10] MEDS ORDERED: INSULIN (NOVOLOG) ASPART 100 UNITS/ML 10ML VIAL ONE ×3 (06:45→16:26)
[2023-01-10] MEDS: INSULIN (NOVOLOG) ASPART 100 UNITS/ML 10ML VIAL SQ SCH ×4 (06:50→21:01)
[2023-01-10] MEDS: PRENATAL VITAMINS W/ FOLIC ACID TABLET (FP) PO SCH (09:26)
[2023-01-10] MEDS: ACETAMINOPHEN 325 MG TABLET (FP) PO PRN (09:26)
[2023-01-10] MEDS: NICOTINE 14 MG/24 HOURS TOPICAL PATCH TD SCH (09:27)
[2023-01-10] MEDS: LISINOPRIL 10 MG TABLET PO SCH (09:28)
[2023-01-10 11:09] LABS: HEMATOCRIT 36.9 % (35.4-49); HEMOGLOBIN 12.4 GM/dL (11.7-16.9); MCH 30.3 pg (25.7-33.7); MCHC 33.6 g/dl (32.0-35.9); MEAN CELL VOLUME 90.3 fl (80-96); PLATELET COUNT 242 10^3/uL (134-434); RBC 4.09 M/mm3 (4.00-5.60); RDW 14.3 % (11.9-15.9); WHITE BLOOD COUNT 6.6 K/mm3 (4.0-10.0)
[2023-01-10] MEDS: IBUPROFEN 400 MG TABLET (FP) PO PRN ×2 (16:38→21:03)
[2023-01-10] MEDS: MELATONIN 5 MG TABLETS PO SCH (21:02)
[2023-01-10] MEDS: QUEtiapine FUMARATE 100 MG TABLET (FP) PO SCH (21:02)
[2023-01-10] MEDS: THIAMINE HCL 100 MG TABLET (FP) PO SCH (21:02)
[2023-01-11] MEDS: metFORMIN HCL 500 MG TABLET (FP) PO SCH ×2 (06:10→17:19)
[2023-01-11] MEDS: INSULIN (NOVOLOG) ASPART 100 UNITS/ML 10ML VIAL SQ SCH ×4 (06:11→21:11)
[2023-01-11] MEDS: PRENATAL VITAMINS W/ FOLIC ACID TABLET (FP) PO SCH (09:37)
[2023-01-11] MEDS: IBUPROFEN 400 MG TABLET (FP) PO PRN (09:37)
[2023-01-11] MEDS: NICOTINE 14 MG/24 HOURS TOPICAL PATCH TD SCH (09:39)
[2023-01-11] MEDS: LISINOPRIL 10 MG TABLET PO SCH (09:39)
[2023-01-11] MEDS ORDERED: INSULIN (NOVOLOG) ASPART 100 UNITS/ML 10ML VIAL ONE (16:29)
[2023-01-11] MEDS: ACETAMINOPHEN 325 MG TABLET (FP) PO PRN (21:08)
[2023-01-11] MEDS: MELATONIN 5 MG TABLETS PO SCH (21:09)
[2023-01-11] MEDS: THIAMINE HCL 100 MG TABLET (FP) PO SCH (21:09)
[2023-01-11] MEDS: LOPERAMIDE HCL 2 MG CAPSULE PO PRN (21:09)
[2023-01-11] MEDS: QUEtiapine FUMARATE 100 MG TABLET (FP) PO SCH (21:09)
[2023-01-12] MEDS: metFORMIN HCL 500 MG TABLET (FP) PO SCH ×2 (06:30→16:32)
[2023-01-12] MEDS: INSULIN (NOVOLOG) ASPART 100 UNITS/ML 10ML VIAL SQ SCH ×4 (06:31→21:04)
[2023-01-12] MEDS: PRENATAL VITAMINS W/ FOLIC ACID TABLET (FP) PO SCH (09:25)
[2023-01-12] MEDS: NICOTINE 14 MG/24 HOURS TOPICAL PATCH TD SCH (09:26)
[2023-01-12] MEDS: LISINOPRIL 10 MG TABLET PO SCH (09:26)
[2023-01-12] MEDS: IBUPROFEN 400 MG TABLET (FP) PO PRN (12:01)
[2023-01-12] MEDS ORDERED: INSULIN (NOVOLOG) ASPART 100 UNITS/ML 10ML VIAL ONE (16:31)
[2023-01-12] MEDS: ACETAMINOPHEN 325 MG TABLET (FP) PO PRN (16:32)
[2023-01-12] MEDS: THIAMINE HCL 100 MG TABLET (FP) PO SCH (21:03)
[2023-01-12] MEDS: MELATONIN 5 MG TABLETS PO SCH (21:03)
[2023-01-12] MEDS: QUEtiapine FUMARATE 100 MG TABLET (FP) PO SCH (21:03)
[2023-01-13] MEDS: metFORMIN HCL 500 MG TABLET (FP) PO SCH ×2 (06:36→17:18)
[2023-01-13] MEDS: INSULIN (NOVOLOG) ASPART 100 UNITS/ML 10ML VIAL SQ SCH ×4 (07:43→21:07)
[2023-01-13] MEDS ORDERED: INSULIN (NOVOLOG) ASPART 100 UNITS/ML 10ML VIAL ONE ×3 (07:46→22:00)
[2023-01-13] MEDS: ACETAMINOPHEN 325 MG TABLET (FP) PO PRN ×2 (09:21→21:03)
[2023-01-13] MEDS: PRENATAL VITAMINS W/ FOLIC ACID TABLET (FP) PO SCH (09:21)
[2023-01-13] MEDS: NICOTINE 14 MG/24 HOURS TOPICAL PATCH TD SCH (09:21)
[2023-01-13] MEDS: LISINOPRIL 10 MG TABLET PO SCH (09:22)
[2023-01-13] MEDS: MELATONIN 5 MG TABLETS PO SCH (21:02)
[2023-01-13] MEDS: QUEtiapine FUMARATE 100 MG TABLET (FP) PO SCH (21:02)
[2023-01-13] MEDS: THIAMINE HCL 100 MG TABLET (FP) PO SCH (21:03)
[2023-01-14] MEDS: metFORMIN HCL 500 MG TABLET (FP) PO SCH ×2 (06:39→16:56)
[2023-01-14] MEDS ORDERED: INSULIN (NOVOLOG) ASPART 100 UNITS/ML 10ML VIAL ONE ×3 (07:13→16:27)
[2023-01-14] MEDS: INSULIN (NOVOLOG) ASPART 100 UNITS/ML 10ML VIAL SQ SCH ×4 (07:18→21:14)
[2023-01-14] MEDS: ACETAMINOPHEN 325 MG TABLET (FP) PO PRN ×2 (09:32→21:10)
[2023-01-14] MEDS: PRENATAL VITAMINS W/ FOLIC ACID TABLET (FP) PO SCH (09:32)
[2023-01-14] MEDS: NICOTINE 14 MG/24 HOURS TOPICAL PATCH TD SCH (09:33)
[2023-01-14] MEDS: LISINOPRIL 10 MG TABLET PO SCH (09:33)
[2023-01-14] MEDS: MELATONIN 5 MG TABLETS PO SCH (21:10)
[2023-01-14] MEDS: THIAMINE HCL 100 MG TABLET (FP) PO SCH (21:10)
[2023-01-14] MEDS: QUEtiapine FUMARATE 100 MG TABLET (FP) PO SCH (21:10)
[2023-01-15] MEDS: MAG HYDROX/AL HYDROX/SIMETH 30 ML UNIT-DOSE CUP PO PRN (01:01)
[2023-01-15] MEDS: ACETAMINOPHEN 325 MG TABLET (FP) PO PRN (07:10)
[2023-01-15] MEDS: metFORMIN HCL 500 MG TABLET (FP) PO SCH (07:11)
[2023-01-15] MEDS: INSULIN (NOVOLOG) ASPART 100 UNITS/ML 10ML VIAL SQ SCH (07:12)
[2023-01-15] MEDS: LOPERAMIDE HCL 2 MG CAPSULE PO PRN (07:12)
[2023-01-15 07:36] VITALS: TEMP 97.4
[2023-01-15] MEDS: PRENATAL VITAMINS W/ FOLIC ACID TABLET (FP) PO SCH (09:00)
[2023-01-15] MEDS: LISINOPRIL 10 MG TABLET PO SCH (09:01)
[2023-01-15] MEDS: NICOTINE 14 MG/24 HOURS TOPICAL PATCH TD SCH (09:01)
[2023-01-15 10:22] VITALS: BP 147/83; PULSE 91
== END 2023-01-15 09:50 | disposition home or self-care (01) | DRG 772 ==
LOC: YASAS 18:40 → Y5N 22:28
PROVIDERS: ADMIT Allergy & Immunology; ATTEND Psychiatry & Neurology Pain Medicine
PROC: HZ42ZZZ Group Counseling for Substance Abuse Treatment, Cognitive-Behavioral (ICD-10-PCS; principal; 2022-12-25)
DX: F10.20 Alcohol dependence, uncomplicated (principal); F14.20 Cocaine dependence, uncomplicated; F17.210 Nicotine dependence, cigarettes, uncomplicated; F19.282 Other psychoactive substance dependence with psychoactive substance-induced sleep disorder; F31.9 Bipolar disorder, unspecified; F25.9 Schizoaffective disorder, unspecified; I10 Essential (primary) hypertension; E11.42 Type 2 diabetes mellitus with diabetic polyneuropathy; Z79.84 Long term (current) use of oral hypoglycemic drugs; N39.0 Urinary tract infection, site not specified; R26.89 Other abnormalities of gait and mobility; Z91.81 History of falling; Z99.89 Dependence on other enabling machines and devices; Z86.19 Personal history of other infectious and parasitic diseases
CPT/HCPCS: 36415; 80053; 81003; 82550; 82553; 82962; 84484; 85027; 86593; 86780; 86803; 87635; 87811; 93005; 93010

== ENCOUNTER 2022-12-27 16:06 | Emergency (ER) | payer OTHER ==
[2022-12-27 16:22] VITALS: BP 142/88; PULSE 81; RESP 18; TEMP 97.9; BMI 25.0
[2022-12-27] MEDS ORDERED: LACTOBACILLUS ACIDOPHILUS 1 TABLET PO ONE (17:50)
[2022-12-27 18:29] LABS: BASO % 0.8 % (0-2.0); EOS % 4.8 % (0-4.5); HEMATOCRIT 35.2 % (35.4-49); HEMOGLOBIN 11.6 GM/dL (11.7-16.9); LYMPH % 38.6 % (8-40); MCHC 33.1 g/dl (32.0-35.9); MEAN CELL VOLUME 90.6 fl (80-96); MEAN PLT VOLUME 8.5 fl (7.5-11.1); MONO % 5.5 % (3.8-10.2); NEUT % 50.3 % (42.8-82.8); PLATELET COUNT 235 10^3/uL (134-434); RBC 3.88 M/mm3 (4.00-5.60); RDW 14.3 % (11.9-15.9); WHITE BLOOD COUNT 6.5 K/mm3 (4.0-10.0)
[2022-12-27 18:46] LABS: ALBUMIN 3.1 g/dl (3.4-5.0); CALCIUM 8.8 mg/dL (8.5-10.1); MAGNESIUM 1.6 mg/dL (1.8-2.4)
[2022-12-27 18:49] LABS: CREATININE 0.8 mg/dL (0.55-1.3)
[2022-12-27 18:51] LABS: BILIRUBIN,TOTAL 0.3 mg/dL (0.2-1); TOT PROT 6.2 g/dl (6.4-8.2)
== END 2022-12-27 19:45 | disposition home or self-care (01) ==
LOC: JER 16:06
DX: R94.31 Abnormal electrocardiogram [ECG] [EKG] (principal)
CPT/HCPCS: 36415; 80053; 83735; 84484; 85025; 93005; 93010; 99284-25